=== PATIENT | female | born 1945 | race Caucasian/White ===

== ENCOUNTER 2018-12-28 11:03 | Observation (INO) | payer MEDICARE, OTHER, SELFPAY ==
[2018-12-28] VITALS (11 sets, daily range): BP systolic 129–171; BP diastolic 69–91; PULSE 65–94; RESP 16–18; TEMP 36.6–36.7; O2SAT 92–98; BMI 23.8; BMI 23.3; BMI 23.4
--- NOTE | 2018-12-28 11:23 | EKG12_ITS ---
Test Reason : CP Blood Pressure : / mmHG Vent. Rate : 090 BPM Atrial Rate : 090 BPM P-R Int : 172 ms QRS Dur : 082 ms QT Int : 362 ms P-R-T Axes : 068 041 050 degrees QTc Int : 442 ms Normal sinus rhythm Possible Left atrial enlargement Borderline ECG Confirmed by MERRY CONTRERAS, MIRNA ([id number]), legal editor UMBERTO CRAIG ([id number] on 12/31/2018 9:59:37 AM Referred By: TL Confirmed By:MIRNA SOUSA MD
--- NOTE | 2018-12-28 11:24 | RAD_ITS ---
We are attempting to reach Betty Hebert to discuss findings. An addendum with communication details will be sent when the communication is complete. STUDY: X-RAY CHEST REASON FOR EXAM: Female, 73 years old. Chest pain TECHNIQUE: PA and lateral views of the chest. COMPARISON: None. FINDINGS: EKG leads project over the chest. The lungs are clear and expanded. There is no demonstrated pleural abnormality. Normal size heart. Normal mediastinum and alton. Normal visualized pulmonary arteries. There is atherosclerotic calcification of the aortic arch with tortuosity. Normal visualized thoracic spine. Normal visualized ribs, clavicles, and shoulders. There is no demonstrated abnormality of the visualized soft tissue structures of the upper abdomen. RAD/Chest PA and Lateral IMPRESSION: No acute cardiopulmonary process. Pending Final Proof Editing
--- NOTE | 2018-12-28 11:26 | ED.DCSUM_ITS ---
- ER Visit Summary Date of Service: 12/28/18 Chief Complaint: Chest pain History of Present Illness: The patient is a 73 F presents valuation intermittent chest symptoms are last 2 weeks. States would have left shoulder blade pain, left arm pain or sternal pain separately. Sometimes worse with exertion sometimes at rest. Symptoms lasting no more than 5 minutes. Last onset of symptoms was 5 minutes prior to arrival in the car states felt like indigestion. No nausea or vomiting. No dyspnea. No recent cough. No PE risk factors. History of previous history of hypertension hypercholesterolemia however has not been on medicines for years. She is on thyroid medicines. Brother had [place] at age 55 mother and father in their 60s and 70s. Stress test years ago, no heart cath. No tobacco history. Yesterday had 5 loose stools with no recent antibiotics. No abdominal pain. Tolerating oral fluids. Currently asymptomatic. Physical Examination: General: Alert and oriented ?3, no acute distress HEENT: Normocephalic, atraumatic. Moist mucosa membranes Neck: supple, nontender. Cardiovascular: Regular rate and rhythm, no murmurs Respiratory: Normal breath sounds, symmetric, no distress Abdomen: Soft, nontender, nondistended Extremities: Nontender, no edema, pulses intact ?4 Neuro: no focal neurological deficits. Test Results: EKG: Sinus rate of 90, no ST or T wave changes. Hemoglobin 16, creatinine 0.78 troponin negative. Chest x-ray negative. Emergency Department Course and Treatment: Patient present atypical chest symptoms, however does have intermittent chest symptoms arm pain, neck pain and scapular pain. Cardiac workup negative. Heart score to 4 WILMA score is a 1. Reevaluation she had transient pain went up her neck. With more frequent symptoms, do feel she would benefit inpatient management. Spoke with hospitalist Dr. Jarvis for Admission. Treatment Plan: [] Disposition: Admission Impression: Acute chest pain This note was generated with [employer] dictation software. It may contain incorrect words, spelling, and punctuation that were not noted in review of the chart prior to signing ED Disposition - Plan for ED Patient: Disposition: Acute Care Hospital [facility] Diagnosis: Chest pain Referrals: Abdullahi Koehler [Primary Care Provider] -
[2018-12-28 11:40] LABS: Absolute Lymphocyte Count 1.34 X10^3/ul (0.83-4.51); Absolute Neutrophil Count 5.3 X10^3/uL (2.0-7.7); Basophil# 0.03 X10^3/uL; Basophil% 0.4 % (0-1); Eosinophil# 0.18 X10^3/uL; Eosinophils% 2.5 % (0-5); Hemoglobin 16.2 g/dl (12.0-15.0); Lymphocyte # 1.34 X10^3/ul (4.0); Lymphocyte % 18.3 % (19-41); Mean Corp Hgb Conc 33.1 g/gl (32-36); Mean Corpuscular Hgb 30.4 pg (27.0-32.0); Mean Corpuscular Volume 91.9 fL (81-99); Mean Platelet Vol. 9.9 fl (6.2-12.0); Monocyte# 0.52 X10^3/uL; Monocyte% 7.1 % (0-10); Neutrophil # 5.25 X10^3/uL (2.7-7.7); Neutrophil % 71.4 % (47-70); Platelet Count 286 K/mm3 (150-450); RBC Distribution Width CV 13.3 % (11.6-14.6); RBC Distribution Width SD 44.5 fl (35.1-43.9); Red Blood Count 5.33 M/mm3 (4.2-5.4); White Blood Count 7.3 K/mm3 (4.4-11.0)
[2018-12-28 11:41] LABS: POSITIVE COUNT NO; POSITIVE DIFFERENTIAL NO; POSITIVE MORPHOLOGY NO
[2018-12-28 11:53] LABS: Anion Gap 8 (5-15); BUN 14 mg/dL (7-18); Calcium,Total 9.4 mg/dL (8.5-10.1); Chloride 106 mmol/L (98-107); Creatinine, Serum 0.78 mg/dL (0.55-1.02); EST Glomerular Filtration Rate 77 mL/min (>60); Est Glom Filt Rate - Afr Amer 93 mL/min (>60); Estimated Creatinine Clearance 43.27 ml/min; Glucose 134 mg/dL (74-106); Potassium 3.8 mmol/L (3.5-5.1); Sodium Level 137 mmol/L (136-145)
--- NOTE | 2018-12-28 13:03 | HP.PCM_ITS ---
Problem List (1) Hypothyroidism Status: Chronic (2) Hypertension Status: Chronic (3) Dyslipidemia Status: Chronic (4) Chest pain Status: Acute History of Present Illness Date of Admission: 12/28/18 Chief Complaint: Chest pain The patient is a 73 year old F with PMH as below who presents with 2 week history of intermittent chest pain. On occasion radiates to her shoulder or up her neck or down her arm. Sometimes worse with activity sometimes occurs at rest. Each episode lasts approximately 5 minutes and resolved on their own. She denies any syncope or shortness of breath at the moment. She does have occasional dizziness though she is denying any at the moment. She has had a stress test in the past which was negative and has not had this pain prior. In the ER initial troponin was negative and EKG was nonischemic. Denies any fevers, chills, or recent illness. Past Medical History Past Medical History (Chronic Problems): Chronic Problems Chronic back pain (Chronic) Hypothyroidism (Chronic) Hypertension (Chronic) Dyslipidemia (Chronic) Allergies codeine Allergy (Verified 12/28/18 11:06) Rash lanolin Allergy (Verified 12/28/18 11:06) Hives latex Allergy (Verified 12/28/18 11:06) Rash nickel [Nickel] Allergy (Verified 12/28/18 11:06) Swelling erythromycin base [Erythromycin Base] Adverse Reaction (Verified 12/28/18 11:06) Upset Stomach morphine Adverse Reaction (Verified 12/28/18 11:06) Vomiting Home Medications: Ambulatory Orders Medication Instructions Recorded Levothyroxine Sodium [Levoxyl] 75 mcg PO DAILY 12/19/13 Nabumetone [Relafen] 1,000 mg PO LUNCH 05/01/14 Cholecalciferol (Vitamin D3) 4,000 unit PO DAILY 12/28/18 [Vitamin D3] Fexofenadine HCl [Kenzie Allergy] 180 mg PO DAILY PRN 12/28/18 Gluc Riddle/Chondro Riddle A/Vit C/Mn 1 each PO DAILY 12/28/18 [Glucosamine Chondroitin Tab] Latanoprost/Pf [Latanoprost 0.005% 1 drop EACH EYE QHS 12/28/18 Eye Drop] [place]-3 Fatty Acids/Fish Oil 1,280 mg PO DAILY 12/28/18 [[place] 3 Fish Oil Softgel] Tizanidine HCl [Zanaflex] 2 mg PO DAILY PRN 12/28/18 Tumeric 750 mg PO LUNCH 12/28/18 Surgical History: appendectomy, total hip arthroplasty Smoking Status: Never smoker Alcohol: None Drugs: None - *Family History Maternal History Items: Heart Disease Paternal History Items: Heart Disease Review of Systems Constitutional: Denies: Chills, Fever, Weight Change HEENT: Denies: Head Aches, Sinus Congestion, Sinus Drainage Cardiovascular: Reports: Chest Pain. Denies: Palpitations Respiratory: Denies: Cough, Shortness of breath at rest, Sputum production Gastrointestinal: Denies: Abdominal Pain, Nausea, Vomiting Genitourinary: Denies: Dysuria Musculoskeletal: Denies: Joint Pain, Joint Tenderness Skin: Denies: Rash, Wounds Neurological: Denies: Numbness, Tingling, Focal weakness Psychiatric: Denies: Anxiety, Depression, Homicidal Ideations, Suicidal Ideations Hematologic/ Lymphatic: Denies: Easy Bruising, Easy Bleeding VTE Information - Inpt Only VTE Present on Admission: No Patient Problems: Active and Suspected Problems Chest pain (Acute) - Physical Exam General: Alert, Oriented x3, Cooperative, No apparent distress HEENT: Atraumatic, PERRLA, EOMI, Normocephalic Oral: Moist Mucosa Neck: Supple, No JVD, Trachea Midline Lungs: Clear to auscultation, Normal air movement, No rhonchi, No wheeze, No rales Cardiovascular: Regular rate, Regular Rhythm, Normal S1, Normal S2, No murmurs Abdomen: Soft, Non Tender, Non-Distended, No Hepato-splenomegaly Extremities: No edema, Capillary Refill Less than 3 Seconds Skin: No rashes, No breakdown Neurological: Neuro grossly intact, Sensory exam intact to light touch and pain Psych/Mental Status: Normal Affect, Appropriate Vital Signs Temp Pulse Resp BP Pulse Ox 97.8 F 79 18 132/74 H 92 12/28/18 11:04 12/28/18 12:34 12/28/18 12:34 12/28/18 12:34 12/28/18 12:34 Oxygen Flow Rate (L/min) 2 Oxygen Delivery Method Nasal Cannula Weight: 138 lb 14.259 oz Body Mass Index (BMI) 23.8 Laboratory Tests Past 24 Hrs 12/28/18 12/28/18 11:00 11:00 WBC 7.3 RBC 5.33 Hgb 16.2 H Hct 49.0 H MCV 91.9 MCH 30.4 MCHC 33.1 RDW 13.3 RDW Differential 44.5 H Plt Count 286 MPV 9.9 Immature Gran % (Auto) 0.300 Neut % (Auto) 71.4 H Lymph % (Auto) 18.3 L [place] % (Auto) 7.1 Eos % (Auto) 2.5 Baso % (Auto) 0.4 Absolute Neuts (auto) 5.3 Absolute Lymphs (auto) 1.34 Total Counted Not Reportable Sodium 137 Potassium 3.8 Chloride 106 Carbon Dioxide 23.0 Anion Gap 8 BUN 14 Creatinine 0.78 Estim Creat Clear Calc 43.27 Est GFR (MDRD) Af Amer 93 Est GFR (MDRD) Non-Af 77 BUN/Creatinine Ratio 18.0 Glucose 134 H Calcium 9.4 Troponin I < 0.015 Assessment/Plan All Active Problems Chest pain (Acute) 1. Chest pain/HTN/HLD -We will start aspirin every day and will check a lipid panel in a.m. -Exercise nuclear stress on Sunday -Serial troponins -She does not take any medication for her hypertension or hyperlipidemia -Monitor and add medications if necessary 2. Hypothyroidism -Stable ?Continue with home Synthroid DVT: Lovenox and SCDs Code Visit OBSV E&M: 96621 Initial observation care L3
[2018-12-28] MEDS: Aspirin 81 MG TAB.CHEW 324 MG PO (13:09)
--- NOTE | 2018-12-28 16:10 | EKG12_ITS ---
Test Reason : AM EKG Blood Pressure : / mmHG Vent. Rate : 063 BPM Atrial Rate : 063 BPM P-R Int : 214 ms QRS Dur : 082 ms QT Int : 424 ms P-R-T Axes : 031 028 052 degrees QTc Int : 433 ms Sinus rhythm with 1st degree A-V block Otherwise normal ECG When compared with ECG of 28-DEC-2018 14:24, MANUAL COMPARISON REQUIRED, DATA IS UNCONFIRMED Confirmed by HILDA CONTRERAS, MARIO ([id number]), associate entertainment editor REGAN OH ([id number]) on 01/03/2019 9:45:17 AM Referred By: Confirmed By:MARIO STEVENS MD
[2018-12-28] MEDS: 0.9% NaCl Peripheral Flush Adult/Peds IV (17:41)
[2018-12-28] MEDS: Acetaminophen 325 MG Tablet 650 MG PO (18:54)
[2018-12-29] VITALS (11 sets, daily range): BP systolic 120–161; BP diastolic 63–81; PULSE 58–87; RESP 16–18; TEMP 36.3–36.6; O2SAT 96–100
[2018-12-29] MEDS: 0.9% NaCl Peripheral Flush Adult/Peds IV ×3 (05:22→21:39)
[2018-12-29] MEDS: Levothyroxine 75 MCG Tablet PO (05:24)
[2018-12-29] MEDS: Acetaminophen 325 MG Tablet 650 MG PO ×2 (05:35→20:24)
[2018-12-29 06:44] LABS: Anion Gap 9 (5-15); BUN 12 mg/dL (7-18); BUN/Creat Ratio 19.7 RATIO (10-20); Calcium,Total 8.8 mg/dL (8.5-10.1); Chloride 108 mmol/L (98-107); Cholesterol 254 mg/dL (200); Creatinine, Serum 0.61 mg/dL (0.55-1.02); EST Glomerular Filtration Rate 102 mL/min (>60); Est Glom Filt Rate - Afr Amer 123 mL/min (>60); Estimated Creatinine Clearance 45.09 ml/min; Glucose 96 mg/dL (74-106); High Density Lipoprotein 57 mg/dL; Potassium 3.7 mmol/L (3.5-5.1); Sodium Level 141 mmol/L (136-145); Triglycerides 86 mg/dL; Very Low Density Lipoprotein 17 mg/dL (5-40)
[2018-12-29] MEDS: Aspirin 81 MG TAB.CHEW PO (07:35)
[2018-12-29] MEDS: Etodolac 200 MG Capsule 400 MG PO (09:31)
--- NOTE | 2018-12-29 14:33 | PCM.PN.HOSP ---
Patient Problems: Active and Suspected Problems Chest pain (Acute) Subjective: Feeling okay today, she is having some dull pain in her back but otherwise denies any chest pain, shortness of breath. Vitals/I&O's: Vital Signs Temp Pulse Resp BP Pulse Ox 98 F 64 16 140/67 H 99 12/29/18 11:30 12/29/18 11:30 12/29/18 11:30 12/29/18 11:30 12/29/18 11:30 Oxygen Flow Rate (L/min) 2 Oxygen Delivery Method Room Air Weight: 140 lb 10.479 oz Body Mass Index (BMI) 23.3 Intake and Output for Last 24 Hours 12/27/18 12/28/18 12/30/18 23:59 23:59 00:59 Intake Total 780 / 780 240 / 240 Balance 780 / 780 240 / 240 General: Alert, Oriented x3, Cooperative, No apparent distress HEENT: Atraumatic, PERRLA, EOMI, Normocephalic Oral: Moist Mucosa Neck: Supple, No JVD, Trachea Midline Lungs: Clear to auscultation, Normal air movement, No rhonchi, No wheeze, No rales Cardiovascular: Regular rate, Regular Rhythm, Normal S1, Normal S2, No murmurs Abdomen: Soft, Non Tender, Non-Distended, No Hepato-splenomegaly Extremities: No edema, Capillary Refill Less than 3 Seconds Skin: No rashes, No breakdown Neurological: Neuro grossly intact, Sensory exam intact to light touch and pain Psych/Mental Status: Normal Affect, Appropriate Laboratory Results 12/28/18 15:31: Troponin I < 0.015 12/28/18 17:52: Troponin I < 0.015 12/29/18 05:53: Sodium 141, Potassium 3.7, Chloride 108 H, Carbon Dioxide 24.0, Anion Gap 9, BUN 12, Creatinine 0.61, Estim Creat Clear Calc 45.09, Est GFR (MDRD) Af Amer 123, Est GFR (MDRD) Non-Af 102, BUN/Creatinine Ratio 19.7, Glucose 96, Calcium 8.8, Triglycerides 86, Cholesterol 254 H, LDL Cholesterol 180 H, VLDL Cholesterol 17, HDL Cholesterol 57 Current Medications Acetaminophen (Tylenol) 650 mg PO Q6H PRN PRN PRN Reason: PAIN Last Admin: 12/29/18 05:35 Dose: 650 mg Aspirin (Aspirin, Baby) 81 mg PO DAILY@0800 [facility] Last Admin: 12/29/18 07:35 Dose: 81 mg Cholecalciferol (Vitamin D) 4,000 unit PO DAILY [facility] Last Admin: 12/29/18 09:31 Dose: 4,000 unit Enoxaparin Sodium (Lovenox) 40 mg SC DAILY@1000 [facility] Last Admin: 12/29/18 09:30 Dose: Not Given Etodolac (Lodine) 400 mg PO LUNCH [facility] Last Admin: 12/29/18 09:31 Dose: 400 mg Latanoprost (Xalatan Opthalmic) 1 drop EACH EYE QHS [facility] Last Admin: 12/28/18 19:18 Dose: Not Given Levothyroxine Sodium (Synthroid) 75 mcg PO SuMoTuWeThFr [facility] Last Admin: 12/29/18 05:24 Dose: 75 mcg Levothyroxine Sodium (Synthroid) 37.5 [address]cg PO [facility] Loratadine (Claritin) 10 mg PO DAILY PRN PRN Reason: ALLERGIES Magnesium Hydroxide (Milk Of Magnesia) 30 ml PO DAILY PRN PRN Reason: Constipation Sodium Chloride () 5 - 15 ml IV UD PRN PRN Reason: SALINE FLUSH Last Admin: 12/29/18 05:22 Dose: 10 ml Tizanidine HCl (Zanaflex) 2 mg PO DAILY PRN PRN PRN Reason: RESTLESNESS Medical Necessity - Tobacco Use Smoking Status: Never smoker Assessment/Plan All Active Problems Chest pain (Acute) 1. Chest pain/HTN/HLD -We will start aspirin every day and will check a lipid panel in a.m. -Exercise nuclear stress on Sunday -Serial troponins were negative -She does not take any medication for her hypertension or hyperlipidemia -Monitor and add medications if necessary -Her ASCVD risk is 15%, will start Lipitor, she does have a history of having myalgia does she does not remember which statin she had been on 2. Hypothyroidism -Stable ?Continue with home Synthroid DVT: Lovenox and SCDs Code Visit Inpatient E&M: 83293 Subs Hosp L2
--- NOTE | 2018-12-29 14:37 | PN_ITS ---
Patient Problems: Active and Suspected Problems Chest pain (Acute) Subjective: Feeling okay today, she is having some dull pain in her back but otherwise denies any chest pain, shortness of breath. Vitals/I&O's: Vital Signs Temp Pulse Resp BP Pulse Ox 98 F 64 16 140/67 H 99 12/29/18 11:30 12/29/18 11:30 12/29/18 11:30 12/29/18 11:30 12/29/18 11:30 Oxygen Flow Rate (L/min) 2 Oxygen Delivery Method Room Air Weight: 140 lb 10.479 oz Body Mass Index (BMI) 23.3 Intake and Output for Last 24 Hours 12/27/18 12/28/18 12/30/18 23:59 23:59 00:59 Intake Total 780 / 780 240 / 240 Balance 780 / 780 240 / 240 General: Alert, Oriented x3, Cooperative, No apparent distress HEENT: Atraumatic, PERRLA, EOMI, Normocephalic Oral: Moist Mucosa Neck: Supple, No JVD, Trachea Midline Lungs: Clear to auscultation, Normal air movement, No rhonchi, No wheeze, No rales Cardiovascular: Regular rate, Regular Rhythm, Normal S1, Normal S2, No murmurs Abdomen: Soft, Non Tender, Non-Distended, No Hepato-splenomegaly Extremities: No edema, Capillary Refill Less than 3 Seconds Skin: No rashes, No breakdown Neurological: Neuro grossly intact, Sensory exam intact to light touch and pain Psych/Mental Status: Normal Affect, Appropriate Laboratory Results 12/28/18 15:31: Troponin I < 0.015 12/28/18 17:52: Troponin I < 0.015 12/29/18 05:53: Sodium 141, Potassium 3.7, Chloride 108 H, Carbon Dioxide 24.0, Anion Gap 9, BUN 12, Creatinine 0.61, Estim Creat Clear Calc 45.09, Est GFR (MDRD) Af Amer 123, Est GFR (MDRD) Non-Af 102, BUN/Creatinine Ratio 19.7, Glucose 96, Calcium 8.8, Triglycerides 86, Cholesterol 254 H, LDL Cholesterol 180 H, VLDL Cholesterol 17, HDL Cholesterol 57 Current Medications Acetaminophen (Tylenol) 650 mg PO Q6H PRN PRN PRN Reason: PAIN Last Admin: 12/29/18 05:35 Dose: 650 mg Aspirin (Aspirin, Baby) 81 mg PO DAILY@0800 [facility] Last Admin: 12/29/18 07:35 Dose: 81 mg Cholecalciferol (Vitamin D) 4,000 unit PO DAILY [facility] Last Admin: 12/29/18 09:31 Dose: 4,000 unit Enoxaparin Sodium (Lovenox) 40 mg SC DAILY@1000 [facility] Last Admin: 12/29/18 09:30 Dose: Not Given Etodolac (Lodine) 400 mg PO LUNCH [facility] Last Admin: 12/29/18 09:31 Dose: 400 mg Latanoprost (Xalatan Opthalmic) 1 drop EACH EYE QHS [facility] Last Admin: 12/28/18 19:18 Dose: Not Given Levothyroxine Sodium (Synthroid) 75 mcg PO SuMoTuWeThFr [facility] Last Admin: 12/29/18 05:24 Dose: 75 mcg Levothyroxine Sodium (Synthroid) 37.5 mcg PO [facility] Loratadine (Claritin) 10 mg PO DAILY PRN PRN Reason: ALLERGIES Magnesium Hydroxide (Milk Of Magnesia) 30 ml PO DAILY PRN PRN Reason: Constipation Sodium Chloride () 5 - 15 ml IV UD PRN PRN Reason: SALINE FLUSH Last Admin: 12/29/18 05:22 Dose: 10 ml Tizanidine HCl (Zanaflex) 2 mg PO DAILY PRN PRN PRN Reason: RESTLESNESS Medical Necessity - Tobacco Use Smoking Status: Never smoker Assessment/Plan All Active Problems Chest pain (Acute) 1. Chest pain/HTN/HLD -We will start aspirin every day and will check a lipid panel in a.m. -Exercise nuclear stress on Sunday -Serial troponins were negative -She does not take any medication for her hypertension or hyperlipidemia -Monitor and add medications if necessary -Her ASCVD risk is 15%, will start Lipitor, she does have a history of having myalgia does she does not remember which statin she had been on 2. Hypothyroidism -Stable ?Continue with home Synthroid DVT: Lovenox and SCDs Code Visit Inpatient E&M: [id number] Subs Hosp L2
[2018-12-29] MEDS: Latanoprost 0.005% 1 Bottle 1 DRP EACH EYE (22:03)
[2018-12-30 03:26] VITALS: PULSE 57
[2018-12-30 04:05] VITALS: BP 113/76; PULSE 60; RESP 16; TEMP 36.6; O2SAT 94
[2018-12-30 05:34] LABS: Anion Gap 7 (5-15); BUN 9 mg/dL (7-18); BUN/Creat Ratio 15.6 RATIO (10-20); Calcium,Total 8.8 mg/dL (8.5-10.1); Chloride 109 mmol/L (98-107); Creatinine, Serum 0.58 mg/dL (0.55-1.02); EST Glomerular Filtration Rate 109 mL/min (>60); Est Glom Filt Rate - Afr Amer 131 mL/min (>60); Estimated Creatinine Clearance 45.09 ml/min; Glucose 101 mg/dL (74-106); Potassium 3.9 mmol/L (3.5-5.1); Sodium Level 143 mmol/L (136-145)
[2018-12-30 05:40] LABS: Partial Thromboplast Time 26.1 Seconds (24.1-36.2); Prothrombin Time (Protime)PT. 13.1 SECONDS (11.7-14.9)
[2018-12-30] MEDS: Levothyroxine 75 MCG Tablet PO (05:47)
[2018-12-30] MEDS: Aspirin 81 MG TAB.CHEW PO (05:47)
--- NOTE | 2018-12-30 05:55 | EKG12_ITS ---
Test Reason : CP ADMISSION Blood Pressure : / mmHG Vent. Rate : 066 BPM Atrial Rate : 066 BPM P-R Int : 202 ms QRS Dur : 080 ms QT Int : 424 ms P-R-T Axes : 054 042 048 degrees QTc Int : 444 ms Normal sinus rhythm Normal ECG When compared with ECG of 28-DEC-2018 11:03, MANUAL COMPARISON REQUIRED, DATA IS UNCONFIRMED Confirmed by HILDA CONTRERAS, MARIO ([id number]), state editor REGAN [place] ([id number]) on 01/03/2019 9:48:53 AM Referred By: ALON Confirmed By:MARIO STEVENS MD
[2018-12-30 06:00] LABS: Absolute Lymphocyte Count 1.52 X10^3/ul (0.83-4.51); Absolute Neutrophil Count 3.1 X10^3/uL (2.0-7.7); Basophil# 0.02 X10^3/uL; Basophil% 0.4 % (0-1); Eosinophil# 0.36 X10^3/uL; Eosinophils% 6.5 % (0-5); Hematocrit 46.3 % (37-47); Hemoglobin 15.1 g/dl (12.0-15.0); Lymphocyte # 1.52 X10^3/ul (4.0); Lymphocyte % 27.4 % (19-41); Mean Corp Hgb Conc 32.6 g/gl (32-36); Mean Corpuscular Hgb 30.2 pg (27.0-32.0); Mean Corpuscular Volume 92.6 fL (81-99); Mean Platelet Vol. 9.8 fl (6.2-12.0); Monocyte# 0.48 X10^3/uL; Monocyte% 8.7 % (0-10); Neutrophil # 3.14 X10^3/uL (2.7-7.7); Neutrophil % 56.6 % (47-70); Platelet Count 249 K/mm3 (150-450); RBC Distribution Width CV 13.2 % (11.6-14.6); RBC Distribution Width SD 43.5 fl (35.1-43.9); White Blood Count 5.5 K/mm3 (4.4-11.0)
[2018-12-30 06:09] LABS: POSITIVE COUNT NO; POSITIVE DIFFERENTIAL NO; POSITIVE MORPHOLOGY NO
[2018-12-30 09:15] VITALS: BP 150/87; PULSE 95; RESP 16; TEMP 36.7; O2SAT 98
[2018-12-30 09:17] VITALS: PULSE 80
--- NOTE | 2018-12-30 09:49 | STRESSREP_ITS ---
Stress Test Report Exercise myocardial perfusion stress test. 73-year-old lady with a history of chest pain. Stress protocol: Resting EKG demonstrates normal sinus rhythm with a rate of 70 bpm resting blood pressure 130/78 mmHg. The patient exercised according to regular Keron protocol for a total duration of 6 minutes and 30 seconds. The maximum heart rate attained was 150 bpm which was 102% of maximum predicted heart rate the maximum workload was 7.7 metabolic equivalents. At rest there were no ST or T wave changes noted suggest ischemia peak exercise upsloping ST changes only were noted with normally the criteria for ischemia. No clinical angina was noted the test was terminated due to leg fatigue. The resting blood pressure was 130/78 mmHg with a peak blood pressure 174/70 6 m of mercury. Myocardial perfusion protocol. 11.2 mCi of technetium 99m sestamibi was injected at rest. Patient exercised according to regular Keron protocol for total duration of 6-1/2 minutes at peak exercise 33.6 mCi of technetium 99m sestamibi was injected stress images were obtained stress and rest images were reconstructed and compared in the short axi s vertical long horizontal long axis. Gated images were also obtained Myocardial perfusion protocol. Review of the stress images demonstrate normal uptake of tracer noted in all areas of the myocardium. The resting images similarly demonstrate normal uptake of tracer noted in all areas of the myocardium. No areas of reversibility are noted suggest ischemia no previous infarct is noted. Gated SPECT analysis: The gated ejection fraction is noted to be 87%. Conclusion: Normal exercise myocardial perfusion stress test at a moderate workload. Preserved ejection fraction. Good functional aerobic capacity.
--- NOTE | 2018-12-30 10:22 | DCINST_ITS ---
- Discharge Diagnoses Current Active Problems: Current Active and Chronic Problems Chest pain (Acute) You will use the following diet at home:: Cardiac Discharge Activity: Return to Normal Activity, May not drive while taking narcotic pain medications. Instructions: ED Chest Pain NonCardiac Allergies/Adverse Reactions: Allergies codeine Allergy (Verified 12/28/18 11:06) Rash lanolin Allergy (Verified 12/28/18 11:06) Hives latex Allergy (Verified 12/28/18 11:06) Rash nickel [Nickel] Allergy (Verified 12/28/18 11:06) Swelling erythromycin base [Erythromycin Base] Adverse Reaction (Verified 12/28/18 11:06) Upset Stomach morphine Adverse Reaction (Verified 12/28/18 11:06) Vomiting Medications to take at Discharge Levothyroxine Sodium [Levoxyl] 75 mcg PO DAILY 12/19/13 Nabumetone [Relafen] 1,000 mg PO LUNCH 05/01/14 Cholecalciferol (Vitamin D3) [Vitamin D3] 4,000 unit PO DAILY 12/28/18 Fexofenadine HCl [Kenzie Allergy] 180 mg PO DAILY PRN 12/28/18 Gluc Riddle/Chondro Riddle A/Vit C/Mn [Glucosamine Chondroitin Tab] 1 each PO DAILY 12/28/18 Latanoprost/Pf [Latanoprost 0.005% Eye Drop] 1 drop EACH EYE QHS 12/28/18 [place]-3 Fatty Acids/Fish Oil [[place] 3 Fish Oil Softgel] 1,280 mg PO DAILY 12/28/18 Tizanidine HCl [Zanaflex] 2 mg PO DAILY PRN 12/28/18 Tumeric 750 mg PO LUNCH 12/28/18 Atorvastatin Calcium [Lipitor] 40 mg PO QHS #90 tablet 12/30/18 The following prescriptions were given: Atorvastatin Calcium [Lipitor] 40 mg PO QHS #90 tablet Primary Care Physician: Abdullahi Koehler [Primary Care Provider] - Please follow up with your Primary Care Physician in: [place] 5-7 DAYS Test Results: Test results from this visit will be discussed in further detail at your follow- up appointment, if applicable. Proposed Discharge Date: 12/30/18
--- NOTE | 2018-12-30 10:24 | DS.PCM_ITS ---
Discharge Date and Diagnosis - Problem List Patient Problems: Active and Suspected Problems Chest pain (Acute) Date of Admission: 12/28/18 Date of Discharge: 12/30/18 - Primary Discharge Diagnosis Active and Suspected Problems Chest pain (Acute) - Secondary Discharge Diagnosis Chronic Problems Chronic back pain (Chronic) Hypothyroidism (Chronic) Hypertension (Chronic) Dyslipidemia (Chronic) Hospital Course and Treatment Summary of Care Provided: The patient is a 73 year old F presented with intermittent chest pain 1. Chest pain patient was placed in a monitored bed [place] was ruled out with serial cardiac enzymes patient subsequently underwent a nuclear stress test which was negative for stress-induced ischemia. Discharge home instructed to follow-up with PCP for noncardiac workup of her chest pain 2. Dyslipidemia new diagnosis prescription was written for Lipitor 40 mg on discharge 3. Hypothyroidism-patient is on levothyroxine home dose continued Patient Problems: Active and Suspected Problems Chest pain (Acute) - Physical Exam General: Alert HEENT: Atraumatic, Normocephalic Neck: Supple Lungs: Clear to auscultation Cardiovascular: Regular rate Neurological: Neuro grossly intact Psych/Mental Status: Normal Affect Vital Signs Temp Pulse Resp BP Pulse Ox 98.0 F 80 16 150/87 H 98 12/30/18 09:15 12/30/18 09:17 12/30/18 09:15 12/30/18 09:15 12/30/18 09:15 Oxygen Flow Rate (L/min) 2 Oxygen Delivery Method Room Air Weight: 63.8 kg Body Mass Index (BMI) 23.3 Intake and Output for Last 24 Hours 12/28/18 12/29/18 12/30/18 22:59 23:59 23:59 Intake Total 50 / 50 Balance 50 / 50 Laboratory Tests Past 24 Hrs 12/30/18 12/30/18 12/30/18 04:46 04:46 04:46 WBC 5.5 RBC 5.00 Hgb 15.1 H Hct 46.3 MCV 92.6 MCH 30.2 MCHC 32.6 RDW 13.2 RDW Differential 43.5 Plt Count 249 MPV 9.8 Immature Gran % (Auto) 0.400 Neut % (Auto) 56.6 Lymph % (Auto) 27.4 Crawford % (Auto) 8.7 Eos % (Auto) 6.5 H Baso % (Auto) 0.4 Absolute Neuts (auto) 3.1 Absolute Lymphs (auto) 1.52 Total Counted Not Reportable PT 13.1 INR 1.0 APTT 26.1 Sodium 143 Potassium 3.9 Chloride 109 H Carbon Dioxide 27.0 Anion Gap 7 BUN 9 Creatinine 0.58 Estim Creat Clear Calc 45.09 Est GFR (MDRD) Af Amer 131 Est GFR (MDRD) Non-Af 109 BUN/Creatinine Ratio 15.6 Glucose 101 Calcium 8.8 Discharge Diet: Low fat/ Low Cholesterol Discharge Activity: Return to Normal Activity, May not drive while taking narcotic pain medications. Home Medications: Medications to take at Discharge Levothyroxine Sodium [Levoxyl] 75 mcg PO DAILY 12/19/13 Nabumetone [Relafen] 1,000 mg PO LUNCH 05/01/14 Cholecalciferol (Vitamin D3) [Vitamin D3] 4,000 unit PO DAILY 12/28/18 Fexofenadine HCl [Kenzie Allergy] 180 mg PO DAILY PRN 12/28/18 Gluc Riddle/Chondro Riddle A/Vit C/Mn [Glucosamine Chondroitin Tab] 1 each PO DAILY 12/28/18 Latanoprost/Pf [Latanoprost 0.005% Eye Drop] 1 drop EACH EYE QHS 12/28/18 [place]-3 Fatty Acids/Fish Oil [[place] 3 Fish Oil Softgel] 1,280 mg PO DAILY 12/28/18 Tizanidine HCl [Zanaflex] 2 mg PO DAILY PRN 12/28/18 Tumeric 750 mg PO LUNCH 12/28/18 Atorvastatin Calcium [Lipitor] 40 mg PO QHS #90 tablet 12/30/18 Following Prescrptions Were Given to Patient: Atorvastatin Calcium [Lipitor] 40 mg PO QHS #90 tablet Primary Care Physician: Abdullahi Koehler [Primary Care Provider] - Please follow up with your Primary Care Physician in: IN 5-7 DAYS Patient Instructions: ED Chest Pain NonCardiac Disposition: Home Minutes spent on discharge:: 35 Patient Condition:: Stable Medical Necessity - Tobacco Use Smoking Status: Never smoker Meaningful Use Info Meaningful Use Diagnoses (Choose all that apply): None applicable Code Visit OBSV E&M: 54278 Observation care discharge
--- NOTE | 2018-12-30 10:40 | CASEMGMT ---
This CECY MARCELO to room with FISHER form at this time, explanation done-pt voices understanding, and consents to assessment at this time. Original to chart and copy to pt at this time. Pt voices no further questions/concerns/needs at this time. [place] CECY MARCELO
== END 2018-12-30 10:21 | disposition home or self-care (01) ==
LOC: ED 13:06 → PCU 13:23
PROVIDERS: Admitting Provider Family Medicine; Emergency Provider Emergency Medicine; Family Provider Student in an Organized Health Care Education/Training Program; PCP Student in an Organized Health Care Education/Training Program; Visit Provider Internal Medicine
DX: R07.89 Other chest pain (principal); M79.602 Pain in left arm; I10 Essential (primary) hypertension; M54.2 Cervicalgia; E03.9 Hypothyroidism, unspecified; E78.5 Hyperlipidemia, unspecified; G89.29 Other chronic pain; Z79.899 Other long term (current) drug therapy
CPT/HCPCS: 36415; 71046; 78452; 80048; 80061; 84484; 85025; 85610; 85730; 93005; 93017; 99218; 99283; A9500; A4216; G0378

== ENCOUNTER 2023-08-31 05:25 | Day surgery (SDC) | payer MEDICARE, OTHER, SELFPAY ==
--- NOTE | 2023-08-31 | GASB_PTH ---
PATIENT: SEAN MURGUIA LOC: EN U#:[id number] AGE/SX: 78/F ROOM: RE08/31/[address]: Dr. Yaw Gregg MD : 1945 BED: DIS: 08/31/2023 SPEC #: [id number] RECD: 08/31/23 13:46 STATUS: ALLA REChely #: [id number] ZELALEM: 08/31/23 00:[address]: Yaw Gregg DEPT: SURGICAL PATHOLOGY RECD BY: Brent Rojas ENTERED: 08/31/23 13:46 SP TYPE: Gastric Bx OTHR DR: Dr. Abdullahi Koehler DO Tissues: A - Duodenum, NOS B - Gastric mucous membrane C - Esophageal mucous membrane D - Esophageal mucous membrane Procedures: Surgery Specimen Level IV HEADER OPERATION: EGD and biopsy PRE-OP DIAGNOSIS: GERD and food intolerance TISSUE SUBMITTED: A. Duodenum, B. Antral biopsy C. Distal esophagus biopsy, D. Mid esophagus biopsy MICROSCOPIC DIAGNOSIS A. Duodenum, biopsy: No pathologic change. B. Gastric antrum, biopsy: Chronic gastritis. See comment. C. Distal esophagus, biopsy: Fragments of benign squamous epithelium. No evidence of inflammation. D. Mid esophagus, biopsy: Fragments of benign squamous epithelium. No evidence of inflammation. AM:nehal 09/04/2023 COMMENT B. The results of immunohistochemistry for Helicobacter pylori will be reported separately ([id number]). MICROSCOPIC DESCRIPTION Slides are reviewed. GROSS DESCRIPTION A - Received in fixative is one container labeled with the patient's name and designated duodenum biopsy. The specimen consists of two irregular fragments of light sears soft tissue that in aggregate measure 0.6 x 0.3 x 0.1 cm. The specimen is totally submitted in one cassette. B - Received in fixative is one container labeled with the patient's name and designated antrum biopsy. The specimen consists of one irregular fragment of light sears soft tissue that measures 0.5 x 0.3 x 0.1 cm. The specimen is totally submitted in one cassette. C - Received in fixative is one container labeled with the patient's name and designated distal esophagus biopsy. The specimen consists of two irregular fragments of light sears soft tissue that in aggregate measure 0.6 x 0.3 x 0.1 cm. The specimen is totally submitted in one cassette. D - Received in fixative is one container labeled with the patient's name and designated mid esophagus biopsy. The specimen consists of one irregular fragment of light sears soft tissue that measures 0.6 x 0.2 x 0.1 cm. The specimen is totally submitted in one cassette. / JUANCARLOS:nehal 08/31/2023 TC:3 CPT: 37206 x4
--- NOTE | 2023-08-31 | IMM_PTH ---
PATIENT: SEAN MURGUIA LOC: EN U#:[id number] AGE/SX: 78/F ROOM: RE08/31/[address]: Dr. Yaw Gregg MD : 1945 BED: DIS: 08/31/2023 SPEC #: [id number] RECD: 08/31/23 14:24 STATUS: ALLA REQ #: [id number] ZELALEM: 08/31/23 00:[address]: Yaw Gregg DEPT: IMMUNOHISTOCHEMISTRY RECD BY: Nanda José ENTERED: 08/31/23 14:24 SP TYPE: IMMUNO OTHR DR: Dr. Abdullahi Koehler, DO Tissues: Gastrointestinal mucous membrane, NOS Procedures: H Pylori (initial) PHYSICIAN & INSTITUTION [place] [address] SPECIMEN INFORMATION: Tissue Source: Antral biopsy Clinical Info: GERD and food intolerance Specimen Number: [id number] CPT code: 40967 METHODOLOGY: Deparaffinized sections of prefer/formalin-fixed tissue or PAP/DQ stained slides are incubated with monoclonal/polyclonal antibodies/oligonucleotide probes. Localization is made via biotin free immunoperoxidase method. Appropriate controls are performed and reacted as expected. Results on target cell population are indicated in the following table: RESULTS: ANTIBODY / CLONE RESULT Block B H Pylori (polyclonal) negative These tests were developed and their performance characteristics determined by [facility]. They may not have been cleared or approved by the U.S. Food and Drug Administration. The FDA has determined that such clearance or approval is not necessary. The above immunohistochemical/dualISH markers are ordered and reviewed by the Pathologist. INTERPRETATION: Antral biopsy: Negative for Helicobacter pylori organisms. AM:nehal 09/03/2023
[2023-08-31 05:51] VITALS: BP 152/66; PULSE 66; RESP 18; TEMP 36.1; O2SAT 97; BMI 19.9
--- NOTE | 2023-08-31 05:56 | HP.PCM_ITS ---
History and Physical Date of Admission: 08/31/23 Visit Reasons: GERD, FOOD INTOLERANCE Chief Complaint: gerd Is patient in pain?: No Allergies gluten Allergy (Unknown, Verified 07/27/23 14:08) Othercodeine Allergy (Verified 12/28/18 11:06) Rashlanolin Allergy (Verified 12/28/18 11:06) Hiveslatex Allergy (Verified 12/28/18 11:06) Rashnickel [Nickel] Allergy (Verified 12/28/18 11:06) Swellingerythromycin base [Erythromycin Base] Adverse Reaction (Verified 12/28/18 11:06) Upset Stomachmorphine Adverse Reaction (Verified 12/28/18 11:06) Vomiting Medications levothyroxine 75 mcg tablet (Levoxyl) 75 mcg PO DAILY thyroid 12/19/13 [History Confirmed 07/27/23] nabumetone 500 mg tablet 1,000 mg PO LUNCH arthritis 05/01/14 [History Confirmed 07/27/23] cholecalciferol (vitamin D3) 50 mcg (2,000 unit) tablet (Vitamin D3) 4,000 unit PO DAILY supplement 12/28/18 [History Confirmed 07/27/23] fexofenadine 180 mg tablet (Kenzie Allergy) 180 mg PO DAILY PRN Allergies 12/28/18 [History Confirmed 07/27/23] [id number] C-Mn 750 mg-600 mg-55 mg-5 mg tablet 1 ea PO DAILY supplement 12/28/18 [History Confirmed 12/28/18] latanoprost (PF) 0.005 % eye drops 1 drp QHS eye drop 12/28/18 [History Confirmed 07/27/23] tizanidine 2 mg capsule (Zanaflex) 2 mg PO DAILY PRN Restlessness 12/28/18 [History Confirmed 07/27/23] betamethasone valerate 0.1 % topical ointment 1 applic topical DAILY 07/27/23 [History Confirmed 07/27/23] magnesium oxide 500 mg capsule 500 mg PO DAILY 07/27/23 [History Confirmed 07/27/23] PFSH Social History (Updated 07/27/23 @ 14:05 by Barb Moy) Smoking Status: Never smoker alcohol intake: never substance use type: does not use HPI HPI HPI: 78-year-old female is being referred by Dr. Abdullahi Koehler for surgical consultation regarding food intolerance and a written copy of my surgical consult and recommendations will return to her. The patient has a known history of gastroesophageal reflux disease. It is of note that the patient received propofol in order to receive pain management by Dr. Guillen for her spine. Afterwards apparently she had significant dizziness and had to be taken out in a wheelchair and has had vertigo for 5 days post procedure. She is underweight at 118 pounds. She complains that food gets stuck in her throat has difficulty swallowing pills at times. Dry food like cornflakes cause her trouble as to potatoes. She complains of nausea. Because of her dizziness is recommended to pursue a brain CT. She was also referred to physical therapy Patient had a previous appointment which she canceled. 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 There is no evidence of acute infarct or bleed.It was felt to be unremarkable. Laboratory as of May 23, 2023 demonstrates white count of 7.23 and hemoglobin 15.8 hematocrit of 47.2 platelet count 289,000. CMP was normal Patient states that she has multiple allergies. She gets nauseated whether she eats or not. 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 She has been seen by Anthony Danielson. She had a 40 pound weight loss but now has somewhat stabilized. She cannot take any nutritional supplements because she has systemic medical problems. She can eat corn. She had a nerve ablation procedure and was given propofol and subsequent that she was dizzy nauseated vertigo. Not clear whether it was due to the propofol was whether it was due to positioning and inner ear problems. She is being referred by Dr. Abdullahi Koehler for surgical consultation for an upper scope for evaluation and possible determination of her ongoing nausea symptoms ROS General General: Yes fatigue; No weight change, appetite, colon cancer, breast cancer or weakness HEENT HEENT: Yes difficulty swallowing; No eye injury, eye surgery, swollen glands or hoarseness Endo Endocrine: Yes thyroid disease; No diabetes mellitus, thyroid cancer, Hair loss, heat intolerance or cold intolerance Skin Skin: Yes rash; No changing moles Musc Musculoskeletal: Yes back problems and arthritis; No rheumatoid arthritis, gout or joint pain Cardio Cardiovascular: No murmur, pacemaker, heart disease, atrial fibrillation, high blood pressure, heart attack, heart stent, palpitations, shortness of breat with exertion or chest pain Psych Psychiatric: No depression, anxiety or hearing voices Resp Respiratory: No shortness of breath, No sleep apnea, No cough, No COPD, No asthma, No emphysema and No wheezing Gastro Gastrointestinal: Yes abdominal pain, Yes nausea or vomiting, No diarrhea, No constipation, No blood in stool, No acid reflux, Yes hemorrhoids, No ulcers, No gallbladder problem and No black,tarry stools Nikita Hematologic: No blood thinners, No blood disorders, No bleeding, No anemia and No blood clots Neuro Neurologic: No system reviewed and no additional complaints, except as documented, No as per HPI, No abnormal gait, No abnormal hearing, No abnormal movements, No abnormal speech, No behavioral changes, No burning sensations, No confusion, No convulsions, No disequilibrium, No dizziness, No localized weakness, No frequent falls, No headache(s), No lack of coordination, No loss of vision, No memory loss, Yes numbness, No other visual disturbances, No radicular pain, No restless legs, No sensory deficit, No syncope, Yes tingling, No tremor(s), No weakness and No other Exam Const General: cooperative, healthy appearing and comfortable [facility] Head: normal to inspection Eyes General: appearance normal, both eyes and all related structures Neck Neck: normal visual inspection Chest Chest palpation & inspection: normal inspection of the chest Resp Effort & Inspection: normal respiratory effort Auscultation: clear to auscultation bilaterally Cardio Rate: regular rate Rhythm: regular rhythm GI Palpation: soft and no hepatosplenomegaly Musc Cervical Spine: normal cervical lordosis Skin General: no rashes or lesions noted Neuro General: patient alert, patient awake and patient oriented x3 Extrem General: no calf tenderness Psych Appearance: grossly normal Assessment and Plan Assessment and Plan (1) GERD (gastroesophageal reflux disease): Status: Acute Qualifiers: Esophagitis presence: esophagitis presence not specified Qualified Code(s): K21.9 - Gastro-esophageal reflux disease without esophagitis Plan: Primary problem is incessant nausea and multiple allergies. I concur with Dr. Abdullahi Koehler that proceeding with a esophagogastroduodenoscopy would be pertinent. Very careful inspection of the duodenum stomach and esophagus will be pursued with appropriate biopsies of all sites as appropriate. With the patient's number of allergies she may well have reactive changes. She has had an opportunity ask and questions answered. I appreciate the opportunity of assisting with her surgical care. We will schedule procedure at her discretion. Additionally we will notify anesthesia of her potential propofol allergy but it is difficult to know of this actually was a reaction and she may simply had positional vertigo. Copy: Dr. Abdullahi Gregg M.D., F.A.C.S I have examined the patient and the H&P has been reviewed. There are no clinical changes since date of exam. Yaw Gregg M.D., F.A.C.S.
[2023-08-31] MEDS: Lactated Ringers 1,000 ML 15 ML IV (05:58)
--- NOTE | 2023-08-31 06:45 | OP.CCLET_ITS ---
08/31/2023 Abdullahi Koehler [address] [phone] Re : Upper GI endoscopy procedure for Ivette Pompa Dear Dr. Koehler This procedure was performed on Thursday, August 31, 2023. My impressions and recommendations are as follows: Impressions : - Normal mid esophagus. Biopsied. - Z-line regular, 35 cm from the incisors. Biopsied. - Small hiatal hernia. - Erythematous mucosa in the antrum. Biopsied. - Normal examined duodenum. Biopsied. Recommendations : - Discharge patient to home. - Resume previous diet. - Continue present medications. - Telephone my office for pathology results in 1 week. This upper endoscopy had minimal findings. Small hiatal hernia but no gross inflammatory changes. Very minimal erythema of the antrum. Pathology is pending and the patient will be notified of results. Clinically I am not finding anything that would correlate with symptoms or significant pathology. My findings are described in the full procedure note, which is enclosed. If I can be of further assistance, please feel free to contact me at Doctor phone number(s): Work: . Sincerely, Yaw Gregg MD 08/31/2023 6:43:54 AM This report has been signed electronically.
--- NOTE | 2023-08-31 06:45 | OP.EGD_ITS ---
Patient Name: Ivette Pompa Procedure Date: 08/31/2023 6:11 AM Date of : 1945 Age: 78 Procedure: Upper GI endoscopy Indications: Nausea Providers: Yaw Gregg MD Medicines: See the Anesthesia note for documentation of the administered medications Complications: No immediate complications. Procedure: Pre-Anesthesia Assessment: - Prior to the procedure, a History and Physical was performed, and patient medications and allergies were reviewed. The patient's tolerance of previous anesthesia was also reviewed. The risks and benefits of the procedure and the sedation options and risks were discussed with the patient. All questions were answered, and informed consent was obtained. Prior Anticoagulants: The patient has taken no anticoagulant or antiplatelet agents. ASA Grade Assessment: II - A patient with mild systemic disease. After reviewing the risks and benefits, the patient was deemed in satisfactory condition to undergo the procedure. After obtaining informed consent, the endoscope was passed under direct vision. Throughout the procedure, the patient's blood pressure, pulse, and oxygen saturations were monitored continuously. The Endoscope was introduced through the mouth, and advanced to the second part of duodenum. The upper GI endoscopy was accomplished without difficulty. The patient tolerated the procedure well. Scope In: 6:30:57 AM Scope Out: 6:37:29 AM Total Procedure Duration Time 0 hours 6 minutes 32 seconds Findings: The mid esophagus was normal. Biopsies were taken with a cold forceps for histology. The Z-line was regular and was found 35 cm from the incisors. Biopsies were taken with a cold forceps for histology. A small hiatal hernia was present. Diffuse mildly erythematous mucosa without bleeding was found in the gastric antrum. Biopsies were taken with a cold forceps for histology. The examined duodenum was normal. Biopsies were taken with a cold forceps for histology. Impression: - Normal mid esophagus. Biopsied. - Z-line regular, 35 cm from the incisors. Biopsied. - Small hiatal hernia. - Erythematous mucosa in the antrum. Biopsied. - Normal examined duodenum. Biopsied. Recommendation: - Discharge patient to home. - Resume previous diet. - Continue present medications. - Telephone my office for pathology results in 1 week. This upper endoscopy had minimal findings. Small hiatal hernia but no gross inflammatory changes. Very minimal erythema of the antrum. Pathology is pending and the patient will be notified of results. Clinically I am not finding anything that would correlate with symptoms or significant pathology. Procedure Code(s): --- Professional --- 20020, Esophagogastroduodenoscopy, flexible, transoral; with biopsy, single or multiple Diagnosis Code(s): --- Professional --- K44.9, Diaphragmatic hernia without obstruction or gangrene K31.89, Other diseases of stomach and duodenum R11.0, Nausea CPT copyright 2021 [employer]. All rights reserved. The codes documented in this report are preliminary and upon seed corn manager production review may be revised to meet current compliance requirements. Yaw Gregg MD 08/31/2023 6:43:54 AM This report has been signed electronically. Number of Addenda: 0 Note Initiated On: 08/31/2023 6:11 AM
[2023-08-31 06:48] VITALS: BP 131/79; BP 152/66; PULSE 63; RESP 18; TEMP 36.2; O2SAT 98
[2023-08-31 06:50] VITALS: BP 127/77; BP 152/66; PULSE 57; RESP 12; O2SAT 99
[2023-08-31 06:55] VITALS: BP 140/78; BP 152/66; PULSE 59; RESP 14; O2SAT 99
[2023-08-31 07:04] VITALS: BP 136/89; BP 152/66; PULSE 69; RESP 18; TEMP 36.9; O2SAT 100
[2023-08-31 07:16] VITALS: BP 152/66
== END 2023-08-31 07:30 | disposition home or self-care (01) ==
LOC: EN 05:25 → AC 05:28
PROVIDERS: PCP Student in an Organized Health Care Education/Training Program; Referring Provider Student in an Organized Health Care Education/Training Program; Visit Provider Surgery
PROC: 0DJ08ZZ Inspection of Upper Intestinal Tract, Via Natural or Artificial Opening Endoscopic (ICD-10-PCS; CPT 43235; principal; 2023-08-31 06:25)
DX: K29.50 Unspecified chronic gastritis without bleeding (principal); K21.9 Gastro-esophageal reflux disease without esophagitis; K44.9 Diaphragmatic hernia without obstruction or gangrene; R63.6 Underweight; R13.10 Dysphagia, unspecified; K31.89 Other diseases of stomach and duodenum; Z79.899 Other long term (current) drug therapy
CPT/HCPCS: 43239; 88305; 88342; J7120

== ENCOUNTER → 2023-11-01 | Outpatient (CLI) | payer MEDICARE, OTHER, SELFPAY ==
--- OUTSIDE RECORDS SUMMARY | 2023-11-01 11:32 | XMS RPT_ITS | CCD ---
Author Name Unknown Address [address] [place] [address] Organization [facility] Care Team Providers Care Digital Cartographic Technician Name Role Phone Abdullahi Koehler DO Primary Care Provider TRACEY BARROS NP Admitting Unavailable TRACEY BARROS JAVA ANALYST Attending Unavailable TRACEY BARROS NP Primary Care Unavailable SHELBY, DR JAMMIE Martinez Admitting Unavaila kimber RYAN, DR JAMMIE Martinez Attending Unavaila ble SEHLBY, DR JAMMIE Martinez Primary Care Unavaila ble Abdullahi Koehler DO Primary Care Provider Abdullahi Koehler DO Primary Care Provider Abdullahi Koehler DO Primary Care Provider ABDULLAHI KOEHLER Primary Care Unavailable HAWTHORNE, ALTAGRACIA Attending Unavailable CHEMA ALTAGRACIA Attending Unavailable CHEMA, ALTAGRACIA Referring Unavailable ABDULLAHI KOEHLER Primary Care Unavailable CHEMA ALTAGRACIA Attending Unavailable ABDULLAHI KOEHLER Primary Care Unavailable HAWTHORNE, ALTAGRACIA Referring Unavailable HAWTHORNE ALTAGRACIA Attending Unavailable ABDULLAHI KOEHLER Primary Care Unavailable HAWTHORNE, ALTAGRACIA Referring Unavailable ABDULLAHI KOEHLER Primary Care Unavailable WHITLEY BECK Attending Unavailab le HAWTHORNE, ALTAGRACIA Referring Unavailable HAWTHORNE, ALTAGRACIA Attending Unavailable ABDULLAHI KOEHLER Primary Care Unavailable Marilu CRAIG MD Unavailable KELVIN EVANS MD Unavailable Michelle Metzger RN Unavailable Unavailable Unavailable Unavailable PEGGY JIMÉNEZ Attending Unavailable ABDULLAHI KOEHLER Primary Care Unavailable ABDULLAHI KOEHLER Primary Care Unavailable ABDULLAHI KOEHLER Referring Unavailable KOEHLER, ABDULLAHI L Primary Care Unavailable KOEHLER, ABDULLAHI L Primary Care Unavailable KOEHLER, ABDULLAHI L Attending Unavailable KOEHLER, ABDULLAHI L Primary Care Unavailable O'NORMAN, PEGGY Attending Unavailable KOEHLER, ABDULLAHI L Referring Unavailable KOEHLER, ABDULLAHI L Primary Care Unavailable O'NORMAN, PEGGY Attending Unavailable KOEHLER, ABDULLAHI L Referring Unavailable KOEHLER, ABDULLAHI L Primary Care Unavailable O'NORMAN, PEGGY Attending Unavailable KOEHLER, ABDULLAHI L Referring Unavailable KOEHLER, ABDULLAHI L Primary Care Unavailable O'NORMAN, PEGGY Attending Unavailable KOEHLER, ABDULLAHI L Referring Unavailable KOEHLER, ABDULLAHI L Primary Care Unavailable O'NORMAN, PEGGY Attending Unavailable KOEHLER, ABDULLAHI L Primary Care Unavailable KOEHLER, ABDULLAHI L Attending Unavailable KOEHLER, ABDULLAHI L Primary Care Unavailable KOEHLER, ABDULLAHI L Referring Unavailable JIMÉNEZ, PEGGY Attending Unavailable KOEHLER, ABDULLAHI L Primary Care Unavailable KOEHLER, ABDULLAHI L Attending Unavailable KOEHLER, ABDULLAHI L Primary Care Unavailable KOEHLER, ABDULLAHI L Referring Unavailable KOEHLER, ABDULLAHI L Primary Care Unavailable KOEHLER, ABDULLAHI L Primary Care Unavailable KOEHLER, ABDULLAHI L Attending Unavailable JIMÉNEZ, PEGGY Referring Unavailable KOEHLER, BADULLAHI L Primary Care Unavailable KOEHLER, ABDULLAHI L Primary Care Unavailable KOEHLER, ABDULLAHI L Attending Unavailable WHITLEY BECK Referring Unavailable KOEHLER, ABDULLAHI L Primary Care Unavailable Allergies Allergy Classification Reported Allergen(s) Allergy Type Date of Onset Reaction(s) Facility (20 sources) Codeine; Translations: [CODEINE] Drug Allergy 0 Rash [facility] (20 sources) Lactose; Translations: [LACTOSE] Drug Allergy 1 Intolerance [facility] (20 sources) Lanolin; Translations: [LANOLIN] Drug Allergy 3 [facility] Work Phone: (20 sources) Morphine; Translations: [MORPHINE] Drug Allergy 0 Vomiting [facility] (20 sources) Neomycin; Translations: [NEOMYCIN SULFATE] Drug Allergy 2 Unknown [facility] (20 sources) nickel; Translations: [NICKEL] Drug Allergy 3 [facility] Work Phone: (20 sources) nickel sulfate; Translations: [NICKEL SULFATE] Drug Allergy 2 Unknown [facility] (20 sources) [place] - fruit; Translations: [ORANGE] Drug Allergy 9 Unknown [facility] (20 sources) [place] balsam; Translations: [BALSAM ANNEMARIE] Drug Allergy 2 Unknown [facility] (20 sources) Seasonal allergy; Translations: [SEASONAL ALLERGIES] Propensity to adverse reactions 1 Intolerance [facility] Work Phone: (20 sources) Wheat gluten extract; Translations: [GLUTEN] Drug Allergy 1 Intolerance [facility] (20 sources) Fragrances; Translations: [FRAGRANCES] Allergy to substance 2 Unknown [facility] (1 source) Codeine Drug Allergy [facility] Repository (17 sources) metroNIDAZOLE; Translations: [METRONIDAZOLE] Drug Allergy 3 Mental Status Change, Hives, GI Upset [facility] Work Phone: (2 sources) NITROFURANTOIN, MACROCRYSTALS / Nitrofurantoin, Monohydrate; Translations: [NITROFURANTOIN MONOHYD/M-CRYST] Drug Allergy 3 Vomiting [facility] Work Phone: (1 source) Codeine/codeine derivatives (Renamed from Codeine Phosphate *ANALGESICS - OPIOID*) [facility] Medications Current Medications Medication Drug Class(es) Dates Sig (Normalized) Sig (Original) Ascorbic Acid (20 sources) Vitamin C VITAMIN C (PO Ta b) ; prn Completed/Discontinued Medications Medication Drug Class(es) Dates Sig (Normalized) Sig (Original) 0.9% NaCl 10 mL flush (1 source) Start: 09-19-2022 End: 09-19-2022 0.9% NaCl 10 mL flush albuterol 0.83 mg/ml inhalation solution (20 sources) beta2-Adrenergic Agonist Start: 02-18-2021 take 2.5 mg by inhalation every four hours as needed albuterol (PROVENTIL) 2.5 mg /3 mL (0.083 %) nebulizer solution Use 3 mL via nebulizer every 4 hours as needed for Wheezing/Shortnes s of Breath. Use over 5-15minutes. 1 Package 3 02/18/2021 Active Problems Active Problems Problem Classification Problem Date Documented Da te Episodic/Chronic Acute posthemorrhagic anemia (2 sources) Acute posthemorrhagic anemia 11-29-2010 Episodic Chronic obstructive pulmonary disease and bronchiectasis (20 sources) Bronchiectasis; Translations: [Bronchiectasis, uncomplicated] Onset: 1 04-05-2021 Chronic Disorders of lipid metabolism (20 sources) Pure hypercholesterolemia; Translations: [Pure hypercholesterolemia, unspecified] Onset: 1 08-02-2016 Chronic Esophageal disorders (9 sources) Gastro-esophageal reflux disease with esophagitis; Translations: [Gastroesophageal reflux disease with esophagitis without hemorrhage] Onset: 3 05-21-2023 Chronic Essential hypertension (20 sources) Benign essential hypertension; Translations: [Essential (primary) hypertension] Onset: 1 03-30-2011 Chronic Menopausal disorders (5 sources) Atrophy of vagina; Translations: [Postmenopausal atrophic vaginitis] Onset: 3 Chronic Mycoses (1 source) Candidiasis of vagina; Translations: [Yeast vaginitis] Episodic Nutritional deficiencies (20 sources) Vitamin D deficiency; Translations: [Vitamin D deficiency, unspecified] Onset: 8 06-04-2018 Chronic Osteoarthritis (1 source) Arthritis of right acromioclavicular joint; Translations: [Primary osteoarthritis, right shoulder] Chronic Other connective tissue disease (1 source) Bursitis of shoulder; Translations: [Calcific tendinitis of unspecified shoulder] Episodic Other connective tissue disease (2 sources) Cramp and spasm; Translations: [Muscle cramping] Onset: 2 Episodic Other diseases of bladder and urethra (1 source) Urethral caruncle; Translations: [Urethral caruncle] Episodic Other diseases of veins and lymphatics (1 source) Vulval varices; Translations: [Vulval varices] Episodic Other female genital disorders (20 sources) Pruritus of vagina; Translations: [Other specified noninflammatory disorders of vagina] Onset: 2 11-29-2021 Episodic Other female genital disorders (2 sources) Vaginal discharge; Translations: [Other specified noninflammatory disorders of vagina] Episodic Other female genital disorders (3 sources) Burning sensation of vulva; Translations: [Other specified conditions associated with female genital organs and menstrual cycle] Episodic Other female genital disorders (1 source) Burning sensation of vagina; Translations: [Unspecified condition associated with female genital organs and menstrual cycle] Episodic Other female genital disorders (1 source) Vaginal odor; Translations: [Other specified noninflammatory disorders of vagina] Episodic Other gastrointestinal disorders (8 sources) Intolerance to food; Translations: [Malabsorption due to intolerance, not elsewhere classified] Onset: 3 05-21-2023 Chronic Other gastrointestinal disorders (1 source) Malabsorption due to intolerance, not elsewhere classified; Translations: [Food intolerance] Onset: 3 Chronic Other hereditary and degenerative nervous system conditions (20 sources) Restless legs; Translations: [Restless legs syndrome] Onset: 2 Chronic Other lower respiratory disease (20 sources) Interstitial lung disease; Translations: [Interstitial pulmonary disease, unspecified] Onset: 1 01-24-2021 Chronic Other lower respiratory disease (20 sources) Fibrosis of lung; Translations: [Pulmonary fibrosis, unspecified] Onset: 1 04-05-2021 Chronic Other nervous system disorders (6 sources) Neuropathy; Translations: [Other specified mononeuropathies] Chronic Other nervous system disorders (1 source) Other specified mononeuropathies; 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] Onset: 2 Chronic Other nervous system disorders (1 source) Polyneuropathy, unspecified; Translations: [Neuropathy] Onset: 4 Chronic Other nervous system disorders (1 source) Paresthesia of foot ; Translations: [Paresthesia of skin] 06-05-2023 Episodic Other nervous system disorders (1 source) Fasciculation; Translations: [Muscle twitch] Onset: 4 Episodic Other non-traumatic joint disorders (20 sources) Arthropathy of multiple joints; Translations: [Arthropathy, unspecified] Onset: 8 06-04-2018 Chronic Other non-traumatic joint disorders (3 sources) Arthropathy, unspecified, site unspecified 11-29-2010 Chronic Other non-traumatic joint disorders (4 sources) Shoulder pain; Translations: [Pain in right shoulder] Episodic Other non-traumatic joint disorders (20 sources) Multiple joint pain; Translations: [Pain in unspecified joint] Onset: 2 Episodic Other nutritional; endocrine; and metabolic disorders (20 sources) Intolerance to lactose; Translations: [Lactose intolerance, unspecified] Onset: 9 02-28-2019 Chronic Other nutritional; endocrine; and metabolic disorders (2 sources) Underweight; Translations: [Underweight] Onset: 3 09-12-2023 Episodic Other screening for suspected conditions (not mental disorders or infectious disease) (1 source) Patient encounter status; Translations: [Encounter for screening for malignant neoplasm of colon] Episodic Sarai-; endo-; and myocarditis; cardiomyopathy (except that caused by tuberculosis or sexually transmitted disease) (20 sources) Primary hypertrophic cardiomyopathy; Translations: [Other hypertrophic cardiomyopathy] 03-07-2021 Chronic Residual codes; unclassified (1 source) Postmenopausal state; Translations: [Asymptomatic menopausal state] Episodic Residual codes; unclassified (1 source) Other amnesia; Translations: [Memory deficit] Onset: 4 Episodic Spondylosis; intervertebral disc disorders; other back problems (20 sources) Lumbar spondylosis; Translations: [Spondylosis without myelopathy or radiculopathy, lumbar region] Onset: 2 12-15-2011 Chronic Thyroid disorders (20 sources) Hypothyroidism; Translations: [Hypothyroidism, unspecified] Onset: 2 08-02-2016 Chronic Unclassified (1 source) CONTACT WITH AND SUSPECTED EXPOSURE TO COVID-19; Translations: [CONTACT WITH AND SUSPECTED EXPOSURE TO COVID-19] Onset: 2 Unclassified (1 source) LAB DRAW - The labs drawn today include: BMP, MONITOR and other: alt. The lab was drawn from the left antecubital vein. The lab was ordered by Dr. Dr. Craig. 01-03-2011 Past or Other Problems Problem Classification Problem Date Documented Da te Episodic/Chronic Abdominal pain (20 sources) Epigastric pain; Translations: [Epigastric pain] Onset: 03-26-2019 03-26-2019 Episodic Allergic reactions (20 sources) Inflammatory dermatosis; Translations: [Dermatitis, unspecified] Onset: 04-05-2021 04-05-2021 Episodic Bacterial infection; unspecified site (1 source) Other specified bacterial agents as the cause of diseases classified elsewhere; Translations: [Bacterial vaginitis] Onset: 12-19-2022 Episodic Conditions associated with dizziness or vertigo (20 sources) Dizziness; Translations: [Dizziness and giddiness] Onset: 02-18-2021 02-18-2021 Episodic Genitourinary symptoms and ill-defined conditions (3 sources) Dysuria; Translations: [Dysuria] Onset: 12-19-2022 Episodic Inflammatory diseases of female pelvic organs (3 sources) Bacterial vaginosis; Translations: [Acute vaginitis] Onset: 12-19-2022 Episodic Malaise and fatigue (20 sources) Fatigue; Translations: [Other fatigue] Onset: 06-04-2018 06-04-2018 Episodic Nausea and vomiting (20 sources) Nausea; Translations: [Nausea] Onset: 03-26-2019 03-26-2019 Episodic Nonspecific chest pain (20 sources) Chest discomfort; Translations: [Other chest pain] Onset: 02-18-2021 02-18-2021 Episodic Nutritional deficiencies (1 source) Iron deficiency; Translations: [Iron deficiency] Onset: 02-12-2023 Episodic Other circulatory disease (20 sources) Feeling of lump in throat; Translations: [Other specified symptoms and signs involving the circulatory and respiratory systems] Onset: 07-01-2019 07-01-2019 Episodic Other connective tissue disease (20 sources) Cramp in lower limb; Translations: [Cramp and spasm] Onset: 09-12-2022 Episodic Other diseases of bladder and urethra (1 source) Urethral caruncle; Translations: [Urethral caruncle] Onset: 12-19-2022 Episodic Other female genital disorders (1 source) Unspecified condition associated with female genital organs and menstrual cycle; Translations: [Vaginal burning] Onset: 12-19-2022 Episodic Other female genital disorders (3 sources) Other specified noninflammatory disorders of vagina; Translations: [Vaginal odor] Onset: 11-29-2021 Episodic Other gastrointestinal disorders (20 sources) Abdominal bloating; Translations: [Abdominal distension (gaseous)] Onset: 07-01-2019 07-01-2019 Episodic Other infections; including parasitic (20 sources) Personal history of other infectious and parasitic diseases; Translations: [History of COVID-19] Onset: 06-14-2022 Episodic Other inflammatory condition of skin (20 sources) Pruritic rash; Translations: [Other pruritus] Onset: 11-29-2021 11-29-2021 Episodic Other inflammatory condition of skin (20 sources) Pruritus of skin; Translations: [Pruritus, unspecified] Onset: 09-12-2022 Episodic Other lower respiratory disease (20 sources) Dyspnea; Translations: [Shortness of breath] Onset: 02-18-2021 02-18-2021 Episodic Other nervous system disorders (20 sources) Paresthesia; Translations: [Paresthesia of skin] Onset: 02-18-2021 02-18-2021 Episodic Other nervous system disorders (20 sources) Impaired cognition; Translations: [Other symptoms and signs involving cognitive functions and awareness] Onset: 06-14-2022 Episodic Other nervous system disorders (10 sources) Impairment of balance; Translations: [Other abnormalities of gait and mobility] Onset: 06-05-2023 06-05-2023 Episodic Other nervous system disorders (10 sources) Abnormal gait; Translations: [Unspecified abnormalities of gait and mobility] Onset: 06-05-2023 06-05-2023 Episodic Other nervous system disorders (1 source) Other abnormalities of gait and mobility; Translations: [Balance disorder] Onset: 05-23-2023 Episodic Other nervous system disorders (1 source) Unspecified abnormalities of gait and mobility; Translations: [Gait disorder] Onset: 05-23-2023 Episodic Other nutritional; endocrine; and metabolic disorders (20 sources) Decrease in appetite; Translations: [Anorexia] Onset: 03-26-2019 03-26-2019 Episodic Other nutritional; endocrine; and metabolic disorders (1 source) Underweight; Translations: [Underweight] Onset: 05-23-2023 Episodic Other skin disorders (20 sources) Lesion of skin of face; Translations: [Disorder of the skin and subcutaneous tissue, unspecified] Onset: 07-01-2019 07-01-2019 Episodic Other upper respiratory infections (3 sources) Acute pharyngitis, unspecified; Translations: [Acute pharyngitis, unspecified] Onset: 08-26-2021 Episodic Spondylosis; intervertebral disc disorders; other back problems (4 sources) Spinal stenosis of lumbar region; Translations: [Spinal stenosis, lumbar region with neurogenic claudication] Onset: 10-10-2022 Episodic Unclassified (1 source) Patient notification of lab results - Dr. Fuchs (for Dr Craig). The test(s) that you had done were/was Lipid Panel (cholesterol and triglycerides). The results of your testing were to goal . Please continue your current medication(s) and therapy. 01-05-2011 Unclassified (1 source) Patient notification of lab results - Dr. Craig. Note for Patient notification of lab results : Ivette, your labs look normal. 11-30-2010 Unclassified (1 source) recheck - other illness (post op Hip surgery [address]Kenneth Byrne at [facility]. Anemia post surgery and c/o hair loss. Was on thyroid meds 1 year ago.). 11-29-2010 Varicose veins of lower extremity (20 sources) Varicose veins of lower extremity; Translations: [Varicose veins of bilateral lower extremities with other complications] Onset: 11-08-2022 Episodic Results Test Name Value Interpretation Reference Range Facil ity Vital Signs Date Time Vital Sign Value Performing Clinician Facility 09-07-2023 12:08-0500 Body temperature 97.59 [degF] Abdullahi Koehler DO Work Phone: [facility] 09-07-2023 12:08-0500 Body weight 51.71 kg Abdullahi Koehler DO Work Phone: [facility] 09-07-2023 12:08-0500 Diastolic blood pressure 70 mm[Hg] Abdullahi Koehler DO Work Phone: [facility] 09-07-2023 12:08-0500 Heart rate 80 /min Abdullahi Koehler DO Work Phone: [facility] 09-07-2023 12:08-0500 Respiratory rate 16 /min Abdullahi Koehler DO Work Phone: [facility] 09-07-2023 12:08-0500 Systolic blood pressure 124 mm[Hg] Abdullahi Koehler DO Work Phone: [facility] 12-19-2022 11:37-0500 Body weight 58.06 kg Peggy Jiménez APRN.CNM Work Phone: [facility] 12-19-2022 11:37-0500 Diastolic blood pressure 78 mm[Hg] Peggy Jiménez PRODUCTION SCHEDULER.CNM Work Phone: [facility] 12-19-2022 11:37-0500 Systolic blood pressure 138 mm[Hg] Peggy Jiménez PRODUCTION SCHEDULER.CNM Work Phone: [facility] 12-01-2022 10:21-0500 Body weight 57.97 kg Peggy Jiménez PRODUCTION SCHEDULER.CNM Work Phone: [facility] 12-01-2022 10:21-0500 Diastolic blood pressure 66 mm[Hg] Peggy Jiménez PRODUCTION SCHEDULER.CNM Work Phone: [facility] 12-01-2022 10:21-0500 Systolic blood pressure 122 mm[Hg] Peggy Jiménez APRN.CNM Work Phone: [facility] 11-16-2022 12:59-0500 Heart rate 67 /min Altagracia Hawthorne MD Work Phone: [facility] 11-16-2022 12:59-0500 Respiratory rate 16 /min Altagracia Hawthorne MD Work Phone: [facility] 11-16-2022 12:59-0500 SaO2% (BldA) [Mass fraction] 98 % Altagracia Hawthorne MD Work Phone: [facility] 11-08-2022 11:50-0500 Body temperature 96.69 [degF] Abdullahi Koehler DO Work Phone: [facility] 11-08-2022 11:50-0500 Body weight 57.61 kg Abdullahi Koehler DO Work Phone: [facility] 11-08-2022 11:50-0500 Diastolic blood pressure 80 mm[Hg] Abdullahi Koehler DO Work Phone: [facility] 11-08-2022 11:50-0500 Heart rate 68 /min Abdullahi Koehler DO Work Phone: [facility] 11-08-2022 11:50-0500 Respiratory rate 16 /min Abdullahi Koehler DO Work Phone: [facility] 11-08-2022 11:50-0500 Systolic blood pressure 116 mm[Hg] Abdullahi Koehler DO Work Phone: [facility] 10-02-2022 12:45-0500 Body height 165.1 cm Whitleytati Beck PRODUCTION SCHEDULER.SCREEN TENDER HELPER Work Phone: [facility] 10-02-2022 12:45-0500 Body weight 61.24 kg Whitley Beck PRODUCTION SCHEDULER.SCREEN TENDER HELPER Work Phone: [facility] 09-27-2022 11:23-0500 Body weight 55.97 kg Peggy Jiménez PRODUCTION SCHEDULER.CNM Work Phone: [facility] 09-27-2022 11:23-0500 Diastolic blood pressure 72 mm[Hg] Peggy Jiménez PRODUCTION SCHEDULER.CNM Work Phone: [facility] 09-27-2022 11:23-0500 Systolic blood pressure 142 mm[Hg] Peggy Jiménez PRODUCTION SCHEDULER.CNM Work Phone: [facility] 09-19-2022 11:00-0500 Diastolic blood pressure 88 mm[Hg] Altagracia Hawthorne MD Work Phone: [facility] 09-19-2022 11:00-0500 Heart rate 73 /min Altagracia Hawthorne MD Work Phone: [facility] 09-19-2022 11:00-0500 Respiratory rate 18 /min Altagracia Hawthorne MD Work Phone: [facility] 09-19-2022 11:00-0500 SaO2% (BldA) [Mass fraction] 98 % Altagracia Hawthorne MD Work Phone: [facility] 09-19-2022 11:00-0500 Systolic blood pressure 173 mm[Hg] Altagracia Hawthorne MD Work Phone: [facility] 09-11-2022 09:52-0500 Body temperature 97 [degF] Abdullahi Beaverrison DO Work Phone: [facility] 09-11-2022 09:52-0500 Body weight 56.25 kg Abdullahi Koehler DO Work Phone: [facility] 09-11-2022 09:52-0500 Diastolic blood pressure 80 mm[Hg] Abdullahi Koehler DO Work Phone: [facility] 09-11-2022 09:52-0500 Heart rate 76 /min Abdullahi Koehler DO Work Phone: [facility] 09-11-2022 09:52-0500 Respiratory rate 20 /min Abdullahi Koehler DO Work Phone: [facility] 09-11-2022 09:52-0500 Systolic blood pressure 140 mm[Hg] Abdullahi Koehler DO Work Phone: [facility] 09-04-2022 11:55-0500 Diastolic blood pressure 74 mm[Hg] Rinku Palmer MD Work Phone: [facility] 09-04-2022 11:55-0500 Heart rate 74 /min Rinku Palmer MD Work Phone: [facility] 09-04-2022 11:55-0500 Systolic blood pressure 165 mm[Hg] Rinku Palmer MD Work Phone: [facility] 08-21-2022 10:36-0400 Body weight 56.34 kg Peggy Jiménez APRN.CNM Work Phone: [facility] 08-21-2022 10:36-0400 Diastolic blood pressure 78 mm[Hg] Peggy Jiménez APRN.CNM Work Phone: [facility] 08-21-2022 10:36-0400 Systolic blood pressure 134 mm[Hg] Peggy Jiménez APRN.CNM Work Phone: [facility] 08-17-2022 13:38-0400 Heart rate 69 /min Altagracia Hawthorne MD Work Phone: [facility] 08-17-2022 13:38-0400 Respiratory rate 16 /min Altagracia Hawthorne MD Work Phone: [facility] 08-17-2022 13:38-0400 SaO2% (BldA) [Mass fraction] 98 % Altagracia Hawthorne MD Work Phone: [facility] 07-10-2022 10:45-0400 Body weight 55.25 kg Peggy Jiménez PRODUCTION SCHEDULER.CNM Work Phone: [facility] 07-10-2022 10:45-0400 Diastolic blood pressure 84 mm[Hg] Peggy Jiménez PRODUCTION SCHEDULER.CNM Work Phone: [facility] 07-10-2022 10:45-0400 Systolic blood pressure 150 mm[Hg] ePggy Jiménez PRODUCTION SCHEDULER.CNM Work Phone: [facility] 07-03-2022 11:09-0400 Diastolic blood pressure 92 mm[Hg] Altagracia Hawthorne MD Work Phone: [facility] 07-03-2022 11:09-0400 Heart rate 64 /min Altagracia Hawthorne MD Work Phone: [facility] 07-03-2022 11:09-0400 Respiratory rate 18 /min Altagracia Hawthorne MD Work Phone: [facility] 07-03-2022 11:09-0400 SaO2% (BldA) [Mass fraction] 99 % Altagracia Hawthorne MD Work Phone: [facility] 07-03-2022 11:09-0400 Systolic blood pressure 174 mm[Hg] Altagracia Hawthorne MD Work Phone: [facility] 06-14-2022 12:02-0400 Body temperature 97.59 [degF] Abdullahi Koehler DO Work Phone: [facility] 06-14-2022 12:02-0400 Body weight 55.34 kg Abdullahi Koehler DO Work Phone: [facility] 06-14-2022 12:02-0400 Diastolic blood pressure 80 mm[Hg] Abdullahi Koehler DO Work Phone: [facility] 06-14-2022 12:02-0400 Heart rate 76 /min Abdullahi Koehler DO Work Phone: [facility] 06-14-2022 12:02-0400 Respiratory rate 16 /min Abdullahi Koehler DO Work Phone: [facility] 06-14-2022 12:02-0400 Systolic blood pressure 134 mm[Hg] Abdullahi Koehler DO Work Phone: [facility] 05-23-2022 14:16-0400 Body height 165.1 cm Peggy Jiménez PRODUCTION SCHEDULER.CNM Work Phone: [facility] 05-23-2022 14:16-0400 Body weight 55.34 kg Peggy Jiménez PRODUCTION SCHEDULER.CNM Work Phone: [facility] 05-23-2022 14:16-0400 Diastolic blood pressure 70 mm[Hg] Peggy Jiménez PRODUCTION SCHEDULER.CNM Work Phone: [facility] 05-23-2022 14:16-0400 Systolic blood pressure 110 mm[Hg] Peggy Jiménez PRODUCTION SCHEDULER.CNM Work Phone: [facility] 05-04-2022 13:46-0400 Heart rate 70 /min Altagracia Hawthorne MD Work Phone: [facility] 05-04-2022 13:46-0400 Respiratory rate 16 /min Altagracia Hawthorne MD Work Phone: [facility] 05-04-2022 13:46-0400 SaO2% (BldA) [Mass fraction] 98 % Altagracia Hawthorne MD Work Phone: [facility] 11-29-2010 13:30-0500 Body height 165.1 cm Marilu CRAIG MD Work Phone: [facility] 11-29-2010 13:30-0500 Body mass index (BMI) [Ratio] 27.46 kg/m2 Marilu CRAIG MD Work Phone: [facility]. 11-29-2010 13:30-0500 Body surface area Derived from formula 1.82 m2 Marilu CRAIG MD Work Phone: [facility].; [facility]. 11-29-2010 13:30-0500 Body weight 74.84 kg Marilu CRAIG MD Work Phone: [facility].; [facility]. Encounters Encounter Date Encounter Type Care Provider Facility Start: 10-30-2023 End: 10-31-2023 ambulatory ABDULLAHI L KOEHLER Facility:[facility] Start: 10-24-2023 End: 10-24-2023 ambulatory ABDULLAHI L KOEHLER Facility:[facility] Start: 09-07-2023 End: 09-07-2023 ambulatory ABDULLAHI L KOEHLER Facility:[facility] Start: 09-07-2023 End: 09-07-2023 Patient encounter procedure Abdullahi L Koehler DO Work Phone: [facility] Procedures Date Procedure Procedure Detail Performing Clinician Start: 12-19-2022 BACTERIAL VAGINOSIS AMPLIFICATION Peggy Jiménez PRODUCTION SCHEDULER.CNM Work Phone: Start: 12-19-2022 Iadna trichomonas va ginalis amplified probe tech Peggy Jiménez PRODUCTION SCHEDULER.CNM Work Phone: Start: 12-01-2022 BACTERIAL VAGINOSIS AMPLIFICATION Peggy Jiménez PRODUCTION SCHEDULER.CNM Work Phone: Start: 12-01-2022 Iadna trichomonas va ginalis amplified probe tech Peggy Jiménez PRODUCTION SCHEDULER.CNM Work Phone: Start: 11-16-2022 Follow-up visit Follow Up ALTAGRACIA HAWTHORNE Start: 07-10-2022 BACTERIAL VAGINOSIS AMPLIFICATION Peggy Jiménez PRODUCTION SCHEDULER.CNM Work Phone: Start: 07-10-2022 Iadna trichomonas va ginalis amplified probe tech Peggy Jiménez PRODUCTION SCHEDULER.CNM Work Phone: Start: 05-04-2022 Radex spine lumbosac ral minimum 4 views Altagracia Hawthorne MD Work Phone: Start: 05-04-2022 Adult depression scr eening assessment Altagracia Hawthorne MD Work Phone: Start: 02-14-2022 Radex shoulder compl ete minimum 2 views Abdullahi Verma Koehler DO Work Phone: Start: 02-18-2021 Adult depression scr eening assessment Abdullahi Koehler DO Work Phone: Plan of Treatment Date Care Activity Detail Author Start: 05-23-2026 DIABETES SCREEN DIABETES SCREEN [facility] Start: 05-23-2026 Diabetes Screening Diabetes Screenin g [facility] Start: 02-12-2026 DIABETES SCREEN DIABETES SCREEN [facility] Start: 09-11-2025 DIABETES SCREEN DIABETES SCREEN [facility] Start: 12-27-2024 DIABETES SCREEN DIABETES SCREEN [facility] Start: 09-07-2024 Annual PCP Team Editorial Project Manager anabell Disease Visit Annual PCP Team Chronic Disease Visit [facility] Start: 09-07-2024 BP Controlled (<130/80) BP Controlle d (<130/80) [facility] Start: 05-21-2024 ANNUAL PCP TEAM PLASTIC 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 ANABELL DISEASE VISIT ANNUAL PCP TEAM CHRONIC DISEASE VISIT [facility] Start: 05-21-2024 BP CONTROLLED (<130/80) BP CONTROLLE D (<130/80) [facility] Start: 04-20-2024 Influenza vaccination Influenza Vacc ine (#1) [facility] Immunizations Immunization Date Immunization Notes Care Provider Beto dickinson 06-13-2019 zoster vaccine recombinant Abdullahi Koehler DO Work Phone: [facility] Work Phone: 04-10-2019 zoster vaccine recombinant Abdullahi Koehler DO Work Phone: [facility] Work Phone: 12-03-2018 influenza virus vacc ine, unspecified formulation Peggy Alexandre PT [facility] 08-02-2016 pneumococcal conjuga te vaccine, 13 valent Abdullahi Beaverrison DO Work Phone: [facility] Work Phone: 09-10-2014 pneumococcal polysaccharide vaccine, 23 valent Abdullahi Beaverrison DO Work Phone: [facility] Work Phone: 10-06-2011 influenza virus vacc ine, unspecified formulation Abdullahi Koehler DO Work Phone: [facility] 09-29-2010 influenza virus vacc ine, unspecified formulation Abdullahi Koehler DO Work Phone: [facility] 07-22-2007 pneumococcal polysaccharide vaccine, 23 valent Abdullahi Koehler DO Work Phone: [facility] 10-22-2006 pneumococcal polysaccharide vaccine, 23 valent Abdullahi Koehler DO Work Phone: [facility] Work Phone: 03-31-2006 tetanus toxoid, redu jesus diphtheria toxoid, and acellular pertussis vaccine, adsorbed Abdullahi Koehler DO Work Phone: [facility] Payers Date Payer Category Payer Medicaid [id number] 2013 Private Health Insurance [facility] AARP SUPPLEMENT [id number] 2013-Present [phone] [address] [place] [address] Indemnity [id number] 2013 Private Health Insurance [facility] AARP SUPPLEMENT [id number] 2013-Present [phone] [address] [place] [address] Indemnity [id number] 2010 Medicare MEDICARE MEDICAR E A AND B [id number] 2010-Present [phone] [place] [address] Medicare [id number] 2010 Medicare [id number] 2010 Medicare MEDICARE MEDICAR E A AND B [id number] 2010-Present [phone] [place] [address] Medicare [id number] 1945 Unknown [id number] 1945 Unknown [id number] Unknown Social History Date Type Detail Facility Start: 12-28-2010 End: 07-10-2022 Tobacco smoking status NHIS Never smoked tobacco [facility] Start: 12-28-2010 End: 07-10-2022 Tobacco use and exposure Smokeless tobacco non-user [facility] Start: 12-30-2021 End: 09-07-2023 Alcohol intake Ex-drinker (finding) [facility] Start: 1945 Sex Assigned At Not on file [facility] Start: 11-27-2021 End: 09-19-2022 Exposure to SARS-CoV-2 (event) Not sure [facility] Start: 11-08-2022 End: 05-21-2023 History of Social function [facility] Work Phone: Start: 11-08-2022 End: 05-21-2023 Tobacco use panel [facility] Work Phone: Adult Depression Screening Assessment 0 [facility] Work Phone: [facility]; [facility] Work Phone: Tobacco smoking consumption unknown [facility]; [facility] Work Phone: Medical Equipment Procedure Code Equipment Code Equipment Origin al Text Equipment Identifier Dates Mrkr 8ga Sec Sit e Id Mamrk - [id number] Start: 07-21-2013 Clinical Notes 02-18-2021 to 10-24-2023 Abdullahi Koehler, DO - 09/07/2023 12:44 PM Peggy Juarez, PT - 07/03/2023 8:10 AM Peggy Wallace PT - 06/27/2023 1:28 PM EDENILSONPaoNorman Peggy, PT - 06/20/2023 1:22 PM EDTPatient Instructions Note Date & Type Note Facility 10-24-2023 Note HNO ID: [id number] Author: Abdullahi Koehler, DO Service: ? Author Type: Physician Type: Progress Notes Filed: 10/24/2023 9:58 PM Note Text: CC: Ivette Murguia is a 78 year old female who presents to the office for follow up HPI: Muscle twitching symptoms, left upper arm, comes and goes, daily symptoms and night symptoms intermittently. + muscle cramping in legs Hair loss and falling out, worse since being on the antibiotics, Hypothyroidism, now is taking levothyroxine 88 mcg only 6 days a week now since her results from her labs in May. Difficulty with forgetfulness, with keeping her thoughts in order. Sometimes feels that she has to focus better. 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 Spongiotic dermatitis, intermittent nausea symptoms. Has been very limited in what she is able to eat due to these symptoms. Weight has been around 111 lbs. Able to eat eggs and very few foods. Trying to eat burger for calories etc. If she eats a food that she doesn't tolerate then she struggles with symptoms for a while PAST MEDICAL HISTORY Diagnosis Date Arthritis Asymmetric septal hypertrophy (HCC) 02/2021 repeat ECHO needed 02/2022 Eczema Glaucoma History of COVID-19 10/2020 Hypercholesterolemia Hypertension Hypothyroidism Lactose intolerance 02/2019 PAST SURGICAL HISTORY Procedure Laterality Date APPENDECTOMY AT AGE 10 ARTHRP ACETBLR/PROX FEM PROSTC AGRFT/ALGRFT 09/26/2010 LEFT HIP- Dr. Byrne BX BREAST PERC VACUUM/ROTN 07/21/13 Right lateral COLONOSCOPY FLX DX W/COLLJ SPEC WHEN PFRMD 04/15/2015 Colonoscopy CURETTAGE 1972 ESOPHAGOGASTRODUODENOSCOPY TRANSORAL DIAGNOSTIC 02/2019 EGD KNEE ARTHROSCOPY/SURGERY LEFT KNEE LIGATION/BIOPSY TEMPORAL ARTERY 10/2012 left PAST SURGICAL HISTORY OF basal cell removed from nose 08/2012 PAST SURGICAL HISTORY OF 04/2014 Dr. Mallory, left hip tendon release- illopsoas tendon release REMOVE TONSIL AND ADENOI UNDER AGE 12 AT AGE 3 TOTAL HIP JOINT REPLACEMENT 12/30/2013 right Current Outpatient Medications Medication Sig levothyroxine (LEVOXYL) 88 mcg tablet Take 1 tablet by mouth once daily. Take on empty stomach. For Thyroid nabumetone (RELAFEN) 500 mg tablet Take 2 tablets by mouth once daily. dorzolamide HCl/PF (DORZOLAMIDE, PF,) 2 % drop Use in eyes. fexofenadine (PADMINI) 180 mg tablet Take 180 mg by mouth as needed. cholecalciferol (VITAMIN D3) 1,000 unit tab tablet Take 1 tablet by mouth once daily. fluticasone (FLONASE) 50 mcg/actuation nasal spray Use 2 Sprays in each nostril once daily. (Patient taking differently: Use 2 Sprays in each nostril as needed.) BORIC ACID 600 MG VAGINAL SUPPOSITORY Use 600 mg vaginally. Unwrap and insert as directed. fluconazole (DIFLUCAN) 150 mg tablet Take 1 tablet by mouth one time a week. Once a week fluconazole (DIFLUCAN) 150 mg tablet Take one tablet by mouth once. Then repeat every 3 days for 3 doses. methylPREDNISolone (MEDROL, MARLYS,) 4 mg Dose-Pack Take as directed tiZANidine (ZANAFLEX) 2 mg tablet Take 1 tablet by mouth every 8 hours as needed (restless legs, muscle tension). ascorbic acid (VITAMIN C ORAL) Take by mouth. Magnesium 200 mg tab Take 200 mg by mouth once daily. ZINC ORAL Take 15 mg by mouth once daily. betamethasone valerate 0.1 % ointment Apply to affected area once daily. clotrimazole-betamethasone (LOTRISONE) lotion Apply to affected area twice daily. For 30 days vitamin b complex capsule Take 1 capsule by mouth once daily. [id number] ORAL Take by mouth once daily. omega-3/dha/epa/fish oil (OMEGA-3 FISH OIL ORAL) Take by mouth once daily. betamethasone valerate 0.1 % cream Apply to affected area twice daily as needed for exzema, don't use for more than 1 week in a row albuterol (PROVENTIL) 2.5 mg /3 mL (0.083 %) nebulizer solution Use 3 mL via nebulizer every 4 hours as needed for Wheezing/Shortness of Breath. Use over 5-15minutes. albuterol HFA (VENTOLIN HFA) 90 mcg/actuation inhaler Inhale 2 Puffs as instructed every 4 hours as needed for Wheezing/Shortness of Breath. Spirometers and Accessories lena 1 Device as directed. Dx: dyspnea, Bronchiectasis TURMERIC ORAL Take by mouth. latanoprost (XALATAN) 0.005 % ophthalmic solution 1 Drop daily at bedtime. No current facility-administered medications for this visit. ALLERGIES Allergen Reactions Balsam Of Annemarie [Bal* Unknown Codeine Rash Flagyl [Metronidazo* Mental Status Change, Hives, GI Upset Elbow rash, arm hives, headache, dizziness, nausea, feet sensations, coordination off. Heartburn, seeing things out of corner eyes, pelvic pressure, difficulty urinating, indigestion Fragrances Unknown Gluten Intolerance Lactose Intolerance Lanolin Rash Macrobid [Nitrofura* Vomiting Dizziness, nausea, insomnia, hair loss Morphine Vomiting Neomycin Sulfate Unknown Nickel Rash Nickel Sulfate Unknown [place] (more content not included)... [facility] 09-07-2023 Note HNO ID: [id number] Author: Abdullahi Koehler, DO Service: ? Author Type: Physician Type: Progress Notes Filed: 09/12/2023 5:55 PM Note Text: Dr. Yaw Gregg, had EGD performed, had microbiopsies which were all normal and has a small hiatal hernia. No other obvious findings/cause of her symptoms. After scope procedure then had constipation symptoms- no bowel movement for 10 days. Took 3 dulcolax capsules and then had a bowel movement. Had a recent UTI and recent bacterial vaginosis. Was seen by [employer] PL[employer]ING TEACHER Dr. Johnson. Was treated with macrobid and flagyl medications. Took the flagyl and then took the macrobid afterwards. The Macrobid caused hair loss and insomnia and nausea and dizziness and insomnia symptoms. No diarrhea after this exposure. Was then given Cleocin suppository vaginally 3 tablets per UROGYJah and hasn't started this yet. Wondering what she can take on a routine basis to help her colon/constipation. Last colonoscopy- 2014. Difficulty with insomnia. When getting up in the morning, legs are very red. CC: Ivette Murguia is a 78 year old female who presents to the office for follow up HPI: Dr. Yaw Gregg -EGD performed, had microbiopsies which were all normal and has a small hiatal hernia. No other obvious findings/cause of her symptoms. After scope procedure then had constipation symptoms- no bowel movement for 10 days. Took 3 dulcolax capsules and then had a bowel movement. Had a recent UTI and recent bacterial vaginosis. Was seen by [employer] TE[employer]ER Dr. Johnson. Was treated with macrobid and flagyl medications. Took the flagyl and then took the macrobid afterwards. The Macrobid caused hair loss and insomnia and nausea and dizziness and insomnia symptoms. No diarrhea after this exposure. Was then given Cleocin suppository vaginally 3 tablets per UROGYN and hasn't started this yet. Wondering what she can take on a routine basis to help her colon/constipation. Last colonoscopy- 2014. Difficulty with insomnia. Falling asleep and staying asleep When getting up in the morning, legs are very red. Hasn't determined a cause, gets better during the day. No leg pain PAST MEDICAL HISTORY Diagnosis Date Arthritis Asymmetric septal hypertrophy (HCC) 02/2021 repeat ECHO needed 02/2022 Eczema Glaucoma History of COVID-19 10/2020 Hypercholesterolemia Hypertension Hypothyroidism Lactose intolerance 02/2019 PAST SURGICAL HISTORY Procedure Laterality Date APPENDECTOMY AT AGE 10 ARTHRP ACETBLR/PROX FEM PROSTC AGRFT/ALGRFT 09/26/2010 LEFT HIP- Dr. Byrne BX BREAST PERC VACUUM/ROTN 07/21/13 Right lateral COLONOSCOPY FLX DX W/COLLJ SPEC WHEN PFRMD 04/15/2015 Colonoscopy CURETTAGE 1972 ESOPHAGOGASTRODUODENOSCOPY TRANSORAL DIAGNOSTIC 02/2019 EGD KNEE ARTHROSCOPY/SURGERY LEFT KNEE LIGATION/BIOPSY TEMPORAL ARTERY 10/2012 left PAST SURGICAL HISTORY OF basal cell removed from nose 08/2012 PAST SURGICAL HISTORY OF 04/2014 Dr. Mallory, left hip tendon release- illopsoas tendon release REMOVE TONSIL AND ADENOI UNDER AGE 12 AT AGE 3 TOTAL HIP JOINT REPLACEMENT 12/30/2013 right Current Outpatient Medications Medication Sig nabumetone (RELAFEN) 500 mg tablet Take 2 tablets by mouth once daily. BORIC ACID 600 MG VAGINAL SUPPOSITORY Use 600 mg vaginally. Unwrap and insert as directed. ascorbic acid (VITAMIN C ORAL) Take by mouth. Magnesium 200 mg tab Take 200 mg by mouth once daily. betamethasone valerate 0.1 % ointment Apply to affected area once daily. albuterol HFA (VENTOLIN HFA) 90 mcg/actuation inhaler Inhale 2 Puffs as instructed every 4 hours as needed for Wheezing/Shortness of Breath. Spirometers and Accessories lena 1 Device as directed. Dx: dyspnea, Bronchiectasis dorzolamide HCl/PF (DORZOLAMIDE, PF,) 2 % drop Use in eyes. fexofenadine (PADMINI) 180 mg tablet Take 180 mg by mouth as needed. cholecalciferol (VITAMIN D3) 1,000 unit tab tablet Take 1 tablet by mouth once daily. fluticasone (FLONASE) 50 mcg/actuation nasal spray Use 2 Sprays in each nostril once daily. (Patient taking differently: Use 2 Sprays in each nostril as needed.) levothyroxine (LEVOXYL) 88 mcg tablet Take 1 tablet by mouth once daily. Take on empty stomach. For Thyroid fluconazole (DIFLUCAN) 150 mg tablet Take 1 tablet by mouth one time a week. Once a week fluconazole (DIFLUCAN) 150 mg tablet Take one tablet by mouth once. Then repeat every 3 days for 3 doses. methylPREDNISolone (MEDROL, MARLYS,) 4 mg Dose-Pack Take as directed tiZANidine (ZANAFLEX) 2 mg tablet Take 1 tablet by mouth every 8 hours as needed (restless legs, muscle tension). ZINC ORAL Take 15 mg by mouth once daily. clotrimazole-betamethasone (LOTRISONE) lotion Apply to affected area twice daily. For 30 days vitamin b complex capsule Take 1 capsule by mouth once daily. [id number] ORAL Take by mouth once daily. omega-3/dha/epa/fish oil (more content not included)... [facility] 09-07-2023 History of Present illness Narrative Dr. Yaw Gregg, had EGD performed, had microbiopsies which were all normal and has a small hiatal hernia. No other obvious findings/cause of her symptoms. After scope procedure then had constipation symptoms- no bowel movement for 10 days. Took 3 dulcolax capsules and then had a bowel movement. Had a recent UTI and recent bacterial vaginosis. Was seen by [employer] TE[employer]ER Dr. Johnson. Was treated with macrobid and flagyl medications. Took the flagyl and then took the macrobid afterwards. The Macrobid caused hair loss and insomnia and nausea and dizziness and insomnia symptoms. No diarrhea after this exposure. Was then given Cleocin suppository vaginally [address]Wyneski SANTIAGO and hasn't started this yet. Wondering what she can take on a routine basis to help her colon/constipation. Last colonoscopy- 2014. Difficulty with insomnia. When getting up in the morning, legs are very red. CC: Ivette Murguia is a 78 year old female who presents to the office for follow up HPI: Dr. Yaw Gregg -EGD performed, had microbiopsies which were all normal and has a small hiatal hernia. No other obvious findings/cause of her symptoms. After scope procedure then had constipation symptoms- no bowel movement for 10 days. Took 3 dulcolax capsules and then had a bowel movement. Had a recent UTI and recent bacterial vaginosis. Was seen by [employer] TE[employer]ER Dr. Johnson. Was treated with macrobid and flagyl medications. Took the flagyl and then took the macrobid afterwards. The Macrobid caused hair loss and insomnia and nausea and dizziness and insomnia symptoms. No diarrhea after this exposure. Was then given Cleocin suppository vaginally [address]Wyneski SANTIAGO and hasn't started this yet. Wondering what she can take on a routine basis to help her colon/constipation. Last colonoscopy- 2014. Difficulty with insomnia. Falling asleep and staying asleep When getting up in the morning, legs are very red. Hasn't determined a cause, gets better during the day. No leg pain PAST MEDICAL HISTORY Diagnosis Date Arthritis Asymmetric septal hypertrophy (HCC) 02/2021 repeat ECHO needed 02/2022 Eczema Glaucoma History of COVID-19 10/2020 Hypercholesterolemia Hypertension Hypothyroidism Lactose intolerance 02/2019 PAST SURGICAL HISTORY Procedure Laterality Date APPENDECTOMY AT AGE 10 ARTHRP ACETBLR/PROX FEM PROSTC AGRFT/ALGRFT 09/26/2010 LEFT HIP- Dr. Byrne BX BREAST PERC VACUUM/ROTN 07/21/13 Right lateral COLONOSCOPY FLX DX W/COLLJ SPEC WHEN PFRMD 04/15/2015 Colonoscopy CURETTAGE 1972 ESOPHAGOGASTRODUODENOSCOPY TRANSORAL DIAGNOSTIC 02/2019 EGD KNEE ARTHROSCOPY/SURGERY LEFT KNEE LIGATION/BIOPSY TEMPORAL ARTERY 10/2012 left PAST SURGICAL HISTORY OF basal cell removed from nose 08/2012 PAST SURGICAL HISTORY OF 04/2014 Dr. Mallory, left hip tendon release- illopsoas tendon release REMOVE TONSIL AND ADENOI UNDER AGE 12 AT AGE 3 TOTAL HIP JOINT REPLACEMENT 12/30/2013 right Current Outpatient Medications Medication Sig nabumetone (RELAFEN) 500 mg tablet Take 2 tablets by mouth once daily. BORIC ACID 600 MG VAGINAL SUPPOSITORY Use 600 mg vaginally. Unwrap and insert as directed. ascorbic acid (VITAMIN C ORAL) Take by mouth. Magnesium 200 mg tab Take 200 mg by mouth once daily. betamethasone valerate 0.1 % ointment Apply to affected area once daily. albuterol HFA (VENTOLIN HFA) 90 mcg/actuation inhaler Inhale 2 Puffs as instructed every 4 hours as needed for Wheezing/Shortness of Breath. Spirometers and Accessories lena 1 Device as directed. Dx: dyspnea, Bronchiectasis dorzolamide HCl/PF (DORZOLAMIDE, PF,) 2 % drop Use in eyes. fexofenadine (PADMINI) 180 mg tablet Take 180 mg by mouth as needed. cholecalciferol (VITAMIN D3) 1,000 unit tab tablet Take 1 tablet by mouth once daily. fluticasone (FLONASE) 50 mcg/actuation nasal spray Use 2 Sprays in each nostril once daily. (Patient taking differently: Use 2 Sprays in each nostril as needed.) levothyroxine (LEVOXYL) 88 mcg tablet Take 1 tablet by mouth once daily. Take on empty stomach. For Thyroid fluconazole (DIFLUCAN) 150 mg tablet Take 1 tablet by mouth one time a week. Once a week fluconazole (DIFLUCAN) 150 mg tablet Take one tablet by mouth once. Then repeat every 3 days for 3 doses. methylPREDNISolone (MEDROL, MARLYS,) 4 mg Dose-Pack Take as directed tiZANidine (ZANAFLEX) 2 mg tablet Take 1 tablet by mouth every 8 hours as needed (restless legs, muscle tension). ZINC ORAL Take 15 mg by mouth once daily. clotrimazole-betamethasone (LOTRISONE) lotion Apply to affected area twice daily. For 30 days vitamin b complex capsule Take 1 capsule by mouth once daily. [id number] ORAL Take by mouth once daily. omega-3/dha/epa/fish oil (OMEGA-3 FISH OIL ORAL) Take by mouth once daily. betamethasone valerate 0.1 % cream Apply to affected area twice daily as needed for exzema, don't use for more than 1 week in a row albuterol (PROVENTIL) 2.5 mg /3 mL (0.083 %) nebulizer solution Use 3 mL via nebulizer every 4 hours as needed for Wheezing/Shortness of Breath. Use over 5-15minutes. TURMERIC ORAL Take by mouth. latanoprost (XALATAN) 0.005 % ophthalmic solution 1 Drop daily at bedtime. No current facility-administered medications for this visit. ALLERGIES Allergen Reactions [place] [Bal* Unknown Codeine Rash Flagyl [Metronidazo* Mental Status Change, Hives, GI Upset Elbow rash, arm hives, headache, dizziness, nausea, feet sensations, coordination off. Heartburn, seeing things out of corner eyes, pelvic pressure, difficulty urinating, indigestion Fragrances Unknown Gluten Intolerance Lactose Intolerance Lanolin Rash Macrobid [Nitrofura* Vomiting Dizziness, nausea, insomnia, hair loss Morphine Vomiting Neomycin Sulfate Unknown Nickel Rash Nickel Sulfate Unknown [place] Unknown Mildly positive to skin testing Seasonal Allergies Intolerance Social History Tobacco Use Smoking status: Never Smokeless tobacco: Never Vaping Use Vaping Use: Never used Substance Use Topics Alcohol use: Not Currently Drug use: No ROS: See HPI PE: BP 124/70 Pulse 80 Temp (Src) 97.6 (Left Tympanic) Resp 16 Wt 114 lb (51.7kg) Gen: A&OX3, NAD, non-toxic appearing HEENT: PERRLA, EOMs intact b/l, nares without drainage, pharynx without erythema, exudate, lesions, or drainage. Uvula midline. Neck: No LAD, no thyromegaly, no meningismus. CV: RRR, no murmur Lungs: CTA b/l, no wheezing Skin: No rashes, lesions, or wounds on exposed skin. Slightly pale and fatigued appearing No edema, normal pulses Right and left foot with normal DP and posterior tibial pulses without any cyanosis or skin color changes. Monofilament testing abnormal right distal foot/toes Gait is slightly imbalanced, leaning to left side. Strength diminished b/l UE and LE to 4/5 ASSESSMENT/PLAN: 1. Hypothyroidism, unspecified type - ICD9: 244.9, ICD10: E03.9 (primary diagnosis) - Instructed patient on importance of taking on an empty stomach either first thing in the morning or at bedtime. - continue current dose of Synthroid 0.088 mg - LEVOTHYROXINE 88 MCG TABLET 2. Dizziness - ICD9: 780.4, ICD10: R42 F/u with beam dyer recessed vat/specialist as well as with Neurologist Dr. Young upcoming. Try to get earlier appt if able. 3. Nausea - ICD9: 787.02, ICD10: R11.0 F/u with Manager Fraud, related to food intolerances by description with symptoms. Continue low acid low fodmap diet. 4. Underweight - ICD9: 783.22, ICD10: R63.6 F/u with Manager Fraud, related to food intolerances by description with symptoms. Continue low acid low fodmap diet. 5. Gastroesophageal reflux disease with esophagitis without hemorrhage - ICD9: 530.81, 530.10, ICD10: K21.00 F/u with Manager Fraud, related to food intolerances by description with symptoms. Continue low acid low fodmap diet. 6. Fatigue, unspecified type - ICD9: 780.79, ICD10: R53.83 F/u with Manager Fraud, related to food intolerances by description with symptoms. Continue low acid low fodmap diet. 7. Multiple joint pain - ICD9: 719.49, ICD10: M25.50 8. 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 Abdullahi Koehler DO Return if no improvement. Follow up with Abdullahi Koehler DO. To ER if develops chest pain, shortness of breath. Discussed risks, benefits, alternatives, and potential side effects of medications. Patient/Guardian expressed understanding and agreed with the plan. See patient instructions. Abdullahi Koehler DO [address] [place] [address] documented in this encounter [facility] 07-03-2023 Note HNO ID: [id number] Author: Peggy Alexandre PT Service: ? Author Type: Physical Therapist Type: Progress Notes Filed: 08/08/2023 8:47 AM Note Text: 08/08/2023 [facility] PHYSICAL THERAPY DISCONTINUANCE OF CARE Plan of Care Period: Start of Care Date: 06/05/23 Last Visit Date: 07/03/2023 Therapy Program: The following is a summary of the interventions provided for this episode of care; Therapeutic exercise, Neuromuscular re-education, and Self-detention management Assessment: The following is the goal status: Goals for Episode of Care: created on 06/05/23 through 07/17/23 Goals updated on 07/03/2023 through 08/07/23 Patient will improve FGA to 24 or more /30 in order to perform functional tasks with improved stability. -- PROGRESSING Patient will be independent with home exercise program and progression.-- MET Patient will return to prior level of function with all activities of daily living with trace reports of dizziness. -- PROGRESSING Patient will deny dizziness with rolling left, bending, shopping, and Walking. -- PROGRESSING Patient will demonstrate the ability to complete VOR in static and dynamic positions with trace report of dizziness. -- PROGRESSING Patient Goals: resolve dizziness at rest and with functional movements -- PROGRESSING Based on the most recent progress report, patient was progressing slower than expected toward functional goals based on documented subjective information on progress. Reason for Discontinuation of Care: Patient has not returned to therapy or scheduled additional follow-up appointments. Peggy Alexandre PT Episode Visit Count: 5 Therapist That Will Accept/Oversee The Plan Of Care: Peggy Alexandre Start of Care Date: 06/05/23 Onset Date: 05/16/23 Plan of Care Certification Date: 07/03/23 Next Certification Due Date: 08/07/23 REHABILITATION AND SPORTS THERAPY PHYSICAL THERAPY PROGRESS REPORT PLAN OF CARE UPDATE: Assessment: Ivette Murguia demonstrates improvements in rolling to the left, sitting, and bending. She has progressed toward goals. Patient continues to present with impairments in ADL's, independence in exercise, overall function, patient reported outcome measures, and symptom management that interfere with bed mobility, bending . Current prognosis is Good due to: positive past response to therapy . She will benefit from continued skilled therapy services to meet the updated goals for this plan of care as noted below. Goals for Episode of Care: created on 06/05/23 through 07/17/23 Goals updated on 07/03/2023 through 08/07/23 Patient will improve FGA to 24 or more /30 in order to perform functional tasks with improved stability. -- PROGRESSING Patient will be independent with home exercise program and progression.-- MET Patient will return to prior level of function with all activities of daily living with trace reports of dizziness. -- PROGRESSING Patient will deny dizziness with rolling left, bending, shopping, and Walking. -- PROGRESSING Patient will demonstrate the ability to complete VOR in static and dynamic positions with trace report of dizziness. -- PROGRESSING Patient Goals: resolve dizziness at rest and with functional movements -- PROGRESSING Patient Goals: resolve dizziness at rest and with functional movements Planned Interventions, Frequency, and Duration: 1x/week, 5 weeks Total Number of Visits Planned: 5 Patient to be seen for Therapeutic exercise (38797), Neuromuscular re-education (79237), Self-detention management (65065), Therapeutic activities (83453), Manual therapy (10706), Gait Training (09863) PLAN FOR NEXT VISIT: dc vertical VOR due to increased neck pain. Continue VORx1 horizontal with purchase order checker back ground, attempt to progress to standing. Increase frequency as tolerated. SUBJECTIVE: Vertical VORx1 bothers her neck. Pt. is dizzy, but it's not bad. She continues to have dizziness with laying down that lasted about 10 min. Dizziness is worse at night. Dizziness she describes as spinning when getting up to use the restroom. She does not experience dizziness with getting up in the morning.. Patient Goals: resolve dizziness at rest and with functional movements Functional Limitations: bed mobility, bending Vestibular Description: dizziness, spinning (self) ( gigi go round in the head. ) Rating of current symptoms: 3/10 Frequency: Constant Imbalance Comments: at night when attempting to go to bathroom. Fall Assessment: No falls Pain: Post Treatment Pain Post Treatment Symptoms: 3/10 PROMIS Scales T-scores: mean of general population = 50. 5 points is clinically meaningfully difference Percentiles provide an indication of how the patient's score ranks in relation to the general population. Higher percentile rankings indicate better function/quality of life. 50th percentile is the average of the general pop (more content not included)... [facility] 07-03-2023 History of Present illness Narrative Episode Visit Count: 5 Therapist That Will Accept/Oversee The Plan Of Care: Peggy Alexandre Start of Care Date: 06/05/23 Onset Date: 05/16/23 Plan of Care Certification Date: 07/03/23 Next Certification Due Date: 08/07/23 REHABILITATION AND SPORTS THERAPY PHYSICAL THERAPY PROGRESS REPORT PLAN OF CARE UPDATE: Assessment: Ivette Murguia demonstrates improvements in rolling to the left, sitting, and bending. She has progressed toward goals. Patient continues to present with impairments in ADL's, independence in exercise, overall function, patient reported outcome measures, and symptom management that interfere with bed mobility, bending . Current prognosis is Good due to: positive past response to therapy . She will benefit from continued skilled therapy services to meet the updated goals for this plan of care as noted below. Goals for Episode of Care: created on 06/05/23 through 07/17/23 Goals updated on 07/03/2023 through 08/07/23 Patient will improve FGA to 24 or more /30 in order to perform functional tasks with improved stability. -- PROGRESSING Patient will be independent with home exercise program and progression.-- MET Patient will return to prior level of function with all activities of daily living with trace reports of dizziness. -- PROGRESSING Patient will deny dizziness with rolling left, bending, shopping, and Walking. -- PROGRESSING Patient will demonstrate the ability to complete VOR in static and dynamic positions with trace report of dizziness. -- PROGRESSING Patient Goals: resolve dizziness at rest and with functional movements -- PROGRESSING Patient Goals: resolve dizziness at rest and with functional movements Planned Interventions, Frequency, and Duration: 1x/week, 5 weeks Total Number of Visits Planned: 5 Patient to be seen for Therapeutic exercise (69130), Neuromuscular re-education (00035), Self-detention management (56381), Therapeutic activities (40921), Manual therapy (91400), Gait Training (81974) PLAN FOR NEXT VISIT: dc vertical VOR due to increased neck pain. Continue VORx1 horizontal with purchase order checker back ground, attempt to progress to standing. Increase frequency as tolerated. SUBJECTIVE: Vertical VORx1 bothers her neck. Pt. is dizzy, but it's not bad. She continues to have dizziness with laying down that lasted about 10 min. Dizziness is worse at night. Dizziness she describes as spinning when getting up to use the restroom. She does not experience dizziness with getting up in the morning.. Patient Goals: resolve dizziness at rest and with functional movements Functional Limitations: bed mobility, bending Vestibular Description: dizziness, spinning (self) ( gigi go round in the head. ) Rating of current symptoms: 3/10 Frequency: Constant Imbalance Comments: at night when attempting to go to bathroom. Fall Assessment: No falls Pain: Post Treatment Pain Post Treatment Symptoms: 3/10 PROMIS Scales T-scores: mean of general population = 50. 5 points is clinically meaningfully difference Percentiles provide an indication of how the patient's score ranks in relation to the general population. Higher percentile rankings indicate better function/quality of life. 50th percentile is the average of the general population and indicates half of respondents had a worse score. OBJECTIVE MEASURES WITH LEVEL OF FUNCTION: TREATMENT: Neuromuscular Re-Education: 1: *standing plain back ground, 3' distance 2 cm target, horizontal head movements 2 sets of 30-60 seconds, 1 min rest between each set to allow symptoms to return to baseline, 2-3 times a day (132 bpm, 5/10 dizziness, described as spinning inside the head , 2nd set, reduced dizziness reported with increased speed to 165 bpm) 2: dc vertical VOR due to increased neck pain 3: seated 3' from wall, checkered back ground, VORx1 horrizontal head movement x 60 sec, 1 min rest between sets (60 bpm, I'm getting dizzy Increased intensity to 5/10 both sets) 4: seated, bending forward x 1 rep - no dizziness 5: supine, rolling the body L -- denies dizziness 6: sitting up quickly brief dizziness <60 seconds describes as swirling in the head Skilled Intervention: Skilled judgment used to assess appropriate program for balance and coordination activity. Education in proprioceptive/kinesthetic awareness during VORx1 exercises standing and seated. Reviewed and educated patient on additions/changes for home program as noted above with an (*). Patient education as noted. Billing Neuromuscular Re-Education Treatment Minutes: 40 Skilled Treatment Time Minutes (timed and untimed codes): 40 Total Session Time (minutes): 40 Session Start Time : 0810 Session Stop Time : 0850 Peggy Alexandre PT documented in this encounter [facility] 06-27-2023 Note HNO ID: [id number] Author: Peggy Alexandre PT Service: ? Author Type: Physical Therapist Type: Progress Notes Filed: 07/03/2023 8:59 AM Note Text: Episode Visit Count: 4 Therapist That Will Accept/Oversee The Plan Of Care: Peggy Alexandre Start of Care Date: 06/05/23 Onset Date: 05/16/23 Plan of Care Certification Date: 07/03/23 Next Certification Due Date: 08/07/23 REHABILITATION AND SPORTS THERAPY PHYSICAL THERAPY TREATMENT NOTE ASSESSMENT: Ivette Murguia tolerated the session with decreased symptoms. She demonstrated difficulty with standing VORx1 with horizontal head movements, requiring metronome frequency to be reduced. She has neck pain with vertical head movements, however completes VORx1 exercises at 2 Hz without reports of increased symptom intensity after a minute. The patient will continue to benefit from ongoing skilled physical therapy to progress toward set goals. PLAN FOR NEXT VISIT: PN SUBJECTIVE: Pt. reports no dizziness this morning until after eating lunch. Pt. reports that she does get dizzy throughout the day with other acitivites besides eating. Increased dizziness intensity at an auction today. Vertical head movements bother her head neck more so than horrizontal head movements. Denies falls and no nausea to the point of vomiting. Denies spinning but more so feeling as though she is sway. Vestibular Description: dizziness (sway) Rating of current symptoms: 4/10 Pain: Post Treatment Pain Post Treatment Symptoms: 4/10 OBJECTIVE MEASURES WITH LEVEL OF FUNCTION: TREATMENT: Therapeutic Exercise: 1: standing cervical retractions 3x10 before and after VOR exercises Skilled Intervention: Patient was educated in proper exercise technique and purpose for exercises. Skilled judgment was provided in selection of appropriate interventions. Provided written instruction for home exercise program to facilitate proper performance and compliance. Correct performance of therapeutic exercises was facilitated with verbal, visual, and tactile cuing. Educated patient on rationale for performing exercises in regards to decreasing fatigue , increase ease of ADL, and ROM and function . Patient education as noted. Neuromuscular Re-Education: 1: *standing plain back ground, 3' distance 2 cm target, horizontal head movements 2 sets of 30-60 seconds, 1-2 min rest between each set to allow symptoms to return to baseline, 2-3 times a day (120 bpm, 5/10 dizziness) 2: *standing plain back ground, 3' distance 2 cm target, vertical head movements 2 sets of 30-60 seconds 2-3 times a day (240 bpm cues to complete with reduced AROM of cervical flexion/extension to reduce neck symptoms - remained at baseline dizziness following) Skilled Intervention: Skilled judgment used to assess appropriate program for balance and coordination activity. Education in proprioceptive/kinesthetic awareness during dynamic activities and standing VORx1 exercises. Reviewed and educated patient on additions/changes for home program as noted above with an (*). Patient education as noted. Billing Therapeutic Exercise Treatment Minutes: 5 Neuromuscular Re-Education Treatment Minutes: 25 Self-Care/Home Management Treatment Minutes: 10 Skilled Treatment Time Minutes (timed and untimed codes): 40 Total Session Time (minutes): 40 Session Start Time : 1325 Session Stop Time : 1405 Peggy Alexandre, PT [facility] 06-27-2023 History of Present illness Narrative Episode Visit Count: 4 Therapist That Will Accept/Oversee The Plan Of Care: Peggy Alexandre Start of Care Date: 06/05/23 Onset Date: 05/16/23 Plan of Care Certification Date: 06/05/23 Next Certification Due Date: 07/10/23 REHABILITATION AND SPORTS THERAPY PHYSICAL THERAPY TREATMENT NOTE ASSESSMENT: Ivette Murguia tolerated the session with decreased symptoms. She demonstrated difficulty with standing VORx1 with horizontal head movements, requiring metronome frequency to be reduced. She has neck pain with vertical head movements, however completes VORx1 exercises at 2 Hz without reports of increased symptom intensity after a minute. The patient will continue to benefit from ongoing skilled physical therapy to progress toward set goals. PLAN FOR NEXT VISIT: PN SUBJECTIVE: Pt. reports no dizziness this morning until after eating lunch. Pt. reports that she does get dizzy throughout the day with other acitivites besides eating. Increased dizziness intensity at an auction today. Vertical head movements bother her head neck more so than horrizontal head movements. Denies falls and no nausea to the point of vomiting. Denies spinning but more so feeling as though she is sway. Vestibular Description: dizziness (sway) Rating of current symptoms: 4/10 Pain: Post Treatment Pain Post Treatment Symptoms: 4/10 OBJECTIVE MEASURES WITH LEVEL OF FUNCTION: TREATMENT: Therapeutic Exercise: 1: standing cervical retractions 3x10 before and after VOR exercises Skilled Intervention: Patient was educated in proper exercise technique and purpose for exercises. Skilled judgment was provided in selection of appropriate interventions. Provided written instruction for home exercise program to facilitate proper performance and compliance. Correct performance of therapeutic exercises was facilitated with verbal, visual, and tactile cuing. Educated patient on rationale for performing exercises in regards to decreasing fatigue , increase ease of ADL, and ROM and function . Patient education as noted. Neuromuscular Re-Education: 1: *standing plain back ground, 3' distance 2 cm target, horizontal head movements 2 sets of 30-60 seconds, 1-2 min rest between each set to allow symptoms to return to baseline, 2-3 times a day (120 bpm, 5/10 dizziness) 2: *standing plain back ground, 3' distance 2 cm target, vertical head movements 2 sets of 30-60 seconds 2-3 times a day (240 bpm cues to complete with reduced AROM of cervical flexion/extension to reduce neck symptoms - remained at baseline dizziness following) Skilled Intervention: Skilled judgment used to assess appropriate program for balance and coordination activity. Education in proprioceptive/kinesthetic awareness during dynamic activities and standing VORx1 exercises. Reviewed and educated patient on additions/changes for home program as noted above with an (*). Patient education as noted. Billing Therapeutic Exercise Treatment Minutes: 5 Neuromuscular Re-Education Treatment Minutes: 25 Self-Care/Home Management Treatment Minutes: 10 Skilled Treatment Time Minutes (timed and untimed codes): 40 Peggy Alexandre PT documented in this encounter [facility] 06-20-2023 Note HNO ID: [id number] Author: Peggy Alexandre PT Service: ? Author Type: Physical Therapist Type: Progress Notes Filed: 06/20/2023 1:55 PM Note Text: Episode Visit Count: 3 Therapist That Will Accept/Oversee The Plan Of Care: Peggy Alexandre Start of Care Date: 06/05/23 Onset Date: 05/16/23 Plan of Care Certification Date: 06/05/23 Next Certification Due Date: 07/10/23 REHABILITATION AND SPORTS THERAPY PHYSICAL THERAPY TREATMENT NOTE ASSESSMENT: Ivette Murguia tolerated the session with decreased symptoms. She demonstrated improvements in activity tolerance with VOR x1 exercises. She consistently has increased dizziness described as swimming that increases with intensity with head movement and resolves to baseline with seated rest x1-2 min. The patient will continue to benefit from ongoing skilled physical therapy to progress toward set goals. PLAN FOR NEXT VISIT: Progress to standing, assess symptom to increased speed SUBJECTIVE: Pt. reports 5 minutes of continuous symtpoms every time she lays down. She has increased dizziness after everytime she eats. Mornings are better with less intensity as compared to the afternoon.Pt. has not yet scheduled an upper endoscopy. Pt. reports that the intensity of dizziness does reduce with rest in between exercises. Vestibular Description: (swimming) Rating of current symptoms: 0/10 Fall Assessment: No falls Pain: Post Treatment Pain Post Treatment Symptoms: 2/10 dizziness at end of visit. OBJECTIVE MEASURES WITH LEVEL OF FUNCTION: TREATMENT: Therapeutic Exercise: 1: seated cervical chin tucks 2x10, 4 sets between each set of VORx1 Skilled Intervention: Patient was educated in proper exercise technique and purpose for exercises. Reviewed and educated patient on additions/changes for home exercise program as above (*). Skilled judgment was provided in selection of appropriate interventions. Correct performance of therapeutic exercises was facilitated with verbal, visual, and tactile cuing. Educated patient on rationale for performing exercises in regards to decreasing fatigue , including balance, increase ease of ADL, and ROM and function . Patient education as noted. Neuromuscular Re-Education: 1: seated plain back ground, 3' distance 2 cm target, horizontal head movements 2 sets of 30-60 seconds, 1-2 min rest between each set to allow symptoms to return to baseline (150 bpm, 3/10 dizziness) 2: seated plain back ground, 3' distance 2 cm target, vertical head movements 2 sets of 30-60 seconds (200 bpm, 5/10 dizziness, 2/10 dizziness) Skilled Intervention: Skilled judgment used to assess appropriate program for balance and coordination activity. Education in proprioceptive/kinesthetic awareness during VORx1 seated. Reviewed and educated patient on additions/changes for home program as noted above with an (*). Patient education as noted. Self-Residential Management: 1: *discussed laying supine if laying on either side at night causes increased dizziness. 2: *discussed recording foods and activities that cause increased symptoms 3: *discussed possible causes of UVL Skilled Intervention: Skilled judgment in the selection of proper modification for activity of daily living/home management based on clinical presentation, deficits, and needs. Reviewed patient specific diagnosis in relation to activities of daily living/home management. Activity progression based on professional judgement. Reviewed and educated patient on additions/changes for home program as noted above with an (*). Correct performance of home program was facilitated with verbal, visual, and tactile cueing. Billing Therapeutic Exercise Treatment Minutes: 5 Neuromuscular Re-Education Treatment Minutes: 25 Self-Care/Home Management Treatment Minutes: 10 Total Treatment Time Minutes (timed/untimed): 40 Session Start Time : 1320 Session Stop Time : 1400 Peggy Alexandre, PT [facility] 06-20-2023 History of Present illness Narrative Episode Visit Count: 3 Therapist That Will Accept/Oversee The Plan Of Care: Peggy Alexandre Start of Care Date: 06/05/23 Onset Date: 05/16/23 Plan of Care Certification Date: 06/05/23 Next Certification Due Date: 07/10/23 REHABILITATION AND SPORTS THERAPY PHYSICAL THERAPY TREATMENT NOTE ASSESSMENT: Ivette Murguia tolerated the session with decreased symptoms. She demonstrated improvements in activity tolerance with VOR x1 exercises. She consistently has increased dizziness described as swimming that increases with intensity with head movement and resolves to baseline with seated rest x1-2 min. The patient will continue to benefit from ongoing skilled physical therapy to progress toward set goals. PLAN FOR NEXT VISIT: Progress to standing, assess symptom to increased speed SUBJECTIVE: Pt. reports 5 minutes of continuous symtpoms every time she lays down. She has increased dizziness after everytime she eats. Mornings are better with less intensity as compared to the afternoon.Pt. has not yet scheduled an upper endoscopy. Pt. reports that the intensity of dizziness does reduce with rest in between exercises. Vestibular Description: (swimming) Rating of current symptoms: 0/10 Fall Assessment: No falls Pain: Post Treatment Pain Post Treatment Symptoms: 2/10 dizziness at end of visit. OBJECTIVE MEASURES WITH LEVEL OF FUNCTION: TREATMENT: Therapeutic Exercise: 1: seated cervical chin tucks 2x10, 4 sets between each set of VORx1 Skilled Intervention: Patient was educated in proper exercise technique and purpose for exercises. Reviewed and educated patient on additions/changes for home exercise program as above (*). Skilled judgment was provided in selection of appropriate interventions. Correct performance of therapeutic exercises was facilitated with verbal, visual, and tactile cuing. Educated patient on rationale for performing exercises in regards to decreasing fatigue , including balance, increase ease of ADL, and ROM and function . Patient education as noted. Neuromuscular Re-Education: 1: seated plain back ground, 3' distance 2 cm target, horizontal head movements 2 sets of 30-60 seconds, 1-2 min rest between each set to allow symptoms to return to baseline (150 bpm, 3/10 dizziness) 2: seated plain back ground, 3' distance 2 cm target, vertical head movements 2 sets of 30-60 seconds (200 bpm, 5/10 dizziness, 2/10 dizziness) Skilled Intervention: Skilled judgment used to assess appropriate program for balance and coordination activity. Education in proprioceptive/kinesthetic awareness during VORx1 seated. Reviewed and educated patient on additions/changes for home program as noted above with an (*). Patient education as noted. Self-Residential Management: 1: *discussed laying supine if laying on either side at night causes increased dizziness. 2: *discussed recording foods and activities that cause increased symptoms 3: *discussed possible causes of UVL Skilled Intervention: Skilled judgment in the selection of proper modification for activity of daily living/home management based on clinical presentation, deficits, and needs. Reviewed patient specific diagnosis in relation to activities of daily living/home management. Activity progression based on professional judgement. Reviewed and educated patient on additions/changes for home program as noted above with an (*). Correct performance of home program was facilitated with verbal, visual, and tactile cueing. Billing Therapeutic Exercise Treatment Minutes: 5 Neuromuscular Re-Education Treatment Minutes: 25 Self-Care/Home Management Treatment Minutes: 10 Total Treatment Time Minutes (timed/untimed): 40 Session Start Time : 1320 Session Stop Time : 1400 Peggy Alexandre PT documented in this encounter [facility] 06-15-2023 Miscellaneous Notes Pt called and is notified of providers message and instructions. Pt voices understanding. Rach Weiner, RN Noted, no need to see Steel Floor Pan Placing Supervisor at this time Abdullahi Koehler DO' See previous note. Patient called back to say the reaction she had with Cytomel was confusion, dizziness, headache, and hair loss. Ramona Prabhakar RN Spoke with pt gave information provided. Pt states has been on cytomel in the past . She can not take this. She states this caused an interaction with her hormone medication she is using. She has this written down somewhere what reaction was but can not find it right now. She herself started taking her thyroid medication one less day a week since seeing labs. She is asking does she need to see a transportation technician to get this straightened out . Says does not want to but asking if you feel she should. Please inform patient that her recent labs were showing that her free t3 is slightly low and free t4 is a little high. Can consider decreasing her dose of levothyroxine to take 75 mcg a day and add on a T3 only thyroid hormone called Cytomel 5 mcg a day or can decrease the levothyroxine to just take 88 mcg 6 days a week and add on Cytomel at 5 mcg a day. Let me know what she prefers Abdullahi Koehler DO documented in this encounter [facility] 06-12-2023 Note HNO ID: [id number] Author: Peggy Alexandre PT Service: ? Author Type: Physical Therapist Type: Progress Notes Filed: 06/12/2023 5:13 PM Note Text: Episode Visit Count: 2 Therapist That Will Accept/Oversee The Plan Of Care: Peggy Alexandre Start of Care Date: 06/05/23 Onset Date: 05/16/23 Plan of Care Certification Date: 06/05/23 Next Certification Due Date: 07/10/23 REHABILITATION AND SPORTS THERAPY PHYSICAL THERAPY TREATMENT NOTE ASSESSMENT: Ivette Murguia tolerated the session with increased symptoms. She demonstrated difficulty with VORx1 seated with vertical and horizontal head movements at a slow speed. . The patient will continue to benefit from ongoing skilled physical therapy to progress toward set goals. PLAN FOR NEXT VISIT: increase speed of head movement as tolerated. SUBJECTIVE: Continues to get spinning at seated rest and with amb. She has increased symptoms upon laying down and sitting back up. Vestibular Description: spinning (self) Rating of current symptoms: 6/10 Frequency: Constant Fall Assessment: No falls Pain: OBJECTIVE MEASURES WITH LEVEL OF FUNCTION: TREATMENT: Therapeutic Exercise: 1: seated cervical retraction 2 sets of 10 before and after VOR x1 exercises Skilled Intervention: Patient was educated in proper exercise technique and purpose for exercises. Skilled judgment was provided in selection of appropriate interventions. Provided written instruction for home exercise program to facilitate proper performance and compliance. Correct performance of therapeutic exercises was facilitated with verbal, visual, and tactile cuing. Educated patient on rationale for performing exercises in regards to decreasing fatigue , increase ease of ADL, and ROM and function . Patient education as noted. Neuromuscular Re-Education: 1: *seated plain back ground, 2' distance holding 2 cm target, horizontal head movements 2 sets of 30-60 seconds, 1-2 min rest between each set to allow symptoms to return to baseline (increased dizziness to 9/10, unable to increase speed of head movement, symptoms resolved within 1-2 min of rest) 2: *seated plain back ground, 2' distance holding 2 cm target, vertical head movements 2 sets of 30-60 seconds (1-2 min of rest to allow symptoms to return to baseline) 3: *3x/day with HEP, 1 set vertical + 1 set horrizontal head movement x 60 sec Skilled Intervention: Skilled judgment used to assess appropriate program for balance and coordination activity. Education in proprioceptive/kinesthetic awareness during seated VORx1. Ensured patient safety with use of seated position. PT supervision. Patient education as noted. Self-Residential Management: 1: *distance glasses for VOR 3 distance next visit and for HEP 2: *discussed adequate rest to allow symptoms to return to baseline between sets of VOR 3: *discussed the role of the VOR and purpose of adaptation exercises 4: *discussed PT's recommendation to proceed with procedures that physician recommends. Encouraged pt. to discuss her concerns of undergoing anesthesia Skilled Intervention: Skilled judgment in the selection of proper modification for activity of daily living/home management based on clinical presentation, deficits, and needs. Provided written instruction for activities of daily living techniques to facilitate proper performance and compliance. Reviewed patient specific diagnosis in relation to activities of daily living/home management. Activity progression based on professional judgement. Provided written instruction for home program to facilitate proper performance and compliance. Correct performance of home program was facilitated with verbal and visual cueing. Billing Therapeutic Exercise Treatment Minutes: 5 Neuromuscular Re-Education Treatment Minutes: 25 Self-Care/Home Management Treatment Minutes: 10 Total Treatment Time Minutes (timed/untimed): 40 Session Start Time : 1630 Session Stop Time : 1710 Peggy Alexandre, PT [facility] 06-12-2023 Miscellaneous Notes Patient has been identified by name and date of : Yes Patient phones for refill(s): Requested Prescriptions Pending Prescriptions Disp Refills nabumetone (RELAFEN) 500 mg tablet 180 tablet 3 Sig: Take 2 tablets by mouth once daily. Date of last office visit in primary care: 05/21/2023 Please advise. Thank you. Madison Kahn LPN documented in this encounter [facility] 06-06-2023 Miscellaneous Notes Referral Faxed as below. Patient calling said she would like referral sent to Dr Catracho Young she did not have his fax number, his phone number is [phone]. They are scheduling into Oct 2023, she does not have appt as yet. She was hoping to make sure nurse had not mailed referral to her. Orders placed for neurology, she is scheduled Abdullahi Koehler DO documented in this encounter [facility] 06-05-2023 Note HNO ID: [id number] Author: Peggy Alexandre PT Service: ? Author Type: Physical Therapist Type: Progress Notes Filed: 06/05/2023 10:19 AM Note Text: Episode Visit Count: 1 Therapist That Will Accept/Oversee The Plan Of Care: Peggy Alexandre Start of Care Date: 06/05/23 Onset Date: 05/16/23 Plan of Care Certification Date: 06/05/23 Next Certification Due Date: 07/10/23 Patient Identified by Name and Date of : Yes REHABILITATION AND SPORTS THERAPY PHYSICAL THERAPY EVALUATION PLAN OF CARE: Assessment: Ivette Murguia presents with diagnosis of gait disorder, vertigo, balance disorder, and dizziness that interferes with bed mobility, bending . She presents with impairments in ADL's, balance, gait, independence in exercise, overall function, patient reported outcome measures, sensation, and symptom management. Patient did not complete the PROMIS? (Patient Reported Outcome Measures Information System). Prognosis for therapy is Good due to: good support system/ coping skills, acuteness of condition . She will benefit from skilled therapy services to meet the goals established for this plan of care as noted below. Goals for Episode of Care: created on 06/05/23 through 07/17/23 Patient will improve FGA to 24 or more /30 in order to perform functional tasks with improved stability. Patient will be independent with home exercise program and progression. Patient will return to prior level of function with all activities of daily living with trace reports of dizziness. Patient will deny dizziness with rolling left, bending, shopping, and walking. Patient will demonstrate the ability to complete VOR in static and dynamic positions with trace report of dizziness. Patient Goals: resolve dizziness at rest and with functional movements Planned Interventions, Frequency, and Duration: Current Frequency: 1x/week Duration: 6 weeks Total Number of Visits Planned: 6 Planned Treatment Interventions: Therapeutic exercise (44572), Neuromuscular re-education (96591), Self-detention management (40742), Therapeutic activities (24120), Manual therapy (79909), Gait Training (20427) PLAN FOR NEXT VISIT: Adaptation exercises Patient demonstrates good understanding of plan of care and treatment. The above goals and plan of care were discussed and agreed upon by patient/family. SUBJECTIVE: for dizziness that onset following a surgery followed by vertigo which caused her to almost fall upon sitting up from bed to use the bathroom. Movements that provoke vertigo include bending and turning. Pt. had COVID-19 with similar type swirling sensation in her head. Patient Goals: resolve dizziness at rest and with functional movements Functional Limitations: bed mobility, bending Prior Level of Function: Independent without limitations Relevant History Past Relevant Medical Conditions: Hypertension, Thyroid Disease, Vertigo Intake Information: Prescription present Concussion History of Concussion: Yes Number of Concussions: 1 Vestibular Symptoms present for: weeks Symptom onset: sudden Dizziness: Yes Description: spinning (self) Rating of current symptoms: 5/10 Frequency: Constant and increases with activity Duration: minutes Symptoms worsened by: rolling left, turning head quickly Symptoms improved by: being still Imbalance: Yes Imbalance triggered by: Shopping, Visual stimulus/complex background, Walking Imbalance Comments: denies falls Fall Assessment: No falls Nausea: denies Motion Sickness: None Sleep Affected by Symptoms: Dizziness keeps from falling asleep History of Syncope: No Pain: Post Treatment Pain Post Treatment Symptoms: increased dizziness with VORx1 horrizontal x 60 sec PROMIS Scales T-scores: mean of general population = 50. 5 points is clinically meaningfully difference Percentiles provide an indication of how the patient's score ranks in relation to the general population. Higher percentile rankings indicate better function/quality of life. 50th percentile is the average of the general population and indicates half of respondents had a worse score. OBJECTIVE MEASURES WITH LEVEL OF FUNCTION: Oculomotor Testing Fixation Present Ocular ROM: WNL Smooth pursuit: (saccadic interuption L to R) Horizontal: WNL Head Thrusts: Left positive (much difficulty relaxing the neck) VOR to slow head movements: Positive X1 Viewing - Horizontal: difficulty Oculomotor Testing Fixation Removed Spontaneous Nystagmus: No nystagmus Gaze Evoked Nystagmus: Not present Positional Testing Right Salima-Hallpike: Symptomatic, Less than 60 seconds, No nystagmus Left Phillips-Hallpike: No nystagmus, Symptomatic, Less than 60 seconds Right Ear Down: No nystagmus, Symptomatic, Less than 60 seconds Left Ear Down: No nystagmus, Symptomatic, Less than 60 seconds Cervical Spine ROM Cervical ROM : Limitation AROM Cervical Protrusion AROM: Normal Cervical R (more content not included)... [facility] 05-24-2023 Miscellaneous Notes Pt called and is notified of providers results. Pt voices understanding. Rach Weiner RN Please inform patient that her CT brain was normal Abdullahi Koehler DO documented in this encounter [facility] 05-23-2023 Note HNO ID: [id number] Author: Maci Hernandez RT(R) Service: ? Author Type: Senior Marketing Manager Type: Progress Notes Filed: 05/23/2023 9:26 AM Note Text: Radiology Service Progress Note PATIENT NAME: Ivette Murguia DATE OF SERVICE: May 23, 2023 TIME: 9:25 AM PATIENT IDENTITY VERIFICATION COMPLETED USING TWO (2) IDENTIFIERS: Name and Date of confirmed by patient verbally. FALL SCREENING: Has the patient had 2 falls in the last year or 1 fall with injury or currently using an Ambulatory Assistive Device (Walker, Cane, Wheelchair, Crutches, etc.)? No PATIENT GENDER DATA: Female. status: : No status: NO. PATIENT RELEVANT IMPLANT DATA REVIEWED: Yes RADIOLOGY DEPARTMENT: CT; Exam(s) Completed: Brain PERIPHERAL IV DATA: Not applicable SIGNED BY: RT Jessica(R) May 23, 2023 9:25 AM [facility] 05-21-2023 Note HNO ID: [id number] Author: Abdullahi Koehler DO Service: ? Author Type: Physician Type: Progress Notes Filed: 05/22/2023 6:41 AM Note Text: CC: Ivette Murguia is a 78 year old female who presents to the office for follow up HPI: Seen in office last on 02/06/2023 Diagnosed with bacterial vaginosis, severe symptoms, finished 7 days of Flagyl medication per URBAN PLANNING TEACHER and was reevaluated and still have bacterial vaginosis at that time even though she complete this course of treatment. Was then started on clindamycin vaginal and this caused a lot of side effects of severe vaginal burning symptoms. Was told needs to try to complete the clindamycin longer time period but only able to tolerate it 7 day treatment. Was then seen by Dr. Johnson [employer] TE[employer]ER since she was having such extreme symptoms of difficulty with urinating with the clindamycin. She was told to try Boric acid 600 mg into a suppository per compounding pharmacy x 2 weeks. Was told can use this intermittently as well. Now also feels like she is struggling with the estriol cream. Going to try to do switching to Estradiol is same compounding additive as the boric acid suppository. Going to hold off with vascular surgery referral at this time. Getting leg cramping symptoms. Trying to drink adequate water intake Also still with intermittent nausea and foggy brain and dizziness that comes and goes. Currently Had left side lumbar spine ablation by Dr. Alex lozano on Sunday, given Propafol medication and felt afterwrds felt dizziness symptoms. Had to be taken out to the car in a wheelchair. The next evening on , vertigo started. Has had vertigo x 5 days now. Causing balance difficulty and feeling of falling. Worse with turning head to the left side Few months ago in the middle of the night, didn't realize right leg was asleep and twisted her right ankle. The ankle then started swelling and was blackened/bruised. Since then the front of the top of the foot and the toes feel like they don't have feeling in then. Has tried to dangle foot over a chair. Worse in the afternoon Continues to get some intermittent leg cramping symptoms Underweight, weight at 118 lbs. Sometimes feels that food is getting stuck in her throat and having some difficulty with swallowing pills at times. Struggling with foods she eats- no longer able to eat pears and peaches. Also struggles with eating potatoes. Also was struggling to eat corn flakes and lactose free milk but now able to again. Was trying to eat more beef and corn to keep calories to maintain her weight which she knows she is losing some. Struggles with nausea when hasn't eaten but then when eats sometimes and also struggles with nausea. No obvious blood in stool or new stool changes. PAST MEDICAL HISTORY Diagnosis Date Arthritis Asymmetric septal hypertrophy (HCC) 02/2021 repeat ECHO needed 02/2022 Eczema Glaucoma History of COVID-19 10/2020 Hypercholesterolemia Hypertension Hypothyroidism Lactose intolerance 02/2019 PAST SURGICAL HISTORY Procedure Laterality Date APPENDECTOMY AT AGE 10 ARTHRP ACETBLR/PROX FEM PROSTC AGRFT/ALGRFT 09/26/2010 LEFT HIP- Dr. Byrne BX BREAST PERC VACUUM/ROTN 07/21/13 Right lateral COLONOSCOPY FLX DX W/COLLJ SPEC WHEN PFRMD 04/15/2015 Colonoscopy CURETTAGE 1972 ESOPHAGOGASTRODUODENOSCOPY TRANSORAL DIAGNOSTIC 02/2019 EGD KNEE ARTHROSCOPY/SURGERY LEFT KNEE LIGATION/BIOPSY TEMPORAL ARTERY 10/2012 left PAST SURGICAL HISTORY OF basal cell removed from nose 08/2012 PAST SURGICAL HISTORY OF 04/2014 Dr. Mallory, left hip tendon release- illopsoas tendon release REMOVE TONSIL AND ADENOI UNDER AGE 12 AT AGE 3 TOTAL HIP JOINT REPLACEMENT 12/30/2013 right Current Outpatient Medications Medication Sig BORIC ACID 600 MG VAGINAL SUPPOSITORY Use 600 mg vaginally. Unwrap and insert as directed. levothyroxine (LEVOXYL) 88 mcg tablet Take 1 tablet by mouth once daily. Take on empty stomach. For Thyroid nabumetone (RELAFEN) 500 mg tablet Take 2 tablets by mouth once daily. Magnesium 200 mg tab Take 200 mg by mouth once daily. betamethasone valerate 0.1 % ointment Apply to affected area once daily. albuterol HFA (VENTOLIN HFA) 90 mcg/actuation inhaler Inhale 2 Puffs as instructed every 4 hours as needed for Wheezing/Shortness of Breath. dorzolamide HCl/PF (DORZOLAMIDE, PF,) 2 % drop Use in eyes. fexofenadine (PADMINI) 180 mg tablet Take 180 mg by mouth as needed. cholecalciferol (VITAMIN D3) 1,000 unit tab tablet Take 1 tablet by mouth once daily. fluticasone (FLONASE) 50 mcg/actuation nasal spray Use 2 Sprays in each nostril once daily. (Patient taking differently: Use 2 Sprays in each nostril as needed.) fluconazole (DIFLUCAN) 150 mg tablet Take 1 tablet by mouth one time a week. Once a week fluconazole (DIFLUCAN) 150 mg tablet Take one tablet by mouth once. Then repeat every 3 days for 3 (more content not included)... [facility] 02-15-2023 Miscellaneous Notes Spoke with pt gave information provided. Pt voices understanding. She states she is not feeling like thyroid is off. Please inform patient that all her labs are stable except for free t4 is slightly high, her TSH and free t3 are normal. If feels she is oversupplemented with thyroid hormone, we can decrease her dose to 75 mcg of levothyroxine if interested. Abdullahi Koehler DO documented in this encounter [facility] 02-06-2023 Note HNO ID: [id number] Author: Abdullahi Koehler DO Service: ? Author Type: Physician Type: Progress Notes Filed: 02/06/2023 2:24 PM Note Text: CC: Ivette Murguia is a 77 year old female who presents to the office for follow up HPI: Diagnosed with bacterial vaginosis, severe symptoms, finished 7 days of Flagyl medication per [employer] PL[employer]ING TEACHER and was reevaluated and still have bacterial vaginosis at that time even though she complete this course of treatment. Was then started on clindamycin vaginal and this caused a lot of side effects of severe vaginal burning symptoms. Was told needs to try to complete the clindamycin longer time period but only able to tolerate it 7 day treatment. Was then seen by Dr. Johnson [employer]ING TEACHER since she was having such extreme symptoms of difficulty with urinating with the clindamycin. She was told to try Boric acid 600 mg into a suppository per compounding pharmacy x 2 weeks. Was told can use this intermittently as well. Now also feels like she is struggling with the estriol cream. Going to try to do switching to Estradiol is same compounding additive as the boric acid suppository. Going to hold off with vascular surgery referral at this time. Getting leg cramping symptoms. Trying to drink adequate water intake Also still with intermittent nausea and foggy brain and dizziness that comes and goes. PAST MEDICAL HISTORY Diagnosis Date Arthritis Asymmetric septal hypertrophy (HCC) 02/2021 repeat ECHO needed 02/2022 Eczema Glaucoma History of COVID-19 10/2020 Hypercholesterolemia Hypertension Hypothyroidism Lactose intolerance 02/2019 PAST SURGICAL HISTORY Procedure Laterality Date APPENDECTOMY AT AGE 10 ARTHRP ACETBLR/PROX FEM PROSTC AGRFT/ALGRFT 09/26/2010 LEFT HIP- Dr. Byrne BX BREAST PERC VACUUM/ROTN 07/21/13 Right lateral COLONOSCOPY FLX DX W/COLLJ SPEC WHEN PFRMD 04/15/2015 Colonoscopy CURETTAGE 1972 ESOPHAGOGASTRODUODENOSCOPY TRANSORAL DIAGNOSTIC 02/2019 EGD KNEE ARTHROSCOPY/SURGERY LEFT KNEE LIGATION/BIOPSY TEMPORAL ARTERY 10/2012 left PAST SURGICAL HISTORY OF basal cell removed from nose 08/2012 PAST SURGICAL HISTORY OF 04/2014 Dr. Mallory, left hip tendon release- illopsoas tendon release REMOVE TONSIL AND ADENOI UNDER AGE 12 AT AGE 3 TOTAL HIP JOINT REPLACEMENT 12/30/2013 right Current Outpatient Medications Medication Sig BORIC ACID 600 MG VAGINAL SUPPOSITORY Use 600 mg vaginally. Unwrap and insert as directed. fluconazole (DIFLUCAN) 150 mg tablet Take one tablet by mouth once. Then repeat every 3 days for 3 doses. levothyroxine (LEVOXYL) 88 mcg tablet Take 1 tablet by mouth once daily. Take on empty stomach. For Thyroid nabumetone (RELAFEN) 500 mg tablet Take 2 tablets by mouth once daily. tiZANidine (ZANAFLEX) 2 mg tablet Take 1 tablet by mouth every 8 hours as needed (restless legs, muscle tension). ascorbic acid (VITAMIN C ORAL) Take by mouth. Magnesium 200 mg tab Take 200 mg by mouth once daily. ZINC ORAL Take 15 mg by mouth once daily. betamethasone valerate 0.1 % ointment Apply to affected area once daily. albuterol HFA (VENTOLIN HFA) 90 mcg/actuation inhaler Inhale 2 Puffs as instructed every 4 hours as needed for Wheezing/Shortness of Breath. TURMERIC ORAL Take by mouth. fexofenadine (PADMINI) 180 mg tablet Take 180 mg by mouth as needed. cholecalciferol (VITAMIN D3) 1,000 unit tab tablet Take 1 tablet by mouth once daily. fluticasone (FLONASE) 50 mcg/actuation nasal spray Use 2 Sprays in each nostril once daily. (Patient taking differently: Use 2 Sprays in each nostril as needed.) fluconazole (DIFLUCAN) 150 mg tablet Take 1 tablet by mouth one time a week. Once a week methylPREDNISolone (MEDROL, MARLYS,) 4 mg Dose-Pack Take as directed clotrimazole-betamethasone (LOTRISONE) lotion Apply to affected area twice daily. For 30 days vitamin b complex capsule Take 1 capsule by mouth once daily. [id number] ORAL Take by mouth once daily. omega-3/dha/epa/fish oil (OMEGA-3 FISH OIL ORAL) Take by mouth once daily. betamethasone valerate 0.1 % cream Apply to affected area twice daily as needed for exzema, don't use for more than 1 week in a row albuterol (PROVENTIL) 2.5 mg /3 mL (0.083 %) nebulizer solution Use 3 mL via nebulizer every 4 hours as needed for Wheezing/Shortness of Breath. Use over 5-15minutes. Spirometers and Accessories lena 1 Device as directed. Dx: dyspnea, Bronchiectasis dorzolamide HCl/PF (DORZOLAMIDE, PF,) 2 % drop Use in eyes. latanoprost (XALATAN) 0.005 % ophthalmic solution 1 Drop daily at bedtime. No current facility-administered medications for this visit. ALLERGIES Allergen Reactions Balsam Of Annemarie [Bal* Unknown Codeine Rash Flagyl [Metronidazo* Mental Status Change, Hives, GI Upset Elbow rash, arm hives, headache, dizziness, nausea, feet sensations, coordination off. Heartburn, seeing things out of corner eyes, pelvic (more content not included)... [facility] 01-29-2023 Note HNO ID: [id number] Author: Issac Minor Service: ? Author Type: ? Type: Progress Notes Filed: 01/29/2023 12:51 PM Note Text: unavailable [facility] 01-29-2023 History of Present illness Narrative unavailable documented in this encounter [facility] 01-03-[address] Johnson office calling asking for copy of patient last office visit notes to be faxed to [phone]. Patient has appt next week with Urology. Printed and faxed as requested. documented in this encounter [facility] 12-29-2022 Miscellaneous Notes Called and spoke with patient. She is having burning for 10 minutes after medication insertion. Reviewed if she is coping with this and no other severe reactions would recommend continued use for the 26 days as recommended. If worsening or more sever will need to discuss further. Peggy Jiménez APRN.CNM Patient called asking if ZARA could personally call her. The cream that was prescribed has been causing vaginal burning. Estrella García RN documented in this encounter [facility] 12-21-2022 Miscellaneous Notes Called and spoke with Gilson from [facility] retial pharmacy for clindamycin ointment vaginally for 28 days will be compounded for the patient. Please notify patient this is called in and I spoke with the pharmacist. They will call her when it is ready, likely tomorrow. Thank you, Peggy Jiménez APRN.CNM Nurse send message to Madison Jiménez to contact [facility] retail pharmacy regarding compounded prescription. Patient notified to check with pharmacy regarding when Rx would be ready Patient states that she called a couple pharmacies and stated that her best option would be to have [facility] compound the Clindamycin 2% into a vaginal gel. Patient states that when Rx is sent to [facility] the Rx must be noted that clindamycin is to be compounded to a vaginal gel. Patient states that she spoke to Gilson in the pharmacy at [facility]. Patient notified of options and wants to call pharmacy before making her decision. Patient will call back with her choice of medication Called and spoke with patient regarding medications. After speaking with her I called and talked to pharmacist and the 2% vaginal gel is brand name and they do not have it. The 1% gel is not for vaginal use. The pharmacist states they have vaginal suppositories. She can either try the cream or the suppositories but the suppositories are expensive. Please see what she would like me to do. She is welcome to talk with the pharmacist on ingredients of cream and see if that is something she is willing to try. Thank you, Peggy Jiménez APRN.CNM Patient called back stating that she would like Peggy Jiménez to review message and is ok with waiting until provider is back at the office. Patient stated that Peggy is most familiar with her medical history and feels more comfortable with her prescribing medication. ZARA patient called because the prescription for Clindamycin cream needs changed. Patient states she is allergic to creams and needs the gel. However, the gel is only 1% and not 2%. Pharmacy also needs the directions clarified. There are two sets of directions. Patient would like a call back. Estrella García RN documented in this encounter [facility] 12-20-2022 Miscellaneous Notes Addended by: PEGGY JIMÉNEZ on: 12/20/2022 07:24 PM Modules accepted: Orders documented in this encounter [facility] 12-20-2022 Miscellaneous Notes Patient will start with vaginal clindamycin daily at bedtime x 4 weeks and will continue estriol compounded vaginal cream as earlier prescribed Azul Valles MD documented in this encounter [facility] 12-19-2022 Miscellaneous Notes Thank you. She got to it before me. I was going to mychart her. Thank you. Peggy Jiménez APRN.CNM Patient seen today. States she looked at her after visit summary and seen that she was to have her urine collected for a culture. Patient can stop by the lab tomorrow. Will be in [place]. Please file a new urine culture order for lab collect . Order pending. Estrella García RN documented in this encounter [facility] 12-19-2022 Note HNO ID: [id number] Author: Peggy Jiménez APRN.CNM Service: ? Author Type: Line Builder Type: Progress Notes Filed: 12/20/2022 7:14 PM Note Text: Ivette Murguia is a 77 year old female who presents for problem visit for vulvar complaints. HPI: Presents today with continued complaints. Flagyl 500mg PO BID on 12/03/22. Started medication and had elbow rash, arm hives, headache, dizziness, nausea, feet sensations, coordination off. Heartburn, seeing things out of corner eyes, pelvic pressure, difficulty urinating, indigestion. Took for all 7 days and continued to get worse after. After stopping this it took 4-5 days to improve. Rash and heartburn were last to go. Difficulty urinating. Burning with sitting. Denies frequency, urgency or dysuria. 05/16/21 vulvar itching-vulvar biopsy, Augmented betamethasone 0.05% ointment. LS negative. Chronic spongiotic dermatitis. 05/30/21- Started estriol compounded cream, switched to ointment. 08/03/21-Chronic spongiotic dermatitis, Lotrisone and betamethasone for 30 days BID. Caused sore on thigh after 4 days and had to stop. Using betamethasone valatre 0.1% cream on vulva at 5 nights a week, during the day olive oil for dryness. 11/21/21-Betamethasone and estrogen gel compounded. 12/30/20-Used Diflucan 150mg PO once and OTC monistat. Using betamethasone valerate 0.1% ointment and Estriol gel and no further complaints. 07/04/21 yeast, Diflucan 08/03/21 Negative yeast and BV 07/10/22 yeast, Diflucan 12/01/22 BV, Flagyl OB History T2 L2 SAB0 IAB0 Ectopic0 Multiple0 Live Births0 Filter Changer History LMP: Postmenopausal Age at Menarche: Age at First : Age at Menopause: Filter Changer History Comments: Sexual Activity: Not Currently; Male Contraception: No contraception data on record PAST MEDICAL HISTORY Diagnosis Date Arthritis Asymmetric septal hypertrophy (HCC) 02/2021 repeat ECHO needed 02/2022 Eczema Glaucoma History of COVID-19 10/2020 Hypercholesterolemia Hypertension Hypothyroidism Lactose intolerance 02/2019 PAST SURGICAL HISTORY Procedure Laterality Date APPENDECTOMY AT AGE 10 ARTHRP ACETBLR/PROX FEM PROSTC AGRFT/ALGRFT 09/26/2010 LEFT HIP- Dr. Byrne BX BREAST PERC VACUUM/ROTN 07/21/13 Right lateral COLONOSCOPY FLX DX W/COLLJ SPEC WHEN PFRMD 04/15/2015 Colonoscopy CURETTAGE 1972 ESOPHAGOGASTRODUODENOSCOPY TRANSORAL DIAGNOSTIC 02/2019 EGD KNEE ARTHROSCOPY/SURGERY LEFT KNEE LIGATION/BIOPSY TEMPORAL ARTERY 10/2012 left PAST SURGICAL HISTORY OF basal cell removed from nose 08/2012 PAST SURGICAL HISTORY OF 04/2014 Dr. Mallory, left hip tendon release- illopsoas tendon release REMOVE TONSIL AND ADENOI UNDER AGE 12 AT AGE 3 TOTAL HIP JOINT REPLACEMENT 12/30/2013 right FAMILY HISTORY Problem Relation Age of Onset Stroke Mother Heart Mother Stroke Father Heart Father Colon Cancer Father 60 other (SKIN CANCER) Father Heart Brother [address] Stroke Maternal Grandmother other (rheumatoid arthritis) Maternal Grandfather other (leukemia) Maternal Grandfather other (kidney cancer) Paternal Grandfather Asthma Daughter Social History Tobacco Use Smoking status: Never Smokeless tobacco: Never Vaping Use Vaping Use: Never used Substance Use Topics Alcohol use: Not Currently Drug use: No Current Outpatient Medications Medication Sig fluconazole (DIFLUCAN) 150 mg tablet Take one tablet by mouth once. Then repeat every 3 days for 3 doses. methylPREDNISolone (MEDROL, MARLYS,) 4 mg Dose-Pack Take as directed fluconazole (DIFLUCAN) 150 mg tablet Take 1 tablet by mouth one time a week. Once a week levothyroxine (LEVOXYL) 88 mcg tablet Take 1 tablet by mouth once daily. Take on empty stomach. For Thyroid nabumetone (RELAFEN) 500 mg tablet Take 2 tablets by mouth once daily. tiZANidine (ZANAFLEX) 2 mg tablet Take 1 tablet by mouth every 8 hours as needed (restless legs, muscle tension). ascorbic acid (VITAMIN C ORAL) Take by mouth. Magnesium 200 mg tab Take 200 mg by mouth once daily. ZINC ORAL Take 15 mg by mouth once daily. betamethasone valerate 0.1 % ointment Apply to affected area once daily. vitamin b complex capsule Take 1 capsule by mouth once daily. omega-3/dha/epa/fish oil (OMEGA-3 FISH OIL ORAL) Take by mouth once daily. albuterol (PROVENTIL) 2.5 mg /3 mL (0.083 %) nebulizer solution Use 3 mL via nebulizer every 4 hours as needed for Wheezing/Shortness of Breath. Use over 5-15minutes. albuterol HFA (VENTOLIN HFA) 90 mcg/actuation inhaler Inhale 2 Puffs as instructed every 4 hours as needed for Wheezing/Shortness of Breath. Spirometers and Accessories lena 1 Device as directed. Dx: dyspnea, Bronchiectasis dorzolamide HCl/PF (DORZOLAMIDE, PF,) 2 % drop Use in eyes. TURMERIC ORAL Take by mouth. latanoprost (XALATAN) 0.005 % ophthalmic solution 1 Drop daily at bedtime. fexofenadine (PADMINI) 180 mg tablet Take 180 mg by mouth as neede (more content not included)... [facility] 12-19-2022 Instructions Peggy Jiménez APRN.CNM - 12/19/2022 12:04 PM EST Urethral caruncle Topical estrogen cream for two to three months. Apply a fingertip amount of estrogen cream to the caruncle once daily for two weeks and then twice per week for two to three months. Yeast: Diflucan 150mg by mouth once a week for 6 months. Started in September 2022 Vaginal atrophy and burning: Estriol ointment twice a week followed by application of betamethasone valerate 0.1 % ointment the same day for 1-2 months. If desires can decrease estriol and steroid ointment ot once a week for 2-4 weeks and see if you get improvement or worsening of symptoms. documented in this encounter [facility] 12-19-2022 History of Present illness Narrative Ivette Murguia is a 77 year old female who presents for problem visit for vulvar complaints. HPI: Presents today with continued complaints. Flagyl 500mg PO BID on 12/03/22. Started medication and had elbow rash, arm hives, headache, dizziness, nausea, feet sensations, coordination off. Heartburn, seeing things out of corner eyes, pelvic pressure, difficulty urinating, indigestion. Took for all 7 days and continued to get worse after. After stopping this it took 4-5 days to improve. Rash and heartburn were last to go. Difficulty urinating. Burning with sitting. Denies frequency, urgency or dysuria. 05/16/21 vulvar itching-vulvar biopsy, Augmented betamethasone 0.05% ointment. LS negative. Chronic spongiotic dermatitis. 05/30/21- Started estriol compounded cream, switched to ointment. 08/03/21-Chronic spongiotic dermatitis, Lotrisone and betamethasone for 30 days BID. Caused sore on thigh after 4 days and had to stop. Using betamethasone valatre 0.1% cream on vulva at 5 nights a week, during the day olive oil for dryness. 11/21/21-Betamethasone and estrogen gel compounded. 12/30/20-Used Diflucan 150mg PO once and OTC monistat. Using betamethasone valerate 0.1% ointment and Estriol gel and no further complaints. 07/04/21 yeast, Diflucan 08/03/21 Negative yeast and BV 07/10/22 yeast, Diflucan 12/01/22 BV, Flagyl OB History T2 L2 SAB0 IAB0 Ectopic0 Multiple0 Live Births0 Filter Changer History LMP: Postmenopausal Age at Menarche: Age at First : Age at Menopause: Filter Changer History Comments: Sexual Activity: Not Currently; Male Contraception: No contraception data on record PAST MEDICAL HISTORY Diagnosis Date Arthritis Asymmetric septal hypertrophy (HCC) 02/2021 repeat ECHO needed 02/2022 Eczema Glaucoma History of COVID-19 10/2020 Hypercholesterolemia Hypertension Hypothyroidism Lactose intolerance 02/2019 PAST SURGICAL HISTORY Procedure Laterality Date APPENDECTOMY AT AGE 10 ARTHRP ACETBLR/PROX FEM PROSTC AGRFT/ALGRFT 09/26/2010 LEFT HIP- Dr. Byrne BX BREAST PERC VACUUM/ROTN 07/21/13 Right lateral COLONOSCOPY FLX DX W/COLLJ SPEC WHEN PFRMD 04/15/2015 Colonoscopy CURETTAGE 1972 ESOPHAGOGASTRODUODENOSCOPY TRANSORAL DIAGNOSTIC 02/2019 EGD KNEE ARTHROSCOPY/SURGERY LEFT KNEE LIGATION/BIOPSY TEMPORAL ARTERY 10/2012 left PAST SURGICAL HISTORY OF basal cell removed from nose 08/2012 PAST SURGICAL HISTORY OF 04/2014 Dr. Mallory, left hip tendon release- illopsoas tendon release REMOVE TONSIL AND ADENOI UNDER AGE 12 AT AGE 3 TOTAL HIP JOINT REPLACEMENT 12/30/2013 right FAMILY HISTORY Problem Relation Age of Onset Stroke Mother Heart Mother Stroke Father Heart Father Colon Cancer Father 60 other (SKIN CANCER) Father Heart Brother [address] Stroke Maternal Grandmother other (rheumatoid arthritis) Maternal Grandfather other (leukemia) Maternal Grandfather other (kidney cancer) Paternal Grandfather Asthma Daughter Social History Tobacco Use Smoking status: Never Smokeless tobacco: Never Vaping Use Vaping Use: Never used Substance Use Topics Alcohol use: Not Currently Drug use: No Current Outpatient Medications Medication Sig fluconazole (DIFLUCAN) 150 mg tablet Take one tablet by mouth once. Then repeat every 3 days for 3 doses. methylPREDNISolone (MEDROL, MARLYS,) 4 mg Dose-Pack Take as directed fluconazole (DIFLUCAN) 150 mg tablet Take 1 tablet by mouth one time a week. Once a week levothyroxine (LEVOXYL) 88 mcg tablet Take 1 tablet by mouth once daily. Take on empty stomach. For Thyroid nabumetone (RELAFEN) 500 mg tablet Take 2 tablets by mouth once daily. tiZANidine (ZANAFLEX) 2 mg tablet Take 1 tablet by mouth every 8 hours as needed (restless legs, muscle tension). ascorbic acid (VITAMIN C ORAL) Take by mouth. Magnesium 200 mg tab Take 200 mg by mouth once daily. ZINC ORAL Take 15 mg by mouth once daily. betamethasone valerate 0.1 % ointment Apply to affected area once daily. vitamin b complex capsule Take 1 capsule by mouth once daily. omega-3/dha/epa/fish oil (OMEGA-3 FISH OIL ORAL) Take by mouth once daily. albuterol (PROVENTIL) 2.5 mg /3 mL (0.083 %) nebulizer solution Use 3 mL via nebulizer every 4 hours as needed for Wheezing/Shortness of Breath. Use over 5-15minutes. albuterol HFA (VENTOLIN HFA) 90 mcg/actuation inhaler Inhale 2 Puffs as instructed every 4 hours as needed for Wheezing/Shortness of Breath. Spirometers and Accessories lena 1 Device as directed. Dx: dyspnea, Bronchiectasis dorzolamide HCl/PF (DORZOLAMIDE, PF,) 2 % drop Use in eyes. TURMERIC ORAL Take by mouth. latanoprost (XALATAN) 0.005 % ophthalmic solution 1 Drop daily at bedtime. fexofenadine (PADMINI) 180 mg tablet Take 180 mg by mouth as needed. cholecalciferol (VITAMIN D3) 1,000 unit tab tablet Take 1 tablet by mouth once daily. fluticasone (FLONASE) 50 mcg/actuation nasal spray Use 2 Sprays in each nostril once daily. (Patient taking differently: Use 2 Sprays in each nostril as needed.) clotrimazole-betamethasone (LOTRISONE) lotion Apply to affected area twice daily. For 30 days [id number] ORAL Take by mouth once daily. betamethasone valerate 0.1 % cream Apply to affected area twice daily as needed for exzema, don't use for more than 1 week in a row No current facility-administered medications for this visit. Allergies As of Date: 12/19/2022 Allergen Noted Reaction BALSAM OF ANNEMARIE [BALSAM ANNEMARIE] 11/21/2021 Unknown CODEINE 08/23/2010 Rash FRAGRANCES 11/21/2021 Unknown GLUTEN 08/02/2021 Intolerance LACTOSE 08/02/2021 Intolerance LANOLIN 12/13/2012 Rash MORPHINE 09/28/2010 Vomiting NEOMYCIN SULFATE 11/21/2021 Unknown NICKEL 12/13/2012 Rash NICKEL SULFATE 11/21/2021 Unknown ORANGE 05/08/2019 Unknown SEASONAL ALLERGIES 03/30/2011 Intolerance Fully Assessed 12/19/2022 REVIEW OF SYSTEMS Abdomen: No bloating, early satiety, indigestion, or increased flatulence. No abdominal pain, nausea, vomiting, diarrhea, or constipation. Bladder: No gross hematuria, urinary frequency, urinary urgency, or incontinence. Breast: No breast lumps, nipple d/c, overlying skin changes, redness or skin retraction. Expanded ROS: N/A Allergies and current medication updated:Yes EXAM: BP 138/78 Wt 128 lb (58.1kg) GENERAL: pleasant, female in no apparent distress HEENT: Normocephalic and atraumatic NECK: Supple and full range of motion PELVIC: external genitalia normal, normal Bartholin's glands, Kihei's glands, no vulvar lesions, no cervical lesions, good vaginal support, physiologic discharge present, normal appearing perineal body and perianal region, atrophic changes. Small amount of thick white vaginal discharge, no odor. Urethral caruncle. NEURO: alert and oriented x3,exam grossly non-focal EXTREMITIES: normal ASSESSMENT AND PLAN: 1. Dysuria - ICD9: 788.1, ICD10: R30.0 (primary diagnosis) - URINE CULTURE 2. Vaginal burning - ICD9: 625.8, ICD10: N94.9 -Continue suppressive yeast therapy with Diflucan 150mg PO once a week for 6 months. Started September 2022. -Continue with Clarivee probiotic -Discussed with patient sending her to see as I do not feel I am serving her the best with my care. She is very nervous to start over. Discussed I will complete e-consult but if no improvement she needs formal evaluation. 3. Vaginal odor - ICD9: 625.8, ICD10: N89.8 4. Bacterial vaginitis - ICD9: 616.10, 041.9, ICD10: N76.0, B96.89 -Listed flagyl as an allergy. BV and yeast testing today. If BV positive, recommend treating with Cleocin vaginal gel. Discussed option for Boric acid suppositories. She can check ingredients as well. 5. Vaginal atrophy - ICD9: 627.3, ICD10: N95.2 - Estriol ointment twice a week followed by application of betamethasone valerate 0.1 % ointment the same day for 1-2 months. If desires can decrease estriol and steroid ointment ot once a week for 2-4 weeks and see if you get improvement or worsening of symptoms. If worse, add back to twice a week of both ointments. 6. Urethral caruncle - ICD9: 599.3, ICD10: N36.2 -Topical estrogen cream for two to three months. Apply a fingertip amount of estrogen cream to the caruncle once daily for two weeks and then twice per week for two to three months. Peggy Jiménez APRN.CNM documented in this encounter [facility] 12-15-2022 Miscellaneous Notes Called patient and notified. Patient voiced her frustration again. States she has been taking Clairvee probiotic daily. Patient requesting to be seen in office with ZARA. Appointment scheduled for Sunday. Estrella García RN Have her call Sunday with an update I would have her start Azo dual relief yeast/odor is a vaginal probiotic. She can take 3 tablets a day that may help her symptoms. If she is not having any improvement in her symptoms by Sunday we can do a trial of Cleocin vaginal gel. Patient finished flagyl two days ago and still having same vaginal symptoms as she was. Asking what else she can do. While she was on Flagyl she had some uncomfortable symptoms that have since resolved once she stopped medication. She was having heartburn, painful sensations in feet, dizzyness, skin rash on elbows, felt off and unsteady. Aware ZARA is back in office tomorrow. Please advise. Viola Lance RN documented in this encounter [facility] 12-04-2022 Miscellaneous Notes Order signed. Thank you, Peggy Jiménez APRN.CNM Patient request for medication is as follows: Requested Prescriptions Pending Prescriptions Disp Refills metroNIDAZOLE (FLAGYL) 500 mg tablet 14 tablet 0 Sig: Take 1 tablet by mouth twice daily for 7 days. Estrella García RN documented in this encounter [facility] 12-01-2022 Note HNO ID: [id number] Author: Peggy Jiménez APRN.CNM Service: ? Author Type: Line Builder Type: Progress Notes Filed: 12/03/2022 6:00 PM Note Text: Exercise Equipment Specialist offered: Patient declines. Ivette Murguia is a 77 year old female who presents for problem visit for follow up vulvar discomfort. HPI: Follows up today for vulvar complaints and discomfort. Continues compounded estriol ointment twice a week and doing well. Irritation at times but feels it offers improvement. Still feeling like she gets a yeast infection, vaginal opening irritation with burning. Denies any internal pain. Admits to odor but unable to determine scent. Urination in toilet has bubbles. No burning with urination. No urinary complaints. betamethasone valerate 0.1 % ointment once a week Had vulvar veins, but then returned for aspiration of blood clots. Has less pain than before but still on and off. Following up with a vascular surgeon. 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 Byrne BX BREAST PERC VACUUM/ROTN 07/21/13 Right lateral COLONOSCOPY FLX DX W/COLLJ SPEC WHEN PFRMD 04/15/2015 Colonoscopy CURETTAGE 1972 ESOPHAGOGASTRODUODENOSCOPY TRANSORAL DIAGNOSTIC 02/2019 EGD KNEE ARTHROSCOPY/SURGERY LEFT KNEE LIGATION/BIOPSY TEMPORAL ARTERY 10/2012 left PAST SURGICAL HISTORY OF basal cell removed from nose 08/2012 PAST SURGICAL HISTORY OF 04/2014 Dr. Mallory, left hip tendon release- illopsoas tendon release REMOVE TONSIL AND ADENOI UNDER AGE 12 AT AGE 3 TOTAL HIP JOINT REPLACEMENT 12/30/2013 right FAMILY HISTORY Problem Relation Age of Onset Stroke Mother Heart Mother Stroke Father Heart Father Colon Cancer Father 60 other (SKIN CANCER) Father Heart Brother [address] Stroke Maternal Grandmother other (rheumatoid arthritis) Maternal Grandfather other (leukemia) Maternal Grandfather other (kidney cancer) Paternal Grandfather Asthma Daughter Social History Tobacco Use Smoking status: Never Smokeless tobacco: Never Vaping Use Vaping Use: Never used Substance Use Topics Alcohol use: Not Currently Drug use: No Current Outpatient Medications Medication Sig methylPREDNISolone (MEDROL, MARLYS,) 4 mg Dose-Pack Take as directed fluconazole (DIFLUCAN) 150 mg tablet Take 1 tablet by mouth one time a week. Once a week levothyroxine (LEVOXYL) 88 mcg tablet Take 1 tablet by mouth once daily. Take on empty stomach. For Thyroid nabumetone (RELAFEN) 500 mg tablet Take 2 tablets by mouth once daily. tiZANidine (ZANAFLEX) 2 mg tablet Take 1 tablet by mouth every 8 hours as needed (restless legs, muscle tension). ascorbic acid (VITAMIN C ORAL) Take by mouth. Magnesium 200 mg tab Take 200 mg by mouth once daily. ZINC ORAL Take 15 mg by mouth once daily. betamethasone valerate 0.1 % ointment Apply to affected area once daily. vitamin b complex capsule Take 1 capsule by mouth once daily. omega-3/dha/epa/fish oil (OMEGA-3 FISH OIL ORAL) Take by mouth once daily. albuterol (PROVENTIL) 2.5 mg /3 mL (0.083 %) nebulizer solution Use 3 mL via nebulizer every 4 hours as needed for Wheezing/Shortness of Breath. Use over 5-15minutes. albuterol HFA (VENTOLIN HFA) 90 mcg/actuation inhaler Inhale 2 Puffs as instructed every 4 hours as needed for Wheezing/Shortness of Breath. Spirometers and Accessories lena 1 Device as directed. Dx: dyspnea, Bronchiectasis dorzolamide HCl/PF (DORZOLAMIDE, PF,) 2 % drop Use in eyes. TURMERIC ORAL Take by mouth. latanoprost (XALATAN) 0.005 % ophthalmic solution 1 Drop daily at bedtime. fexofenadine (PADMINI) 180 mg tablet Take 180 mg by mouth as needed. cholecalciferol (VITAMIN D3) 1,000 unit tab tablet Take 1 tablet by mouth once daily. fluticasone (FLONASE) 50 mcg/actuation nasal spray Use 2 Sprays in each nostril once daily. (Patient taking differently: Use 2 Sprays in each nostril as needed.) clotrimazole-betamethasone (LOTRISONE) lotion Apply to affected area twice daily. For 30 days [id number] ORAL Take by mouth once daily. betamethasone valerate 0.1 % cream Apply to affected area twice daily as needed for exzema, don't use for more than 1 week in a row No current facility-administered medications for this visit. Allergies As of Date: 12/01/2022 Allergen Noted Reaction BALSA (more content not included)... [facility] 12-01-2022 Instructions Peggy Jiménez APRN.CNM - 12/01/2022 11:06 AM EST Estriol ointment twice a week followed by application of betamethasone valerate 0.1 % ointment the same day for 1-2 months. If you desire, can decrease estriol and steroid ointment ot once a week for 2-4 weeks and see if you get improvement or worsening of symptoms. If worse, add back to twice a week of both ointments. documented in this encounter [facility] 12-01-2022 History of Present illness Narrative Exercise Equipment Specialist offered: Patient declines. Ivette Murguia is a 77 year old female who presents for problem visit for follow up vulvar discomfort. HPI: Follows up today for vulvar complaints and discomfort. Continues compounded estriol ointment twice a week and doing well. Irritation at times but feels it offers improvement. Still feeling like she gets a yeast infection, vaginal opening irritation with burning. Denies any internal pain. Admits to odor but unable to determine scent. Urination in toilet has bubbles. No burning with urination. No urinary complaints. betamethasone valerate 0.1 % ointment once a week Had vulvar veins, but then returned for aspiration of blood clots. Has less pain than before but still on and off. Following up with a vascular surgeon. 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 Byrne BX BREAST PERC VACUUM/ROTN 07/21/13 Right lateral COLONOSCOPY FLX DX W/COLLJ SPEC WHEN PFRMD 04/15/2015 Colonoscopy CURETTAGE 1972 ESOPHAGOGASTRODUODENOSCOPY TRANSORAL DIAGNOSTIC 02/2019 EGD KNEE ARTHROSCOPY/SURGERY LEFT KNEE LIGATION/BIOPSY TEMPORAL ARTERY 10/2012 left PAST SURGICAL HISTORY OF basal cell removed from nose 08/2012 PAST SURGICAL HISTORY OF 04/2014 Dr. Mallory, left hip tendon release- illopsoas tendon release REMOVE TONSIL AND ADENOI UNDER AGE 12 AT AGE 3 TOTAL HIP JOINT REPLACEMENT 12/30/2013 right FAMILY HISTORY Problem Relation Age of Onset Stroke Mother Heart Mother Stroke Father Heart Father Colon Cancer Father 60 other (SKIN CANCER) Father Heart Brother [address] Stroke Maternal Grandmother other (rheumatoid arthritis) Maternal Grandfather other (leukemia) Maternal Grandfather other (kidney cancer) Paternal Grandfather Asthma Daughter Social History Tobacco Use Smoking status: Never Smokeless tobacco: Never Vaping Use Vaping Use: Never used Substance Use Topics Alcohol use: Not Currently Drug use: No Current Outpatient Medications Medication Sig methylPREDNISolone (MEDROL, MARLYS,) 4 mg Dose-Pack Take as directed fluconazole (DIFLUCAN) 150 mg tablet Take 1 tablet by mouth one time a week. Once a week levothyroxine (LEVOXYL) 88 mcg tablet Take 1 tablet by mouth once daily. Take on empty stomach. For Thyroid nabumetone (RELAFEN) 500 mg tablet Take 2 tablets by mouth once daily. tiZANidine (ZANAFLEX) 2 mg tablet Take 1 tablet by mouth every 8 hours as needed (restless legs, muscle tension). ascorbic acid (VITAMIN C ORAL) Take by mouth. Magnesium 200 mg tab Take 200 mg by mouth once daily. ZINC ORAL Take 15 mg by mouth once daily. betamethasone valerate 0.1 % ointment Apply to affected area once daily. vitamin b complex capsule Take 1 capsule by mouth once daily. omega-3/dha/epa/fish oil (OMEGA-3 FISH OIL ORAL) Take by mouth once daily. albuterol (PROVENTIL) 2.5 mg /3 mL (0.083 %) nebulizer solution Use 3 mL via nebulizer every 4 hours as needed for Wheezing/Shortness of Breath. Use over 5-15minutes. albuterol HFA (VENTOLIN HFA) 90 mcg/actuation inhaler Inhale 2 Puffs as instructed every 4 hours as needed for Wheezing/Shortness of Breath. Spirometers and Accessories lena 1 Device as directed. Dx: dyspnea, Bronchiectasis dorzolamide HCl/PF (DORZOLAMIDE, PF,) 2 % drop Use in eyes. TURMERIC ORAL Take by mouth. latanoprost (XALATAN) 0.005 % ophthalmic solution 1 Drop daily at bedtime. fexofenadine (PADMINI) 180 mg tablet Take 180 mg by mouth as needed. cholecalciferol (VITAMIN D3) 1,000 unit tab tablet Take 1 tablet by mouth once daily. fluticasone (FLONASE) 50 mcg/actuation nasal spray Use 2 Sprays in each nostril once daily. (Patient taking differently: Use 2 Sprays in each nostril as needed.) clotrimazole-betamethasone (LOTRISONE) lotion Apply to affected area twice daily. For 30 days [id number] ORAL Take by mouth once daily. betamethasone valerate 0.1 % cream Apply to affected area twice daily as needed for exzema, don't use for more than 1 week in a row No current facility-administered medications for this visit. Allergies As of Date: 12/01/2022 Allergen Noted Reaction BALSAM OF ANNEMARIE [BALSAM ANNEMARIE] 11/21/2021 Unknown CODEINE 08/23/2010 Rash FRAGRANCES 11/21/2021 Unknown GLUTEN 08/02/2021 Intolerance LACTOSE 08/02/2021 Intolerance LANOLIN 12/13/2012 Rash MORPHINE 09/28/2010 Vomiting NEOMYCIN SULFATE 11/21/2021 Unknown NICKEL 12/13/2012 Rash NICKEL SULFATE 11/21/2021 Unknown ORANGE 05/08/2019 Unknown SEASONAL ALLERGIES 03/30/2011 Intolerance Fully Assessed 12/01/2022 REVIEW OF SYSTEMS Abdomen: No bloating, early satiety, indigestion, or increased flatulence. No abdominal pain, nausea, vomiting, diarrhea, or constipation. Bladder: No dysuria, gross hematuria, urinary frequency, urinary urgency, or incontinence. Breast: No breast lumps, nipple d/c, overlying skin changes, redness or skin retraction. Expanded ROS: N/A Allergies and current medication updated:Yes EXAM: BP 122/66 Wt 127 lb 12.8 oz (58.0kg) GENERAL: pleasant, female in no apparent distress HEENT: Normocephalic and atraumatic NECK: Supple and full range of motion DERMATOLOGY: Normal and without lesions BREAST: soft, non-tender, symmetric, no dominant mass, normal nipple-areolar complex, no lymphadenopathy, and no nipple discharge CHEST: Normal inspiratory effort PELVIC: external genitalia normal, normal Bartholin's glands, urethra, Kihei's glands, no vulvar lesions, no cervical lesions, good vaginal support, physiologic discharge present, normal appearing perineal body and perianal region BIMANUAL: uterus normal size, shape and consistency, no adnexal masses, and non-tender NEURO: alert and oriented x3,exam grossly non-focal EXTREMITIES: normal ASSESSMENT AND PLAN: 1. Vaginal discharge - ICD9: 623.5, ICD10: N89.8 (primary diagnosis) - BACTERIAL VAGINOSIS AMPLIFICATION - MIAN / TRICHOMONAS AMPLIFICATION - Patient asking for treatment with Diflucan 150mg PO once a day every 3 days for 3 doses. 2. Vaginal itching - ICD9: 698.1, ICD10: N89.8 - BACTERIAL VAGINOSIS AMPLIFICATION - MIAN / TRICHOMONAS AMPLIFICATION - Estriol ointment twice a week followed by application of betamethasone valerate 0.1 % ointment the same day for 1-2 months. If desires can decrease estriol and steroid ointment ot once a week for 2-4 weeks and see if you get improvement or worsening of symptoms. If worse, add back to twice a week of both ointments. Peggy Jiménez APRN.CNM documented in this encounter [facility] 11-17-2022 Miscellaneous Notes Pt calling and requesting referral information to be faxed to Dr. Johnson's office again. Faxed as requested. Tati Jonas RN Faxed all information to Dr. Miguel office. Notified pt. Consult placed. Please fax. May need to reach out to Dr. Hawthorne office about faxing their records. Thank you, Melisa Gaines APRN.SCREEN TENDER HELPER Patient calling asking for referral to Dr Naomie Guillen, Pain Management. She did not have fax or phone number. Patient is asking for notes from Dr Hawthorne to be faxed with the other information to Dr Guillen. She did not want to travel since Dr Hawthorne is associated with [facility]. Pended consult needs diagnosis, patient would like called when consult is faxed. Please advise documented in this encounter [facility] 11-17-2022 Note Patient Outreach (NE TNAV) IVETTE MURGUIA ([id number]) 1945 F Date Time Provider Department 11/17/22 NO PCP NETNAV During your visit today, we recorded the following information about you: Joie Leung 11/17/2022 11:52 AM Signed POPULATION HEALTH NAVIGATION OUTREACH Action/[facility] [place] Support: Called pt to schedule an appt in Pain Management. Patient declined Patient Identified by Name and : NO Outreach Outcome/Action Spoke to patient / parent / legal guardian: Patient declined Did you use a PCP flex slot to schedule this appointment? N/A Reason for Outreach Care Gap or Scheduling/Wellness visits Payer: Payor: MEDICARE / Plan: MEDICARE A AND B / Product Type: Medicare / Care Gap Reviewed:: Specialty Scheduling Reminder: Reminder note to check Health Maintenance for items below Health Maintenance items due: HEPATITIS C SCREENING Never done DTAP,TDAP,TD(2 - Td or Tdap) due on 03/31/2016 BP CONTROLLED (<130/80) due on 02/18/2022 ADVANCE DIRECTIVE DISCUSSION Never done Navigation Signature: Joie Rocha Tool Specialist November 17, 2022 11:52 AM Allergies As of Date: 11/17/2022 Noted Allergy Reaction BALSAM OF ANNEMARIE (SANDRAM ANNEMARIE) 11/21/2021 16 - Unknown CODEINE 08/23/2010 2 - Rash FRAGRANCES 11/21/2021 16 - Unknown GLUTEN 08/02/2021 5 - Intolerance LACTOSE 08/02/2021 5 - Intolerance LANOLIN 12/13/2012 2 - Rash MORPHINE 09/28/2010 11 - Vomiting NEOMYCIN SULFATE 11/21/2021 16 - Unknown NICKEL 12/13/2012 2 - Rash NICKEL SULFATE 11/21/2021 16 - Unknown ORANGE 05/08/2019 16 - Unknown Comments: Mildly positive to skin testing SEASONAL ALLERGIES 03/30/2011 5 - Intolerance Date Reviewed: 11/16/2022 Reviewed by: Chelle Panchal MA - Fully Assessed Prescriptions as of 11/17/2022 - methylPREDNISolone (MEDROL, MARLYS,) 4 mg Dose-Pack Take as directed - fluconazole (DIFLUCAN) 150 mg tablet Take 1 tablet by mouth one time a week. Once a week - levothyroxine (LEVOXYL) 88 mcg tablet Take 1 tablet by mouth once daily. Take on empty stomach. For Thyroid - nabumetone (RELAFEN) 500 mg tablet Take 2 tablets by mouth once daily. - tiZANidine (ZANAFLEX) 2 mg tablet Take 1 tablet by mouth every 8 hours as needed (restless legs, muscle tension). - ascorbic acid (VITAMIN C ORAL) Take by mouth. - Magnesium 200 mg tab Take 200 mg by mouth once daily. - ZINC ORAL Take 15 mg by mouth once daily. - betamethasone valerate 0.1 % ointment Apply to affected area once daily. - clotrimazole-betamethasone (LOTRISONE) lotion Apply to affected area twice daily. For 30 days - vitamin b complex capsule Take 1 capsule by mouth once daily. - [id number] ORAL Take by mouth once daily. - omega-3/dha/epa/fish oil (OMEGA-3 FISH OIL ORAL) Take by mouth once daily. - betamethasone valerate 0.1 % cream Apply to affected area twice daily as needed for exzema, don't use for more than 1 week in a row - albuterol (PROVENTIL) 2.5 mg /3 mL (0.083 %) nebulizer solution Use 3 mL via nebulizer every 4 hours as needed for Wheezing/Shortness of Breath. Use over 5-15minutes. - albuterol HFA (VENTOLIN HFA) 90 mcg/actuation inhaler Inhale 2 Puffs as instructed every 4 hours as needed for Wheezing/Shortness of Breath. - Spirometers and Accessories lena 1 Device as directed. Dx: dyspnea, Bronchiectasis - dorzolamide HCl/PF (DORZOLAMIDE, PF,) 2 % drop Use in eyes. - TURMERIC ORAL Take by mouth. - latanoprost (XALATAN) 0.005 % ophthalmic solution 1 Drop daily at bedtime. - fexofenadine (PADMINI) 180 mg tablet Take 180 mg by mouth as needed. - cholecalciferol (VITAMIN D3) 1,000 unit tab tablet Take 1 tablet by mouth once daily. - fluticasone (FLONASE) 50 mcg/actuation nasal spray Use 2 Sprays in each nostril once daily. 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 [facility] 11-17-2022 Note HNO ID: [id number] Author: Joie Leung Service: ? Author Type: ? Type: Progress Notes Filed: 11/17/2022 11:52 AM Note Text: POPULATION HEALTH NAVIGATION OUTREACH Action/ [place] Support: Called pt to schedule an appt in Pain Management. Patient declined Patient Identified by Name and : NO Outreach Outcome/Action Spoke to patient / parent / legal guardian: Patient declined Did you use a PCP flex slot to schedule this appointment? N/A Reason for Outreach Care Gap or Scheduling/Wellness visits Payer: Payor: MEDICARE / Plan: MEDICARE A AND B / Product Type: Medicare / Care Gap Reviewed:: Specialty Scheduling Reminder: Reminder note to check Health Maintenance for items below Health Maintenance items due: HEPATITIS C SCREENING Never done DTAP,TDAP,TD(2 - Td or Tdap) due on 03/31/2016 BP CONTROLLED (<130/80) due on 02/18/2022 ADVANCE DIRECTIVE DISCUSSION Never done Navigation Signature: Joie Leung November 17, 2022 11:52 AM [facility] 11-17-2022 History of Present illness Narrative POPULATION HEALTH NAVIGATION OUTREACH Action/I [place] Support: Called pt to schedule an appt in Pain Management. Patient declined Patient Identified by Name and : NO Outreach Outcome/Action Spoke to patient / parent / legal guardian: Patient declined Did you use a PCP flex slot to schedule this appointment? N/A Reason for Outreach Care Gap or Scheduling/Wellness visits Payer: Payor: MEDICARE / Plan: MEDICARE A AND B / Product Type: Medicare / Care Gap Reviewed:: Specialty Scheduling Reminder: Reminder note to check Health Maintenance for items below Health Maintenance items due: HEPATITIS C SCREENING Never done DTAP,TDAP,TD(2 - Td or Tdap) due on 03/31/2016 BP CONTROLLED (<130/80) due on 02/18/2022 ADVANCE DIRECTIVE DISCUSSION Never done Navigation Signature: Joie Leung November 17, 2022 11:52 AM documented in this encounter [facility] 11-16-2022 Note HNO ID: [id number] Author: Chelle Panchal MA Service: ? Author Type: Screen Tacker Type: Progress Notes Filed: 11/16/2022 1:31 PM Note Text: Review of Systems Constitutional: Negative for activity change, chills, fever and unexpected weight change. Gastrointestinal: Negative for bowel retention or incontinence Genitourinary: Negative for difficulty urinating. Negative for bladder retention or incontinence Musculoskeletal: Positive for arthralgias, back pain, myalgias, neck pain and neck stiffness. Negative for gait problem and joint swelling. Neurological: Positive for weakness and numbness. Negative for headaches. Psychiatric/Behavioral: Positive for sleep disturbance. Negative for dysphoric mood and suicidal ideas. The patient is not nervous/anxious. [facility] 11-16-2022 History of Present illness Narrative Review of Systems Constitutional: Negative for activity change, chills, fever and unexpected weight change. Gastrointestinal: Negative for bowel retention or incontinence Genitourinary: Negative for difficulty urinating. Negative for bladder retention or incontinence Musculoskeletal: Positive for arthralgias, back pain, myalgias, neck pain and neck stiffness. Negative for gait problem and joint swelling. Neurological: Positive for weakness and numbness. Negative for headaches. Psychiatric/Behavioral: Positive for sleep disturbance. Negative for dysphoric mood and suicidal ideas. The patient is not nervous/anxious. Images from the original note were not included. [facility] Today's Date: 11/16/2022 Last Visit: 08/17/2022 Name: Ivette Murguia : 1945 Purpose: Follow-up Evaluation Chief complaint: low back pain Interval History: Ivette Murguia returns today for a follow-up encounter, reporting that since last encounter, the overall pain and functional disability arising from the chief complaint has not improved. She had no relief with the Cluneal RFA on the left side. Her pain is essentially unchanged from previously noted. She has good and bad days. Today is a rather good day for her. Regarding medications: The following medication(s) were started or modified: Prednisone 50mg daily (5 day course) The following medication(s) were discontinued: none The following medication(s) were continued: Tylenol OTC Relafen 500mg BID Overall, the medication(s) have helped improve pain and ADL's. They are well-tolerated. The following procedures were performed: Left Sup/Middle Cluneal N. RFA was performed on 09/19/2022, with no relief. Physical Therapy or Chiropractics was not prescribed. The following new imaging or diagnostic tests were obtained, with relevant findings reported below: MRI Lumbar Notable Events During Course of Treatment: 05/04/2022 - Initial Eval - Self referred for low back pain This has been present for the past 11 years. No trauma. Over the past year, she has also developed constant left-sided pain in the thoracic region, worse with bending or reaching, better with sitting in the recliner. Pain has been gradually worsening She had pain in the left groin that resolved after the release in 2013. She has seen pain management on several occasions over the years, had a left SI Joint injection in 2011, has had several steroid injections, none with excellent relief. Treatments prior to initial presentation include the following: Medications (See below), Injections (See below), Modalities (eg. Heat, Ice), Physical Therapy , Chiropractic Full Treatment , Home Exercise Program and Activity Modification. Current Status: INTAKE PAIN ASSESSMENT 10/09/2022 11/08/2022 Are you having pain associated with your visit today? No No Pain Scales - - Pain Level - - Pain Location - - Description - - Duration Amount of Time - - Duration Units - - Frequency - - Intervention/Comfort measure - - Face - - Legs - - Activity - - Cry - - Consolability - - FLACC Score Calculated - - Pain Assessment - - Pain Description: Timing: constant Character: sharp and burning Primary Location: left lower thoracic/upper lumbar Radiation: none Exacerbating factors: bending and reaching Relieving factors: lying down Interferes with: physical activity and household cleaning The patient denies difficulty with bowel or bladder control, unintentional weight loss, fevers, chills, or night sweats and arm or leg weakness. Compliance: PDMP website checked and validated. All prescriptions have been APPROPRIATELY filled. No suspicious activity was identified. by Altagracia Hawthorne MD 11/16/2022 Valium 2mg, #30, last 03/2021 Last Drug screen: Not Applicable Risk Assessment: DARRELL-7: DARRELL - 7 SCORES 05/04/2022 DARRELL-7 Score 0 (0-4) minimal anxiety, (5-9) mild anxiety, (10-14) moderate anxiety, (15-21) severe anxiety PHQ-9: PHQ-9 05/04/2022 Score 3 (0-4) minimal depression, (5-9) mild depression, (10-14) moderate depression, (15-19) moderately severe depression, (20-27) severe depression Opioid Risk Tool: Family History of Substance Abuse: 0 - No Personal History of Substance Abuse: 0 - No Age between 16-45: 0 - No History of Pre-Adolescence Sexual Abuse: 0 - No Psychological Disease: 0 - No Risk Total: 0 Total Score Risk Category: Low Risk 0-3 (0-3, low risk or no risk; 4-7, moderate risk, 8+, high risk) Pain Medications Taken TO DATE (for the chief complaint(s)): Membrane Stabilizers: Pamelor (Nortriptyline) NSAIDS: Sulindac (Clinoril), Motrin (Ibuprofen), Naprosyn (Naproxen), Mobic (Meloxicam) and Relafen (Nabumetone) Opioids: Tramadol, Vicodin or [place] (Hydrocodone) and Percocet (Oxycodone) Muscle Relaxants: Flexeril (Cyclobenzaprine) and Zanaflex (Tizanidine) Topicals: OTC - no relief Other Prescription or OTC Pain Medications: none Anti-depressants: None Non-Pain Meds of Note: None Allergies: ALLERGIES Allergen Reactions [place] [Bal* Unknown Codeine Rash Fragrances Unknown Gluten Intolerance Lactose Intolerance Lanolin Rash Morphine Vomiting Neomycin Sulfate Unknown Nickel Rash Nickel Sulfate Unknown [place] Unknown Mildly positive to skin testing Seasonal Allergies Intolerance Diagnostic Studies: Relevant Imaging: Reviewed Personally on today's date, noted above MRI Spine Report MRI LUMBAR SPINE WO IVCON Exam End: 11/10/2022 11:13 AM (Final result) Narrative: * * *Final Report* * * DATE OF EXAM: Nov 10 2022 11:11AM [id number] - MRI LUMBAR SPINE WO IVCON / PROCEDURE REASON: Spinal stenosis of lumbar region with neurogenic claudication * * * * Physician Interpretation * * * * EXAMINATION: MRI LUMBAR SPINE WO IVCON CLINICAL HISTORY: History of cluneal nerve RFA. Continued lower back/sacral pain. TECHNIQUE: Routine lumbosacral spine MR protocol without gadolinium. MQ: [id number] COMPARISON: Lumbar radiograph 05/04/2022 CT abdomen and pelvis 07/11/2021, MRI lumbar spine 11/29/2011 RESULT: Counting reference: Lumbosacral junction. For the purposes of this report, L4-5 is considered the level of the iliac crest and assume there are 5 lumbar-type vertebrae. Anatomic variant: None. Localizer images: Unremarkable. Alignment: Mild lumbar dextroscoliosis with apex at L3-L4. Straightening of the lumbar lordosis with grade 1 anterolisthesis of L5 on S1. Minimal retrolisthesis of L1 on L2. Bone marrow signal/fracture: Again seen is a chronic mild superior endplate of L1 compression fracture with superimposed Schmorl's node, unchanged, with approximately 20% vertebral body height loss and mild anterior wedging. No associated bony retropulsion or canal stenosis. Severe degenerative disc space narrowing and disc desiccation at the lumbar levels with type I signal degenerative endplate marrow changes eccentric to the left at L3-L4 and eccentric to the right at L1-L2 and L5-S1. Endplate irregularity with superimposed Schmorl's nodes at these levels. Scattered intervertebral hemangiomas with the largest in the left pedicle of L2, unchanged. No evidence of pathologic marrow infiltration. No evidence of prior fracture. Posterior elements are normal in morphology and alignment. Conus: The conus is within normal limits of signal intensity and morphology. The conus terminates at the L1-L2 level. Paraspinal soft tissues: Slight asymmetric atrophy of the left psoas muscle, slightly progressed from the prior MRI and likely related to scoliotic curvature. Paraspinal soft tissues are otherwise within normal limits. T11-T12: Disc height loss and disc bulging. No significant canal or foraminal stenosis. T12-L1: Mild disc bulging. No significant canal or foraminal stenosis. L1-L2: Mild eccentric disc height loss and disc bulging with facet hypertrophy. No significant canal or foraminal stenosis. L2-L3: Eccentric disc height loss and disc bulging with facet hypertrophy and subluxation. No significant canal or foraminal stenosis. L3-L4: Eccentric disc height loss and disc bulging with facet hypertrophy result in mild canal stenosis. The bilateral foramina are patent. L4-L5: Disc height loss and mild disc bulge with facet hypertrophy. No significant canal or foraminal stenosis. L5-S1: Retrolisthesis with posterior disc osteophyte complex and disc height loss, facet hypertrophy result in effacement of the right subarticular recess and mild impingement of the traversing right S1 nerve root. Mild to moderate right foraminal stenosis from endplate spurring and facet hypertrophy. The left foramen is patent. No significant canal stenosis. These findings are mildly progressed when compared prior. Sacrum and iliac wings: The visualized sacrum and iliac wings are within normal limits. Impression: IMPRESSION: Multilevel lumbar spondylosis, spondylolisthesis, with scoliotic curvature result in canal and foraminal stenoses as detailed, slightly progressed at L5-S1 with mild impingement of the traversing right S1 nerve compared to 11/29/2011. Progressive atrophy of the left psoas muscle, which may be related to scoliotic curvature. Chronic compression deformity of L1 without significant canal stenosis or bony retropulsion. Anatomic Lumbar Variant: None. L4-5 is considered the level of the iliac crest and assume there are 5 lumbar-type vertebrae. Director Of Radiology: PSCB Transcribe Date/Time: Nov 10 2022 11:25A Dictated by : LINDSAY BARAJAS MD This examination was interpreted and the report reviewed and electronically signed by: GORGE JACOB MD on Nov 10 2022 1:39PM EST MRI L-spine 2012: L1-L2: Canal and foramina are patent. L2-L3: Bulge causes mild narrowing of the spinal canal. Foramina are patent L3-L4: A bulge causes mild narrowing of the spinal canal. Foramina are patent. L4-L5: There is mild narrowing the spinal canal due to disk osteophyte complex. Foramina are mildly narrowed bilaterally. L5-S1: There is disk osteophyte complex causing mild narrowing of the spinal canal. Mild left and moderate right neural foraminal stenosis. Hypertrophic changes in the facet joints. Sacrum and iliac wings: The visualized sacrum and iliac wings are within normal limits. The presacral soft tissues are normal in appearance. 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 Electrodiagnostic Study (EMG): None Pain Procedures: DATE PROCEDURE IMPROVEMENT 09/19/2022 RFA, Left Sup/Middle Cluneal N. 0% 07/03/2022 Left Sup/Middle Cluneal N. Nearly 100% x 24 hours (Positive Diagnostic) Current Medications, Past Medical History, Past Surgical History, Family History, Social History and Review of Systems: On today's date, noted above, I have confirmed and edited as necessary, the PFSH and ROS obtained by others. Physical Exam: 11/16/22 1259 Pulse: 67 Resp: 16 SpO2: 98% Constitutional:normal weight Eyes: Conjunctiva clear. No discharge from eyes Cardiovascular: Appears well perfused Lymphatic: No visible regional lymphadenopathy Skin: No visible rashes or ecchymosis Psychiatric: Full affect, Alert, Pleasant Neuro-Lower: Neural Tension Signs: Negative slump in Bilateral lower limbs Sensation: intact to light touch in the L2-S2 Bilateral lower limb dermatomes Muscle Tone: Normal and symmetric throughout without clonus Strength: Iliopsoas (L2): 5 Left, 5 Right Quadriceps (L3) 5 Left, 5 Right Anterior Tibialis (L4): 5 Left, 5 Right Extensor Hallucis Longus (L5): 5 Left, 5 Right Gastrocnemius (S1): 5 Left, 5 Right Reflexes: Decreased 1+ and symmetric Patellar, Achilles Musculoskeletal-Lower: Inspection: Symmetric without atrophy Palpation: Lumbar Paraspinal Tenderness: None on Bilateral side(s) Paraspinal Spasms: None PSIS Tenderness: None on Bilateral side(s) Greater Trochanter Tenderness: None on Bilateral side(s) Concordant pain left iliac crest near PSIS and midpoint Spine Range of Motion: Flexion: Normal Without end range pain Extension: Normal Without end range pain Combination extension and rotation pain: None Hip Range of Motion: Right Hip: Internal Rotation: Normal; Pain at end range: None External Rotation: Normal; Pain at end range: None Left Hip: Internal Rotation: Normal; Pain at end range: None External Rotation: Normal; Pain at end range: None Sacroiliac Maneuvers: Deferred Diagnoses: (M47.816) Lumbar spondylosis (primary encounter diagnosis) (M48.062) Spinal stenosis of lumbar region with neurogenic claudication Impression: 77 year old female with significant past medical history for HTN, HLD, ILD, Pulmonary Fibrosis, Hypothyroidism, s/p left hip replacement, s/p left iliopsoas tendon release, who presents with complaint(s) of axial low back pain that may be facet-mediated. She has with left-sided pain along the iliac crest suspicious for cluneal neuropathy, but no relief with RFA. This could be atypical presentation for facet-mediated pain. We discussed Medial branch blocks and RFA of the lumbar spine as an option, I would start with L4-5 and L5-S1 since they are the most common levels involved, but given her MRI findings, it would not be surprising if there was more proximal involvement. She will consider. She has concerns about commuting to [place] for injections. She is considering finding a pain provider closer to her home. Plan: Ivette Murguia would benefit from the following to reach personal goals for decreasing pain, improving function and work participation, and/or improving quality of life: -Interventional Procedure: Medial branch blocks bilateral L4-5 and L5-S1 x 2, RFA if positive x2 The risks, benefits, alternative treatment options and prognosis of the procedure were discussed and all of the patient's questions/concerns were addressed to the patient s satisfaction. Patient was advised that they will need a light truck driver for after the procedure and that if no light truck driver is available and on site at the time of the procedure, the procedure will be cancelled. For any anticoagulants, the patient was advised on whether to continue or hold for this procedure. The patient expressed understanding and gave verbal consent to proceed. Medication(s): Continue Relafen PRN breakthrough pain OK to take ES Tylenol 500mg BID PRN breakthrough pain - advised no motrin when taking Relafen Additional Studies: None Referrals: No additional considerations at present Functional Mandaeism: No changes-continue current regimen Depending on response to the above plan, consider: Lumbar MBB/RFA different level -Follow-up: PRN basis Attribution: In addition to reviewing the information noted above, some elements copied from my most recent clinical note(s), including the physical exam (completed in entirety today), and the impression and plan sections, have been updated where appropriate. All reflect current medical decision making from today's date. Altagracia Hawthorne MD, MBA Pain Management [facility] documented in this encounter [facility] 11-16-2022 Note HNO ID: [id number] Author: Altagracia Hawthorne MD Service: ? Author Type: Physician Type: Progress Notes Filed: 11/16/2022 1:31 PM Note Text: [facility] Today's Date: 11/16/2022 Last Visit: 08/17/2022 Name: Ivette Murguia : 1945 Purpose: Follow-up Evaluation Chief complaint: low back pain Interval History: Ivette Murguia returns today for a follow-up encounter, reporting that since last encounter, the overall pain and functional disability arising from the chief complaint has not improved. She had no relief with the Cluneal RFA on the left side. Her pain is essentially unchanged from previously noted. She has good and bad days. Today is a rather good day for her. Regarding medications: The following medication(s) were started or modified: Prednisone 50mg daily (5 day course) The following medication(s) were discontinued: none The following medication(s) were continued: Tylenol OTC Relafen 500mg BID Overall, the medication(s) have helped improve pain and ADL's. They are well-tolerated. The following procedures were performed: Left Sup/Middle Cluneal N. RFA was performed on 09/19/2022, with no relief. Physical Therapy or Chiropractics was not prescribed. The following new imaging or diagnostic tests were obtained, with relevant findings reported below: MRI Lumbar Notable Events During Course of Treatment: 05/04/2022 - Initial Eval - Self referred for low back pain This has been present for the past 11 years. No trauma. Over the past year, she has also developed constant left-sided pain in the thoracic region, worse with bending or reaching, better with sitting in the recliner. Pain has been gradually worsening She had pain in the left groin that resolved after the release in 2013. She has seen pain management on several occasions over the years, had a left SI Joint injection in 2011, has had several steroid injections, none with excellent relief. Treatments prior to initial presentation include the following: Medications (See below), Injections (See below), Modalities (eg. Heat, Ice), Physical Therapy , Chiropractic Full Treatment , Home Exercise Program and Activity Modification. Current Status: INTAKE PAIN ASSESSMENT 10/09/2022 11/08/2022 Are you having pain associated with your visit today? No No Pain Scales - - Pain Level - - Pain Location - - Description - - Duration Amount of Time - - Duration Units - - Frequency - - Intervention/Comfort measure - - Face - - Legs - - Activity - - Cry - - Consolability - - FLACC Score Calculated - - Pain Assessment - - Pain Description: Timing: constant Character: sharp and burning Primary Location: left lower thoracic/upper lumbar Radiation: none Exacerbating factors: bending and reaching Relieving factors: lying down Interferes with: physical activity and household cleaning The patient denies difficulty with bowel or bladder control, unintentional weight loss, fevers, chills, or night sweats and arm or leg weakness. Compliance: PDMP website checked and validated. All prescriptions have been APPROPRIATELY filled. No suspicious activity was identified. by Altagracia Hawthorne MD 11/16/2022 Valium 2mg, #30, last 03/2021 Last Drug screen: Not Applicable Risk Assessment: DARRELL-7: DARRELL - 7 SCORES 05/04/2022 DARRELL-7 Score 0 (0-4) minimal anxiety, (5-9) mild anxiety, (10-14) moderate anxiety, (15-21) severe anxiety PHQ-9: PHQ-9 05/04/2022 Score 3 (0-4) minimal depression, (5-9) mild depression, (10-14) moderate depression, (15-19) moderately severe depression, (20-27) severe depression Opioid Risk Tool: Family History of Substance Abuse: 0 - No Personal History of Substance Abuse: 0 - No Age between 16-45: 0 - No History of Pre-Adolescence Sexual Abuse: 0 - No Psychological Disease: 0 - No Risk Total: 0 Total Score Risk Category: Low Risk 0-3 (0-3, low risk or no risk; 4-7, moderate risk, 8+, high risk) Pain Medications Taken TO DATE (for the chief complaint(s)): Membrane Stabilizers: Pamelor (Nortriptyline) NSAIDS: Sulindac (Clinoril), Motrin (Ibuprofen), Naprosyn (Naproxen), Mobic (Meloxicam) and Relafen (Nabumetone) Opioids: Tramadol, Vicodin or [place] (Hydrocodone) and Percocet (Oxycodone) Muscle Relaxants: Flexeril (Cyclobenzaprine) and Zanaflex (Tizanidine) Topicals: OTC - no relief Other Prescription or OTC Pain Medications: none Anti-depressants: None Non-Pain Meds of Note: None Allergies: ALLERGIES Allergen Reactions [place] [Bal* Unknown Codeine Rash Fragrances Unknown Gluten Intolerance Lactose Intolerance Lanolin Rash Morphine Vomiting Neomycin Sulfate Unknown Nickel Rash Nickel Sulfate Unknown [place] Unknown Mildly positive to skin testing Seasonal Allergies Intolerance Diagnostic Studies: Relevant Imaging: Reviewed Personally on today's date, noted above MRI Spine R (more content not included)... 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 Peggy Tobin Pss documented in this encounter [facility] 11-10-2022 Note HNO ID: [id number] Author: RT Leona(R) Service: ? Author Type: Technologist Type: Progress Notes Filed: 11/10/2022 10:55 AM Note Text: Radiology Service Progress Note PATIENT NAME: Ivette Murguia DATE OF SERVICE: November 10, 2022 TIME: 10:55 AM PATIENT IDENTITY VERIFICATION COMPLETED USING TWO (2) IDENTIFIERS: Name and Date of confirmed by patient verbally. FALL SCREENING: Has the patient had 2 falls in the last year or 1 fall with injury or currently using an Ambulatory Assistive Device (Walker, Cane, Wheelchair, Crutches, etc.)? No PATIENT GENDER DATA: Female. status: : No status: NO. PATIENT RELEVANT IMPLANT DATA REVIEWED: Yes RADIOLOGY DEPARTMENT: MR; Exam(s) Completed: Spine: Lumbar spine PERIPHERAL IV DATA: Not applicable SIGNED BY: Lesly Porter RT(R) November 10, 2022 10:55 AM [facility] 11-08-2022 Note HNO ID: [id number] Author: Abdullahi Koehler, DO Service: ? Author Type: Physician Type: Progress Notes Filed: 11/08/2022 4:26 PM Note Text: CC: Ivette Murguia is a 77 year old female who presents to the office to establish care. HPI: Thinks potentially had covid 19 infection in Sep- feels she has mild mucous still present in chest but denies any residual significant cough or hemoptysis of dyspnea. Does have foggy brain feeling and fatigue symptoms still- these were also present when she had covid 19 infection previously Was seen by [employer] and had procedure for Varicose veins and treatment of labial area- was treated by Dr. Palmer and had this area aspirated because he was concerned that they were actually blood clots and not reoccurrence of varicose veins. Had ordered an US visceral vein complete Vascular test if interested. Yeast infection that was previously chronically recurring. Last treatment after 3 day course- was seen by [employer] TE[employer] Meenakshi Jiménez- was evaluated and still had yeast infection. Was given rx for Diflucan 150 mg to take one tablet a week. Is still taking PB8 refrigerated probiotic. Nausea, long standing, hx of food intolerances and H pylori, is also due for colonoscopy, interested in seeing Dr. Nellie galeana for Gastroenterology Chronic low back pain, seeing pain mgmt with Dr. Hawthorne and his team of specialist. Is scheduled to have MRI lumbar due to continued significant low back pain despite stretches and facet injection, also radiating to left >right thigh and leg. Worse when trying to stand or sit or lay prolonged time. PAST MEDICAL HISTORY Diagnosis Date Arthritis Asymmetric septal hypertrophy (HCC) 02/2021 repeat ECHO needed 02/2022 Eczema Glaucoma History of COVID-19 10/2020 Hypercholesterolemia Hypertension Hypothyroidism Lactose intolerance 02/2019 PAST SURGICAL HISTORY Procedure Laterality Date APPENDECTOMY AT AGE 10 ARTHRP ACETBLR/PROX FEM PROSTC AGRFT/ALGRFT 09/26/2010 LEFT HIP- Dr. Byrne BX BREAST PERC VACUUM/ROTN 07/21/13 Right lateral COLONOSCOPY FLX DX W/COLLJ SPEC WHEN PFRMD 04/15/2015 Colonoscopy CURETTAGE 1972 ESOPHAGOGASTRODUODENOSCOPY TRANSORAL DIAGNOSTIC 02/2019 EGD KNEE ARTHROSCOPY/SURGERY LEFT KNEE LIGATION/BIOPSY TEMPORAL ARTERY 10/2012 left PAST SURGICAL HISTORY OF basal cell removed from nose 08/2012 PAST SURGICAL HISTORY OF 04/2014 Dr. Mallory, left hip tendon release- illopsoas tendon release REMOVE TONSIL AND ADENOI UNDER AGE 12 AT AGE 3 TOTAL HIP JOINT REPLACEMENT 12/30/2013 right Social History: Social History Tobacco Use Smoking status: Never Smokeless tobacco: Never Vaping Use Vaping Use: Never used Substance Use Topics Alcohol use: Not Currently Drug use: No FAMILY HISTORY Problem Relation Age of Onset Stroke Mother Heart Mother Stroke Father Heart Father Colon Cancer Father 60 other (SKIN CANCER) Father Heart Brother [address] Stroke Maternal Grandmother other (rheumatoid arthritis) Maternal Grandfather other (leukemia) Maternal Grandfather other (kidney cancer) Paternal Grandfather Asthma Daughter Current Outpatient prescriptions: methylPREDNISolone (MEDROL, MARLYS,) 4 mg Dose-Pack Take as directed fluconazole (DIFLUCAN) 150 mg tablet Take 1 tablet by mouth one time a week. Once a week levothyroxine (LEVOXYL) 88 mcg tablet Take 1 tablet by mouth once daily. Take on empty stomach. For Thyroid nabumetone (RELAFEN) 500 mg tablet Take 2 tablets by mouth once daily. tiZANidine (ZANAFLEX) 2 mg tablet Take 1 tablet by mouth every 8 hours as needed (restless legs, muscle tension). ascorbic acid (VITAMIN C ORAL) Take by mouth. Magnesium 200 mg tab Take 200 mg by mouth once daily. ZINC ORAL Take 15 mg by mouth once daily. betamethasone valerate 0.1 % ointment Apply to affected area once daily. vitamin b complex capsule Take 1 capsule by mouth once daily. omega-3/dha/epa/fish oil (OMEGA-3 FISH OIL ORAL) Take by mouth once daily. albuterol (PROVENTIL) 2.5 mg /3 mL (0.083 %) nebulizer solution Use 3 mL via nebulizer every 4 hours as needed for Wheezing/Shortness of Breath. Use over 5-15minutes. albuterol HFA (VENTOLIN HFA) 90 mcg/actuation inhaler Inhale 2 Puffs as instructed every 4 hours as needed for Wheezing/Shortness of Breath. Spirometers and Accessories lena 1 Device as directed. Dx: dyspnea, Bronchiectasis dorzolamide HCl/PF (DORZOLAMIDE, PF,) 2 % drop Use in eyes. TURMERIC ORAL Take by mouth. fexofenadine (PADMINI) 180 mg tablet Take 180 mg by mouth as needed. cholecalciferol (VITAMIN D3) 1,000 unit tab tablet Take 1 tablet by mouth once daily. fluticasone (FLONASE) 50 mcg/actuation nasal spray Use 2 Sprays in each nostril once daily. (Patient taking differently: Use 2 Sprays in each nostril as needed.) clotrimazole-betamethasone (LOTRISONE) lotion Apply to affected area twice daily. For 30 days GLUCOSAMINE-CONDROIT (more content not included)... [facility] 11-08-2022 History of Present illness Narrative CC: Ivette Murguia is a 77 year old female who presents to the office to establish care. HPI: Thinks potentially had covid 19 infection in Sep- feels she has mild mucous still present in chest but denies any residual significant cough or hemoptysis of dyspnea. Does have foggy brain feeling and fatigue symptoms still- these were also present when she had covid 19 infection previously Was seen by [employer] and had procedure for Varicose veins and treatment of labial area- was treated by Dr. Palmer and had this area aspirated because he was concerned that they were actually blood clots and not reoccurrence of varicose veins. Had ordered an US visceral vein complete Vascular test if interested. Yeast infection that was previously chronically recurring. Last treatment after 3 day course- was seen by [employer] Meenakshi Jiménez- was evaluated and still had yeast infection. Was given rx for Diflucan 150 mg to take one tablet a week. Is still taking PB8 refrigerated probiotic. Nausea, long standing, hx of food intolerances and H pylori, is also due for colonoscopy, interested in seeing Dr. Ballard locally for Gastroenterology Chronic low back pain, seeing pain mgmt with Dr. Hawthorne and his team of specialist. Is scheduled to have MRI lumbar due to continued significant low back pain despite stretches and facet injection, also radiating to left >right thigh and leg. Worse when trying to stand or sit or lay prolonged time. PAST MEDICAL HISTORY Diagnosis Date Arthritis Asymmetric septal hypertrophy (HCC) 02/2021 repeat ECHO needed 02/2022 Eczema Glaucoma History of COVID-19 10/2020 Hypercholesterolemia Hypertension Hypothyroidism Lactose intolerance 02/2019 PAST SURGICAL HISTORY Procedure Laterality Date APPENDECTOMY AT AGE 10 ARTHRP ACETBLR/PROX FEM PROSTC AGRFT/ALGRFT 09/26/2010 LEFT HIP- Dr. Byrne BX BREAST PERC VACUUM/ROTN 07/21/13 Right lateral COLONOSCOPY FLX DX W/COLLJ SPEC WHEN PFRMD 04/15/2015 Colonoscopy CURETTAGE 1972 ESOPHAGOGASTRODUODENOSCOPY TRANSORAL DIAGNOSTIC 02/2019 EGD KNEE ARTHROSCOPY/SURGERY LEFT KNEE LIGATION/BIOPSY TEMPORAL ARTERY 10/2012 left PAST SURGICAL HISTORY OF basal cell removed from nose 08/2012 PAST SURGICAL HISTORY OF 04/2014 Dr. Mallory, left hip tendon release- illopsoas tendon release REMOVE TONSIL AND ADENOI UNDER AGE 12 AT AGE 3 TOTAL HIP JOINT REPLACEMENT 12/30/2013 right Social History: Social History Tobacco Use Smoking status: Never Smokeless tobacco: Never Vaping Use Vaping Use: Never used Substance Use Topics Alcohol use: Not Currently Drug use: No FAMILY HISTORY Problem Relation Age of Onset Stroke Mother Heart Mother Stroke Father Heart Father Colon Cancer Father 60 other (SKIN CANCER) Father Heart Brother [address] Stroke Maternal Grandmother other (rheumatoid arthritis) Maternal Grandfather other (leukemia) Maternal Grandfather other (kidney cancer) Paternal Grandfather Asthma Daughter Current Outpatient prescriptions: methylPREDNISolone (MEDROL, MARLYS,) 4 mg Dose-Pack Take as directed fluconazole (DIFLUCAN) 150 mg tablet Take 1 tablet by mouth one time a week. Once a week levothyroxine (LEVOXYL) 88 mcg tablet Take 1 tablet by mouth once daily. Take on empty stomach. For Thyroid nabumetone (RELAFEN) 500 mg tablet Take 2 tablets by mouth once daily. tiZANidine (ZANAFLEX) 2 mg tablet Take 1 tablet by mouth every 8 hours as needed (restless legs, muscle tension). ascorbic acid (VITAMIN C ORAL) Take by mouth. Magnesium 200 mg tab Take 200 mg by mouth once daily. ZINC ORAL Take 15 mg by mouth once daily. betamethasone valerate 0.1 % ointment Apply to affected area once daily. vitamin b complex capsule Take 1 capsule by mouth once daily. omega-3/dha/epa/fish oil (OMEGA-3 FISH OIL ORAL) Take by mouth once daily. albuterol (PROVENTIL) 2.5 mg /3 mL (0.083 %) nebulizer solution Use 3 mL via nebulizer every 4 hours as needed for Wheezing/Shortness of Breath. Use over 5-15minutes. albuterol HFA (VENTOLIN HFA) 90 mcg/actuation inhaler Inhale 2 Puffs as instructed every 4 hours as needed for Wheezing/Shortness of Breath. Spirometers and Accessories lena 1 Device as directed. Dx: dyspnea, Bronchiectasis dorzolamide HCl/PF (DORZOLAMIDE, PF,) 2 % drop Use in eyes. TURMERIC ORAL Take by mouth. fexofenadine (PADMINI) 180 mg tablet Take 180 mg by mouth as needed. cholecalciferol (VITAMIN D3) 1,000 unit tab tablet Take 1 tablet by mouth once daily. fluticasone (FLONASE) 50 mcg/actuation nasal spray Use 2 Sprays in each nostril once daily. (Patient taking differently: Use 2 Sprays in each nostril as needed.) clotrimazole-betamethasone (LOTRISONE) lotion Apply to affected area twice daily. For 30 days [id number] ORAL Take by mouth once daily. betamethasone valerate 0.1 % cream Apply to affected area twice daily as needed for exzema, don't use for more than 1 week in a row latanoprost (XALATAN) 0.005 % ophthalmic solution 1 Drop daily at bedtime. Allergies: ALLERGIES Allergen Reactions [facility] [[facility]* Unknown Codeine Rash Fragrances Unknown Gluten Intolerance Lactose Intolerance Lanolin Rash Morphine Vomiting Neomycin Sulfate Unknown Nickel Rash Nickel Sulfate Unknown [place] Unknown Mildly positive to skin testing Seasonal Allergies Intolerance ROS: See HPI PE: 11/08/22 1150 BP: 116/80 Pulse: 68 Resp: 16 Temp: (!) 35.9 C (96.7 F) TempSrc: Left Tympanic Weight: 57.6 kg (127 lb) Gen: A&O, NAD, non-toxic appearing, fatigued, cooperative HEENT: NT/AC, PERRLA, EOMs intact b/l, nares clear and patent b/l, pharynx without erythema, exudate or lesions. MMM, Uvula midline. Neck: supple, No cervical LAD, no thyromegaly, no carotid bruits CV: RRR, normal S1 and S2, no murmurs, no gallops, no rubs, Pulses 2+ and symmetric in UE and LE b/l Lungs: normal respiratory effort, CTA b/l, no wheezing or rhonchi or rales Abd: soft, mild epigastric TTP, ND, +BS, no hepatosplenomegaly MS: FROM all 4 extremities Neuro: CN II-XII intact b/l, strength 5/5 b/l UE and LE, DTRs 2/4 UE and LE, sensation intact. Skin: warm, dry, intact, No rashes or lesions on exposed skin. Dry skin No edema legs, normal peripheral pulses ASSESSMENT/PLAN: 1. Varicose veins of both lower extremities with pain - ICD9: 454.8, ICD10: I83.813 (primary diagnosis) - needs to follow up with vascular specialist, mostly prominent in vaginal / labial area. Causing discomfort and soreness. Did have some thrombosis and lysis. - CONSULT TO VASCULAR SURGERY 2. Nausea - ICD9: 787.02, ICD10: R11.0 - referral for opinion. She is no longer interested in seeing Functional medicine specialist due to this long drive/commute for her and her to make - CONSULT TO GASTROENTEROLOGY 3. Screening for colon cancer - ICD9: V76.51, ICD10: Z12.11 - CONSULT TO GASTROENTEROLOGY 4. Interstitial pulmonary disease (HCC) - ICD9: 515, ICD10: J84.9 Stable, chronic, 5. Pulmonary fibrosis (HCC) - ICD9: 515, ICD10: J84.10 stable 6. Bronchiectasis without complication (HCC) - ICD9: 494.0, ICD10: J47.9 stable 7. Asymmetric septal hypertrophy (HCC) - ICD9: 425.18, ICD10: I42.2 Stable on echo 8. Hypothyroidism, unspecified type - ICD9: 244.9, ICD10: E03.9 - Instructed patient on importance of taking on an empty stomach either first thing in the morning or at bedtime. Continue current medication Stable - Behavioral intervention 9. Brain fog - ICD9: 799.59, ICD10: R41.89 - secondary to previous covid 19 infection, continue same supplements, sleep routine and good nutrition 10. Fatigue, unspecified type - ICD9: 780.79, ICD10: R53.83 Secondary to previous covid 19 infection 11. Lumbar spondylosis - ICD9: 721.3, ICD10: M47.816 - f/u with Dr. Hawthorne and MRI lumbar as ordered to be completed this week. Abdullahi Koehler DO To ER if develops chest pain, shortness of breath, or severe worsening of symptoms. Discussed risks, benefits, alternatives, and potential side effects of medications. Patient expressed understanding and agreed with the plan. Abdullahi Koehler DO [address] [place] [address] documented in this encounter [facility] 10-10-2022 Miscellaneous Notes Spoke to patient and she said she would like to go to [place] for her MRI. Peggy Peace documented in this encounter [facility] 10-09-2022 History of Present illness Narrative This patient returns after undergoing injection sclerotherapy of left vulvar varicosities on 09/04/2022. She still has pain in that area. Her edi specialist said that she saw varicose veins as well. Physical exam reveals thrombosed varicosities indicating successful sclerotherapy result. Percutaneous needle aspiration was performed successfully. I told the patient that she was experiencing phlebitis from the previously injected varicosities. I aspirated a significant amount of liquefied thrombus. The veins decompressed completely. This will relieve her phlebitis. She will return as needed. documented in this encounter [facility] 10-02-2022 Note HNO ID: [id number] Author: Whitley Beck APRN.SCREEN TENDER HELPER Service: ? Author Type: Nurse Practitioner Type: Progress Notes Filed: 10/10/2022 10:21 AM Note Text: AMBULATORY TELEPHONE VISIT Ivette Murguia has consented to this telephone encounter. Persons Present: patient Chief Complaint/Reason: Back pain, pain score 8/10 HPI: She had a cluneal nerve RFA on 09/19/[address] Hawthorne that is helped the pain here by 0%. She states the pain is still in the same general location. She states the pain is positional. She has difficulty in a car or if she is leaning over in a filing cabinet. She has to recline to get comfortable. She is wondering about the pain. Ht 165.1 cm (5' 5 ) Wt 61.2 kg (135 lb) BMI 22.47 kg/m? GENERAL: No weight loss, malaise or fevers HEENT: No nasal bleeding, congestion or rhinorrhea NECK: Negative for lumps, goiter, pain and significant neck swelling RESPIRATORY: Negative for cough, hemoptysis, wheezing, COPD, dyspnea or shortness of breath CARDIOVASCULAR: Negative for chest pain, leg swelling, hypertension, CHF or palpitations GI: No nausea, vomiting, or diarrhea : No history of dysuria, frequency or incontinence MUSCULOSKELETAL: back pain SKIN: Negative for lesions, rash, and itching PSYCH: Negative for sleep disturbance, mood disorder and recent psychosocial stressors HEMATOLOGY/LYMPHOLOGY: Negative for prolonged bleeding, bruising easily or swollen nodes ENDOCRINE: Negative for cold or heat intolerance, polyuria, polydipsia and goiter NEURO: negative n/t or weakness Data Reviewed: none new to review Assessment: (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 No other nsaids for the duration of the pack I am going to send her for a lumbar MRI to further evaluate the ongoing pain anatomy here. She has radicular symptoms that overlap with her tendon release that also causes some weakness. She has ongoing back pain with radiation of pain. I am wondering if she has a potential L4-5 disc issue Total Time Spent: 12 minutes Whitley Beck APRN.[facility] 10-02-2022 History of Present illness Narrative AMBULATORY TELEPHONE VISIT Ivette Murguia has consented to this telephone encounter. Persons Present: patient Chief Complaint/Reason: Back pain, pain score 8/10 HPI: She had a cluneal nerve RFA on 09/19/[address] Hawthorne that is helped the pain here by 0%. She states the pain is still in the same general location. She states the pain is positional. She has difficulty in a car or if she is leaning over in a filing cabinet. She has to recline to get comfortable. She is wondering about the pain. Ht 165.1 cm (5' 5 ) Wt 61.2 kg (135 lb) BMI 22.47 kg/m GENERAL: No weight loss, malaise or fevers HEENT: No nasal bleeding, congestion or rhinorrhea NECK: Negative for lumps, goiter, pain and significant neck swelling RESPIRATORY: Negative for cough, hemoptysis, wheezing, COPD, dyspnea or shortness of breath CARDIOVASCULAR: Negative for chest pain, leg swelling, hypertension, CHF or palpitations GI: No nausea, vomiting, or diarrhea : No history of dysuria, frequency or incontinence MUSCULOSKELETAL: back pain SKIN: Negative for lesions, rash, and itching PSYCH: Negative for sleep disturbance, mood disorder and recent psychosocial stressors HEMATOLOGY/LYMPHOLOGY: Negative for prolonged bleeding, bruising easily or swollen nodes ENDOCRINE: Negative for cold or heat intolerance, polyuria, polydipsia and goiter NEURO: negative n/t or weakness Data Reviewed: none new to review Assessment: (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 No other nsaids for the duration of the pack I am going to send her for a lumbar MRI to further evaluate the ongoing pain anatomy here. She has radicular symptoms that overlap with her tendon release that also causes some weakness. She has ongoing back pain with radiation of pain. I am wondering if she has a potential L4-5 disc issue Total Time Spent: 12 minutes Whitley Beck APRN.SCREEN TENDER HELPER documented in this encounter [facility] 10-02-2022 Instructions Whitley Beck APRN.CNP - 10/02/2022 12:44 PM EST Ice and heat as tolerated Activity as tolerated documented in this encounter [facility] 09-27-2022 Instructions Peggy Jiménez APRN.CNM - 09/27/2022 11:57 AM EST Images from the original note were not included. *Clairvee is the only oral probiotic that has been proven to target the vagina's microbiome, restoring lactobacilli, and thus reducing the recurrence of BV and yeast. Rigorous clinical trials show that Clairvee significantly reduces these annoying recurrences while balancing the vagina's microbiome and pH. Clairvee should be taken orally each day for 15 days of the month; 15 days off; then resumed for 15 days and so forth. Clairvee begins to balance the microbiome in as little as 15 days with best results at 6 months. Clairvee is professionally recommended, easily ordered by the patient, costs about $35 per month, and directly shipped to the patient's home. Clairvee is a great option for patients who struggle with recurring BV and yeast who have had no other prevention strategies in the past. It is also a great choice for women who have GSM symptoms of odor, itching, and discharge with an intermediate apple score, but have not had any other means to eliminate the embarrassing symptoms. Diflucan 150mg by mouth once a week for 6 months. Switch to clarivee probiotic. documented in this encounter [facility] 09-27-2022 History of Present illness Narrative Exercise Equipment Specialist offered: Patient declines. Ivette Murguia is a 77 year old female who presents for problem visit vulvar burning. HPI: Here today with complaint of continued vulvar itching. Patient took diflucan 150mg PO every 72hr x 3 doses. Continued burning after treatment. Since last appointment patient had vulvar varicosities treated on 09/04/22. After this was completed started to have symptoms of yeast and requested treatment. Uncertain if this helped or not and feels veins are bigger. 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 Byrne BX BREAST PERC VACUUM/ROTN 07/21/13 Right lateral COLONOSCOPY FLX DX W/COLLJ SPEC WHEN PFRMD 04/15/2015 Colonoscopy CURETTAGE 1972 ESOPHAGOGASTRODUODENOSCOPY TRANSORAL DIAGNOSTIC 02/2019 EGD KNEE ARTHROSCOPY/SURGERY LEFT KNEE LIGATION/BIOPSY TEMPORAL ARTERY 10/2012 left PAST SURGICAL HISTORY OF basal cell removed from nose 08/2012 PAST SURGICAL HISTORY OF 04/2014 Dr. Mallory, left hip tendon release- illopsoas tendon release REMOVE TONSIL AND ADENOI UNDER AGE 12 AT AGE 3 TOTAL HIP JOINT REPLACEMENT 12/30/2013 right FAMILY HISTORY Problem Relation Age of Onset Stroke Mother Heart Mother Stroke Father Heart Father Colon Cancer Father 60 other (SKIN CANCER) Father Heart Brother [address] Stroke Maternal Grandmother other (rheumatoid arthritis) Maternal Grandfather other (leukemia) Maternal Grandfather other (kidney cancer) Paternal Grandfather Asthma Daughter Social History Tobacco Use Smoking status: Never Smokeless tobacco: Never Vaping Use Vaping Use: Never used Substance Use Topics Alcohol use: Not Currently Drug use: No Current Outpatient Medications Medication Sig fluconazole (DIFLUCAN) 150 mg tablet Take one tablet by mouth once. Then repeat every 3 days for 3 doses. levothyroxine (LEVOXYL) 88 mcg tablet Take 1 tablet by mouth once daily. Take on empty stomach. For Thyroid nabumetone (RELAFEN) 500 mg tablet Take 2 tablets by mouth once daily. tiZANidine (ZANAFLEX) 2 mg tablet Take 1 tablet by mouth every 8 hours as needed (restless legs, muscle tension). ascorbic acid (VITAMIN C ORAL) Take by mouth. Magnesium 200 mg tab Take 200 mg by mouth once daily. ZINC ORAL Take 15 mg by mouth once daily. betamethasone valerate 0.1 % ointment Apply to affected area once daily. vitamin b complex capsule Take 1 capsule by mouth once daily. omega-3/dha/epa/fish oil (OMEGA-3 FISH OIL ORAL) Take by mouth once daily. albuterol (PROVENTIL) 2.5 mg /3 mL (0.083 %) nebulizer solution Use 3 mL via nebulizer every 4 hours as needed for Wheezing/Shortness of Breath. Use over 5-15minutes. albuterol HFA (VENTOLIN HFA) 90 mcg/actuation inhaler Inhale 2 Puffs as instructed every 4 hours as needed for Wheezing/Shortness of Breath. Spirometers and Accessories lena 1 Device as directed. Dx: dyspnea, Bronchiectasis dorzolamide HCl/PF (DORZOLAMIDE, PF,) 2 % drop Use in eyes. TURMERIC ORAL Take by mouth. latanoprost (XALATAN) 0.005 % ophthalmic solution 1 Drop daily at bedtime. fexofenadine (PADMINI) 180 mg tablet Take 180 mg by mouth as needed. cholecalciferol (VITAMIN D3) 1,000 unit tab tablet Take 1 tablet by mouth once daily. fluticasone (FLONASE) 50 mcg/actuation nasal spray Use 2 Sprays in each nostril once daily. (Patient taking differently: Use 2 Sprays in each nostril as needed.) clotrimazole-betamethasone (LOTRISONE) lotion Apply to affected area twice daily. For 30 days [id number] ORAL Take by mouth once daily. betamethasone valerate 0.1 % cream Apply to affected area twice daily as needed for exzema, don't use for more than 1 week in a row No current facility-administered medications for this visit. Allergies As of Date: 09/27/2022 Allergen Noted Reaction BALSAM OF ANNEMARIE [BALSAM ANNEMARIE] 11/21/2021 Unknown CODEINE 08/23/2010 Rash FRAGRANCES 11/21/2021 Unknown GLUTEN 08/02/2021 Intolerance LACTOSE 08/02/2021 Intolerance LANOLIN 12/13/2012 Rash MORPHINE 09/28/2010 Vomiting NEOMYCIN SULFATE 11/21/2021 Unknown NICKEL 12/13/2012 Rash NICKEL SULFATE 11/21/2021 Unknown ORANGE 05/08/2019 Unknown SEASONAL ALLERGIES 03/30/2011 Intolerance Fully Assessed 09/27/2022 REVIEW OF SYSTEMS Abdomen: No bloating, early satiety, indigestion, or increased flatulence. No abdominal pain, nausea, vomiting, diarrhea, or constipation. Bladder: No dysuria, gross hematuria, urinary frequency, urinary urgency, or incontinence. Breast: No breast lumps, nipple d/c, overlying skin changes, redness or skin retraction. Expanded ROS: N/A Allergies and current medication updated:Yes EXAM: BP 142/72 Wt 123 lb 6.4 oz (56.0kg) GENERAL: pleasant, female in no apparent distress HEENT: Normocephalic, atraumatic, mucus membranes moist, and no lesions NECK: Supple and full range of motion PELVIC: normal Bartholin's glands, urethra, Kihei's glands, no vulvar lesions, no cervical lesions, good vaginal support, physiologic discharge present, normal appearing perineal body and perianal region, atrophic changes, abnormal discharge thick white vaginal discharge. Vulva reddended NEURO: alert and oriented x3,exam grossly non-focal EXTREMITIES: normal Wet Prep 09/27/2022 9:02 PM Yeast: Positive:Pseudohyphae Clue Cells: Negative Trichomonas: Negative Provider: Peggy Jiménez APRN.CNM Reference Range Negative Trichomonas and Clue cells Mian Albicans is considered normal vaginal yony, but may proliferate to cause an infection Lab Address: Ob/gynecology [address] [place] [address] Dept: [phone] ASSESSMENT AND PLAN: 1. Yeast vaginitis - ICD9: 112.1, ICD10: B37.31 (primary diagnosis) -Discussed option of waiting for 4 weeks post treatment and see if resolution of symptoms or start suppressive therapy. She would like to start suppressive therapy. -Diflucan 150mg PO once a week for 6 months. -Follow up in 2-3 months 2. Vulvar burning - ICD9: 625.9, ICD10: N94.89 -Offered referral to or to see physician but she declines. Discussed they may have another perspective or treatment options but declines. Peggy Jiménez APRN.CNM documented in this encounter [facility] 09-21-2022 Miscellaneous Notes Spoke with patient following up from procedure. Patient states they are doing well, no questions or concerns at this time. Janet Gomez LPN documented in this encounter [facility] 09-20-2022 Miscellaneous Notes Noted, thank you. Colette Whittaker APRN.CNP patient called and is deciding not to move forward with testing due to the great amount of drive she has to come to have these test conducted and statesshe demetriand a GI facility closer to her house and doesnt want to reschedule. Lynette Marcelo [facility] Breath dish technician / appointment scheduler [phone] option #5 documented in this encounter [facility] 09-20-2022 Miscellaneous Notes Order placed. Colette Whittaker APRN.CNP Please file Nickel order documented in this encounter [facility] 09-19-2022 Miscellaneous Notes Patient notified and voiced understanding. The following approved medications have been transmitted electronically. Requested Prescriptions Signed Prescriptions Disp Refills fluconazole (DIFLUCAN) 150 mg tablet 3 tablet 0 Sig: Take one tablet by mouth once. Then repeat every 3 days for 3 doses. Authorizing Provider: PEGGY JIMÉNEZ Pharmacy Information Pharmacy Address Telephone [facility] [id number] [phone] Marychuy Woodard RN Diflucan 150mg PO once every 3 days x 3 doses. Please notify patient and hope she feels better soon. Peggy Jiménez APRN.CNM Pt calling and stated she has been having vaginal burning and irritation for the past 4-5days. Today she started with thick white discharge. Pt just had nerve ablations done in her back this am and is not able to come in to be seen. Pt wanting to know if you will call in [place] for her? Please advise. Maci Julian LPN documented in this encounter [facility] 09-19-2022 Note HNO ID: [id number] Author: Ann Parr MA Service: ? Author Type: Screen Tacker Type: Progress Notes Filed: 09/19/2022 11:09 AM Note Text: Review of Systems Constitutional: Negative for activity change, chills, fever and unexpected weight change. Genitourinary: Negative for difficulty urinating. Musculoskeletal: Positive for arthralgias, back pain, myalgias and neck pain. Negative for gait problem, joint swelling and neck stiffness. Neurological: Positive for weakness and headaches. Negative for numbness. Psychiatric/Behavioral: Positive for sleep disturbance. Negative for dysphoric mood and suicidal ideas. The patient is not nervous/anxious. [facility] 09-19-2022 Instructions Janet Gomez LPN - 09/19/2022 11:00 AM EST PROCEDURE DISCHARGE INSTRUCTIONS 09/19/2022 Ivette Murguia 1945 Physician: Altagracia Hawthorne MD Procedure: Facet Joint Branch Radiofrequency Denervation - LEFT CLUNEAL NERVE RADIOFREQUENCY ABLATION Post Procedure Instructions: If sedation not given, no driving for 3 hours after the procedure., Rest the day of the procedure., You may resume normal activities the day after the procedure, as tolerated., Avoid movements that may aggravate pain., Apply cold compresses to injection site if needed., If medically acceptable, take over the counter anti-inflammatories such as ibuprofen or Aleve if needed for post procedure discomfort., No hot baths, hot tubs or hot compresses for 24 hours., and Your pain should subside in the next 4-6 weeks. If you have any of the following signs or symptoms, please call our office at Fever and/or chills Swelling and/or drainage from injection site New pain that is different than your normal pain (other than soreness at the site of the procedure) Stiff neck Shortness of breath Severe increase in pain Motor dysfunctions, such as difficulty walking, bowel or bladder dysfunction and/or incontinence Headache that is severe, light sensitive or develops when changing positions (positional headache) Nausea and/or vomiting accompanied by headache that started 24-48 hours after the procedure If you have any emergent concerns, please call 911 or go to your local emergency room. Please also contact our office to let us know you will be seeking emergency care and why. documented in this encounter [facility] 09-19-2022 Nurse Note Order has been placed in the patient's chart with the following parameters for discharge from the physician: Patient is alert and oriented Vitals: Diastolic/Systolic +/- 20mmHg Respirations: 12-18 Pulse: 60-100 SpO2 is greater than or equal to 90% Patient has no nausea or vomiting Patient has no dizziness Pain level is +/- 2 from initial evaluation Dressing, dry and intact with no evidence of bleeding Criteria has been met, patient is okay to be discharged per the physician. Physician has gone in and evaluated the patient. Dressing dry and intact. No drainage noted. The patient denies nausea, numbness, tingling, weakness, shortness of breath, dizziness, or headache. Pain level 0/10. Vital signs within normal limits. Patient denied needing walked out by clinical staff and denied needing a wheelchair. Patient given discharge instructions and sent to transportation via ambulatory method. Patient left in good condition. Procedure to be performed: Left Superior and Middle Cluneal Nerve Block Patient was wheeled on stretcher from pre op bay to procedure room and assisted onto the procedure tablePatient s procedure was performed in an [facility] Procedure room. Pause completed at each level by provider to verify correct level and laterality placement Pressure was applied to patient s injection site(s) and bleeding was minimal. Patient had no complaint of shortness of breath, dizziness, headache, numbness, tingling, weakness or complications from procedure. Patient was assisted from the procedure table onto the stretcher and wheeled into a post op bay. Patient was advised a clinician will be to obtain another set of vitals. Time Out: 1039 Confirmed patient name, date of , procedure site, laterality, and allergies Procedure Start: 1042 Procedure End: 1053 Ui Ux Developer's Name: Terell Are you on a blood thinner: n If yes, is a hold required: n Last dose of blood thinner: n INR Result today: n Do you require a Lovenox bridge:n Are you a diabetic:n Are you/or could you be : n Are you taking Xanax for the procedure: n Are you currently on a steroid? n Are you currently on an antibiotic: n Have you had a COVID-19 vaccine in the last 14 days Or are you scheduled to receive one? n documented in this encounter [facility] 09-19-2022 Note HNO ID: [id number] Author: Altagracia Hawthorne MD Service: ? Author Type: Physician Type: Progress Notes Filed: 09/19/2022 11:09 AM Note Text: [facility] Patient name: Ivette Murguia Date of : 1945 Today's Date: 09/19/2022 Physician performing procedure: Altagracia Hawthorne M.D., M.B.A. 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 Data Reviewed: Current Medications, Past Medical History, Past Surgical History, Family History, Social History and Review of Systems: On Today's date, noted in the attribution, I have confirmed and edited as necessary, the PFSH and ROS obtained by others. Nursing note and vitals reviewed. Additional imaging reviewed as appropriate Review of Systems: Pertinent Positives: MSK: pain in the region being treated Neuro: no weakness or numbness in the region being treated Skin: Negative (No itching) Eyes: Negative (No blurred or double vision) Respiratory: Negative (No Cough, [id number]-[id number], Dyspnea on exertion, wheezing) Cardiovascular: Negative (No Chest Pain, Tightness, Pressure, Palpitations) Gastrointestinal: Negative (No Abdominal pain, Nausea, Vomiting, Constipation, Diarrhea) Genitourinary: Negative (No dysuria) Hematologic: Negative (No bleeding, bruising) OB: is Denied or Not Applicable Endocrine: Negative (No hot/cold intolerance) Psychiatric: Negative (No depression, anxiety or suicidal ideation) PAST MEDICAL HISTORY Diagnosis Date Arthritis Asymmetric septal hypertrophy (HCC) 02/2021 repeat ECHO needed 02/2022 Eczema Glaucoma History of COVID-19 10/2020 Hypercholesterolemia Hypertension Hypothyroidism Lactose intolerance 02/2019 PAST SURGICAL HISTORY Procedure Laterality Date APPENDECTOMY AT AGE 10 ARTHRP ACETBLR/PROX FEM PROSTC AGRFT/ALGRFT 09/26/2010 LEFT HIP- Dr. Byrne BX BREAST PERC VACUUM/ROTN 07/21/13 Right lateral COLONOSCOPY FLX DX W/COLLJ SPEC WHEN PFRMD 04/15/2015 Colonoscopy CURETTAGE 1972 ESOPHAGOGASTRODUODENOSCOPY TRANSORAL DIAGNOSTIC 02/2019 EGD KNEE ARTHROSCOPY/SURGERY LEFT KNEE LIGATION/BIOPSY TEMPORAL ARTERY 10/2012 left PAST SURGICAL HISTORY OF basal cell removed from nose 08/2012 PAST SURGICAL HISTORY OF 04/2014 Dr. Mallory, left hip tendon release- illopsoas tendon release REMOVE TONSIL AND ADENOI UNDER AGE 12 AT AGE 3 TOTAL HIP JOINT REPLACEMENT 12/30/2013 right FAMILY HISTORY Problem Relation Age of Onset Stroke Mother Heart Mother Stroke Father Heart Father Colon Cancer Father 60 other (SKIN CANCER) Father Heart Brother [address] Stroke Maternal Grandmother other (rheumatoid arthritis) Maternal Grandfather other (leukemia) Maternal Grandfather other (kidney cancer) Paternal Grandfather Asthma Daughter Social History Tobacco Use Smoking status: Never Smokeless tobacco: Never Vaping Use Vaping Use: Never used Substance Use Topics Alcohol use: Not Currently Drug use: No Current Outpatient Medications on File Prior to Visit Medication Sig levothyroxine (LEVOXYL) 88 mcg tablet Take 1 tablet by mouth once daily. Take on empty stomach. For Thyroid fluconazole (DIFLUCAN) 150 mg tablet One tablet orally every 3 days for 3 doses. nabumetone (RELAFEN) 500 mg tablet Take 2 tablets by mouth once daily. tiZANidine (ZANAFLEX) 2 mg tablet Take 1 tablet by mouth every 8 hours as needed (restless legs, muscle tension). ascorbic acid (VITAMIN C ORAL) Take by mouth. Magnesium 200 mg tab Take 200 mg by mouth once daily. ZINC ORAL Take 15 mg by mouth once daily. betamethasone valerate 0.1 % ointment Apply to affected area once daily. clotrimazole-betamethasone (LOTRISONE) lotion Apply to affected area twice daily. For 30 days vitamin b complex capsule Take 1 capsule by mouth once daily. [id number] ORAL Take by mouth once daily. omega-3/dha/epa/fish oil (OMEGA-3 FISH OIL ORAL) Take by mouth once daily. betamethasone valerate 0.1 % cream Apply to affected area twice daily as needed for exzema, don't use for more than 1 week in a row albuterol (PROVENTIL) 2.5 mg /3 mL (0.083 %) nebulizer solution Use 3 mL via nebulizer every 4 hours as needed for Wheezing/Shortness of Breath. Use over 5-15minutes. albuterol HFA (VENTOLIN HFA) 90 mcg/actuation inhaler Inhale 2 Puffs as instructed every 4 hours as needed for Wheezing/Shortness of Breath. Spirom (more content not included)... [facility] 09-19-2022 History of Present illness Narrative Review of Systems Constitutional: Negative for activity change, chills, fever and unexpected weight change. Genitourinary: Negative for difficulty urinating. Musculoskeletal: Positive for arthralgias, back pain, myalgias and neck pain. Negative for gait problem, joint swelling and neck stiffness. Neurological: Positive for weakness and headaches. Negative for numbness. Psychiatric/Behavioral: Positive for sleep disturbance. Negative for dysphoric mood and suicidal ideas. The patient is not nervous/anxious. [facility] Patient name: Ivette Murguia Date of : 1945 Today's Date: 09/19/2022 Physician performing procedure: Altagracia Hawthorne M.D., M.B.A. 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 Data Reviewed: Current Medications, Past Medical History, Past Surgical History, Family History, Social History and Review of Systems: On Today's date, noted in the attribution, I have confirmed and edited as necessary, the PFSH and ROS obtained by others. Nursing note and vitals reviewed. Additional imaging reviewed as appropriate Review of Systems: Pertinent Positives: MSK: pain in the region being treated Neuro: no weakness or numbness in the region being treated Skin: Negative (No itching) Eyes: Negative (No blurred or double vision) Respiratory: Negative (No Cough, Nqwoztjpr-wb-vvtgro, Dyspnea on exertion, wheezing) Cardiovascular: Negative (No Chest Pain, Tightness, Pressure, Palpitations) Gastrointestinal: Negative (No Abdominal pain, Nausea, Vomiting, Constipation, Diarrhea) Genitourinary: Negative (No dysuria) Hematologic: Negative (No bleeding, bruising) OB: is Denied or Not Applicable Endocrine: Negative (No hot/cold intolerance) Psychiatric: Negative (No depression, anxiety or suicidal ideation) PAST MEDICAL HISTORY Diagnosis Date Arthritis Asymmetric septal hypertrophy (HCC) 02/2021 repeat ECHO needed 02/2022 Eczema Glaucoma History of COVID-19 10/2020 Hypercholesterolemia Hypertension Hypothyroidism Lactose intolerance 02/2019 PAST SURGICAL HISTORY Procedure Laterality Date APPENDECTOMY AT AGE 10 ARTHRP ACETBLR/PROX FEM PROSTC AGRFT/ALGRFT 09/26/2010 LEFT HIP- Dr. Byrne BX BREAST PERC VACUUM/ROTN 07/21/13 Right lateral COLONOSCOPY FLX DX W/COLLJ SPEC WHEN PFRMD 04/15/2015 Colonoscopy CURETTAGE 1972 ESOPHAGOGASTRODUODENOSCOPY TRANSORAL DIAGNOSTIC 02/2019 EGD KNEE ARTHROSCOPY/SURGERY LEFT KNEE LIGATION/BIOPSY TEMPORAL ARTERY 10/2012 left PAST SURGICAL HISTORY OF basal cell removed from nose 08/2012 PAST SURGICAL HISTORY OF 04/2014 Dr. Mallory, left hip tendon release- illopsoas tendon release REMOVE TONSIL AND ADENOI UNDER AGE 12 AT AGE 3 TOTAL HIP JOINT REPLACEMENT 12/30/2013 right FAMILY HISTORY Problem Relation Age of Onset Stroke Mother Heart Mother Stroke Father Heart Father Colon Cancer Father 60 other (SKIN CANCER) Father Heart Brother [address] Stroke Maternal Grandmother other (rheumatoid arthritis) Maternal Grandfather other (leukemia) Maternal Grandfather other (kidney cancer) Paternal Grandfather Asthma Daughter Social History Tobacco Use Smoking status: Never Smokeless tobacco: Never Vaping Use Vaping Use: Never used Substance Use Topics Alcohol use: Not Currently Drug use: No Current Outpatient Medications on File Prior to Visit Medication Sig levothyroxine (LEVOXYL) 88 mcg tablet Take 1 tablet by mouth once daily. Take on empty stomach. For Thyroid fluconazole (DIFLUCAN) 150 mg tablet One tablet orally every 3 days for 3 doses. nabumetone (RELAFEN) 500 mg tablet Take 2 tablets by mouth once daily. tiZANidine (ZANAFLEX) 2 mg tablet Take 1 tablet by mouth every 8 hours as needed (restless legs, muscle tension). ascorbic acid (VITAMIN C ORAL) Take by mouth. Magnesium 200 mg tab Take 200 mg by mouth once daily. ZINC ORAL Take 15 mg by mouth once daily. betamethasone valerate 0.1 % ointment Apply to affected area once daily. clotrimazole-betamethasone (LOTRISONE) lotion Apply to affected area twice daily. For 30 days vitamin b complex capsule Take 1 capsule by mouth once daily. [id number] ORAL Take by mouth once daily. omega-3/dha/epa/fish oil (OMEGA-3 FISH OIL ORAL) Take by mouth once daily. betamethasone valerate 0.1 % cream Apply to affected area twice daily as needed for exzema, don't use for more than 1 week in a row albuterol (PROVENTIL) 2.5 mg /3 mL (0.083 %) nebulizer solution Use 3 mL via nebulizer every 4 hours as needed for Wheezing/Shortness of Breath. Use over 5-15minutes. albuterol HFA (VENTOLIN HFA) 90 mcg/actuation inhaler Inhale 2 Puffs as instructed every 4 hours as needed for Wheezing/Shortness of Breath. Spirometers and Accessories lena 1 Device as directed. Dx: dyspnea, Bronchiectasis dorzolamide HCl/PF (DORZOLAMIDE, PF,) 2 % drop Use in eyes. TURMERIC ORAL Take by mouth. latanoprost (XALATAN) 0.005 % ophthalmic solution 1 Drop daily at bedtime. fexofenadine (PADMINI) 180 mg tablet Take 180 mg by mouth as needed. cholecalciferol (VITAMIN D3) 1,000 unit tab tablet Take 1 tablet by mouth once daily. fluticasone (FLONASE) 50 mcg/actuation nasal spray Use 2 Sprays in each nostril once daily. (Patient taking differently: Use 2 Sprays in each nostril as needed.) No current facility-administered medications on file prior to visit. ALLERGIES Allergen Reactions [place] [Bal* Unknown Codeine Rash Fragrances Unknown Gluten Intolerance Lactose Intolerance Lanolin Rash Morphine Vomiting Neomycin Sulfate Unknown Nickel Rash Nickel Sulfate Unknown [place] Unknown Mildly positive to skin testing Seasonal Allergies Intolerance Objective Exam: Vitals: As per nursing documentation Constitutional: Normal Appearance, Oriented to Time, Place and Person Head: No lacerations, no external signs of trauma Eyes: Conjunctiva clear. No discharge from the eyes Cardiovascular: Appears well-perfused Pulmonary: Non-labored respirations Abdominal: Non-distended Skin: No visible rashes or ecchymosis Psychiatric: Mood appropriate for given condition Neurological: Gross movements are limited by pain, but otherwise unremarkable Assessment and Plan: As noted above UNIVERSAL PROTOCOL / SAFETY CHECKLIST * Procedure to be Performed: as noted above Sign In: A Moment of CARE was completed. Personnel directly involved with the procedure wore the appropriate PPE (Personal Protective Equipment). Patient/Surrogate Stated/Verified: PATIENT VERIFIED(optional for EMERGENT procedures): Patient name, Date of , Relevant allergies and The intended procedure Time Out Communication: Intended patient and procedure match the source documents. Consent documented and matches the intended procedure. Obtained in writing prior to procedure I had a nice discussion with the patient today about their current pain and the pathology that could be causing it We discussed different treatment options, including risks, benefits and alternatives. We agreed to proceed as previously discussed, or the plan was modified in accordance with the comments noted above Unless stated otherwise in the procedure note, the risks include but are not limited to infection, allergic reaction, increased pain, lack of therapeutic benefit, steroid reaction, nerve damage, paralysis, stroke, epidural hematoma, syncope, headache, respiratory or cardiac arrest, pneumothorax, and scar formation Once the plan was agreed upon, the patient gave written consent to proceed and was transported into the procedure room Sign Out: SIGN OUT (optional for EMERGENT procedures): No specimen collected. Post-procedure follow-up management communicated and Plan of Care Visit completed when applicable. Time Out was led by the physician in the procedure room, with the patient and all staff present and participating The following information was verified during the Time Out process: Patient name, patient date of , procedure site (marked), laterality, anticoagulants and allergies Procedure: The patient was prepped and draped in a sterile fashion in the prone position after informed consent was signed and all patient questions were answered including the risks, benefits, alternative treatment options, and prognosis. The risks are as mentioned above, except for pneumothorax. Under fluoroscopic guidance in the AP view, the iliac crest on the side mentioned above was identified. Following, the intended needle insertion site was then anesthestized in 3 locations with 1% Lidocaine, including a point approximately 70mm from the PSIS and the most adjacent spinous process, the PSIS, and a point midway between these two points, covering the most probable location of the superior and middle cluneal nerves. After adequate skin anesthesia was obtained, the outer cannula were advanced under fluoroscopic guidance to the desired locations and confirmed with biplanar imaging. The needles were then aspirated for heme, which was negative. Following this, test stimulation was done at motor levels to ensure that there was no radicular stimulation. The soft tissues were then infiltrated with 1-2 ccs. of buffered 1% Lidocaine without Epinephrine. Subsequent to this, a pulsed neurotomy was carried out for 90 seconds at 55 degrees Celsius. Then, percutaneous neurotomy was carried out for 90 seconds at 80 degrees Celsius one additional time at each level for a total of three lesions per level. It was then repeated for each facet joint nerve mentioned above. Appropriate radiographs were obtained to verify the probe placement during the neurotomy. Please see the nursing note for exact times (time out, procedure start, procedure end). After careful removal of the needle, there was minimal bleeding. The injection site was covered with appropriate sterile dressing. The patient was noted to have tolerated the procedure well and was discharged after an appropriate period of post-procedure observation. The patient was instructed to contact us if there were any complications. The patient was advised to follow-up with the requesting physician within one to two weeks or as per their requested follow-up plan. Post procedure visit summary with written instructions was offered to the patient. Altagracia [facility]CH[facility] documented in this encounter [facility] 09-18-2022 Miscellaneous Notes Patient called inregards to concerns about the breath test that she was scheduled for on Oct 10, 2022. I informed the patient that sge can only have one test conducted a day due to the different types of sugars being tested that are given to determine if she develops any bacterial overgrowths from each testing. She understood once explained and will like to proceed with the Lactulose test for now.GRIFFIN Chao documented in this encounter [facility] 09-11-2022 History of Present illness Narrative CC: Ivette Murguia is a 77 year old female who presents to the office to establish care. HPI: Last seen in office 6 months ago, at that time on 03/13/22 Shoulder pain, improved symptoms, has seen Dr. Nunn Saw Dr. Yu [employer], was told to try high doses of vitamin B complex- had SE of skin erythema of hands, nausea, blurred vision so stopped the supplement. Next steps were to try the fluconazole 100 mg x 15 days without relief of symptoms. Next steps were to try CREON supplement with meals (Pancrelipase)- caused SE of headache, dizziness, constipation severe, so stopped after 24 tablets due to these side effects. Still having a lot of difficulty with swelling and redness of her palmar surfaces of her hands. Started after she was taking the Vitamin B high dose complex + fatigue + occasional nausea and dizziness symptoms, like when I had long hauler covid 19 symptoms. Sharp knife like pain in my thighs, fleeting sharp stabbing discomfort in her skin Currently Leg cramps, lower legs, worse at night. Legs feel sore when the cramping is happening. + fatigue, present daily Rash, vaginal itching symptoms, seeing Meenakshi Jim[facility]nez in [employer] for care and using creams and avoiding nickel and other metals she isn't able to tolerate. + nausea, upset stomach, like if I don't eat I feel I could vomit. Dizziness at times, comes and goes, feels equilibrium is not normal. Joint pain, present during day and sometimes also waking her up at night Pins and needles feeling, throughout body. Itching of face skin, comes and goes, present daily Feels very frustrated from all these symptoms occurring and not sure the cause. Has had foods/allergy testing with Dr. Yu as well as labs and other studies without conclusive cause of symptoms PAST MEDICAL HISTORY Diagnosis Date Arthritis Asymmetric septal hypertrophy (HCC) 02/2021 repeat ECHO needed 02/2022 Eczema Glaucoma History of COVID-19 10/2020 Hypercholesterolemia Hypertension Hypothyroidism Lactose intolerance 02/2019 PAST SURGICAL HISTORY Procedure Laterality Date APPENDECTOMY AT AGE 10 ARTHRP ACETBLR/PROX FEM PROSTC AGRFT/ALGRFT 09/26/2010 LEFT HIP- Dr. Byrne BX BREAST PERC VACUUM/ROTN 07/21/13 Right lateral COLONOSCOPY FLX DX W/COLLJ SPEC WHEN PFRMD 04/15/2015 Colonoscopy CURETTAGE 1972 ESOPHAGOGASTRODUODENOSCOPY TRANSORAL DIAGNOSTIC 02/2019 EGD KNEE ARTHROSCOPY/SURGERY LEFT KNEE LIGATION/BIOPSY TEMPORAL ARTERY 10/2012 left PAST SURGICAL HISTORY OF basal cell removed from nose 08/2012 PAST SURGICAL HISTORY OF 04/2014 Dr. Mallory, left hip tendon release- illopsoas tendon release REMOVE TONSIL AND ADENOI UNDER AGE 12 AT AGE 3 TOTAL HIP JOINT REPLACEMENT 12/30/2013 right Social History: Social History Tobacco Use Smoking status: Never Smokeless tobacco: Never Vaping Use Vaping Use: Never used Substance Use Topics Alcohol use: Not Currently Drug use: No FAMILY HISTORY Problem Relation Age of Onset Stroke Mother Heart Mother Stroke Father Heart Father Colon Cancer Father 60 other (SKIN CANCER) Father Heart Brother [address] Stroke Maternal Grandmother other (rheumatoid arthritis) Maternal Grandfather other (leukemia) Maternal Grandfather other (kidney cancer) Paternal Grandfather Asthma Daughter Current Outpatient prescriptions: nabumetone (RELAFEN) 500 mg tablet Take 2 tablets by mouth once daily. tiZANidine (ZANAFLEX) 2 mg tablet Take 1 tablet by mouth every 8 hours as needed (restless legs, muscle tension). ascorbic acid (VITAMIN C ORAL) Take by mouth. Magnesium 200 mg tab Take 200 mg by mouth once daily. ZINC ORAL Take 15 mg by mouth once daily. betamethasone valerate 0.1 % ointment Apply to affected area once daily. levothyroxine (LEVOXYL) 88 mcg tablet Take 1 tablet by mouth once daily. Take on empty stomach. For Thyroid vitamin b complex capsule Take 1 capsule by mouth once daily. omega-3/dha/epa/fish oil (OMEGA-3 FISH OIL ORAL) Take by mouth once daily. albuterol (PROVENTIL) 2.5 mg /3 mL (0.083 %) nebulizer solution Use 3 mL via nebulizer every 4 hours as needed for Wheezing/Shortness of Breath. Use over 5-15minutes. albuterol HFA (VENTOLIN HFA) 90 mcg/actuation inhaler Inhale 2 Puffs as instructed every 4 hours as needed for Wheezing/Shortness of Breath. Spirometers and Accessories lena 1 Device as directed. Dx: dyspnea, Bronchiectasis dorzolamide HCl/PF (DORZOLAMIDE, PF,) 2 % drop Use in eyes. TURMERIC ORAL Take by mouth. fexofenadine (PADMINI) 180 mg tablet Take 180 mg by mouth as needed. cholecalciferol (VITAMIN D3) 1,000 unit tab tablet Take 1 tablet by mouth once daily. fluticasone (FLONASE) 50 mcg/actuation nasal spray Use 2 Sprays in each nostril once daily. (Patient taking differently: Use 2 Sprays in each nostril as needed.) fluconazole (DIFLUCAN) 150 mg tablet One tablet orally every 3 days for 3 doses. clotrimazole-betamethasone (LOTRISONE) lotion Apply to affected area twice daily. For 30 days [id number] ORAL Take by mouth once daily. betamethasone valerate 0.1 % cream Apply to affected area twice daily as needed for exzema, don't use for more than 1 week in a row latanoprost (XALATAN) 0.005 % ophthalmic solution 1 Drop daily at bedtime. Allergies: ALLERGIES Allergen Reactions [place] [Bal* Unknown Codeine Rash Fragrances Unknown Gluten Intolerance Lactose Intolerance Lanolin Rash Morphine Vomiting Neomycin Sulfate Unknown Nickel Rash Nickel Sulfate Unknown [place] Unknown Mildly positive to skin testing Seasonal Allergies Intolerance ROS: See HPI PE: 09/11/22 0952 BP: 140/80 Pulse: 76 Resp: 20 Temp: 36.1 C (97 F) TempSrc: Left Tympanic Weight: 56.2 kg (124 lb) Gen: A&O, NAD, non-toxic appearing, intermittently tearful, cooperative HEENT: NT/AC, PERRLA, EOMs intact b/l, nares clear and patent b/l, pharynx without erythema, exudate or lesions. MMM, Uvula midline. EACs without erythema or debris. TMs pearly iglesias with intact landmarks b/l. Neck: supple, No cervical LAD, no thyromegaly, no carotid bruits CV: RRR, normal S1 and S2, no murmurs, no gallops, no rubs, Pulses 2+ and symmetric in UE and LE b/l Lungs: normal respiratory effort, CTA b/l, no wheezing or rhonchi or rales Abd: soft, mild epigastric TTP, ND, +BS, no hepatosplenomegaly MS: FROM all 4 extremities Neuro: CN II-XII intact b/l, strength 5/5 b/l UE and LE, DTRs 2/4 UE and LE, sensation intact. Skin: warm, dry, intact, No rashes or lesions on exposed skin. Dry skin No edema legs, normal peripheral pulses ASSESSMENT/PLAN: 1. Leg cramping - ICD9: 729.82, ICD10: R25.2 (primary diagnosis) Labs as ordered, continue supplement, unsure cause, have done other testing in the past. Consider seeing Functional medicine specialist for opinion as well. - VITAMIN B6/PYRIDOXIN - COPPER BLOOD - HEAVY METALS SCRN BL - MAGNESIUM BLD - TSH BLD - T4 FREE/FREE THYROX - NICKEL, SERUM - CBC + DIFF - COMP METABOLIC PANEL - C-REACTIVE PROTEIN (CRP) - DAVID BLOOD - VITAMIN B12 BLOOD - BREATH TEST - LACTULOSE - BREATH TEST H PYLORI - CONSULT TO FUNCTIONAL MEDICINE - RHEUMATOID FACTOR BL - IRON + TIBC 2. Hypothyroidism, unspecified type - ICD9: 244.9, ICD10: E03.9 - Instructed patient on importance of taking on an empty stomach either first thing in the morning or at bedtime. - continue current dose of Synthroid Stable - Behavioral intervention and - Pharmacological intervention - LEVOTHYROXINE 88 MCG TABLET 3. Multiple joint pain - ICD9: 719.49, ICD10: M25.50 Labs as ordered, continue supplement, unsure cause, have done other testing in the past. Consider seeing Functional medicine specialist for opinion as well. - VITAMIN B6/PYRIDOXIN - COPPER BLOOD - HEAVY METALS SCRN BL - MAGNESIUM BLD - TSH BLD - T4 FREE/FREE THYROX - NICKEL, SERUM - CBC + DIFF - COMP METABOLIC PANEL - C-REACTIVE PROTEIN (CRP) - DAVID BLOOD - VITAMIN B12 BLOOD - BREATH TEST - LACTULOSE - BREATH TEST H PYLORI - CONSULT TO FUNCTIONAL MEDICINE - RHEUMATOID FACTOR BL - IRON + TIBC - CORTISOL BLD - URIC ACID BLOOD 4. Pruritic disorder - ICD9: 698.9, ICD10: L29.9 Labs as ordered, continue supplement, unsure cause, have done other testing in the past. Consider seeing Functional medicine specialist for opinion as well. - VITAMIN B6/PYRIDOXIN - COPPER BLOOD - HEAVY METALS SCRN BL - MAGNESIUM BLD - TSH BLD - T4 FREE/FREE THYROX - NICKEL, SERUM - CBC + DIFF - COMP METABOLIC PANEL - C-REACTIVE PROTEIN (CRP) - DAVID BLOOD - VITAMIN B12 BLOOD - BREATH TEST - LACTULOSE - BREATH TEST H PYLORI - CONSULT TO FUNCTIONAL MEDICINE - RHEUMATOID FACTOR BL - IRON + TIBC - ZINC BLD - CORTISOL BLD - URIC ACID BLOOD 5. Fatigue, unspecified type - ICD9: 780.79, ICD10: R53.83 Labs as ordered, continue supplement, unsure cause, have done other testing in the past. Consider seeing Functional medicine specialist for opinion as well. - VITAMIN B6/PYRIDOXIN - COPPER BLOOD - HEAVY METALS SCRN BL - MAGNESIUM BLD - TSH BLD - T4 FREE/FREE THYROX - NICKEL, SERUM - CBC + DIFF - COMP METABOLIC PANEL - C-REACTIVE PROTEIN (CRP) - DAVID BLOOD - VITAMIN B12 BLOOD - BREATH TEST - LACTULOSE - BREATH TEST H PYLORI - CONSULT TO FUNCTIONAL MEDICINE - RHEUMATOID FACTOR BL - IRON + TIBC - ZINC BLD - CRYPTOSPORIDIUM AND GIARDIA ANTIGENS BY EIA - CORTISOL BLD - URIC ACID BLOOD 6. Paresthesia - ICD9: 782.0, ICD10: R20.2 Labs as ordered, continue supplement, unsure cause, have done other testing in the past. Consider seeing Functional medicine specialist for opinion as well. - VITAMIN B6/PYRIDOXIN - COPPER BLOOD - HEAVY METALS SCRN BL - MAGNESIUM BLD - TSH BLD - T4 FREE/FREE THYROX - NICKEL, SERUM - CBC + DIFF - COMP METABOLIC PANEL - C-REACTIVE PROTEIN (CRP) - DAVID BLOOD - VITAMIN B12 BLOOD - BREATH TEST - LACTULOSE - BREATH TEST H PYLORI - CONSULT TO FUNCTIONAL MEDICINE - RHEUMATOID FACTOR BL - IRON + TIBC - ZINC BLD - CORTISOL BLD - URIC ACID BLOOD 7. Nausea - ICD9: 787.02, ICD10: R11.0 Labs as ordered, continue supplement, unsure cause, have done other testing in the past. Consider seeing Functional medicine specialist for opinion as well. - VITAMIN B6/PYRIDOXIN - COPPER BLOOD - HEAVY METALS SCRN BL - MAGNESIUM BLD - TSH BLD - T4 FREE/FREE THYROX - NICKEL, SERUM - CBC + DIFF - COMP METABOLIC PANEL - C-REACTIVE PROTEIN (CRP) - DAVID BLOOD - VITAMIN B12 BLOOD - BREATH TEST - LACTULOSE - BREATH TEST H PYLORI - CONSULT TO FUNCTIONAL MEDICINE - RHEUMATOID FACTOR BL - IRON + TIBC - ZINC BLD - CRYPTOSPORIDIUM AND GIARDIA ANTIGENS BY EIA - CORTISOL BLD - URIC ACID BLOOD 8. Vaginal itching - ICD9: 698.1, ICD10: N89.8 F/u with [employer], stable, chronic 9. Lumbar spondylosis - ICD9: 721.3, ICD10: M47.816 - f/u with Dr. Hawthoren with pain mgmt for injection Abdullahi Koehler DO To ER if develops chest pain, shortness of breath, or severe worsening of symptoms. Discussed risks, benefits, alternatives, and potential side effects of medications. Patient expressed understanding and agreed with the plan. Abdullahi Koehler DO [address] [place] [address] documented in this encounter [facility] 09-04-2022 History of Present illness Narrative 77-year-old female presents for evaluation and treatment of painful vulvar varicosities. She is 2, para 2. She states that she has developed these veins in 1971. She denies any history of lower extremity DVT, PE, phlebitis. She is a non-smoker. She is nondiabetic. Physical Exam: No lower extremity varicosities. There are varicosities noted in the superior portion and lateral left vulvar areas. I have reviewed her numerous allergies. I have also reviewed and demonstrated to the patient her CT scan images. I see no evidence of significant pelvic venous pathology. 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 Plan: This patient will undergo injection sclerotherapy with 1% Asclera. I have detailed and described the procedure with its attendant risks and benefits. She understands and wishes to proceed. Procedure: Left vulvar and superior vulvar varicosities were injected with 1 cc of 1% Asclera. She remained lying supine for 10 minutes. All varicosities appear to be successfully treated. She has done well. She will return 1 month for follow-up examination. documented in this encounter [facility] 08-21-2022 History of Present illness Narrative Ivette Murguia is a 77 year old female who presents for problem visit HPI: Here today for follow up vulvar burning and vaginal atrophy. Using Estriol ointment twice a week and betamthasone valerate 0.1% ointment once a week. This seems to be a good regimen and has releaf. Used the Gabepntin 4% for burning and this has helped. At time complaint of pain from varicose veins, once the veins are irritated will last for several days. This is her last symptomatic complaint and she feels much relief. After last round of Diflucan, had additional relief as well. 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 Byrne BX BREAST PERC VACUUM/ROTN 07/21/13 Right lateral COLONOSCOPY FLX DX W/COLLJ SPEC WHEN PFRMD 04/15/2015 Colonoscopy CURETTAGE 1972 ESOPHAGOGASTRODUODENOSCOPY TRANSORAL DIAGNOSTIC 02/2019 EGD KNEE ARTHROSCOPY/SURGERY LEFT KNEE LIGATION/BIOPSY TEMPORAL ARTERY 10/2012 left PAST SURGICAL HISTORY OF basal cell removed from nose 08/2012 PAST SURGICAL HISTORY OF 04/2014 Dr. Mallory, left hip tendon release- illopsoas tendon release REMOVE TONSIL AND ADENOI UNDER AGE 12 AT AGE 3 TOTAL HIP JOINT REPLACEMENT 12/30/2013 right FAMILY HISTORY Problem Relation Age of Onset Stroke Mother Heart Mother Stroke Father Heart Father Colon Cancer Father 60 other (SKIN CANCER) Father Heart Brother [address] Stroke Maternal Grandmother other (rheumatoid arthritis) Maternal Grandfather other (leukemia) Maternal Grandfather other (kidney cancer) Paternal Grandfather Asthma Daughter Social History Tobacco Use Smoking status: Never Smokeless tobacco: Never Vaping Use Vaping Use: Never used Substance Use Topics Alcohol use: Not Currently Drug use: No Current Outpatient Medications Medication Sig predniSONE (DELTASONE) 50 mg Take 1 tablet by mouth once daily for 5 days. fluconazole (DIFLUCAN) 150 mg tablet One tablet orally every 3 days for 3 doses. nabumetone (RELAFEN) 500 mg tablet Take 2 tablets by mouth once daily. tiZANidine (ZANAFLEX) 2 mg tablet Take 1 tablet by mouth every 8 hours as needed (restless legs, muscle tension). ascorbic acid (VITAMIN C ORAL) Take by mouth. Magnesium 200 mg tab Take 200 mg by mouth once daily. ZINC ORAL Take 15 mg by mouth once daily. betamethasone valerate 0.1 % ointment Apply to affected area once daily. levothyroxine (LEVOXYL) 88 mcg tablet Take 1 tablet by mouth once daily. Take on empty stomach. For Thyroid vitamin b complex capsule Take 1 capsule by mouth once daily. omega-3/dha/epa/fish oil (OMEGA-3 FISH OIL ORAL) Take by mouth once daily. albuterol (PROVENTIL) 2.5 mg /3 mL (0.083 %) nebulizer solution Use 3 mL via nebulizer every 4 hours as needed for Wheezing/Shortness of Breath. Use over 5-15minutes. albuterol HFA (VENTOLIN HFA) 90 mcg/actuation inhaler Inhale 2 Puffs as instructed every 4 hours as needed for Wheezing/Shortness of Breath. Spirometers and Accessories lena 1 Device as directed. Dx: dyspnea, Bronchiectasis dorzolamide HCl/PF (DORZOLAMIDE, PF,) 2 % drop Use in eyes. TURMERIC ORAL Take by mouth. latanoprost (XALATAN) 0.005 % ophthalmic solution 1 Drop daily at bedtime. fexofenadine (PADMINI) 180 mg tablet Take 180 mg by mouth as needed. cholecalciferol (VITAMIN D3) 1,000 unit tab tablet Take 1 tablet by mouth once daily. fluticasone (FLONASE) 50 mcg/actuation nasal spray Use 2 Sprays in each nostril once daily. (Patient taking differently: Use 2 Sprays in each nostril as needed.) clotrimazole-betamethasone (LOTRISONE) lotion Apply to affected area twice daily. For 30 days [id number] ORAL Take by mouth once daily. betamethasone valerate 0.1 % cream Apply to affected area twice daily as needed for exzema, don't use for more than 1 week in a row No current facility-administered medications for this visit. Allergies As of Date: 08/21/2022 Allergen Noted Reaction BALSAM OF ANNEMARIE [BALSAM ANNEMARIE] 11/21/2021 Unknown CODEINE 08/23/2010 Rash FRAGRANCES 11/21/2021 Unknown GLUTEN 08/02/2021 Intolerance LACTOSE 08/02/2021 Intolerance LANOLIN 12/13/2012 Rash MORPHINE 09/28/2010 Vomiting NEOMYCIN SULFATE 11/21/2021 Unknown NICKEL 12/13/2012 Rash NICKEL SULFATE 11/21/2021 Unknown ORANGE 05/08/2019 Unknown SEASONAL ALLERGIES 03/30/2011 Intolerance Fully Assessed 08/21/2022 REVIEW OF SYSTEMS Abdomen: No bloating, early satiety, indigestion, or increased flatulence. No abdominal pain, nausea, vomiting, diarrhea, or constipation. Bladder: No dysuria, gross hematuria, urinary frequency, urinary urgency, or incontinence. Breast: No breast lumps, nipple d/c, overlying skin changes, redness or skin retraction. Expanded ROS: N/A Allergies and current medication updated:Yes EXAM: BP 134/78 Wt 124 lb 3.2 oz (56.3 kg) BMI 20.67 kg/m GENERAL: pleasant, female in no apparent distress HEENT: Normocephalic and atraumatic NECK: Supple and full range of motion PELVIC: external genitalia normal, normal Bartholin's glands, urethra, Kihei's glands, no vulvar lesions, no cervical lesions, good vaginal support, physiologic discharge present, normal appearing perineal body and perianal region. Vaginal atrophy. Vulvar varicosities near labial will and down left side of labia, sensitive to touch. BIMANUAL: uterus normal size, shape and consistency, no adnexal masses, and non-tender NEURO: alert and oriented x3,exam grossly non-focal EXTREMITIES: normal ASSESSMENT AND PLAN: 1. Vulvar burning - ICD9: 625.9, ICD10: N94.89 (primary diagnosis) -Continue betamthasone valerate 0.1% ointment once a week. Gabepntin 4% for burning 2. Vaginal atrophy - ICD9: 627.3, ICD10: N95.2 -Using Estriol ointment twice a week 3. 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 Peggy Jiménez APRN.CNM documented in this encounter [facility] 08-17-2022 Note HNO ID: [id number] Author: Ivory Tompkins MA Service: ? Author Type: Screen Tacker Type: Progress Notes Filed: 08/17/2022 2:01 PM Note Text: Review of Systems Constitutional: Negative for activity change, chills, fever and unexpected weight change. Gastrointestinal: Negative for bowel retention or incontinence Genitourinary: Negative for difficulty urinating. Negative for bladder retention or incontinence Musculoskeletal: Positive for arthralgias, back pain, gait problem, myalgias, neck pain and neck stiffness. Negative for joint swelling. Neurological: Positive for weakness. Negative for numbness and headaches. Psychiatric/Behavioral: Positive for sleep disturbance. Negative for dysphoric mood and suicidal ideas. The patient is not nervous/anxious. [facility] 08-17-2022 Miscellaneous Notes 1.Are you diabetic No 2. Are you on any blood thinners? No 3. Are you taking any aspirin? No 4. Have you had any recent imaging done on your body part that's being injected? Yes XRAY 5. Do you have any allergies to latex? No 6. Do you have any allergies to seafood? No 7. Do you have any allergies to shellfish? No 8. Do you have any allergies to x-ray dye? No 9. Are you taking Xanax for the procedure? No 10. Have you done physical therapy in the last year? No If yes, When and Where? (Medical Records Release needs to be signed.) 11. Were the pre-procedure instructions explained to the patient? Yes, explained and printed for patient 12. Do you have a pacemaker? No 13. Do you have an internal stimulator of any kind? No If yes, please bring the remote with you to your procedure visit. 14. Have you received the COVID-19 Vaccine? Yes. If yes, date(s) received: explained and printed for patient. (Patient should not receive a procedure including steroids 14 days prior to their first dose of the COVID vaccine. They should not receive any procedure containing steroids in the time frame between their 1st and 2nd doses of the COVID vaccine. They should not receive a procedure containing steroids 14 days after their 2nd dose of the COVID vaccine.) Jennifer Ramirez documented in this encounter [facility] 08-17-2022 History of Present illness Narrative Review of Systems Constitutional: Negative for activity change, chills, fever and unexpected weight change. Gastrointestinal: Negative for bowel retention or incontinence Genitourinary: Negative for difficulty urinating. Negative for bladder retention or incontinence Musculoskeletal: Positive for arthralgias, back pain, gait problem, myalgias, neck pain and neck stiffness. Negative for joint swelling. Neurological: Positive for weakness. Negative for numbness and headaches. Psychiatric/Behavioral: Positive for sleep disturbance. Negative for dysphoric mood and suicidal ideas. The patient is not nervous/anxious. Images from the original note were not included. [facility] Today's Date: 08/17/2022 Last Visit: 05/04/2022 Name: Ivette Murguia : 1945 Purpose: New Patient Evaluation Chief complaint: low back pain Interval History: Ivette Murguia returns today for a follow-up encounter, reporting that since last encounter, the overall pain and functional disability arising from the chief complaint has not improved. Regarding medications: The following medication(s) were started or modified: none The following medication(s) were discontinued: none The following medication(s) were continued: Tylenol OTC Relafen 500mg BID Overall, the medication(s) have helped improve pain and ADL's. They are well-tolerated. The following procedures were performed: Left Sup/Middle Cluneal N. was performed on 07/03/2022, with nearly 100% relief of pain for a duration lasting 24 hours. Physical Therapy or Chiropractics was not prescribed. The following new imaging or diagnostic tests were obtained, with relevant findings reported below: X-ray lumbar Her PCP has prescribed Zanaflex 2mg PRN basis for restless legs, this also helps her pain. Recent flare-up of low back pain. Notable Events During Course of Treatment: 05/04/2022 - Initial Eval - Self referred for low back pain This has been present for the past 11 years. No trauma. Over the past year, she has also developed constant left-sided pain in the thoracic region, worse with bending or reaching, better with sitting in the recliner. Pain has been gradually worsening She had pain in the left groin that resolved after the release in 2013. She has seen pain management on several occasions over the years, had a left SI Joint injection in 2011, has had several steroid injections, none with excellent relief. Treatments prior to initial presentation include the following: Medications (See below), Injections (See below), Modalities (eg. Heat, Ice), Physical Therapy , Chiropractic Full Treatment , Home Exercise Program and Activity Modification. Current Status: INTAKE PAIN ASSESSMENT 07/10/2022 08/17/2022 Are you having pain associated with your visit today? No Yes, Provider notified Pain Scales - Verbal (Numeric Rating or Visual Analog Scale) Pain Level - 4 Pain Location - Back Description - Burning Duration Amount of Time - - Duration Units - Years Frequency - Continuous Intervention/Comfort measure - Medication Face - - Legs - - Activity - - Cry - - Consolability - - FLACC Score Calculated - - Pain Assessment - - Pain Description: Timing: constant Character: sharp and burning Primary Location: left lower thoracic/upper lumbar Radiation: none Exacerbating factors: bending and reaching Relieving factors: lying down Interferes with: physical activity and household cleaning The patient denies difficulty with bowel or bladder control, unintentional weight loss, fevers, chills, or night sweats and arm or leg weakness. Medications: CURRENT Pain Medications: Opioid Pain Medications: None Date last filled: N/A Quantity filled: N/A How many left: N/A Time most recent dose taken: N/A Non-Opioid Pain Medications: Relafen 500mg BID [id number] (OTC) Pain Meds: Ibuprofen Compliance: PDMP website checked and validated. All prescriptions have been APPROPRIATELY filled. No suspicious activity was identified. by Altagracia Hawthorne MD 08/17/2022 Valium 2mg, #30, last 03/2021 Last Drug screen: Not Applicable Risk Assessment: DARRELL-7: DARRELL - 7 SCORES 05/04/2022 DARRELL-7 Score 0 (0-4) minimal anxiety, (5-9) mild anxiety, (10-14) moderate anxiety, (15-21) severe anxiety PHQ-9: PHQ-9 05/04/2022 Score 3 (0-4) minimal depression, (5-9) mild depression, (10-14) moderate depression, (15-19) moderately severe depression, (20-27) severe depression Opioid Risk Tool: Family History of Substance Abuse: 0 - No Personal History of Substance Abuse: 0 - No Age between 16-45: 0 - No History of Pre-Adolescence Sexual Abuse: 0 - No Psychological Disease: 0 - No Risk Total: 0 Total Score Risk Category: Low Risk 0-3 (0-3, low risk or no risk; 4-7, moderate risk, 8+, high risk) Safety Checklist: Are you taking proper precautions to safe guard your medication? Yes Taking the medications as prescribed? Yes Getting pain medications from another physician? No Obtaining pain medication from another source? No Sharing medications with friends/family? No Quality of life improved as a result of taking these medications? Yes Any side effect with this medication? No Justification for Continued Opioid Care: Adequate analgesia? Yes Aberrant drug seeking behavior? No Adverse reactions? No Medications improve quality of life? Yes Pain Medications Taken TO DATE (for the chief complaint(s)): Membrane Stabilizers: Pamelor (Nortriptyline) NSAIDS: Sulindac (Clinoril), Motrin (Ibuprofen), Naprosyn (Naproxen), Mobic (Meloxicam) and Relafen (Nabumetone) Opioids: Tramadol, Vicodin or [place] (Hydrocodone) and Percocet (Oxycodone) Muscle Relaxants: Flexeril (Cyclobenzaprine) and Zanaflex (Tizanidine) Topicals: OTC - no relief Other Prescription or OTC Pain Medications: none Anti-depressants: None Non-Pain Meds of Note: None Allergies: ALLERGIES Allergen Reactions [place] [Bal* Unknown Codeine Rash Fragrances Unknown Gluten Intolerance Lactose Intolerance Lanolin Rash Morphine Vomiting Neomycin Sulfate Unknown Nickel Rash Nickel Sulfate Unknown [place] Unknown Mildly positive to skin testing Seasonal Allergies Intolerance Diagnostic Studies: Relevant Imaging: Reviewed Personally on today's date, noted above MRI Spine Report MRI LUMBAR SPINE WO CONTRAST Collected: 11/29/2011 4:15 PM (Final result) MRI L-spine 2012: L1-L2: Canal and foramina are patent. L2-L3: Bulge causes mild narrowing of the spinal canal. Foramina are patent L3-L4: A bulge causes mild narrowing of the spinal canal. Foramina are patent. L4-L5: There is mild narrowing the spinal canal due to disk osteophyte complex. Foramina are mildly narrowed bilaterally. L5-S1: There is disk osteophyte complex causing mild narrowing of the spinal canal. Mild left and moderate right neural foraminal stenosis. Hypertrophic changes in the facet joints. Sacrum and iliac wings: The visualized sacrum and iliac wings are within normal limits. The presacral soft tissues are normal in appearance. 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 Electrodiagnostic Study (EMG): None Pain Procedures: DATE PROCEDURE IMPROVEMENT 07/03/2022 Left Sup/Middle Cluneal N. Nearly 100% x 24 hours (Positive Diagnostic) Current Medications, Past Medical History, Past Surgical History, Family History, Social History and Review of Systems: On today's date, noted above, I have confirmed and edited as necessary, the PFSH and ROS obtained by others. Physical Exam: 08/17/22 1338 Pulse: 69 Resp: 16 SpO2: 98% Constitutional:normal weight Eyes: Conjunctiva clear. No discharge from eyes Cardiovascular: Appears well perfused Lymphatic: No visible regional lymphadenopathy Skin: No visible rashes or ecchymosis Psychiatric: Full affect, Alert, Pleasant Neuro-Lower: Neural Tension Signs: Negative slump in Bilateral lower limbs Sensation: intact to light touch in the L2-S2 Bilateral lower limb dermatomes Muscle Tone: Normal and symmetric throughout without clonus Strength: Iliopsoas (L2): 5 Left, 5 Right Quadriceps (L3) 5 Left, 5 Right Anterior Tibialis (L4): 5 Left, 5 Right Extensor Hallucis Longus (L5): 5 Left, 5 Right Gastrocnemius (S1): 5 Left, 5 Right Reflexes: Decreased 1+ and symmetric Patellar, Achilles Musculoskeletal-Lower: Inspection: Symmetric without atrophy Palpation: Lumbar Paraspinal Tenderness: None on Bilateral side(s) Paraspinal Spasms: None PSIS Tenderness: None on Bilateral side(s) Greater Trochanter Tenderness: None on Bilateral side(s) Concordant pain left iliac crest near PSIS and midpoint Spine Range of Motion: Flexion: Normal Without end range pain Extension: Normal Without end range pain Combination extension and rotation pain: None Hip Range of Motion: Right Hip: Internal Rotation: Normal; Pain at end range: None External Rotation: Normal; Pain at end range: None Left Hip: Internal Rotation: Normal; Pain at end range: None External Rotation: Normal; Pain at end range: None Sacroiliac Maneuvers: Deferred Diagnoses: (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 Plan: Ivette Murguia would benefit from the following to reach personal goals for decreasing pain, improving function and work participation, and/or improving quality of life: -Interventional Procedure: Left superior and middle cluneal Radiofrequency Ablation (RFA) under fluoroscopy The risks, benefits, alternative treatment options and prognosis of the procedure were discussed and all of the patient's questions/concerns were addressed to the patient s satisfaction. Patient was advised that they will need a light truck driver for after the procedure and that if no light truck driver is available and on site at the time of the procedure, the procedure will be cancelled. For any anticoagulants, the patient was advised on whether to continue or hold for this procedure. The patient expressed understanding and gave verbal consent to proceed. Medication(s): Continue Relafen PRN breakthrough pain OK to take ES Tylenol 500mg BID PRN breakthrough pain Prednisone 50mg daily x 5 days Additional Studies: None Referrals: No additional considerations at present Functional Mandaeism: No changes-continue current regimen Depending on response to the above plan, consider: Lumbar MBB/RFA -Follow-up: 3 months Attribution: In addition to reviewing the information noted above, some elements copied from my most recent clinical note(s), including the physical exam (completed in entirety today), and the impression and plan sections, have been updated where appropriate. All reflect current medical decision making from today's date. Altagracia Hawthorne MD, MBA Pain Management [facility] documented in this encounter [facility] 08-17-2022 Note HNO ID: [id number] Author: Altagracia Hawthorne MD Service: ? Author Type: Physician Type: Progress Notes Filed: 08/17/2022 2:01 PM Note Text: [facility] Today's Date: 08/17/2022 Last Visit: 05/04/2022 Name: Ivette Murguia : 1945 Purpose: New Patient Evaluation Chief complaint: low back pain Interval History: Ivette Murguia returns today for a follow-up encounter, reporting that since last encounter, the overall pain and functional disability arising from the chief complaint has not improved. Regarding medications: The following medication(s) were started or modified: none The following medication(s) were discontinued: none The following medication(s) were continued: Tylenol OTC Relafen 500mg BID Overall, the medication(s) have helped improve pain and ADL's. They are well-tolerated. The following procedures were performed: Left Sup/Middle Cluneal N. was performed on 07/03/2022, with nearly 100% relief of pain for a duration lasting 24 hours. Physical Therapy or Chiropractics was not prescribed. The following new imaging or diagnostic tests were obtained, with relevant findings reported below: X-ray lumbar Her PCP has prescribed Zanaflex 2mg PRN basis for restless legs, this also helps her pain. Recent flare-up of low back pain. Notable Events During Course of Treatment: 05/04/2022 - Initial Eval - Self referred for low back pain This has been present for the past 11 years. No trauma. Over the past year, she has also developed constant left-sided pain in the thoracic region, worse with bending or reaching, better with sitting in the recliner. Pain has been gradually worsening She had pain in the left groin that resolved after the release in 2013. She has seen pain management on several occasions over the years, had a left SI Joint injection in 2011, has had several steroid injections, none with excellent relief. Treatments prior to initial presentation include the following: Medications (See below), Injections (See below), Modalities (eg. Heat, Ice), Physical Therapy , Chiropractic Full Treatment , Home Exercise Program and Activity Modification. Current Status: INTAKE PAIN ASSESSMENT 07/10/2022 08/17/2022 Are you having pain associated with your visit today? No Yes, Provider notified Pain Scales - Verbal (Numeric Rating or Visual Analog Scale) Pain Level - 4 Pain Location - Back Description - Burning Duration Amount of Time - - Duration Units - Years Frequency - Continuous Intervention/Comfort measure - Medication Face - - Legs - - Activity - - Cry - - Consolability - - FLACC Score Calculated - - Pain Assessment - - Pain Description: Timing: constant Character: sharp and burning Primary Location: left lower thoracic/upper lumbar Radiation: none Exacerbating factors: bending and reaching Relieving factors: lying down Interferes with: physical activity and household cleaning The patient denies difficulty with bowel or bladder control, unintentional weight loss, fevers, chills, or night sweats and arm or leg weakness. Medications: CURRENT Pain Medications: Opioid Pain Medications: None Date last filled: N/A Quantity filled: N/A How many left: N/A Time most recent dose taken: N/A Non-Opioid Pain Medications: Relafen 500mg BID Pzrk-qod-gspgoai (OTC) Pain Meds: Ibuprofen Compliance: PDMP website checked and validated. All prescriptions have been APPROPRIATELY filled. No suspicious activity was identified. by Altagracia Hawthorne MD 08/17/2022 Valium 2mg, #30, last 03/2021 Last Drug screen: Not Applicable Risk Assessment: DARRELL-7: DARRELL - 7 SCORES 05/04/2022 DARRELL-7 Score 0 (0-4) minimal anxiety, (5-9) mild anxiety, (10-14) moderate anxiety, (15-21) severe anxiety PHQ-9: PHQ-9 05/04/2022 Score 3 (0-4) minimal depression, (5-9) mild depression, (10-14) moderate depression, (15-19) moderately severe depression, (20-27) severe depression Opioid Risk Tool: Family History of Substance Abuse: 0 - No Personal History of Substance Abuse: 0 - No Age between 16-45: 0 - No History of Pre-Adolescence Sexual Abuse: 0 - No Psychological Disease: 0 - No Risk Total: 0 Total Score Risk Category: Low Risk 0-3 (0-3, low risk or no risk; 4-7, moderate risk, 8+, high risk) Safety Checklist: Are you taking proper precautions to safe guard your medication? Yes Taking the medications as prescribed? Yes Getting pain medications from another physician? No Obtaining pain medication from another source? No Sharing medications with friends/family? No Quality of life improved as a result of taking these medications? Yes Any side effect with this medication? No Justification for Continued Opioid Care: Adequate analgesia? Yes Aberrant drug seeking behavior? No Adverse reactions? No Medications improve quality of life? Yes Pain Medications Taken TO DATE (for the chief (more content not included)... [facility] 07-11-2022 Miscellaneous Notes Patient notified. Estrella García RN Prescription sent for diflucan 150mg PO once daily every 3 days for 3 doses. Peggy Jiménez APRN.CNM Patient viewed her cultures on [employer]. Asking for treatment for +yeast. Estrella García RN documented in this encounter [facility] 07-10-2022 Instructions Peggy Jiménez APRN.CNM - 07/10/2022 11:12 AM EDT Gabapentin or amitriptyline compounded ointment documented in this encounter [facility] 07-10-2022 History of Present illness Narrative Exercise Equipment Specialist offered: Patient declines. Ivette Murguia is a 77 year old female who presents for problem visit for follow up vulvar burning. HPI: Presents today with follow up for vulvar burning. Denies any resolution since last visit and still remains the same symptoms.Estriol ointment twice a week and betamthasone valerate 0.1% ointment twice a week. Was taking oral zinc but stopped one week ago. No improvement since last visit. Continues to have burning. No itching. Does not rub, touch or irritate the skin. Wears cotton underwear. Does not wash with soap. Denies vaginal discharge. 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 Byrne BX BREAST PERC VACUUM/ROTN 07/21/13 Right lateral COLONOSCOPY FLX DX W/COLLJ SPEC WHEN PFRMD 04/15/2015 Colonoscopy CURETTAGE 1972 ESOPHAGOGASTRODUODENOSCOPY TRANSORAL DIAGNOSTIC 02/2019 EGD KNEE ARTHROSCOPY/SURGERY LEFT KNEE LIGATION/BIOPSY TEMPORAL ARTERY 10/2012 left PAST SURGICAL HISTORY OF basal cell removed from nose 08/2012 PAST SURGICAL HISTORY OF 04/2014 Dr. Mallory, left hip tendon release- illopsoas tendon release REMOVE TONSIL AND ADENOI UNDER AGE 12 AT AGE 3 TOTAL HIP JOINT REPLACEMENT 12/30/2013 right FAMILY HISTORY Problem Relation Age of Onset Stroke Mother Heart Mother Stroke Father Heart Father Colon Cancer Father 60 other (SKIN CANCER) Father Heart Brother [address] Stroke Maternal Grandmother other (rheumatoid arthritis) Maternal Grandfather other (leukemia) Maternal Grandfather other (kidney cancer) Paternal Grandfather Asthma Daughter Social History Tobacco Use Smoking status: Never Smokeless tobacco: Never Vaping Use Vaping Use: Never used Substance Use Topics Alcohol use: Not Currently Drug use: No Current Outpatient Medications Medication Sig nabumetone (RELAFEN) 500 mg tablet Take 2 tablets by mouth once daily. tiZANidine (ZANAFLEX) 2 mg tablet Take 1 tablet by mouth every 8 hours as needed (restless legs, muscle tension). Magnesium 200 mg tab Take 200 mg by mouth once daily. ZINC ORAL Take 15 mg by mouth once daily. betamethasone valerate 0.1 % ointment Apply to affected area once daily. levothyroxine (LEVOXYL) 88 mcg tablet Take 1 tablet by mouth once daily. Take on empty stomach. For Thyroid vitamin b complex capsule Take 1 capsule by mouth once daily. albuterol (PROVENTIL) 2.5 mg /3 mL (0.083 %) nebulizer solution Use 3 mL via nebulizer every 4 hours as needed for Wheezing/Shortness of Breath. Use over 5-15minutes. albuterol HFA (VENTOLIN HFA) 90 mcg/actuation inhaler Inhale 2 Puffs as instructed every 4 hours as needed for Wheezing/Shortness of Breath. Spirometers and Accessories lena 1 Device as directed. Dx: dyspnea, Bronchiectasis TURMERIC ORAL Take by mouth. latanoprost (XALATAN) 0.005 % ophthalmic solution 1 Drop daily at bedtime. fexofenadine (PADMINI) 180 mg tablet Take 180 mg by mouth as needed. cholecalciferol (VITAMIN D3) 1,000 unit tab tablet Take 1 tablet by mouth once daily. ascorbic acid (VITAMIN C ORAL) Take by mouth. (Patient not taking: Reported on 07/03/2022) clotrimazole-betamethasone (LOTRISONE) lotion Apply to affected area twice daily. For 30 days (Patient not taking: Reported on 07/03/2022) [id number] ORAL Take by mouth once daily. (Patient not taking: Reported on 07/03/2022) omega-3/dha/epa/fish oil (OMEGA-3 FISH OIL ORAL) Take by mouth once daily. (Patient not taking: Reported on 07/03/2022) betamethasone valerate 0.1 % cream Apply to affected area twice daily as needed for exzema, don't use for more than 1 week in a row dorzolamide HCl/PF (DORZOLAMIDE, PF,) 2 % drop Use in eyes. (Patient not taking: Reported on 07/03/2022) fluticasone (FLONASE) 50 mcg/actuation nasal spray Use 2 Sprays in each nostril once daily. (Patient taking differently: Use 2 Sprays in each nostril as needed.) No current facility-administered medications for this visit. Allergies As of Date: 07/10/2022 Allergen Noted Reaction BALSAM OF ANNEMARIE [BALSAM ANNEMARIE] 11/21/2021 Unknown CODEINE 08/23/2010 Rash FRAGRANCES 11/21/2021 Unknown GLUTEN 08/02/2021 Intolerance LACTOSE 08/02/2021 Intolerance LANOLIN 12/13/2012 Rash MORPHINE 09/28/2010 Vomiting NEOMYCIN SULFATE 11/21/2021 Unknown NICKEL 12/13/2012 Rash NICKEL SULFATE 11/21/2021 Unknown ORANGE 05/08/2019 Unknown SEASONAL ALLERGIES 03/30/2011 Intolerance Fully Assessed 07/10/2022 REVIEW OF SYSTEMS Abdomen: No bloating, early satiety, indigestion, or increased flatulence. No abdominal pain, nausea, vomiting, diarrhea, or constipation. Bladder: No dysuria, gross hematuria, urinary frequency, urinary urgency, or incontinence. Breast: No breast lumps, nipple d/c, overlying skin changes, redness or skin retraction. Expanded ROS: N/A Allergies and current medication updated:Yes EXAM: BP 150/84 Wt 121 lb 12.8 oz (55.2kg) GENERAL: pleasant, female in no apparent distress HEENT: Normocephalic, atraumatic, mucus membranes moist, and no lesions ABDOMEN: soft, non-tender, and no masses PELVIC: external genitalia normal, normal Bartholin's glands, urethra, Kihei's glands, no vulvar lesions, no cervical lesions, good vaginal support, small amount of yellow vaginal discharge present, normal appearing perineal body and perianal region. Vaginal atrophy. BIMANUAL: deferred NEURO: alert and oriented x3,exam grossly non-focal EXTREMITIES: normal ASSESSMENT AND PLAN: 1. Vaginal discharge - ICD9: 623.5, ICD10: N89.8 (primary diagnosis) - MIAN / TRICHOMONAS AMPLIFICATION - BACTERIAL VAGINOSIS AMPLIFICATION - If positive yeast would like vaginal treatment but patient states she is allergic and unable to use. Requesting Diflucan 150mg PO x 3 doses as this is the only thing that works for her. 2. Vulvar burning - ICD9: 625.9, ICD10: N94.89 - MIAN / TRICHOMONAS AMPLIFICATION - BACTERIAL VAGINOSIS AMPLIFICATION - Discussed trying topical compounded Gabapentin 4% for burning. Reviewed uncertain of efficacy but could try this option since no change with topical steroid use. -Offered referral to for further evaluation and patient declines at this time. 3. Vaginal atrophy - ICD9: 627.3, ICD10: N95.2 -Continue compounded estriol ointment. Peggy Jiménez APRN.CNM documented in this encounter [facility] 07-05-2022 Miscellaneous Notes A follow up phone call attempted and patient was unavailable at this time. If a voicemail box was available, a message for a return phone call was left if there were any questions or concerns related to a recent procedure that was performed at [facility]. This message did not include any HIPAA related information. documented in this encounter [facility] 07-03-2022 Note HNO ID: [id number] Author: Ivory Tompkins MA Service: ? Author Type: Screen Tacker Type: Progress Notes Filed: 07/03/2022 11:21 AM Note Text: Review of Systems Constitutional: Negative for activity change, chills, fever and unexpected weight change. Gastrointestinal: Negative for bowel retention or incontinence Genitourinary: Negative for difficulty urinating. Negative for bladder retention or incontinence Musculoskeletal: Positive for arthralgias, back pain, joint swelling, myalgias, neck pain and neck stiffness. Negative for gait problem. Neurological: Negative for weakness, numbness and headaches. Psychiatric/Behavioral: Positive for sleep disturbance. Negative for dysphoric mood and suicidal ideas. The patient is not nervous/anxious. [facility] 07-03-2022 Instructions Janet Gomez LPN - 07/03/2022 11:08 AM EDT PROCEDURE DISCHARGE INSTRUCTIONS 07/03/2022 Ivette Murguia 1945 Physician: Altagracia Hawthorne MD Procedure: Other: LEFT CLUNEAL NERVE BLOCK Post Procedure Instructions: If sedation not given, no driving for 3 hours after the procedure., Rest the day of the procedure., You may resume normal activities the day after the procedure, as tolerated., Pain should gradually subside over the next 2-3 weeks., Avoid movements that may aggravate pain., Apply cold compresses to injection site if needed., If medically acceptable, take over the counter anti-inflammatories such as ibuprofen or Aleve if needed for post procedure discomfort., and No hot baths, hot tubs or hot compresses for 24 hours. If you have any of the following signs or symptoms, please call our office at Fever and/or chills Swelling and/or drainage from injection site New pain that is different than your normal pain (other than soreness at the site of the procedure) Stiff neck Shortness of breath Severe increase in pain Motor dysfunctions, such as difficulty walking, bowel or bladder dysfunction and/or incontinence Headache that is severe, light sensitive or develops when changing positions (positional headache) Nausea and/or vomiting accompanied by headache that started 24-48 hours after the procedure If you have any emergent concerns, please call 911 or go to your local emergency room. Please also contact our office to let us know you will be seeking emergency care and why. documented in this encounter [facility] 07-03-2022 Nurse Note Order has been placed in the patient's chart with the following parameters for discharge from the physician: Patient is alert and oriented Vitals: Diastolic/Systolic +/- 20mmHg Respirations: 12-18 Pulse: 60-100 SpO2 is greater than or equal to 90% Patient has no nausea or vomiting Patient has no dizziness Pain level is +/- 2 from initial evaluation Dressing, dry and intact with no evidence of bleeding Criteria has been met, patient is okay to be discharged per the physician. Physician has gone in and evaluated the patient. Dressing dry and intact. No drainage noted. The patient denies nausea, numbness, tingling, weakness, shortness of breath, dizziness, or headache. Pain level 0/10. Vital signs within normal limits. Patient denied needing walked out by clinical staff and denied needing a wheelchair. Patient given discharge instructions and sent to transportation via ambulatory method. Patient left in good condition. Procedure to be performed: LEFT SUPERIOR AND MIDDLE CLUNEAL NERVE BLOCK Patient was wheeled on stretcher from pre op bay to procedure room and assisted onto the procedure tablePatient s procedure was performed in an [facility] Procedure room. Pause completed at each level by provider to verify correct level and laterality placement Pressure was applied to patient s injection site(s) and bleeding was minimal. Patient had no complaint of shortness of breath, dizziness, headache, numbness, tingling, weakness or complications from procedure. Patient was assisted from the procedure table onto the stretcher and wheeled into a post op bay. Patient was advised a clinician will be to obtain another set of vitals. Time Out: 1048 Confirmed patient name, date of , procedure site, laterality, and allergies Procedure Start: 105 Procedure End: 1059 Ui Ux Developer: yes Terell Are you on a blood thinner: n If yes, is a hold required: n Last dose of blood thinner: n INR result today: n Do you require a Lovenox bridge: n Are you a diabetic: n BS result today: n Are you/could you be : n Are you currently on an antibiotic: n Are you currently on a steroid: n Have you received a dose of the COVID vaccine in the last 14 days: n Did you bring any medication with you to use before this procedure: n - Ivory Tompkins MA documented in this encounter [facility] 07-03-2022 History of Present illness Narrative Review of Systems Constitutional: Negative for activity change, chills, fever and unexpected weight change. Gastrointestinal: Negative for bowel retention or incontinence Genitourinary: Negative for difficulty urinating. Negative for bladder retention or incontinence Musculoskeletal: Positive for arthralgias, back pain, joint swelling, myalgias, neck pain and neck stiffness. Negative for gait problem. Neurological: Negative for weakness, numbness and headaches. Psychiatric/Behavioral: Positive for sleep disturbance. Negative for dysphoric mood and suicidal ideas. The patient is not nervous/anxious. [facility] Patient name: Ivette Murguia Date of : 1945 Today's Date: 07/03/2022 Physician performing procedure: Altagracia Hawthorne M.D., M.B.A. 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 Data Reviewed: Current Medications, Past Medical History, Past Surgical History, Family History, Social History and Review of Systems: On Today's date, noted in the attribution, I have confirmed and edited as necessary, the PFSH and ROS obtained by others. Nursing note and vitals reviewed. Additional imaging reviewed as appropriate Review of Systems: Pertinent Positives: MSK: pain in the region being treated Neuro: no weakness or numbness in the region being treated Skin: Negative (No itching) Eyes: Negative (No blurred or double vision) Respiratory: Negative (No Cough, [id number], Dyspnea on exertion, wheezing) Cardiovascular: Negative (No Chest Pain, Tightness, Pressure, Palpitations) Gastrointestinal: Negative (No Abdominal pain, Nausea, Vomiting, Constipation, Diarrhea) Genitourinary: Negative (No dysuria) Hematologic: Negative (No bleeding, bruising) OB: is Denied or Not Applicable Endocrine: Negative (No hot/cold intolerance) Psychiatric: Negative (No depression, anxiety or suicidal ideation) PAST MEDICAL HISTORY Diagnosis Date Arthritis Asymmetric septal hypertrophy (HCC) 02/2021 repeat ECHO needed 02/2022 Eczema Glaucoma History of COVID-19 10/2020 Hypercholesterolemia Hypertension Hypothyroidism Lactose intolerance 02/2019 PAST SURGICAL HISTORY Procedure Laterality Date APPENDECTOMY AT AGE 10 ARTHRP ACETBLR/PROX FEM PROSTC AGRFT/ALGRFT 09/26/2010 LEFT HIP- Dr. Byrne BX BREAST PERC VACUUM/ROTN 07/21/13 Right lateral COLONOSCOPY FLX DX W/COLLJ SPEC WHEN PFRMD 04/15/2015 Colonoscopy CURETTAGE 1972 ESOPHAGOGASTRODUODENOSCOPY TRANSORAL DIAGNOSTIC 02/2019 EGD KNEE ARTHROSCOPY/SURGERY LEFT KNEE LIGATION/BIOPSY TEMPORAL ARTERY 10/2012 left PAST SURGICAL HISTORY OF basal cell removed from nose 08/2012 PAST SURGICAL HISTORY OF 04/2014 Dr. Mallory, left hip tendon release- illopsoas tendon release REMOVE TONSIL AND ADENOI UNDER AGE 12 AT AGE 3 TOTAL HIP JOINT REPLACEMENT 12/30/2013 right FAMILY HISTORY Problem Relation Age of Onset Stroke Mother Heart Mother Stroke Father Heart Father Colon Cancer Father 60 other (SKIN CANCER) Father Heart Brother [address] Stroke Maternal Grandmother other (rheumatoid arthritis) Maternal Grandfather other (leukemia) Maternal Grandfather other (kidney cancer) Paternal Grandfather Asthma Daughter Social History Tobacco Use Smoking status: Never Smokeless tobacco: Never Vaping Use Vaping Use: Never used Substance Use Topics Alcohol use: Not Currently Drug use: No Current Outpatient Medications on File Prior to Visit Medication Sig nabumetone (RELAFEN) 500 mg tablet Take 2 tablets by mouth once daily. tiZANidine (ZANAFLEX) 2 mg tablet Take 1 tablet by mouth every 8 hours as needed (restless legs, muscle tension). ascorbic acid (VITAMIN C ORAL) Take by mouth. Magnesium 200 mg tab Take 200 mg by mouth once daily. ZINC ORAL Take 15 mg by mouth once daily. betamethasone valerate 0.1 % ointment Apply to affected area once daily. levothyroxine (LEVOXYL) 88 mcg tablet Take 1 tablet by mouth once daily. Take on empty stomach. For Thyroid clotrimazole-betamethasone (LOTRISONE) lotion Apply to affected area twice daily. For 30 days vitamin b complex capsule Take 1 capsule by mouth once daily. [id number] ORAL Take by mouth once daily. omega-3/dha/epa/fish oil (OMEGA-3 FISH OIL ORAL) Take by mouth once daily. betamethasone valerate 0.1 % cream Apply to affected area twice daily as needed for exzema, don't use for more than 1 week in a row albuterol (PROVENTIL) 2.5 mg /3 mL (0.083 %) nebulizer solution Use 3 mL via nebulizer every 4 hours as needed for Wheezing/Shortness of Breath. Use over 5-15minutes. albuterol HFA (VENTOLIN HFA) 90 mcg/actuation inhaler Inhale 2 Puffs as instructed every 4 hours as needed for Wheezing/Shortness of Breath. Spirometers and Accessories lena 1 Device as directed. Dx: dyspnea, Bronchiectasis dorzolamide HCl/PF (DORZOLAMIDE, PF,) 2 % drop Use in eyes. TURMERIC ORAL Take by mouth. latanoprost (XALATAN) 0.005 % ophthalmic solution 1 Drop daily at bedtime. fexofenadine (PADMINI ALLERGY) 180 mg tablet Take 180 mg by mouth as needed. cholecalciferol (VITAMIN D3) 1,000 unit tab tablet Take 1 tablet by mouth once daily. fluticasone (FLONASE) 50 mcg/actuation nasal spray Use 2 Sprays in each nostril once daily. (Patient taking differently: Use 2 Sprays in each nostril as needed. ) No current facility-administered medications on file prior to visit. ALLERGIES Allergen Reactions [facility] [Bal* Unknown Codeine Rash Fragrances Unknown Gluten Intolerance Lactose Intolerance Lanolin Rash Morphine Vomiting Neomycin Sulfate Unknown Nickel Rash Nickel Sulfate Unknown [place] Unknown Mildly positive to skin testing Seasonal Allergies Intolerance Objective Exam: Vitals: As per nursing documentation Constitutional: Normal Appearance, Oriented to Time, Place and Person Head: No lacerations, no external signs of trauma Eyes: Conjunctiva clear. No discharge from the eyes Cardiovascular: Appears well-perfused Pulmonary: Non-labored respirations Abdominal: Non-distended Skin: No visible rashes or ecchymosis Psychiatric: Mood appropriate for given condition Neurological: Gross movements are limited by pain, but otherwise unremarkable Assessment and Plan: As noted above UNIVERSAL PROTOCOL / SAFETY CHECKLIST * Procedure to be Performed: as noted above Sign In: A Moment of CARE was completed. Personnel directly involved with the procedure wore the appropriate PPE (Personal Protective Equipment). Patient/Surrogate Stated/Verified: PATIENT VERIFIED(optional for EMERGENT procedures): Patient name, Date of , Relevant allergies and The intended procedure Time Out Communication: Intended patient and procedure match the source documents. Consent documented and matches the intended procedure. Obtained in writing prior to procedure I had a nice discussion with the patient today about their current pain and the pathology that could be causing it We discussed different treatment options, including risks, benefits and alternatives. We agreed to proceed as previously discussed, or the plan was modified in accordance with the comments noted above Unless stated otherwise in the procedure note, the risks include but are not limited to infection, allergic reaction, increased pain, lack of therapeutic benefit, steroid reaction, nerve damage, paralysis, stroke, epidural hematoma, syncope, headache, respiratory or cardiac arrest, pneumothorax, and scar formation Once the plan was agreed upon, the patient gave written consent to proceed and was transported into the procedure room Sign Out: SIGN OUT (optional for EMERGENT procedures): No specimen collected. Post-procedure follow-up management communicated and Plan of Care Visit completed when applicable. Time Out was led by the physician in the procedure room, with the patient and all staff present and participating The following information was verified during the Time Out process: Patient name, patient date of , procedure site (marked), laterality, anticoagulants and allergies Patient was identified in the pre-procedure are where informed consent was obtained. The patient was taken back to the procedure room where he was placed prone onto the procedure room table. The lumbo-sacral area was then exposed and prepped and draped in a normal sterile fashion. Under fluoroscopic guidance in the AP view, the iliac crest on the side mentioned above was identified. Following, the intended needle insertion site was then anesthestized in 3 locations with 1% Lidocaine. After adequate skin anesthesia was obtained, 3 of the 22 gauge spinal needles were advanced under fluoroscopic guidance to the desired located at the mid - point of the aforementioned iliac-crest and medial. The needles were then aspirated for heme, which was negative. Following this, the injectate noted above was injected in divided doses between the needles. The needles were removed and bandages were applied. The patient was placed back on the cart and wheeled to the recovery area where vital signs were monitored and the patient was discharged home with a light truck driver Please see the nursing note for exact times (time out, procedure start, procedure end). After careful removal of the needle, there was minimal bleeding. The injection site was covered with appropriate sterile dressing. The patient was noted to have tolerated the procedure well and was discharged after an appropriate period of post-procedure observation. The patient was instructed to contact us if there were any complications. The patient was advised to follow-up with the requesting physician within one to two weeks or as per their requested follow-up plan. Post procedure visit summary with written instructions was offered to the patient. Altagracia Hawthorne MD [facility] documented in this encounter [facility] 07-03-2022 Note HNO ID: [id number] Author: Altagracia Hawthorne MD Service: ? Author Type: Physician Type: Progress Notes Filed: 07/03/2022 11:50 AM Note Text: [facility] Patient name: Ivette Murguia Date of : 1945 Today's Date: 07/03/2022 Physician performing procedure: Altagracia Hawthorne M.D., M.B.A. 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 Data Reviewed: Current Medications, Past Medical History, Past Surgical History, Family History, Social History and Review of Systems: On Today's date, noted in the attribution, I have confirmed and edited as necessary, the PFSH and ROS obtained by others. Nursing note and vitals reviewed. Additional imaging reviewed as appropriate Review of Systems: Pertinent Positives: MSK: pain in the region being treated Neuro: no weakness or numbness in the region being treated Skin: Negative (No itching) Eyes: Negative (No blurred or double vision) Respiratory: Negative (No Cough, [id number], Dyspnea on exertion, wheezing) Cardiovascular: Negative (No Chest Pain, Tightness, Pressure, Palpitations) Gastrointestinal: Negative (No Abdominal pain, Nausea, Vomiting, Constipation, Diarrhea) Genitourinary: Negative (No dysuria) Hematologic: Negative (No bleeding, bruising) OB: is Denied or Not Applicable Endocrine: Negative (No hot/cold intolerance) Psychiatric: Negative (No depression, anxiety or suicidal ideation) PAST MEDICAL HISTORY Diagnosis Date Arthritis Asymmetric septal hypertrophy (HCC) 02/2021 repeat ECHO needed 02/2022 Eczema Glaucoma History of COVID-19 10/2020 Hypercholesterolemia Hypertension Hypothyroidism Lactose intolerance 02/2019 PAST SURGICAL HISTORY Procedure Laterality Date APPENDECTOMY AT AGE 10 ARTHRP ACETBLR/PROX FEM PROSTC AGRFT/ALGRFT 09/26/2010 LEFT HIP- Dr. Byrne BX BREAST PERC VACUUM/ROTN 07/21/13 Right lateral COLONOSCOPY FLX DX W/COLLJ SPEC WHEN PFRMD 04/15/2015 Colonoscopy CURETTAGE 1972 ESOPHAGOGASTRODUODENOSCOPY TRANSORAL DIAGNOSTIC 02/2019 EGD KNEE ARTHROSCOPY/SURGERY LEFT KNEE LIGATION/BIOPSY TEMPORAL ARTERY 10/2012 left PAST SURGICAL HISTORY OF basal cell removed from nose 08/2012 PAST SURGICAL HISTORY OF 04/2014 Dr. Mallory, left hip tendon release- illopsoas tendon release REMOVE TONSIL AND ADENOI UNDER AGE 12 AT AGE 3 TOTAL HIP JOINT REPLACEMENT 12/30/2013 right FAMILY HISTORY Problem Relation Age of Onset Stroke Mother Heart Mother Stroke Father Heart Father Colon Cancer Father 60 other (SKIN CANCER) Father Heart Brother [address] Stroke Maternal Grandmother other (rheumatoid arthritis) Maternal Grandfather other (leukemia) Maternal Grandfather other (kidney cancer) Paternal Grandfather Asthma Daughter Social History Tobacco Use Smoking status: Never Smokeless tobacco: Never Vaping Use Vaping Use: Never used Substance Use Topics Alcohol use: Not Currently Drug use: No Current Outpatient Medications on File Prior to Visit Medication Sig nabumetone (RELAFEN) 500 mg tablet Take 2 tablets by mouth once daily. tiZANidine (ZANAFLEX) 2 mg tablet Take 1 tablet by mouth every 8 hours as needed (restless legs, muscle tension). ascorbic acid (VITAMIN C ORAL) Take by mouth. Magnesium 200 mg tab Take 200 mg by mouth once daily. ZINC ORAL Take 15 mg by mouth once daily. betamethasone valerate 0.1 % ointment Apply to affected area once daily. levothyroxine (LEVOXYL) 88 mcg tablet Take 1 tablet by mouth once daily. Take on empty stomach. For Thyroid clotrimazole-betamethasone (LOTRISONE) lotion Apply to affected area twice daily. For 30 days vitamin b complex capsule Take 1 capsule by mouth once daily. [id number] ORAL Take by mouth once daily. omega-3/dha/epa/fish oil (OMEGA-3 FISH OIL ORAL) Take by mouth once daily. betamethasone valerate 0.1 % cream Apply to affected area twice daily as needed for exzema, don't use for more than 1 week in a row albuterol (PROVENTIL) 2.5 mg /3 mL (0.083 %) nebulizer solution Use 3 mL via nebulizer every 4 hours as needed for Wheezing/Shortness of Breath. Use over 5-15minutes. albuterol HFA (VENTOLIN HFA) 90 mcg/actuation inhaler Inhale 2 Puffs as instructed every 4 hours as needed for Wheezing/Shortness of Breath. Spirometers and Accessories lena 1 Device as directed. Dx: dyspnea, Bronchiectasis dorzolamide HCl (more content not included)... [facility] 06-14-2022 History of Present illness Narrative CC:Ivette Murguia is a 77 year old female who presents to the office for follow up HPI Seen in office on 03/13, at that time: Shoulder pain, improved symptoms, has seen Dr. Nunn Saw Dr. Yu Retail Leasing Agent, was told to try high doses of vitamin B complex- had SE of skin erythema of hands, nausea, blurred vision so stopped the supplement. Next steps were to try the fluconazole 100 mg x 15 days without relief of symptoms. Next steps were to try CREON supplement with meals (Pancrelipase)- caused SE of headache, dizziness, constipation severe, so stopped after 24 tablets due to these side effects. Still having a lot of difficulty with swelling and redness of her palmar surfaces of her hands. Started after she was taking the Vitamin B high dose complex + fatigue + occasional nausea and dizziness symptoms, like when I had long hauler covid 19 symptoms. Sharp knife like pain in my thighs, fleeting sharp stabbing discomfort in her skin Currently Has been recently evaluated by Dr. Nunn sports medicine orthopedics as well as Dr. Altagracia Hawthorne in Pain mgmt for left low back pain and buttock discomfort, which radiates to thigh and lower leg, comes and goes. Worse with prolonged sitting such as 30 min in the car or with activities around the house. Denies any injuries. Diagnosed with cluneal neuropathy and lumbar spondylosis. Was told to consider corticosteroid injection and potentially nerve ablation in the future. She is considering doing this at this time. Recently has had covid 19 infection. Has had residual symptoms including anxiety symptoms, brain fog, fatigue and sharp stabbing zap pains in arms and legs. Does feel that her 50 mg of Zinc oral supplement she was taking when she had covid 19 infection did help her vaginal labial itching. 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 Byrne BX BREAST PERC VACUUM/ROTN 07/21/13 Right lateral COLONOSCOPY FLX DX W/COLLJ SPEC WHEN PFRMD 04/15/2015 Colonoscopy CURETTAGE 1972 ESOPHAGOGASTRODUODENOSCOPY TRANSORAL DIAGNOSTIC 02/2019 EGD KNEE ARTHROSCOPY/SURGERY LEFT KNEE LIGATION/BIOPSY TEMPORAL ARTERY 10/2012 left PAST SURGICAL HISTORY OF basal cell removed from nose 08/2012 PAST SURGICAL HISTORY OF 04/2014 Dr. Mallory, left hip tendon release- illopsoas tendon release REMOVE TONSIL AND ADENOI UNDER AGE 12 AT AGE 3 TOTAL HIP JOINT REPLACEMENT 12/30/2013 right Current Outpatient Medications Medication Sig ascorbic acid (VITAMIN C ORAL) Take by mouth. Magnesium 200 mg tab Take 200 mg by mouth once daily. ZINC ORAL Take 15 mg by mouth once daily. betamethasone valerate 0.1 % ointment Apply to affected area once daily. levothyroxine (LEVOXYL) 88 mcg tablet Take 1 tablet by mouth once daily. Take on empty stomach. For Thyroid nabumetone (RELAFEN) 500 mg tablet Take 2 tablets by mouth once daily. vitamin b complex capsule Take 1 capsule by mouth once daily. omega-3/dha/epa/fish oil (OMEGA-3 FISH OIL ORAL) Take by mouth once daily. albuterol (PROVENTIL) 2.5 mg /3 mL (0.083 %) nebulizer solution Use 3 mL via nebulizer every 4 hours as needed for Wheezing/Shortness of Breath. Use over 5-15minutes. albuterol HFA (VENTOLIN HFA) 90 mcg/actuation inhaler Inhale 2 Puffs as instructed every 4 hours as needed for Wheezing/Shortness of Breath. Spirometers and Accessories lena 1 Device as directed. Dx: dyspnea, Bronchiectasis dorzolamide HCl/PF (DORZOLAMIDE, PF,) 2 % drop Use in eyes. TURMERIC ORAL Take by mouth. fexofenadine (PADMINI ALLERGY) 180 mg tablet Take 180 mg by mouth as needed. cholecalciferol (VITAMIN D3) 1,000 unit tab tablet Take 1 tablet by mouth once daily. fluticasone (FLONASE) 50 mcg/actuation nasal spray Use 2 Sprays in each nostril once daily. (Patient taking differently: Use 2 Sprays in each nostril as needed. ) clotrimazole-betamethasone (LOTRISONE) lotion Apply to affected area twice daily. For 30 days [id number] ORAL Take by mouth once daily. betamethasone valerate 0.1 % cream Apply to affected area twice daily as needed for exzema, don't use for more than 1 week in a row latanoprost (XALATAN) 0.005 % ophthalmic solution 1 Drop daily at bedtime. No current facility-administered medications for this visit. ALLERGIES Allergen Reactions [facility] [Bal* Unknown Codeine Rash Fragrances Unknown Gluten Intolerance Lactose Intolerance Lanolin Rash Morphine Vomiting Neomycin Sulfate Unknown Nickel Rash Nickel Sulfate Unknown [place] Unknown Mildly positive to skin testing Seasonal Allergies Intolerance Social History Tobacco Use Smoking status: Never Smokeless tobacco: Never Vaping Use Vaping Use: Never used Substance Use Topics Alcohol use: Not Currently Drug use: No ROS: See HPI PE: BP 134/80 Pulse 76 Temp (Src) 97.6 (Left Tympanic) Resp 16 Wt 122 lb (55.3kg) Gen: A&OX3, NAD, non-toxic appearing HEENT: PERRLA, EOMs intact b/l, nares without drainage, pharynx without erythema, exudate, lesions, or drainage. Uvula midline. Neck: No LAD, no thyromegaly, no meningismus. CV: RRR, no murmur Lungs: CTA b/l, no wheezing Skin: No rashes, lesions, or wounds on exposed skin. Fatigued appearing, thin No edema legs Normal pulses ASSESSMENT/PLAN: 1. Lumbar spondylosis - ICD9: 721.3, ICD10: M47.816 (primary diagnosis) Need for follow up with pain mgnt for injection trial as d/w her today, is going to make follow up with Dr. Hawthorne - NABUMETONE 500 MG TABLET 2. RLS (restless legs syndrome) - ICD9: 333.94, ICD10: G25.81 - rx refilled, need follow up with pain mgmt for lumbar symptoms which can also contribute to RLS - TIZANIDINE 2 MG TABLET 3. Vaginal itching - ICD9: 698.1, ICD10: N89.8 - f/u with [employer] TE[employer]ER, states did improve with oral zinc supplement 4. Fatigue, unspecified type - ICD9: 780.79, ICD10: R53.83 - secondary to recent covid 19 infection, unsure if she would potentially benefit from IM vitamin B12 injections- she is going to consider 5. Hypothyroidism, unspecified type - ICD9: 244.9, ICD10: E03.9 - Instructed patient on importance of taking on an empty stomach either first thing in the morning or at bedtime. Stable - Behavioral intervention 6. History of COVID-19 - ICD9: V12.09, ICD10: Z86.16 See above 7. Brain fog - ICD9: 799.59, ICD10: R41.89 See above, started after recent covid 19 infection. Also with fatigue. Abdullahi Koehler DO Return if no improvement. Follow up with Abdullahi Koehler DO. To ER if develops chest pain, shortness of breath, Discussed risks, benefits, alternatives, and potential side effects of medications. Patient/Guardian expressed understanding and agreed with the plan. See patient instructions. Abdullahi Koehler DO [address] [place] [address] documented in this encounter [facility] 05-23-2022 Instructions Peggy Jiménez APRN.ARNULFOM - 05/23/2022 2:26 PM EDT Use vaginal estriol cream every day for 2 weeks then back to twice weekly Then decrease steroid cream to three times a week for 2 weeks then to twice weekly. Follow up june Check with zinc cream and see if you can get this. Calcium and Vitamin D Supplementation (from the National Institutes of Health Office of Dietary Supplements 2011) Calcium is required by the body for blood vessel, muscle, hormone and nerve functioning. Most of the body's calcium is stored in the bones and teeth where it supports structure and function. Bone is continuously broken down and reformed. When bone breakdown exceeds formation, especially in postmenopausal women, bone loss can increase the risk of osteoporosis and fractures. In addition to low calcium intake, women who smoke, have a family history of osteoporosis, are thin, or , or who take certain medications such as cancer chemotherapy, seizure mediations and steroids are at increased risk of osteoporosis. The calcium requirements in women change with age. The National Institutes of Health (NIH) recommends: 1000mg elemental calcium for premenopausal women age 19-50 1200mg elemental calcium for postmenopausal women and all women over 50 Milk, yogurt, and cheese are rich natural sources of calcium and are the major food contributors in the [place]. For example, 8oz of milk (whole, lowfat or skim) contains about 300mg calcium, 8oz of yogurt contains 415mg. Nondairy sources include salmon and sardines and vegetables, such as [place] cabbage, kale, and broccoli. Foods fortified with calcium include many fruit juices, tofu and cereals. For more food calcium content information, visit http://ods.od.nih.gov/factsheets/c alcium. Calcium supplements come in several different forms. Remember that the recommendations are for millgrams (mg) of elemental calcium which may be less than the total weight of the supplement. The amount of elemental calcium is required to be printed on the label. Calcium carbonate is the least expensive form. It must be taken on a full stomach to be properly absorbed. Some patients may experience gas or constipation. Calcium phosphate and calcium citrate may be taken either with or without food and tend to have less side effects but are generally more expensive. Because of its ability to neutralize stomach acid, calcium carbonate is found in some brgu-hal-cmdyajz antacid products, such as Tums and Rolaids . Depending on its strength, each chewable pill or softchew provides 200 to 400 mg of elemental calcium. The percentage of calcium absorbed depends on the total amount of elemental calcium consumed at one time. Absorption is highest in doses <500mg. So a woman who takes 1,000mg/day of calcium from supplements should split the dose and take 500mg at two separate times during the day. Too much calcium can cause kidney stones, constipation, difficulty absorbing other nutrients and calcium buildup in blood vessels. Women under 50 should not exceed 2500mg/day (2000mg/day for women over 50) of calcium from food and supplements. Excessive alcohol and caffeine intake can inhibit absorption of calcium. Calcium can reduce the absorption of some medications if taken at the same time of day (bisphosphonates, thyroid medication, Phenytoin and other seizure medications, some antibiotics and iron supplements). Vitamin D promotes calcium absorption in the gut and maintains adequate blood levels of calcium and phosphate for normal bone growth and bone remodeling. Vitamin D also helps regulate cell growth as well as nerve, muscle and immune system function. Vitamin D is produced in the skin as a result of ultraviolet sunlight rays and must be altered in the liver and kidney to become its active form. Recommended intake according to the National Institutes of Health is 600 International Units (IU) for girls and women ages 1-70 and 800 IU for women over 70. Very few foods in nature contain vitamin D. The flesh of fatty fish (such as salmon, tuna, and mackerel) and fish liver oils are among the best sources. Small amounts of vitamin D are found in beef liver, cheese, mushrooms and egg yolks. Most people meet at least some of their vitamin D needs through exposure to sunlight. Season, time of day, length of day, cloud cover, smog, skin melanin content, and sunscreen are among the factors that affect UV radiation exposure and vitamin D synthesis. Despite the importance of the sun for vitamin D synthesis, it is prudent to limit exposure of skin to sunlight and avoid tanning beds. UV radiation is a carcinogen responsible for most of the estimated 1.5 million skin cancers that occur annually in the [place]. Lifetime cumulative UV damage to skin is also responsible for some age-associated dryness and other cosmetic changes. In supplements and fortified foods, vitamin D is available in two forms, D2 (ergocalciferol) and D3 (cholecalciferol). The two are equivalent at normal supplement doses. For women who require high supplement doses because of vitamin D deficiency, D3 may work better to raise blood levels. Some medications can prevent proper absorption of Vitamin D. These include laxatives, corticosteroids like prednisone, the seizure drugs phenobarbital and phenytoin, the weight-loss drug orlistat ( Xenical and AlliTM) and the cholesterol-lowering drug cholestyramine (Questran , LoCholest , and Prevalite ). Talk to your doctor about adjusting your recommended daily vitamin D dosage if you take these medications. You should not exceed 4000 mg of vitamin D supplementation daily unless specifically prescribed by your doctor. ACOG Screening Guidelines The following health screening schedule is recommended by the [employer] (ACOG). Some of these tests may be ordered or performed by your primary care doctor. Pap test screening The pap test looks at cells on the cervix (the opening from the vagina to the uterus) to look for cancer or pre-cancerous changes. These changes are caused by the human papillomavirus (HPV). Studies estimate that half of all women will test positive for this virus within 3 years of starting sexual activity. For young women with a normal immune system, 90% of HPV infections will resolve within 2 years. There is a vaccine available against some forms of HPV. This is recommended for girls and women age 9-45. For ages 9-14, two injections are given at 0 and 6 months. For ages 15-45, three injections are given at 0,2 and 6 months. Because this vaccine does not protect against all HPV types which can cause cervical cancer, women who received the vaccine still need pap tests. Pap smear screening should be started at age 21. The pap test should be done every 3 years from age 21-29. From age 30-65, pap smears can be done every 5 years if HPV test is negative or every 3 years if HPV testing is not done. For women over the age of 65, ACOG recommends against screening women who have had adequate prior screening and are not otherwise at high risk for cervical cancer. Women who have had a hysterectomy also do not need routine pap smear screening unless the pap smear was done for a cervical cancer or moderate to severe dysplasia. Breast cancer screening Mammogram should be performed every 1-2 years starting at age 40 and every year starting at age 50. Screening may be started earlier depending on family history. Cholesterol screening Lipid panel (cholesterol test) should be checked every 5 years starting at age 45. Diabetes screening Fasting glucose (blood sugar) test should be performed every 3 years starting at age 45. Colorectal cancer screening Starting at age 45, women should have a screening colonoscopy at least every 10 years. Screening may be started earlier depending on family history. Thyroid screening Thyroid function test (TSH) should be checked every 5 years starting at age 50. Bone mineral density screening All postmenopausal women age 65 and over and postmenopausal women with risk factors for osteoporosis should have a bone mineral density test performed. Risk factors include race, family history of osteoporosis, personal history of fractures, poor nutrition, smoking, heavy alcohol use, early menopause, low calcium intake and low body weight. Certain medical conditions and long-term use of some medications may also increase risk. Many women experience vaginal dryness which can cause discomfort with exercise and sexual activity, especially vaginal intercourse. Common causes of vaginal dryness include menopause, , control pills, cancer treatments and other medications. There are many weiv-guc-rraeidq products that are available to treat this condition. Lubricants are a temporary measure to minimize friction and irritation and allow for vaginal intercourse. There are different types of lubricants. Water-based lubricants dry quickly and usually will need to be reapplied during sexual activity. Oil-based lubricants are not compatible with condoms. Silicone-based lubricants should be used with caution in the shower as they can make floors slippery. Household food oils such as olive oil, coconut oil, corn oil and Cristco may increase the risk of vaginal infections such as bacterial vaginosis and yeast. Pre-seed is designed for patients trying to conceive as it does not affect sperm motility. You may need to try several different brands of lubricant until you find the one that works best for you. When choosing a lubricant, avoid those that contain perfumes, flavors or warming ingredients. Benzyl alcohol and glycerin can cause drying and irritation and parabens may be harmful to health. Look for 510(k) Clearance which means that all ingredients are considered safe by the FDA. You can search for approved products on the FDA website at http://www.accessdata.fda.gov/scri pts/cdrh/cfdocs/cfpmn/pmn.cfm. Examples of 510(k) cleared lubricants include Uberlube, Sylk, Good Clean Love and Astroglide. Vaginal moisturizers such as Luvena and Replens are designed for regular use several times a week for long-term relief of vaginal dryness. Some formulations contain a pre-biotic to help maintain vaginal pH and protect against bacterial vaginosis and yeast. For post-menopausal women who have persistent vaginal dryness, prescription treatments are available including vaginal estrogen and vaginal laser therapy. Talk to your doctor if your symptoms are not resolved by lubricant or moisturizer use. documented in this encounter [facility] 05-23-2022 History of Present illness Narrative Ivette is a 77 year old who presents for an annual gynecologic exam without complaints. Vulvar chronic spongiotic dermatitis. Was seen in December, and no further vulvar burning at that time. Using the estriol gel and had no complaints. Using the betamthasone valerate 0.1% ointment every other day, this has given improvement and had no further vulvar complaints. Had a bad flare starting in Feb, 2022. Has not been able to decrease betamethasone use and horrible burning. Using every other day. If she does not use this, she notices increased dryness and tearing feeling when she wipes and is uncomfortable. Still using the vaginal estriol cream twice weekly, getting some burning with use but has seen improvement. Denied anything new. DIONNAID 05/11/22 started taking zinc 50mg PO once daily and noticed no further burning. Postmenopausal: Yes since age 53, 1997 HRT use: vaginal compounded estriol cream Last Pap: 05/12/2021 normal HPV: 03/22/2017 negative History of abnormal pap: Yes Last mammogram: 2014 normal History of abnormal mammogram: Yes Sexually active: No Time with current partner: , with partner x 57 years Hot flashes: No Night sweats: No Vaginal dryness: yes Mood swings: No Insomnia: No Exercise: 2 times a week for 15 minutes. Type: Walk Diet: Lactose and Gluten and Intolerant after virus in 2019 Seatbelt use: Yes OB History T2 L2 SAB0 IAB0 Ectopic0 Multiple0 Live Births0 Filter Changer History LMP: Postmenopausal Age at Menarche: Age at First : Age at Menopause: Filter Changer History Comments: Sexual Activity: Not Currently; Male Contraception: No contraception data on record PAST MEDICAL HISTORY Diagnosis Date Arthritis Asymmetric septal hypertrophy (HCC) 02/2021 repeat ECHO needed 02/2022 Eczema Glaucoma History of COVID-19 10/2020 Hypercholesterolemia Hypertension Hypothyroidism Lactose intolerance 02/2019 PAST SURGICAL HISTORY Procedure Laterality Date APPENDECTOMY AT AGE 10 ARTHRP ACETBLR/PROX FEM PROSTC AGRFT/ALGRFT 09/26/2010 LEFT HIP- Dr. Byrne BX BREAST PERC VACUUM/ROTN 07/21/13 Right lateral COLONOSCOPY FLX DX W/COLLJ SPEC WHEN PFRMD 04/15/2015 Colonoscopy CURETTAGE 1972 ESOPHAGOGASTRODUODENOSCOPY TRANSORAL DIAGNOSTIC 02/2019 EGD KNEE ARTHROSCOPY/SURGERY LEFT KNEE LIGATION/BIOPSY TEMPORAL ARTERY 10/2012 left PAST SURGICAL HISTORY OF basal cell removed from nose 08/2012 PAST SURGICAL HISTORY OF 04/2014 Dr. Mallory, left hip tendon release- illopsoas tendon release REMOVE TONSIL AND ADENOI UNDER AGE 12 AT AGE 3 TOTAL HIP JOINT REPLACEMENT 12/30/2013 right FAMILY HISTORY Problem Relation Age of Onset Stroke Mother Heart Mother Stroke Father Heart Father Colon Cancer Father 60 other (SKIN CANCER) Father Heart Brother [address] Stroke Maternal Grandmother other (rheumatoid arthritis) Maternal Grandfather other (leukemia) Maternal Grandfather other (kidney cancer) Paternal Grandfather Asthma Daughter SOCIAL HISTORY Social History Tobacco Use Smoking status: Never Smoker Smokeless tobacco: Never Used Vaping Use Vaping Use: Never used Substance Use Topics Alcohol use: Not Currently Drug use: No REVIEW OF SYSTEMS Abdomen: No abdominal pain, nausea, vomiting, diarrhea, or constipation. No bloating, early satiety, indigestion, or increased flatulence. Bladder: No dysuria, gross hematuria, urinary frequency, urinary urgency, or incontinence Breast: No breast lumps, nipple d/c, overlying skin changes, redness or skin retraction Allergies and current medication updated:Yes EXAM: BP 110/70 Ht 5' 5 (1.65m) Wt 122 lb (55.3kg) BMI 20.30 kg/(m^2). GENERAL: pleasant, female in no apparent distress HEENT: Normocephalic, atraumatic, mucus membranes moist and no lesions NECK: Supple, full range of motion, no adenopathy and thyroid normal DERMATOLOGY: Normal, without lesions, non-icteric and non-hirsute BREAST: soft, non-tender, symmetric, no dominant mass, normal nipple-areolar complex, no lymphadenopathy and no nipple discharge CHEST: Normal inspiratory effort ABDOMEN: soft, non-tender and no masses PELVIC: external genitalia normal, normal Bartholin's glands, urethra, Kihei's glands, no vulvar lesions, no cervical lesions, good vaginal support, physiologic discharge present, normal appearing perineal body and perianal region. Vaginal atrophy. Introitus erythremic and slight erythema near clitoral will. BIMANUAL: uterus normal size, shape and consistency, no adnexal masses and non-tender RECTOVAGINAL: deferred. NEURO: alert and oriented x3,exam grossly non-focal EXTREMITIES: normal ASSESSMENT/PLAN: 1. Encounter for gynecological examination (general) (routine) without abnormal findings - ICD9: V72.31, ICD10: Z01.419 (primary diagnosis) - Completed pelvic and breast exam - Encouraged monthly BSE - Follow up for annual exam in one year. 2. Spongiotic dermatitis - ICD9: 692.9, ICD10: L30.8 - follow up if symptoms persist or worsen. - Continue with betamthasone valerate 0.1% ointment every other day for two weeks then decrease to three times weekly for 2 weeks then twice weekly. Would like to stop the ointment but patient is resistant as she is much improved prior to using. States she is still happier with results and would rather continue using for the relief. Risks vs. Benefits reviewed and voiced understanding and would like to continue. -Will look at zinc ointment for vulvar care or [place]. Information provided and will discuss at next visit. -Recommend referral to but patient declines at this time. 3. Vaginal atrophy - ICD9: 627.3, ICD10: N95.2 -Use compounded vaginal estriol cream once daily for 2 weeks then twice weekly. Increase dosage to get past flare at this time. Will reassess in 6-8 weeks. 4. Postmenopausal - ICD9: V49.81, ICD10: Z78.0 1) Health maintenance: Pap/HPV screening no longer needed Mammogram ordered Nutrition, exercise and routine health maintenance exams reviewed. Calcium/Vitamin D supplementation information provided. Colon cancer screening: patient to discuss with PCP TSH/lipids/glucose: followed by PCP Vitamin D: followed by PCP BMD: followed by PCP 2) Follow up one year or sooner as needed Peggy Jiménez APRN.CNM documented in this encounter [facility] 05-12-2022 Miscellaneous Notes Agree with below, thank you. Colette Whittaker APRN.CNP Patient reports she was exposed to covid on Sun. Sunday started symptoms: cough, fatigue, temp 98.1, sinus drainage, body aches, chills, pain in teeth and sinus. Went to [facility] on , and PCR covid test was positive. Prescribed zithromax for sinus. Started taking zpak last night and this morning sinus pain has improved. Using ventolin inhaler which has helped cough. Taking mucinex, allergy pill, and advil,- and notice cough is improved. Today is day 5 of symptoms. Will continue nursing s/s at home and agreeable to call back to pcp office with any questions or concerns or go to ER with concerning worsening s/s- such as SOB or CP. Advised would need to quarantine for 5 days from the start of symptoms, then after 5 days, if symptoms improve and no fever, without the use of fever reducing medication, for 24 hours, may come out of quarantine, but continue to wear a mask in public for 5 more days. Patient agreeable. documented in this encounter [facility] 05-08-2022 Miscellaneous Notes Patient called in and left a vm on the line about getting her injection scheduled. I called her back to schedule the injection but she was very upset about the [place] situation ( the cost of the injection ) she would not let me schedule her appt. She said she has to speak with [facility] first. I sent a message to [facility] for her to call and I let her know I already asked her the injection questions. documented in this encounter [facility] 05-08-2022 Miscellaneous Notes 1.Are you diabetic No 2. Are you on any blood thinners? No 3. Are you taking any aspirin? No 4. Have you had any recent imaging done on your body part that's being injected? Yes - XRAY 5. Do you have any allergies to latex? No 6. Do you have any allergies to seafood? Yes 7. Do you have any allergies to shellfish? Yes 8. Do you have any allergies to x-ray dye? No 9. Are you taking Xanax for the procedure? No 10. Have you done physical therapy in the last year? No If yes, When and Where? (Medical Records Release needs to be signed.) 11. Were the pre-procedure instructions explained to the patient? Yes 12. Do you have a pacemaker? No 13. Do you have an internal stimulator of any kind? No If yes, please bring the remote with you to your procedure visit. 14. Have you received the COVID-19 Vaccine? No. If yes, date(s) received: (Patient should not receive a procedure including steroids 14 days prior to their first dose of the COVID vaccine. They should not receive any procedure containing steroids in the time frame between their 1st and 2nd doses of the COVID vaccine. They should not receive a procedure containing steroids 14 days after their 2nd dose of the COVID vaccine.) Yamilet Brasher documented in this encounter [facility] 05-04-2022 Note HNO ID: [id number] Author: Chelle Panchal MA Service: ? Author Type: Screen Tacker Type: Progress Notes Filed: 05/04/2022 2:38 PM Note Text: Review of Systems Constitutional: Negative for activity change, chills, fever and unexpected weight change. Gastrointestinal: Negative for bowel retention or incontinence Genitourinary: Negative for difficulty urinating. Negative for bladder retention or incontinence Musculoskeletal: Positive for arthralgias, back pain, myalgias, neck pain and neck stiffness. Negative for gait problem and joint swelling. Neurological: Positive for weakness. Negative for numbness and headaches. Psychiatric/Behavioral: Positive for sleep disturbance. Negative for dysphoric mood and suicidal ideas. The patient is not nervous/anxious. [facility] 05-04-2022 History of Present illness Narrative Radiology Service Progress Note PATIENT NAME: Ivette Murguia DATE OF SERVICE: May 04, 2022 TIME: 2:54 PM PATIENT IDENTITY VERIFICATION COMPLETED USING TWO (2) IDENTIFIERS: Name and Date of confirmed by patient verbally. FALL SCREENING: Has the patient had 2 falls in the last year or 1 fall with injury or currently using an Ambulatory Assistive Device (Walker, Cane, Wheelchair, Crutches, etc.)? No PATIENT GENDER DATA: Female. status: : No status: NO. PATIENT RELEVANT IMPLANT DATA REVIEWED: Not Applicable RADIOLOGY DEPARTMENT: General X-ray: Exam(s) Completed: Spine X-Ray(s): Lumbar AP / LAT / L5-S1 / FLEX-EXT PERIPHERAL IV DATA: Not applicable SIGNED BY: RT Mustapha(R) May 04, 2022 2:54 PM documented in this encounter [facility] 05-04-2022 Miscellaneous Notes 1.Are you diabetic No 2. Are you on any blood thinners? No 3. Are you taking any aspirin? No 4. Have you had any recent imaging done on your body part that's being injected? No 5. Do you have any allergies to latex? No 6. Do you have any allergies to seafood? No 7. Do you have any allergies to shellfish? No 8. Do you have any allergies to x-ray dye? No 9. Are you taking Xanax for the procedure? No 10. Have you done physical therapy in the last year? No If yes, When and Where? (Medical Records Release needs to be signed.) 11. Were the pre-procedure instructions explained to the patient? Yes 12. Do you have a pacemaker? No 13. Do you have an internal stimulator of any kind? No If yes, please bring the remote with you to your procedure visit. 14. Have you received the COVID-19 Vaccine? No. If yes, date(s) received: - DOES NOT PLAN ON GETTING IT (Patient should not receive a procedure including steroids 14 days prior to their first dose of the COVID vaccine. They should not receive any procedure containing steroids in the time frame between their 1st and 2nd doses of the COVID vaccine. They should not receive a procedure containing steroids 14 days after their 2nd dose of the COVID vaccine.) Yamilet Brasher documented in this encounter [facility] 05-04-2022 Note HNO ID: [id number] Author: Altagracia Hawthorne MD Service: ? Author Type: Physician Type: Progress Notes Filed: 05/04/2022 2:38 PM Note Text: [facility] Today's Date: 05/04/2022 Last Visit: N/A Name: Ivette Murguia : 1945 Purpose: New Patient Evaluation Chief complaint: low back pain Initial HPI: (Obtained on 05/04/2022) Ivette Murguia is a 77 year old female, who presents having been referred by Self, for evaluation and management of the above-mentioned chief complaint. - This has been present for the past 11 years. The onset of symptoms was not sudden and was without associated trauma. - Over the past year, she has also developed constant left-sided pain in the thoracic region, worse with bending or reaching, better with sitting in the recliner. Pain has been gradually worsening over the past year. Heat had been helping, but no longer helping. - She had pain in the left groin that resolved after the release in 2013. - She has seen pain management on several occasions over the years, had a left SI Joint injection in 2011, has had several steroid injections, none with excellent relief. - Treatments prior to initial presentation include the following: Medications (See below), Injections (See below), Modalities (eg. Heat, Ice), Physical Therapy , Chiropractic Full Treatment , Home Exercise Program and Activity Modification. - Pain Description: o Timing: constant o Character: sharp and burning o Primary Location: left lower thoracic/upper lumbar o Radiation: none o Exacerbating factors: bending and reaching o Relieving factors: lying down o Interferes with: physical activity and household cleaning o The patient denies difficulty with bowel or bladder control, unintentional weight loss, fevers, chills, or night sweats and arm or leg weakness. Current Status: INTAKE PAIN ASSESSMENT 03/13/2022 05/04/2022 Are you having pain associated with your visit today? No Yes, Provider notified Pain Scales - Verbal (Numeric Rating or Visual Analog Scale) Pain Level - 8 Pain Location - Back-Middle Description - Shooting;Burning Duration Amount of Time - - Duration Units - Years Frequency - Intermittent Intervention/Comfort measure - Reposition;Relaxation;Positioning Face - - Legs - - Activity - - Cry - - Consolability - - FLACC Score Calculated - - Pain Assessment (RN/FORECLOSURE PARALEGAL) - - Medications: CURRENT Pain Medications: - Opioid Pain Medications: None o Date last filled: N/A o Quantity filled: N/A o How many left: N/A o Time most recent dose taken: N/A - Non-Opioid Pain Medications: Relafen 500mg BID - Eiqx-gbv-lenfvtq (OTC) Pain Meds: Ibuprofen Compliance: PDMP website checked and validated. All prescriptions have been APPROPRIATELY filled. No suspicious activity was identified. by Altagracia Hawthorne MD 05/04/2022 Valium 2mg, #30, last 03/2021 Last Drug screen: Not Applicable Risk Assessment: DARRELL-7: DARRELL - 7 SCORES 05/04/2022 DARRELL-7 Score 0 (0-4) minimal anxiety, (5-9) mild anxiety, (10-14) moderate anxiety, (15-21) severe anxiety PHQ-9: PHQ-9 05/04/2022 Score 3 (0-4) minimal depression, (5-9) mild depression, (10-14) moderate depression, (15-19) moderately severe depression, (20-27) severe depression Opioid Risk Tool: Family History of Substance Abuse: 0 - No Personal History of Substance Abuse: 0 - No Age between 16-45: 0 - No History of Pre-Adolescence Sexual Abuse: 0 - No Psychological Disease: 0 - No Risk Total: 0 Total Score Risk Category: Low Risk 0-3 (0-3, low risk or no risk; 4-7, moderate risk, 8+, high risk) Safety Checklist: - Are you taking proper precautions to safe guard your medication? Yes - Taking the medications as prescribed? Yes - Getting pain medications from another physician? No - Obtaining pain medication from another source? No - Sharing medications with friends/family? No - Quality of life improved as a result of taking these medications? Yes - Any side effect with this medication? No Justification for Continued Opioid Care: - Adequate analgesia? Yes - Aberrant drug seeking behavior? No - Adverse reactions? No - Medications improve quality of life? Yes Pain Medications Taken TO DATE (for the chief complaint(s)): - Membrane Stabilizers: Pamelor (Nortriptyline) - NSAIDS: Sulindac (Clinoril), Motrin (Ibuprofen), Naprosyn (Naproxen), Mobic (Meloxicam) and Relafen (Nabumetone) - Opioids: Tramadol, Vicodin or [place] (Hydrocodone) and Percocet (Oxycodone) - Muscle Relaxants: Flexeril (Cyclobenzaprine) and Zanaflex (Tizanidine) - Topicals: OTC - no relief - Other Prescription or OTC Pain Medications: none - Anti-depressants: None Non-Pain Meds of Note: None Allergies: ALLERGIES Allergen Reactions - Balsam Of Annemarie [Bal* Unknown - Codeine Rash - Fragrances Unknown - Gluten Intolerance - Lactose Intolerance - Lanolin Rash - Mor (more content not included)... [facility] 05-04-2022 History of Present illness Narrative Review of Systems Constitutional: Negative for activity change, chills, fever and unexpected weight change. Gastrointestinal: Negative for bowel retention or incontinence Genitourinary: Negative for difficulty urinating. Negative for bladder retention or incontinence Musculoskeletal: Positive for arthralgias, back pain, myalgias, neck pain and neck stiffness. Negative for gait problem and joint swelling. Neurological: Positive for weakness. Negative for numbness and headaches. Psychiatric/Behavioral: Positive for sleep disturbance. Negative for dysphoric mood and suicidal ideas. The patient is not nervous/anxious. Images from the original note were not included. [facility] Today's Date: 05/04/2022 Last Visit: N/A Name: Ivette Murguia : 1945 Purpose: New Patient Evaluation Chief complaint: low back pain Initial HPI: (Obtained on 05/04/2022) Ivette Murguia is a 77 year old female, who presents having been referred by Self, for evaluation and management of the above-mentioned chief complaint. This has been present for the past 11 years. The onset of symptoms was not sudden and was without associated trauma. Over the past year, she has also developed constant left-sided pain in the thoracic region, worse with bending or reaching, better with sitting in the recliner. Pain has been gradually worsening over the past year. Heat had been helping, but no longer helping. She had pain in the left groin that resolved after the release in 2013. She has seen pain management on several occasions over the years, had a left SI Joint injection in 2011, has had several steroid injections, none with excellent relief. Treatments prior to initial presentation include the following: Medications (See below), Injections (See below), Modalities (eg. Heat, Ice), Physical Therapy , Chiropractic Full Treatment , Home Exercise Program and Activity Modification. Pain Description: o Timing: constant o Character: sharp and burning o Primary Location: left lower thoracic/upper lumbar o Radiation: none o Exacerbating factors: bending and reaching o Relieving factors: lying down o Interferes with: physical activity and household cleaning o The patient denies difficulty with bowel or bladder control, unintentional weight loss, fevers, chills, or night sweats and arm or leg weakness. Current Status: INTAKE PAIN ASSESSMENT 03/13/2022 05/04/2022 Are you having pain associated with your visit today? No Yes, Provider notified Pain Scales - Verbal (Numeric Rating or Visual Analog Scale) Pain Level - 8 Pain Location - Back-Middle Description - Shooting;Burning Duration Amount of Time - - Duration Units - Years Frequency - Intermittent Intervention/Comfort measure - Reposition;Relaxation;Positioning Face - - Legs - - Activity - - Cry - - Consolability - - FLACC Score Calculated - - Pain Assessment (RN/FORECLOSURE PARALEGAL) - - Medications: CURRENT Pain Medications: Opioid Pain Medications: None o Date last filled: N/A o Quantity filled: N/A o How many left: N/A o Time most recent dose taken: N/A Non-Opioid Pain Medications: Relafen 500mg BID Vcep-hpk-gsfvuxb (OTC) Pain Meds: Ibuprofen Compliance: PDMP website checked and validated. All prescriptions have been APPROPRIATELY filled. No suspicious activity was identified. by Altagracia Hawthorne MD 05/04/2022 Valium 2mg, #30, last 03/2021 Last Drug screen: Not Applicable Risk Assessment: DARRELL-7: DARRELL - 7 SCORES 05/04/2022 DARRELL-7 Score 0 (0-4) minimal anxiety, (5-9) mild anxiety, (10-14) moderate anxiety, (15-21) severe anxiety PHQ-9: PHQ-9 05/04/2022 Score 3 (0-4) minimal depression, (5-9) mild depression, (10-14) moderate depression, (15-19) moderately severe depression, (20-27) severe depression Opioid Risk Tool: Family History of Substance Abuse: 0 - No Personal History of Substance Abuse: 0 - No Age between 16-45: 0 - No History of Pre-Adolescence Sexual Abuse: 0 - No Psychological Disease: 0 - No Risk Total: 0 Total Score Risk Category: Low Risk 0-3 (0-3, low risk or no risk; 4-7, moderate risk, 8+, high risk) Safety Checklist: Are you taking proper precautions to safe guard your medication? Yes Taking the medications as prescribed? Yes Getting pain medications from another physician? No Obtaining pain medication from another source? No Sharing medications with friends/family? No Quality of life improved as a result of taking these medications? Yes Any side effect with this medication? No Justification for Continued Opioid Care: Adequate analgesia? Yes Aberrant drug seeking behavior? No Adverse reactions? No Medications improve quality of life? Yes Pain Medications Taken TO DATE (for the chief complaint(s)): Membrane Stabilizers: Pamelor (Nortriptyline) NSAIDS: Sulindac (Clinoril), Motrin (Ibuprofen), Naprosyn (Naproxen), Mobic (Meloxicam) and Relafen (Nabumetone) Opioids: Tramadol, Vicodin or [place] (Hydrocodone) and Percocet (Oxycodone) Muscle Relaxants: Flexeril (Cyclobenzaprine) and Zanaflex (Tizanidine) Topicals: OTC - no relief Other Prescription or OTC Pain Medications: none Anti-depressants: None Non-Pain Meds of Note: None Allergies: ALLERGIES Allergen Reactions Balsam Of Annemarie [Bal* Unknown Codeine Rash Fragrances Unknown Gluten Intolerance Lactose Intolerance Lanolin Rash Morphine Vomiting Neomycin Sulfate Unknown Nickel Rash Nickel Sulfate Unknown [place] Unknown Mildly positive to skin testing Seasonal Allergies Intolerance Diagnostic Studies: Relevant Imaging: Reviewed Personally on today's date, noted above MRI Spine Report MRI LUMBAR SPINE WO CONTRAST Collected: 11/29/2011 4:15 PM (Final result) Complete Results MRI L-spine 2012: L1-L2: Canal and foramina are patent. L2-L3: Bulge causes mild narrowing of the spinal canal. Foramina are patent L3-L4: A bulge causes mild narrowing of the spinal canal. Foramina are patent. L4-L5: There is mild narrowing the spinal canal due to disk osteophyte complex. Foramina are mildly narrowed bilaterally. L5-S1: There is disk osteophyte complex causing mild narrowing of the spinal canal. Mild left and moderate right neural foraminal stenosis. Hypertrophic changes in the facet joints. Sacrum and iliac wings: The visualized sacrum and iliac wings are within normal limits. The presacral soft tissues are normal in appearance. 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 Electrodiagnostic Study (EMG): None Pain Procedures: DATE PROCEDURE IMPROVEMENT None to date at this practice Current Medications, Past Medical History, Past Surgical History, Family History, Social History and Review of Systems: On today's date, noted above, I have confirmed and edited as necessary, the PFSH and ROS obtained by others. Physical Exam: 05/04/22 1346 Pulse: 70 Resp: 16 SpO2: 98% Constitutional:normal weight Eyes: Conjunctiva clear. No discharge from eyes Cardiovascular: Appears well perfused Lymphatic: No visible regional lymphadenopathy Skin: No visible rashes or ecchymosis Psychiatric: Full affect, Alert, Pleasant Neuro-Lower: Neural Tension Signs: ? Negative slump in Bilateral lower limbs Sensation: ? intact to light touch in the L2-S2 Bilateral lower limb dermatomes Muscle Tone: ? Normal and symmetric throughout without clonus Strength: ? Iliopsoas (L2): 5 Left, 5 Right ? Quadriceps (L3) 5 Left, 5 Right ? Anterior Tibialis (L4): 5 Left, 5 Right ? Extensor Hallucis Longus (L5): 5 Left, 5 Right ? Gastrocnemius (S1): 5 Left, 5 Right Reflexes: ? Decreased 1+ and symmetric Patellar, Achilles Musculoskeletal-Lower: Inspection: ? Symmetric without atrophy Palpation: ? Lumbar Paraspinal Tenderness: None on Bilateral side(s) ? Paraspinal Spasms: None ? PSIS Tenderness: None on Bilateral side(s) ? Greater Trochanter Tenderness: None on Bilateral side(s) ? Concordant pain left iliac crest near PSIS and midpoint Spine Range of Motion: ? Flexion: Normal Without end range pain ? Extension: Normal Without end range pain ? Combination extension and rotation pain: None Hip Range of Motion: ? Right Hip: ? Internal Rotation: Normal; Pain at end range: None ? External Rotation: Normal; Pain at end range: None ? Left Hip: ? Internal Rotation: Normal; Pain at end range: None ? 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 Plan: Ivette Murguia would benefit from the following to reach personal goals for decreasing pain, improving function and work participation, and/or improving quality of life: -Interventional Procedure: Left superior and middle cluneal nerve blocks under fluoroscopy The risks, benefits, alternative treatment options and prognosis of the procedure were discussed and all of the patient's questions/concerns were addressed to the patient s satisfaction. Patient was advised that they will need a light truck driver for after the procedure and that if no light truck driver is available and on site at the time of the procedure, the procedure will be cancelled. For any anticoagulants, the patient was advised on whether to continue or hold for this procedure. The patient expressed understanding and gave verbal consent to proceed. Medication(s): Continue Relafen PRN breakthrough pain OK to take ES Tylenol 500mg BID PRN breakthrough pain Additional Studies: X-ray lumbar Referrals: No additional considerations at present Functional Mandaeism: No changes-continue current regimen Depending on response to the above plan, consider: Lumbar MBB/RFA -Follow-up: 2 months Attribution: In addition to reviewing the information noted above, some elements copied from my most recent clinical note(s), including the physical exam (completed in entirety today), and the impression and plan sections, have been updated where appropriate. All reflect current medical decision making from today's date. Altagracia Hawthorne MD, [facility] documented in this encounter [facility] 03-07-2022 Miscellaneous Notes opened in error documented in this encounter [facility] 02-24-2022 Instructions Ian Nunn V, DO - 02/24/2022 1:31 PM EDT Thank you for choosing the [facility] for your acute care needs. [facility] treats minor infections, rashes and injuries. It is our mission for our patients to be healthy. A primary care relationship with the physician allows for continuity of care, counseling, and maintenance of preventive health care needs. [facility] does not replace the relationship or need for a primary care physician. For information about establishing with a primary care physician or booking an appointment, please call [phone] or speak with any Patient [employer] Attendant. Hours: Sunday through Sunday 7:30 am to 7:00 pm. Sunday and Sunday: 8:00 am to 2:30 pm. documented in this encounter [facility] 02-24-2022 History of Present illness Narrative Patient presents with: New Patient: Right shoulder pain REF: Koehler x-ray: 02/14/2022 HPI: Ivette is a 76 year old female right-hand dominant who presents for evaluation of shoulder pain. The pain has improved significantly over the past week. She thinks that carrying her purse over her right shoulder was causing irritation to the area and has stopped doing that and feels like it has made a difference. She states that the top of the shoulder was red swollen warm to touch at 1 point, but feels close to normal at this time.. The location is along the superior aspect of the shoulder, with radiation to the mid brachium. MEDICATIONS: Current Outpatient Medications on File Prior to Visit Medication Sig estrogens, conjugated (CONJUGATED ESTROGENS ORAL) Take by mouth. ascorbic acid (VITAMIN C ORAL) Take by mouth. Magnesium 200 mg tab Take 200 mg by mouth once daily. levothyroxine (LEVOXYL) 88 mcg tablet Take 1 tablet by mouth once daily. Take on empty stomach. For Thyroid nabumetone (RELAFEN) 500 mg tablet Take 2 tablets by mouth once daily. vitamin b complex capsule Take 1 capsule by mouth once daily. omega-3/dha/epa/fish oil (OMEGA-3 FISH OIL ORAL) Take by mouth once daily. betamethasone valerate 0.1 % cream Apply to affected area twice daily as needed for exzema, don't use for more than 1 week in a row dorzolamide HCl/PF (DORZOLAMIDE, PF,) 2 % drop Use in eyes. TURMERIC ORAL Take by mouth. cholecalciferol (VITAMIN D3) 1,000 unit tab tablet Take 1 tablet by mouth once daily. ZINC ORAL Take 15 mg by mouth once daily. (Patient not taking: Reported on 02/24/2022 ) betamethasone valerate 0.1 % ointment Apply to affected area once daily. clotrimazole-betamethasone (LOTRISONE) lotion Apply to affected area twice daily. For 30 days [id number] ORAL Take by mouth once daily. albuterol (PROVENTIL) 2.5 mg /3 mL (0.083 %) nebulizer solution Use 3 mL via nebulizer every 4 hours as needed for Wheezing/Shortness of Breath. Use over 5-15minutes. albuterol HFA (VENTOLIN HFA) 90 mcg/actuation inhaler Inhale 2 Puffs as instructed every 4 hours as needed for Wheezing/Shortness of Breath. Spirometers and Accessories lena 1 Device as directed. Dx: dyspnea, Bronchiectasis latanoprost (XALATAN) 0.005 % ophthalmic solution 1 Drop daily at bedtime. (Patient not taking: Reported on 02/24/2022 ) fexofenadine (PADMINI ALLERGY) 180 mg tablet Take 180 mg by mouth as needed. fluticasone (FLONASE) 50 mcg/actuation nasal spray Use 2 Sprays in each nostril once daily. (Patient taking differently: Use 2 Sprays in each nostril as needed. ) No current facility-administered medications on file prior to visit. ALLERGIES: Balsam Of Annemarie [Balsam Annemarie], Codeine, Fragrances, Gluten, Lactose, Lanolin, Morphine, Neomycin Sulfate, Nickel, Nickel Sulfate, [place], and Seasonal Allergies HISTORIES: PAST MEDICAL HISTORY Diagnosis Date Arthritis Asymmetric septal hypertrophy (HCC) 02/2021 repeat ECHO needed 02/2022 Eczema Glaucoma History of COVID-19 10/2020 Hypercholesterolemia Hypertension Hypothyroidism Lactose intolerance 02/2019 PAST SURGICAL HISTORY Procedure Laterality Date APPENDECTOMY AT AGE 10 ARTHRP ACETBLR/PROX FEM PROSTC AGRFT/ALGRFT 09/26/2010 LEFT HIP- Dr. Byrne BX BREAST PERC VACUUM/ROTN 07/21/13 Right lateral COLONOSCOPY FLX DX W/COLLJ SPEC WHEN PFRMD 04/15/2015 Colonoscopy CURETTAGE 1972 ESOPHAGOGASTRODUODENOSCOPY TRANSORAL DIAGNOSTIC 02/2019 EGD KNEE ARTHROSCOPY/SURGERY LEFT KNEE LIGATION/BIOPSY TEMPORAL ARTERY 10/2012 left PAST SURGICAL HISTORY OF basal cell removed from nose 08/2012 PAST SURGICAL HISTORY OF 04/2014 Dr. Mallory, left hip tendon release- illopsoas tendon release REMOVE TONSIL AND ADENOI UNDER AGE 12 AT AGE 3 TOTAL HIP JOINT REPLACEMENT 12/30/2013 right Social History Tobacco Use Smoking status: Never Smoker Smokeless tobacco: Never Used Vaping Use Vaping Use: Never used Substance Use Topics Alcohol use: Not Currently Drug use: No Comprehensive ROS: Negative for all systems reviewed. PE: General: Well-appearing female in no acute distress. Vital Signs: There were no vitals taken for this visit. Skin: Intact to inspection and palpation. Psychiatric: Mood and affect appropriate. A and O x3. Musculoskeletal Exam: Gait and Station normal. Cervical spine: Normal ROM and normal to palpation. Bilateral upper extremities show equal motion of the elbows, and wrists. Right shoulder exam shows active forward flexion to 170, passively to 170; abduction to 170, IR to T12, ER adduction was 45. Negative for Hawkin's and Neer's tests. Left shoulder exam shows active forward flexion to 170, passively to 170; abduction to 170, IR to T12, ER adduction was 45. Negative for Hawkin's and Neer's tests. Rotator cuff strength 5/5. Normal stability to testing. Normal tone. Positive pain to palpation of the AC joint. No pain to palpation of the bicipital groove. Neurologic Exam: Intact sensation in both upper extremities. Patient describes intermittent numbness in the palms of both hands. Vascular: 2+ radial pulses, both upper extremities. XRAYs:Osseous demineralization. No acute fracture or dislocation. Mineralization along the superior aspect of the humeral head. Mild acromioclavicular joint space narrowing with moderate hypertrophic spur formation. Mineralization along the acromioclavicular joint capsule IMPRESSION: Right shoulder acromioclavicular joint arthritis. Calcific bursitis right shoulder RECOMMENDATIONS: I recommend since she is noticing significant improvement, continue on her current course of treatment. I would add shoulder strengthening and range of motion exercises-handout given today Should she develop another acute flare over the AC joint or the glenohumeral joint, consider corticosteroid injection. She also inquired about chronic low back issues and getting established with someone that she could have evaluate her back. I recommend Dr. Hawthorne from [facility] who comes here 1 day a week. Ian Nunn DO AMB ROOMING INTAKE FLOWSHEET DATA Risk Screening Do you have concerns about personal safety or safety in the home?: No documented in this encounter [facility] 02-14-2022 History of Present illness Narrative Radiology Service Progress Note PATIENT NAME: Ivette Murguia DATE OF SERVICE: February 14, 2022 TIME: 10:04 AM PATIENT IDENTITY VERIFICATION COMPLETED USING TWO (2) IDENTIFIERS: Name and Date of confirmed by patient verbally. FALL SCREENING: Has the patient had 2 falls in the last year or 1 fall with injury or currently using an Ambulatory Assistive Device (Walker, Cane, Wheelchair, Crutches, etc.)? No PATIENT GENDER DATA: Female. status: : No status: NO. PATIENT RELEVANT IMPLANT DATA REVIEWED: Not Applicable RADIOLOGY DEPARTMENT: General X-ray: Exam(s) Completed: Upper Extremity X-Ray(s): Shoulder, AP / TRUE AP / AXILLARY right PERIPHERAL IV DATA: Not applicable SIGNED BY: RT Dung(R) February 14, 2022 10:04 AM documented in this encounter [facility] 02-14-2022 Miscellaneous Notes Orders placed Abdullahi Koehler DO documented in this encounter [facility] 01-12-2022 Miscellaneous Notes Noted. Melisa Colmenares APRN.CNP Pt notified and verbalized understanding. Pt reports she would like to stay on same dosage of levothyroxine. Zuleyka Benz Ma Please inform patient that her labs are overall stable except her t4 levels are a little high and t3 thyroid levels are a little low. We have option of adding on low dose of cytomel (t3) thyroid hormone or leaving levothyroxine dose the same. Abdullahi Koehler DO documented in this encounter [facility] documented as of this encounter (statuses as of 01/12/2022) [facility] History of Past illness Narrative* Problem Noted Date Resolved Date 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 11/29/2021 Abnormal mammogram, unspecified 07/16/2013 08/24/2014 S/P prosthetic total arthroplasty of the hip 08/24/2014 Osteoarthritis 03/30/2011 08/24/2014 Left hip pain 11/14/2010 08/24/2014 documented as of this encounter (statuses as of 02/15/2022) [address]-2021 History of Past illness Narrative* Problem Noted Date Resolved Date 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 11/29/2021 Abnormal mammogram, unspecified 07/16/2013 08/24/2014 S/P prosthetic total arthroplasty of the hip 08/24/2014 Osteoarthritis 03/30/2011 08/24/2014 Left hip pain 11/14/2010 08/24/2014 documented as of this encounter (statuses as of 02/24/2022) [address]21 History of Past illness Narrative* Problem Noted Date Resolved Date 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 11/29/2021 Abnormal mammogram, unspecified 07/16/2013 08/24/2014 S/P prosthetic total arthroplasty of the hip 08/24/2014 Osteoarthritis 03/30/2011 08/24/2014 Left hip pain 11/14/2010 08/24/2014 documented as of this encounter (statuses as of 2022) [address]21 History of Past illness Narrative* Problem Noted Date Resolved Date 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 11/29/2021 Abnormal mammogram, unspecified 07/16/2013 08/24/2014 S/P prosthetic total arthroplasty of the hip 08/24/2014 Osteoarthritis 03/30/2011 08/24/2014 Left hip pain 11/14/2010 08/24/2014 documented as of this encounter (statuses as of 03/07/2022) [address]21 History of Past illness Narrative* Problem Noted Date Resolved Date 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 11/29/2021 Abnormal mammogram, unspecified 07/16/2013 08/24/2014 S/P prosthetic total arthroplasty of the hip 08/24/2014 Osteoarthritis 03/30/2011 08/24/2014 Left hip pain 11/14/2010 08/24/2014 documented as of this encounter (statuses as of 05/04/2022) [address]21 History of Past illness Narrative* Problem Noted Date Resolved Date 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 11/29/2021 Abnormal mammogram, unspecified 07/16/2013 08/24/2014 S/P prosthetic total arthroplasty of the hip 08/24/2014 Osteoarthritis 03/30/2011 08/24/2014 Left hip pain 11/14/2010 08/24/2014 documented as of this encounter (statuses as of 05/04/2022) [address]21 History of Past illness Narrative* Problem Noted Date Resolved Date 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 11/29/2021 Abnormal mammogram, unspecified 07/16/2013 08/24/2014 S/P prosthetic total arthroplasty of the hip 08/24/2014 Osteoarthritis 03/30/2011 08/24/2014 Left hip pain 11/14/2010 08/24/2014 documented as of this encounter (statuses as of 05/05/2022) [address]21 History of Past illness Narrative* Problem Noted Date Resolved Date 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 11/29/2021 Abnormal mammogram, unspecified 07/16/2013 08/24/2014 S/P prosthetic total arthroplasty of the hip 08/24/2014 Osteoarthritis 03/30/2011 08/24/2014 Left hip pain 11/14/2010 08/24/2014 documented as of this encounter (statuses as of 05/05/2022) [address]21 History of Past illness Narrative* Problem Noted Date Resolved Date 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 11/29/2021 Abnormal mammogram, unspecified 07/16/2013 08/24/2014 S/P prosthetic total arthroplasty of the hip 08/24/2014 Osteoarthritis 03/30/2011 08/24/2014 Left hip pain 11/14/2010 08/24/2014 documented as of this encounter (statuses as of 05/08/2022) [address]21 History of Past illness Narrative* Problem Noted Date Resolved Date 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 11/29/2021 Abnormal mammogram, unspecified 07/16/2013 08/24/2014 S/P prosthetic total arthroplasty of the hip 08/24/2014 Osteoarthritis 03/30/2011 08/24/2014 Left hip pain 11/14/2010 08/24/2014 documented as of this encounter (statuses as of 05/12/2022) [address]-2021 History of Past illness Narrative* Problem Noted Date Resolved Date 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 11/29/2021 Abnormal mammogram, unspecified 07/16/2013 08/24/2014 S/P prosthetic total arthroplasty of the hip 08/24/2014 Osteoarthritis 03/30/2011 08/24/2014 Left hip pain 11/14/2010 08/24/2014 documented as of this encounter (statuses as of 05/23/2022) [address]-2021 History of Past illness Narrative* Problem Noted Date Resolved Date 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 11/29/2021 Abnormal mammogram, unspecified 07/16/2013 08/24/2014 S/P prosthetic total arthroplasty of the hip 08/24/2014 Osteoarthritis 03/30/2011 08/24/2014 Left hip pain 11/14/2010 08/24/2014 documented as of this encounter (statuses as of 06/15/2022) [address]21 History of Past illness Narrative* Problem Noted Date Resolved Date 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 11/29/2021 Abnormal mammogram, unspecified 07/16/2013 08/24/2014 S/P prosthetic total arthroplasty of the hip 08/24/2014 Osteoarthritis 03/30/2011 08/24/2014 Left hip pain 11/14/2010 08/24/2014 documented as of this encounter (statuses as of 07/03/2022) [address]21 History of Past illness Narrative* Problem Noted Date Resolved Date 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 11/29/2021 Abnormal mammogram, unspecified 07/16/2013 08/24/2014 S/P prosthetic total arthroplasty of the hip 08/24/2014 Osteoarthritis 03/30/2011 08/24/2014 Left hip pain 11/14/2010 08/24/2014 documented as of this encounter (statuses as of 07/05/2022) [address] History of Past illness Narrative* Problem Noted Date Resolved Date 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 11/29/2021 Abnormal mammogram, unspecified 07/16/2013 08/24/2014 S/P prosthetic total arthroplasty of the hip 08/24/2014 Osteoarthritis 03/30/2011 08/24/2014 Left hip pain 11/14/2010 08/24/2014 documented as of this encounter (statuses as of 07/11/2022) [address]-2021 History of Past illness Narrative* Problem Noted Date Resolved Date 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 11/29/2021 Abnormal mammogram, unspecified 07/16/2013 08/24/2014 S/P prosthetic total arthroplasty of the hip 08/24/2014 Osteoarthritis 03/30/2011 08/24/2014 Left hip pain 11/14/2010 08/24/2014 documented as of this encounter (statuses as of 07/11/2022) [address]21 History of Past illness Narrative* Problem Noted Date Resolved Date 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 11/29/2021 Abnormal mammogram, unspecified 07/16/2013 08/24/2014 S/P prosthetic total arthroplasty of the hip 08/24/2014 Osteoarthritis 03/30/2011 08/24/2014 Left hip pain 11/14/2010 08/24/2014 documented as of this encounter (statuses as of 08/17/2022) [address]21 History of Past illness Narrative* Problem Noted Date Resolved Date 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 11/29/2021 Abnormal mammogram, unspecified 07/16/2013 08/24/2014 S/P prosthetic total arthroplasty of the hip 08/24/2014 Osteoarthritis 03/30/2011 08/24/2014 Left hip pain 11/14/2010 08/24/2014 documented as of this encounter (statuses as of 08/17/2022) [address]21 History of Past illness Narrative* Problem Noted Date Resolved Date 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 11/29/2021 Abnormal mammogram, unspecified 07/16/2013 08/24/2014 S/P prosthetic total arthroplasty of the hip 08/24/2014 Osteoarthritis 03/30/2011 08/24/2014 Left hip pain 11/14/2010 08/24/2014 documented as of this encounter (statuses as of 08/21/2022) [address]21 History of Past illness Narrative* Problem Noted Date Resolved Date 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 11/29/2021 Abnormal mammogram, unspecified 07/16/2013 08/24/2014 S/P prosthetic total arthroplasty of the hip 08/24/2014 Osteoarthritis 03/30/2011 08/24/2014 Left hip pain 11/14/2010 08/24/2014 documented as of this encounter (statuses as of 09/06/2022) [address]21 History of Past illness Narrative* Problem Noted Date Resolved Date 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 11/29/2021 Abnormal mammogram, unspecified 07/16/2013 08/24/2014 S/P prosthetic total arthroplasty of the hip 08/24/2014 Osteoarthritis 03/30/2011 08/24/2014 Left hip pain 11/14/2010 08/24/2014 documented as of this encounter (statuses as of 09/12/2022) [address]21 History of Past illness Narrative* Problem Noted Date Resolved Date 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 11/29/2021 Abnormal mammogram, unspecified 07/16/2013 08/24/2014 S/P prosthetic total arthroplasty of the hip 08/24/2014 Osteoarthritis 03/30/2011 08/24/2014 Left hip pain 11/14/2010 08/24/2014 documented as of this encounter (statuses as of 09/18/2022) [address]21 History of Past illness Narrative* Problem Noted Date Resolved Date 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 11/29/2021 Abnormal mammogram, unspecified 07/16/2013 08/24/2014 S/P prosthetic total arthroplasty of the hip 08/24/2014 Osteoarthritis 03/30/2011 08/24/2014 Left hip pain 11/14/2010 08/24/2014 documented as of this encounter (statuses as of 09/19/2022) [address]21 History of Past illness Narrative* Problem Noted Date Resolved Date 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 11/29/2021 Abnormal mammogram, unspecified 07/16/2013 08/24/2014 S/P prosthetic total arthroplasty of the hip 08/24/2014 Osteoarthritis 03/30/2011 08/24/2014 Left hip pain 11/14/2010 08/24/2014 documented as of this encounter (statuses as of 09/19/2022) [address]21 History of Past illness Narrative* Problem Noted Date Resolved Date 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 11/29/2021 Abnormal mammogram, unspecified 07/16/2013 08/24/2014 S/P prosthetic total arthroplasty of the hip 08/24/2014 Osteoarthritis 03/30/2011 08/24/2014 Left hip pain 11/14/2010 08/24/2014 documented as of this encounter (statuses as of 09/20/2022) [address]30-2021 History of Past illness Narrative* Problem Noted Date Resolved Date 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 11/29/2021 Abnormal mammogram, unspecified 07/16/2013 08/24/2014 S/P prosthetic total arthroplasty of the hip 08/24/2014 Osteoarthritis 03/30/2011 08/24/2014 Left hip pain 11/14/2010 08/24/2014 documented as of this encounter (statuses as of 09/20/2022) [address]30-2021 History of Past illness Narrative* Problem Noted Date Resolved Date 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 11/29/2021 Abnormal mammogram, unspecified 07/16/2013 08/24/2014 S/P prosthetic total arthroplasty of the hip 08/24/2014 Osteoarthritis 03/30/2011 08/24/2014 Left hip pain 11/14/2010 08/24/2014 documented as of this encounter (statuses as of 09/21/2022) [address]30-2021 History of Past illness Narrative* Problem Noted Date Resolved Date 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 11/29/2021 Abnormal mammogram, unspecified 07/16/2013 08/24/2014 S/P prosthetic total arthroplasty of the hip 08/24/2014 Osteoarthritis 03/30/2011 08/24/2014 Left hip pain 11/14/2010 08/24/2014 documented as of this encounter (statuses as of 09/28/2022) [address]30-2021 History of Past illness Narrative* Problem Noted Date Resolved Date 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 11/29/2021 Abnormal mammogram, unspecified 07/16/2013 08/24/2014 S/P prosthetic total arthroplasty of the hip 08/24/2014 Osteoarthritis 03/30/2011 08/24/2014 Left hip pain 11/14/2010 08/24/2014 documented as of this encounter (statuses as of 10/09/2022) [address]30-2021 History of Past illness Narrative* Problem Noted Date Resolved Date 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 11/29/2021 Abnormal mammogram, unspecified 07/16/2013 08/24/2014 S/P prosthetic total arthroplasty of the hip 08/24/2014 Osteoarthritis 03/30/2011 08/24/2014 Left hip pain 11/14/2010 08/24/2014 documented as of this encounter (statuses as of 10/10/2022) [address]30-2021 History of Past illness Narrative* Problem Noted Date Resolved Date 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 11/29/2021 Abnormal mammogram, unspecified 07/16/2013 08/24/2014 S/P prosthetic total arthroplasty of the hip 08/24/2014 Osteoarthritis 03/30/2011 08/24/2014 Left hip pain 11/14/2010 08/24/2014 documented as of this encounter (statuses as of 10/10/2022) [address]30-2021 History of Past illness Narrative* Problem Noted Date Resolved Date 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 11/29/2021 Abnormal mammogram, unspecified 07/16/2013 08/24/2014 S/P prosthetic total arthroplasty of the hip 08/24/2014 Osteoarthritis 03/30/2011 08/24/2014 Left hip pain 11/14/2010 08/24/2014 documented as of this encounter (statuses as of 11/08/2022) [address]30-2021 History of Past illness Narrative* Problem Noted Date Resolved Date 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 11/29/2021 Abnormal mammogram, unspecified 07/16/2013 08/24/2014 S/P prosthetic total arthroplasty of the hip 08/24/2014 Osteoarthritis 03/30/2011 08/24/2014 Left hip pain 11/14/2010 08/24/2014 documented as of this encounter (statuses as of 11/14/2022) [address]30-2021 History of Past illness Narrative* Problem Noted Date Resolved Date 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 11/29/2021 Abnormal mammogram, unspecified 07/16/2013 08/24/2014 S/P prosthetic total arthroplasty of the hip 08/24/2014 Osteoarthritis 03/30/2011 08/24/2014 Left hip pain 11/14/2010 08/24/2014 documented as of this encounter (statuses as of 11/16/2022) [address]30-2021 History of Past illness Narrative* Problem Noted Date Resolved Date 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 11/29/2021 Abnormal mammogram, unspecified 07/16/2013 08/24/2014 S/P prosthetic total arthroplasty of the hip 08/24/2014 Osteoarthritis 03/30/2011 08/24/2014 Left hip pain 11/14/2010 08/24/2014 documented as of this encounter (statuses as of 11/17/2022) [address]30-2021 History of Past illness Narrative* Problem Noted Date Resolved Date 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 11/29/2021 Abnormal mammogram, unspecified 07/16/2013 08/24/2014 S/P prosthetic total arthroplasty of the hip 08/24/2014 Osteoarthritis 03/30/2011 08/24/2014 Left hip pain 11/14/2010 08/24/2014 documented as of this encounter (statuses as of 11/17/2022) [address]30-2021 History of Past illness Narrative* Problem Noted Date Resolved Date 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 11/29/2021 Abnormal mammogram, unspecified 07/16/2013 08/24/2014 S/P prosthetic total arthroplasty of the hip 08/24/2014 Osteoarthritis 03/30/2011 08/24/2014 Left hip pain 11/14/2010 08/24/2014 documented as of this encounter (statuses as of 12/03/2022) [address]30-2021 History of Past illness Narrative* Problem Noted Date Resolved Date 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 11/29/2021 Abnormal mammogram, unspecified 07/16/2013 08/24/2014 S/P prosthetic total arthroplasty of the hip 08/24/2014 Osteoarthritis 03/30/2011 08/24/2014 Left hip pain 11/14/2010 08/24/2014 documented as of this encounter (statuses as of 12/05/2022) [address]30-2021 History of Past illness Narrative* Problem Noted Date Resolved Date 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 11/29/2021 Abnormal mammogram, unspecified 07/16/2013 08/24/2014 S/P prosthetic total arthroplasty of the hip 08/24/2014 Osteoarthritis 03/30/2011 08/24/2014 Left hip pain 11/14/2010 08/24/2014 documented as of this encounter (statuses as of 12/19/2022) [address]30-2021 History of Past illness Narrative* Problem Noted Date Resolved Date 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 11/29/2021 Abnormal mammogram, unspecified 07/16/2013 08/24/2014 S/P prosthetic total arthroplasty of the hip 08/24/2014 Osteoarthritis 03/30/2011 08/24/2014 Left hip pain 11/14/2010 08/24/2014 documented as of this encounter (statuses as of 12/20/2022) [address]30-2021 History of Past illness Narrative* Problem Noted Date Resolved Date 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 11/29/2021 Abnormal mammogram, unspecified 07/16/2013 08/24/2014 S/P prosthetic total arthroplasty of the hip 08/24/2014 Osteoarthritis 03/30/2011 08/24/2014 Left hip pain 11/14/2010 08/24/2014 documented as of this encounter (statuses as of 12/20/2022) [address]30-2021 History of Past illness Narrative* Problem Noted Date Resolved Date 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 11/29/2021 Abnormal mammogram, unspecified 07/16/2013 08/24/2014 S/P prosthetic total arthroplasty of the hip 08/24/2014 Osteoarthritis 03/30/2011 08/24/2014 Left hip pain 11/14/2010 08/24/2014 documented as of this encounter (statuses as of 12/21/2022) [address]30-2021 History of Past illness Narrative* Problem Noted Date Resolved Date 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 11/29/2021 Abnormal mammogram, unspecified 07/16/2013 08/24/2014 S/P prosthetic total arthroplasty of the hip 08/24/2014 Osteoarthritis 03/30/2011 08/24/2014 Left hip pain 11/14/2010 08/24/2014 documented as of this encounter (statuses as of 12/21/2022) [address]30-2021 History of Past illness Narrative* Problem Noted Date Resolved Date 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 11/29/2021 Abnormal mammogram, unspecified 07/16/2013 08/24/2014 S/P prosthetic total arthroplasty of the hip 08/24/2014 Osteoarthritis 03/30/2011 08/24/2014 Left hip pain 11/14/2010 08/24/2014 documented as of this encounter (statuses as of 12/29/2022) [address]30-2021 History of Past illness Narrative* Problem Noted Date Resolved Date 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 11/29/2021 Abnormal mammogram, unspecified 07/16/2013 08/24/2014 S/P prosthetic total arthroplasty of the hip 08/24/2014 Osteoarthritis 03/30/2011 08/24/2014 Left hip pain 11/14/2010 08/24/2014 documented as of this encounter (statuses as of 01/03/2023) [address]30-2021 History of Past illness Narrative* Problem Noted Date Resolved Date 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 11/29/2021 Abnormal mammogram, unspecified 07/16/2013 08/24/2014 S/P prosthetic total arthroplasty of the hip 08/24/2014 Osteoarthritis 03/30/2011 08/24/2014 Left hip pain 11/14/2010 08/24/2014 documented as of this encounter (statuses as of 01/29/2023) [address]30-2021 History of Past illness Narrative* Problem Noted Date Resolved Date 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 11/29/2021 Abnormal mammogram, unspecified 07/16/2013 08/24/2014 S/P prosthetic total arthroplasty of the hip 08/24/2014 Osteoarthritis 03/30/2011 08/24/2014 Left hip pain 11/14/2010 08/24/2014 documented as of this encounter (statuses as of 02/15/2023) [address]30-2021 History of Past illness Narrative* Problem Noted Date Diagnosed Date Resolved Date 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 11/29/2021 Abnormal mammogram, unspecified 07/16/2013 08/24/2014 S/P prosthetic total arthroplasty of the hip 1 08/24/2014 Osteoarthritis 03/30/2011 08/24/2014 Left hip pain 11/14/2010 08/24/2014 documented as of this encounter (statuses as of 05/24/2023) [address]30-2021 History of Past illness Narrative* Problem Noted Date Diagnosed Date Resolved Date 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 11/29/2021 Abnormal mammogram, unspecified 07/16/2013 08/24/2014 S/P prosthetic total arthroplasty of the hip 1 08/24/2014 Osteoarthritis 03/30/2011 08/24/2014 Left hip pain 11/14/2010 08/24/2014 documented as of this encounter (statuses as of 06/07/2023) [address]30-2021 History of Past illness Narrative* Problem Noted Date Diagnosed Date Resolved Date 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 11/29/2021 Abnormal mammogram, unspecified 07/16/2013 08/24/2014 S/P prosthetic total arthroplasty of the hip 1 08/24/2014 Osteoarthritis 03/30/2011 08/24/2014 Left hip pain 11/14/2010 08/24/2014 documented as of this encounter (statuses as of 06/12/2023) [address]30-2021 History of Past illness Narrative* Problem Noted Date Diagnosed Date Resolved Date 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 11/29/2021 Abnormal mammogram, unspecified 07/16/2013 08/24/2014 S/P prosthetic total arthroplasty of the hip 1 08/24/2014 Osteoarthritis 03/30/2011 08/24/2014 Left hip pain 11/14/2010 08/24/2014 documented as of this encounter (statuses as of 06/16/2023) [address]30-2021 History of Past illness Narrative* Problem Noted Date Diagnosed Date Resolved Date 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 11/29/2021 Abnormal mammogram, unspecified 07/16/2013 08/24/2014 S/P prosthetic total arthroplasty of the hip 1 08/24/2014 Osteoarthritis 03/30/2011 08/24/2014 Left hip pain 11/14/2010 08/24/2014 documented as of this encounter (statuses as of 06/20/2023) [address]30-2021 History of Past illness Narrative* Problem Noted Date Diagnosed Date Resolved Date 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 11/29/2021 Abnormal mammogram, unspecified 07/16/2013 08/24/2014 S/P prosthetic total arthroplasty of the hip 1 08/24/2014 Osteoarthritis 03/30/2011 08/24/2014 Left hip pain 11/14/2010 08/24/2014 documented as of this encounter (statuses as of 06/27/2023) [address]30-2021 History of Past illness Narrative* Problem Noted Date Diagnosed Date Resolved Date 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 11/29/2021 Abnormal mammogram, unspecified 07/16/2013 08/24/2014 S/P prosthetic total arthroplasty of the hip 1 08/24/2014 Osteoarthritis 03/30/2011 08/24/2014 Left hip pain 11/14/2010 08/24/2014 documented as of this encounter (statuses as of 07/03/2023) [address]30-2021 History of Past illness Narrative* Problem Noted Date Diagnosed Date Resolved Date 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 11/29/2021 Abnormal mammogram, unspecified 07/16/2013 08/24/2014 S/P prosthetic total arthroplasty of the hip 1 08/24/2014 Osteoarthritis 03/30/2011 08/24/2014 Left hip pain 11/14/2010 08/24/2014 documented as of this encounter (statuses as of 09/12/2023) [facility] Diagnosis Acute pain of right shoulder Pain and swelling of right shoulder [facility] Calcific bursitis of shoulder- Primary Calcium deposits in tendon and bursa Arthritis of right acromioclavicular joint Unspecified arthropathy, shoulder region [facility] Diagnosis Acute pain of right shoulder- Primary Pain and swelling of right shoulder [facility] Diagnosis Cluneal neuropathy- Primary Lumbar spondylosis Lumbosacral spondylosis without myelopathy [facility] Diagnosis Lumbar spondylosis Lumbosacral spondylosis without myelopathy [facility] Diagnosis Cluneal neuropathy- Primary [facility] Diagnosis Encounter for gynecological examination (general) (routine) without abnormal findings- Primary Spongiotic dermatitis Contact dermatitis and other eczema, due to unspecified cause Vaginal atrophy Postmenopausal atrophic vaginitis Postmenopausal Asymptomatic postmenopausal status (age-related) (natural) [facility] Diagnosis Lumbar spondylosis- Primary Lumbosacral spondylosis without myelopathy RLS (restless legs syndrome) Restless legs syndrome (RLS) Vaginal itching Pruritus of genital organs Fatigue, unspecified type Hypothyroidism, unspecified type History of COVID-19 Brain fog [facility] Diagnosis Cluneal neuropathy- Primary [facility] Diagnosis Vaginal discharge- Primary Leukorrhea, not specified as infective Vulvar burning Unspecified symptom associated with female genital organs Vaginal atrophy Postmenopausal atrophic vaginitis [facility] Diagnosis Cluneal neuropathy- Primary Lumbar spondylosis Lumbosacral spondylosis without myelopathy [facility] Diagnosis Vulvar burning- Primary Unspecified symptom associated with female genital organs Vaginal atrophy Postmenopausal atrophic vaginitis Vulvar varicose veins Vulval varices [facility] Diagnosis 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 [facility] Diagnosis Leg cramping- Primary Cramp of limb Hypothyroidism, unspecified type Multiple joint pain Pain in joint, multiple sites Pruritic disorder Unspecified pruritic disorder Fatigue, unspecified type Paresthesia Disturbance of skin sensation Nausea Nausea alone Vaginal itching Pruritus of genital organs Lumbar spondylosis Lumbosacral spondylosis without myelopathy [facility] Diagnosis Cluneal neuropathy- Primary [facility] Diagnosis Leg cramping- Primary Cramp of limb Nausea Nausea alone Paresthesia Disturbance of skin sensation [facility] Diagnosis Yeast vaginitis- Primary Candidiasis of vulva and vagina Vulvar burning Unspecified symptom associated with female genital organs [facility] Diagnosis 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 [facility] Diagnosis Cluneal neuropathy- Primary Spinal stenosis of lumbar region with neurogenic claudication Spinal stenosis, lumbar region, with neurogenic claudication [facility] Diagnosis Varicose veins of both lower extremities with pain- Primary Varicose veins of lower extremities with other complications Nausea Nausea alone Screening for colon cancer Special screening for malignant neoplasms, colon Interstitial pulmonary disease (HCC) Postinflammatory pulmonary fibrosis Pulmonary fibrosis (HCC) Postinflammatory pulmonary fibrosis Bronchiectasis without complication (HCC) Bronchiectasis without acute exacerbation 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 Hypothyroidism, unspecified type Brain fog Fatigue, unspecified type Lumbar spondylosis Lumbosacral spondylosis without myelopathy [facility] Diagnosis Lumbar spondylosis- Primary Lumbosacral spondylosis without myelopathy Spinal stenosis of lumbar region with neurogenic claudication Spinal stenosis, lumbar region, with neurogenic claudication [facility] Diagnosis Lumbar spondylosis- Primary Lumbosacral spondylosis without myelopathy Multiple joint pain Pain in joint, multiple sites [facility] Diagnosis Vaginal discharge- Primary Leukorrhea, not specified as infective Vaginal itching Pruritus of genital organs [facility] Diagnosis Bacterial vaginosis- Primary Vaginitis and vulvovaginitis, unspecified [facility]* Diagnosis Dysuria- Primary [facility]* Diagnosis Dysuria- Primary Vaginal burning Other specified symptom associated with female genital organs Vaginal odor Unspecified symptom associated with female genital organs Bacterial vaginitis Vaginitis and vulvovaginitis, unspecified Vaginal atrophy Postmenopausal atrophic vaginitis Urethral caruncle documented in this encounter [facility] note* Diagnosis Paresthesia of right foot- Primary Disturbance of skin sensation documented in this encounter [facility] note* Diagnosis Lumbar spondylosis Lumbosacral spondylosis without myelopathy documented in this encounter [facility] note* Diagnosis Vertigo- Primary Dizziness and giddiness Balance disorder Other symptoms involving nervous and musculoskeletal systems Gait disorder Abnormality of gait documented in this encounter [facility] note* Diagnosis Vertigo- Primary Dizziness and giddiness Balance disorder Other symptoms involving nervous and musculoskeletal systems Gait disorder Abnormality of gait documented in this encounter [facility] note* Diagnosis Vertigo- Primary Dizziness and giddiness Balance disorder Other symptoms involving nervous and musculoskeletal systems Gait disorder Abnormality of gait documented in this encounter [facility] note* Diagnosis Hypothyroidism, unspecified type- Primary Dizziness Dizziness and giddiness Nausea Nausea alone Underweight Gastroesophageal reflux disease with esophagitis without hemorrhage Fatigue, unspecified type Multiple joint pain Pain in joint, multiple sites Vaginal itching Pruritus of genital organs documented in this encounter [facility] for referral (narrative)* Diagnostic Procedure Only (Routine) - Closed Specialty Diagnoses / Procedures Referred By Contac t Referred To Contact XR IMAGING Diagnoses Acute pain of right shoulder Pain and swelling of right shoulder Procedures XR SHOULDER GENERAL 3V OR MORE AP/TRUE AP/OTHER RIGHT RADEX SHOULDER COMPLETE MINIMUM 2 VIEWS Abdullahi Koehler DO [address] [place] [address] Xr Imaging Referral ID Status Reason Start Date Expiration Date V isits Requested Visits Authorized [id number] Closed Auto-Generate d Referral 02/14/2022 03/16/2023 1 1 [facility] for referral (narrative)* Diagnostic Procedure Only (Routine) - Closed Specialty Diagnoses / Procedures Referred By Contac t Referred To Contact XR IMAGING Diagnoses Acute pain of right shoulder Pain and swelling of right shoulder Procedures XR SHOULDER GENERAL 3V OR MORE AP/TRUE AP/OTHER RIGHT RADEX SHOULDER COMPLETE MINIMUM 2 VIEWS Abdullahi Koehler, DO [address] [place] [address] Xr Imaging Referral ID Status Reason Start Date Expiration Date V isits Requested Visits Authorized [id number] Closed Auto-Generate d Referral 02/14/2022 03/16/2023 1 1 [facility] for referral (narrative)* Diagnostic Procedure Only (Routine) - Closed Specialty Diagnoses / Procedures Referred By Contac t Referred To Contact XR IMAGING Diagnoses Lumbar spondylosis Procedures XR LUMBAR MOTION 4V AP/LAT/ FLEX/EXT RADEX SPINE LUMBOSACRAL MINIMUM 4 VIEWS Altagracia Hawthorne MD [address] [place] [address] Xr Imaging Referral ID Status Reason Start Date Expiration Date V isits Requested Visits Authorized [id number] Closed Auto-Generate d Referral 05/04/2022 06/03/2023 1 1 [facility] for referral (narrative)* Diagnostic Procedure Only (Routine) - Closed Specialty Diagnoses / Procedures Referred By Contac t Referred To Contact XR IMAGING Diagnoses Lumbar spondylosis Procedures XR LUMBAR MOTION 4V AP/LAT/ FLEX/EXT RADEX SPINE LUMBOSACRAL MINIMUM 4 VIEWS Altagracia Hawthorne MD [address] [place] [address] Xr Imaging Referral ID Status Reason Start Date Expiration Date V isits Requested Visits Authorized [id number] Closed Auto-Generate d Referral 05/04/2022 06/03/2023 1 1 [facility] for visit Narrative* Diagnostic Procedure Only (Routine) - Closed Specialty Diagnoses / Procedures Referred By Contac t Referred To Contact XR IMAGING Diagnoses Acute pain of right shoulder Pain and swelling of right shoulder Procedures XR SHOULDER GENERAL 3V OR MORE AP/TRUE AP/OTHER RIGHT RADEX SHOULDER COMPLETE MINIMUM 2 VIEWS Abdullahi Koehler, DO [address] [place] [address] Xr Imaging Referral ID Status Reason Start Date Expiration Date V isits Requested Visits Authorized [id number] Closed Auto-Generate d Referral 02/14/2022 03/16/2023 1 1 [facility] Diagnostic Procedure Only (Routine) - Closed Specialty Diagnoses / Procedures Referred By Contac t Referred To Contact XR IMAGING Diagnoses Lumbar spondylosis Procedures XR LUMBAR MOTION 4V AP/LAT/ FLEX/EXT RADEX SPINE LUMBOSACRAL MINIMUM 4 VIEWS Altagracia Hawthorne MD [address] [place] [id number] Xr Imaging Referral ID Status Reason Start Date Expiration Date V isits Requested Visits Authorized [id number] Closed Auto-Generate d Referral 05/04/2022 06/03/2023 1 1 [facility] Summary Purpose Family History No Family History Records FoundNo Family History Records FoundNo Family History Records FoundNo Family History Records Found Advance Directives No Advanced Directives Records FoundDocuments on File Type Date Recorded 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 Advance Directive(s) 03/03/2019 11:19 AM Documents on File Type Date Recorded 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 Advance Directive(s) 03/03/2019 11:19 AM Medications Administered Section Inactive Administered Medications - up to 3 most recent administrations Medication Order MAR Action Action Date Dose Rate Site bupivacaine(PF) 0.75 % (7.5 mg/mL) 22.5 mg injection (MARCAINE PF) 22.5 mg (3 mL), OTHER, ONCE, 1 dose, On Sun07/03/22 at 1100 Given by [facility] 07/03/2022 11:45 AM EDT 22.5 mg iohexol 300 mg IV injection (OMNIPAQUE 300) 300 mg, OTHER, ONCE, 1 dose, On Sun07/03/22 at 1100 Given by [facility] 07/03/2022 11:45 AM EDT 300 mg lidocaine (PF) 10 mg/mL (1 %) 50 mg injection (XYLOCAINE) 50 mg (5 mL), OTHER, ONCE, 1 dose, On Sun07/03/22 at 1100 Given by [facility] 07/03/2022 11:46 AM EDT 50 mg methylPREDNISolone acetate 40 mg injection (DEPO-Medrol) 40 mg, OTHER, ONCE, 1 dose, On Sun07/03/22 at 1100 Given by [facility] 07/03/2022 11:46 AM EDT 40 mg Inactive Administered Medications - up to 3 most recent administrations Medication Order MAR Action Action Date Dose Rate Site 0.9% NaCl 10 mL flush 10 mL, INTRAVENOUS, ONCE, 1 dose, On Sun09/19/22 at 1100, Add To Bag After All Drug Is In The Tubing Given by [facility] 09/19/2022 11:14 AM EST 10 mL lidocaine (PF) 20 mg/mL (2 %) 200 mg injection (XYLOCAINE) 200 mg (10 mL), OTHER, ONCE, 1 dose, On Sun09/19/22 at 1100 Given by [facility] 09/19/2022 11:14 AM EST 200 mg methylPREDNISolone acetate 40 mg injection (DEPO-Medrol) 40 mg, OTHER, ONCE, 1 dose, On Sun09/19/22 at 1100 Given by [facility] 09/19/2022 11:14 AM EST 40 mg Reason for Referral Specialty Diagnoses / Procedures Referred By Contac t Referred To Contact Diagnoses Leg cramping Multiple joint pain Pruritic disorder Fatigue, unspecified type Paresthesia Nausea Procedures CONSULT TO FUNCTIONAL MEDICINE OFFICE/OUTPATIENT [facility] 60-74 MINUTES Abdullahi Koehler, DO [address] [place] [address] Referral ID Status Reason Start Date Expiration Date Visits Requested Visits Authorized [id number] Authorized PCP Requested Referral 2 09/11/2023 1 1 Specialty Diagnoses / Procedures Referred By Contac t Referred To Contact MR IMAGING Diagnoses Spinal stenosis of lumbar region with neurogenic claudication Procedures MRI LUMBAR SPINE WO IVCON MRI SPINAL CANAL LUMBAR W/O CONTRAST MATERIAL Whitley Beck, PRODUCTION SCHEDULER.SCREEN TENDER HELPER [address] [place] [address] Mr Imaging Referral ID Status Reason Start Date Expiration Date Visits Requested Visits Authorized [id number] Authorized Auto-Generat ed Referral 2 11/09/2023 1 1 Specialty Diagnoses / Procedures Referred By Contac t Referred To Contact Gastroenterology Diagnoses Nausea Screening for colon cancer Procedures CONSULT TO GASTROENTEROLOGY OFFICE/OUTPATIENT [facility] 60-74 MINUTES Abdullahi Koehler DO [address] [place] [address] Referral ID Status Reason Start Date Expiration Date Visits Requested Visits Authorized [id number] Authorized PCP Requested Referral 11/08/2022 11/08/2023 1 1 Specialty Diagnoses / Procedures Referred By Contac t Referred To Contact Vascular Surgery Diagnoses Varicose veins of both lower extremities with pain Procedures CONSULT TO VASCULAR SURGERY OFFICE/OUTPATIENT [facility] 60-74 MINUTES Abdullahi Koehler, DO [address] [place] [address] Referral ID Status Reason Start Date Expiration Date Visits Requested Visits Authorized [id number] Authorized PCP Requested Referral 11/08/2022 11/08/2023 1 1 Specialty Diagnoses / Procedures Referred By Contac t Referred To Contact [facility] Diagnoses Lumbar spondylosis Multiple joint pain Procedures CONSULT TO PAIN MGT OFFICE/OUTPATIENT [facility] 60-74 MINUTES Melisa Gaines APRN.SCREEN TENDER HELPER [address] [place] [address] [facility] [address] [place] [address] Referral ID Status Reason Start Date Expiration Date V isits Requested Visits Authorized [id number] Closed PCP Requested Referral 11/17/2022 11/17/2023 1 1 Specialty Diagnoses / Procedures Referred By Contac t Referred To Contact Neurology Diagnoses Paresthesia of right foot Procedures CONSULT TO NEUROLOGY OFFICE/OUTPATIENT [facility] 60-74 MINUTES Abdullahi Koehler, DO [address] [place] [address] Referral ID Status Reason Start Date Expiration Date Visits Requested Visits Authorized [id number] Authorized PCP Requested Referral 06/05/2023 06/04/2024 1 1 Additional Source Comments INFORMATION SOURCE (unrecogn ized section and content) DATE CREATED AUTHOR AUTHOR'S ORGANIZ ATION 05/13/2022 [facility] DATE CREATED AUTHOR AUTHOR'S ORGANIZ ATION 11/17/2022 [facility] DATE CREATED AUTHOR AUTHOR'S ORGANIZ ATION 10/31/2023 [facility] Source Comments (unrecognize d section and content) In the event this informatio n is protected by the Federal Confidentiality of Alcohol and Drug Abuse Patient Records regulations: The Federal rules restrict any use of the information to criminally investigate or prosecute any alcohol or drug abuse patient.[facility] the event this information is protected by the Federal Confidentiality of Alcohol and Drug Abuse Patient Records regulations: The Federal rules restrict any use of the information to criminally investigate or prosecute any alcohol or drug abuse patient.[facility] CenterIn the event this information is protected by the Federal Confidentiality of Alcohol and Drug Abuse Patient Records regulations: The Federal rules restrict any use of the information to criminally investigate or prosecute any alcohol or drug abuse patient.[facility] CenterIn the event this information is protected by the Federal Confidentiality of Alcohol and Drug Abuse Patient Records regulations: The Federal rules restrict any use of the information to criminally investigate or prosecute any alcohol or drug abuse patient.[facility] CenterIn the event this information is protected by the Federal Confidentiality of Alcohol and Drug Abuse Patient Records regulations: The Federal rules restrict any use of the information to criminally investigate or prosecute any alcohol or drug abuse patient.[facility] CenterIn the event this information is protected by the Federal Confidentiality of Alcohol and Drug Abuse Patient Records regulations: The Federal rules restrict any use of the information to criminally investigate or prosecute any alcohol or drug abuse patient.[facility] CenterIn the event this information is protected by the Federal Confidentiality of Alcohol and Drug Abuse Patient Records regulations: The Federal rules restrict any use of the information to criminally investigate or prosecute any alcohol or drug abuse patient.[facility] CenterIn the event this information is protected by the Federal Confidentiality of Alcohol and Drug Abuse Patient Records regulations: The Federal rules restrict any use of the information to criminally investigate or prosecute any alcohol or drug abuse patient.[facility] CenterIn the event this information is protected by the Federal Confidentiality of Alcohol and Drug Abuse Patient Records regulations: The Federal rules restrict any use of the information to criminally investigate or prosecute any alcohol or drug abuse patient.[facility] CenterIn the event this information is protected by the Federal Confidentiality of Alcohol and Drug Abuse Patient Records regulations: The Federal rules restrict any use of the information to criminally investigate or prosecute any alcohol or drug abuse patient.[facility] CenterIn the event this information is protected by the Federal Confidentiality of Alcohol and Drug Abuse Patient Records regulations: The Federal rules restrict any use of the information to criminally investigate or prosecute any alcohol or drug abuse patient.[facility] CenterIn the event this information is protected by the Federal Confidentiality of Alcohol and Drug Abuse Patient Records regulations: The Federal rules restrict any use of the information to criminally investigate or prosecute any alcohol or drug abuse patient.[facility] CenterIn the event this information is protected by the Federal Confidentiality of Alcohol and Drug Abuse Patient Records regulations: The Federal rules restrict any use of the information to criminally investigate or prosecute any alcohol or drug abuse patient.[facility] CenterIn the event this information is protected by the Federal Confidentiality of Alcohol and Drug Abuse Patient Records regulations: The Federal rules restrict any use of the information to criminally investigate or prosecute any alcohol or drug abuse patient.[facility] CenterIn the event this information is protected by the Federal Confidentiality of Alcohol and Drug Abuse Patient Records regulations: The Federal rules restrict any use of the information to criminally investigate or prosecute any alcohol or drug abuse patient.[facility] CenterIn the event this information is protected by the Federal Confidentiality of Alcohol and Drug Abuse Patient Records regulations: The Federal rules restrict any use of the information to criminally investigate or prosecute any alcohol or drug abuse patient.[facility] CenterIn the event this information is protected by the Federal Confidentiality of Alcohol and Drug Abuse Patient Records regulations: The Federal rules restrict any use of the information to criminally investigate or prosecute any alcohol or drug abuse patient.[facility] CenterIn the event this information is protected by the Federal Confidentiality of Alcohol and Drug Abuse Patient Records regulations: The Federal rules restrict any use of the information to criminally investigate or prosecute any alcohol or drug abuse patient.[facility] CenterIn the event this information is protected by the Federal Confidentiality of Alcohol and Drug Abuse Patient Records regulations: The Federal rules restrict any use of the information to criminally investigate or prosecute any alcohol or drug abuse patient.[facility] CenterIn the event this information is protected by the Federal Confidentiality of Alcohol and Drug Abuse Patient Records regulations: The Federal rules restrict any use of the information to criminally investigate or prosecute any alcohol or drug abuse patient.[facility] CenterIn the event this information is protected by the Federal Confidentiality of Alcohol and Drug Abuse Patient Records regulations: The Federal rules restrict any use of the information to criminally investigate or prosecute any alcohol or drug abuse patient.[facility] CenterIn the event this information is protected by the Federal Confidentiality of Alcohol and Drug Abuse Patient Records regulations: The Federal rules restrict any use of the information to criminally investigate or prosecute any alcohol or drug abuse patient.[facility] CenterIn the event this information is protected by the Federal Confidentiality of Alcohol and Drug Abuse Patient Records regulations: The Federal rules restrict any use of the information to criminally investigate or prosecute any alcohol or drug abuse patient.[facility] CenterIn the event this information is protected by the Federal Confidentiality of Alcohol and Drug Abuse Patient Records regulations: The Federal rules restrict any use of the information to criminally investigate or prosecute any alcohol or drug abuse patient.[facility] CenterIn the event this information is protected by the Federal Confidentiality of Alcohol and Drug Abuse Patient Records regulations: The Federal rules restrict any use of the information to criminally investigate or prosecute any alcohol or drug abuse patient.[facility] CenterIn the event this information is protected by the Federal Confidentiality of Alcohol and Drug Abuse Patient Records regulations: The Federal rules restrict any use of the information to criminally investigate or prosecute any alcohol or drug abuse patient.[facility] CenterIn the event this information is protected by the Federal Confidentiality of Alcohol and Drug Abuse Patient Records regulations: The Federal rules restrict any use of the information to criminally investigate or prosecute any alcohol or drug abuse patient.[facility] CenterIn the event this information is protected by the Federal Confidentiality of Alcohol and Drug Abuse Patient Records regulations: The Federal rules restrict any use of the information to criminally investigate or prosecute any alcohol or drug abuse patient.[facility] CenterIn the event this information is protected by the Federal Confidentiality of Alcohol and Drug Abuse Patient Records regulations: The Federal rules restrict any use of the information to criminally investigate or prosecute any alcohol or drug abuse patient.[facility] CenterIn the event this information is protected by the Federal Confidentiality of Alcohol and Drug Abuse Patient Records regulations: The Federal rules restrict any use of the information to criminally investigate or prosecute any alcohol or drug abuse patient.[facility] CenterIn the event this information is protected by the Federal Confidentiality of Alcohol and Drug Abuse Patient Records regulations: The Federal rules restrict any use of the information to criminally investigate or prosecute any alcohol or drug abuse patient.[facility] CenterIn the event this information is protected by the Federal Confidentiality of Alcohol and Drug Abuse Patient Records regulations: The Federal rules restrict any use of the information to criminally investigate or prosecute any alcohol or drug abuse patient.[facility] CenterIn the event this information is protected by the Federal Confidentiality of Alcohol and Drug Abuse Patient Records regulations: The Federal rules restrict any use of the information to criminally investigate or prosecute any alcohol or drug abuse patient.[facility] CenterIn the event this information is protected by the Federal Confidentiality of Alcohol and Drug Abuse Patient Records regulations: The Federal rules restrict any use of the information to criminally investigate or prosecute any alcohol or drug abuse patient.[facility] CenterIn the event this information is protected by the Federal Confidentiality of Alcohol and Drug Abuse Patient Records regulations: The Federal rules restrict any use of the information to criminally investigate or prosecute any alcohol or drug abuse patient.[facility] CenterIn the event this information is protected by the Federal Confidentiality of Alcohol and Drug Abuse Patient Records regulations: The Federal rules restrict any use of the information to criminally investigate or prosecute any alcohol or drug abuse patient.[facility] CenterIn the event this information is protected by the Federal Confidentiality of Alcohol and Drug Abuse Patient Records regulations: The Federal rules restrict any use of the information to criminally investigate or prosecute any alcohol or drug abuse patient.[facility] CenterIn the event this information is protected by the Federal Confidentiality of Alcohol and Drug Abuse Patient Records regulations: The Federal rules restrict any use of the information to criminally investigate or prosecute any alcohol or drug abuse patient.[facility] CenterIn the event this information is protected by the Federal Confidentiality of Alcohol and Drug Abuse Patient Records regulations: The Federal rules restrict any use of the information to criminally investigate or prosecute any alcohol or drug abuse patient.[facility] CenterIn the event this information is protected by the Federal Confidentiality of Alcohol and Drug Abuse Patient Records regulations: The Federal rules restrict any use of the information to criminally investigate or prosecute any alcohol or drug abuse patient.[facility] CenterIn the event this information is protected by the Federal Confidentiality of Alcohol and Drug Abuse Patient Records regulations: The Federal rules restrict any use of the information to criminally investigate or prosecute any alcohol or drug abuse patient.[facility] CenterIn the event this information is protected by the Federal Confidentiality of Alcohol and Drug Abuse Patient Records regulations: The Federal rules restrict any use of the information to criminally investigate or prosecute any alcohol or drug abuse patient.[facility] CenterIn the event this information is protected by the Federal Confidentiality of Alcohol and Drug Abuse Patient Records regulations: The Federal rules restrict any use of the information to criminally investigate or prosecute any alcohol or drug abuse patient.[facility] CenterIn the event this information is protected by the Federal Confidentiality of Alcohol and Drug Abuse Patient Records regulations: The Federal rules restrict any use of the information to criminally investigate or prosecute any alcohol or drug abuse patient.[facility] CenterIn the event this information is protected by the Federal Confidentiality of Alcohol and Drug Abuse Patient Records regulations: The Federal rules restrict any use of the information to criminally investigate or prosecute any alcohol or drug abuse patient.[facility] CenterIn the event this information is protected by the Federal Confidentiality of Alcohol and Drug Abuse Patient Records regulations: The Federal rules restrict any use of the information to criminally investigate or prosecute any alcohol or drug abuse patient.[facility] CenterIn the event this information is protected by the Federal Confidentiality of Alcohol and Drug Abuse Patient Records regulations: The Federal rules restrict any use of the information to criminally investigate or prosecute any alcohol or drug abuse patient.[facility] CenterIn the event this information is protected by the Federal Confidentiality of Alcohol and Drug Abuse Patient Records regulations: The Federal rules restrict any use of the information to criminally investigate or prosecute any alcohol or drug abuse patient.[facility] CenterIn the event this information is protected by the Federal Confidentiality of Alcohol and Drug Abuse Patient Records regulations: The Federal rules restrict any use of the information to criminally investigate or prosecute any alcohol or drug abuse patient.[facility] CenterIn the event this information is protected by the Federal Confidentiality of Alcohol and Drug Abuse Patient Records regulations: The Federal rules restrict any use of the information to criminally investigate or prosecute any alcohol or drug abuse patient.[facility] CenterIn the event this information is protected by the Federal Confidentiality of Alcohol and Drug Abuse Patient Records regulations: The Federal rules restrict any use of the information to criminally investigate or prosecute any alcohol or drug abuse patient.[facility] CenterIn the event this information is protected by the Federal Confidentiality of Alcohol and Drug Abuse Patient Records regulations: The Federal rules restrict any use of the information to criminally investigate or prosecute any alcohol or drug abuse patient.[facility] CenterIn the event this information is protected by the Federal Confidentiality of Alcohol and Drug Abuse Patient Records regulations: The Federal rules restrict any use of the information to criminally investigate or prosecute any alcohol or drug abuse patient.[facility] CenterIn the event this information is protected by the Federal Confidentiality of Alcohol and Drug Abuse Patient Records regulations: The Federal rules restrict any use of the information to criminally investigate or prosecute any alcohol or drug abuse patient.[facility] CenterIn the event this information is protected by the Federal Confidentiality of Alcohol and Drug Abuse Patient Records regulations: The Federal rules restrict any use of the information to criminally investigate or prosecute any alcohol or drug abuse patient.[facility] CenterIn the event this information is protected by the Federal Confidentiality of Alcohol and Drug Abuse Patient Records regulations: The Federal rules restrict any use of the information to criminally investigate or prosecute any alcohol or drug abuse patient.[facility] CenterIn the event this information is protected by the Federal Confidentiality of Alcohol and Drug Abuse Patient Records regulations: The Federal rules restrict any use of the information to criminally investigate or prosecute any alcohol or drug abuse patient.[facility] Reason for Visit (unrecogniz ed section and content) Reason Comments New Patient Right shoulder pain REF: Koehler x-ray: 02/14/2022 Reason Comments Orders Reason Onset Date Comments Opened In Error 03/07/2022 Reason Comments New Patient Reason Comments Injections Reason Comments Future Appointment Reason Comments Covid19 Concern Reason Comments Well Woman Reason Comments Follow Up 3 months Reason Comments Procedure Reason Comments Procedure Follow Up Reason Comments Follow Up Reason Comments Patient Update Injection questions Reason Comments Follow Up Vulvar dermatitis Reason Comments Consult Reason Comments F/U 3 Month Reason Comments Appointment Orders Reason Comments Patient Question Reason Comments Orders Reason Comments Appointment Patient Question Patient Update Reason Comments Procedure Follow Up Dr. Hawthorne 09-19-22 Reason Comments Vaginal Problem Reason Comments Established Patient Follow Up Reason Comments Low Back Pain Follow Up [facility] RFA Reason Comments Appointment MRI Reason Comments Follow Up Reason Comments image request Reason Comments Follow Up Back Pain Mid and Lower Reason Comments Consult Reason Comments Patient Update Reason Comments Orders Patient Question Reason Comments Medication Problem Reason Comments Dr Vikas Johnson office requesting records Reason Onset Date Comments Refill Request 06/12/2023 Reason Comments Physical Therapy Specialty Diagnoses / Procedures Referred By Contac t Referred To Contact [facility] Diagnoses Dizziness Vertigo Balance disorder Gait disorder Procedures CONSULT TO PHYSICAL THERAPY PHYSICAL THERAPY EVALUATION HIGH COMPLEX 45 MINS Abdullahi Koehler, DO [address] [place] [address] [facility] [place] [address] [place] [address] Referral ID Status Reason Start Date Expiration Date Visits Requested Visits Authorized [id number] Authorized PCP Requested Referral Auto-Generate d Referral 05/21/2023 05/20/2024 99 99 Reason Comments PT Progress Note Specialty Diagnoses / Procedures Referred By Contac t Referred To Contact Physical Therapy / PHYSICAL THERAPY Diagnoses DIZZINESS Procedures EST RS PT VESTIBULAR Self O'Peggy Austin, PT Referral ID Status Reason Start Date Expiration Date V isits Requested Visits Authorized [id number] Authorized 10/22/2022 10/21/2023 99 99 Care Teams (unrecognized sec tion and content) Digital Cartographic Technician Relationship Specialty Start Date End Date Abdullahi Koehler DO [address] [place], [place] [id number] PCP - General Family Practice 08/02/16 Digital Cartographic Technician Relationship Specialty Start Date End Date Abdullahi Koehler DO [address] [place], [place] [id number] PCP - General Family Practice 08/02/16 Digital Cartographic Technician Relationship Specialty Start Date End Date Abdullahi Koehler DO [address] [place] [address] PCP - General Family Practice 08/02/16 Digital Cartographic Technician Relationship Specialty Start Date End Date Abdullahi Koehler, DO [address] [place] [address] PCP - General Family Practice 08/02/16 Digital Cartographic Technician Relationship Specialty Start Date End Date Abdullahi Koehler, DO [address] [place] [address] PCP - General Family Practice 08/02/16 Digital Cartographic Technician Relationship Specialty Start Date End Date Abdullahi Koehler, DO [address] [place] [address] PCP - General Family Practice 08/02/16 Digital Cartographic Technician Relationship Specialty Start Date End Date Abdullahi Koehler, DO [address] [place] [address] PCP - General Family Practice 08/02/16 Digital Cartographic Technician Relationship Specialty Start Date End Date Abdullahi Koehler, DO [address] [place] [address] PCP - General Family Practice 08/02/16 Digital Cartographic Technician Relationship Specialty Start Date End Date Abdullahi Koehler, DO [address] [place] [address] PCP - General Family Practice 08/02/16 Digital Cartographic Technician Relationship Specialty Start Date End Date Abdullahi Koehler, DO [address] [place] [address] PCP - General Family Practice 08/02/16 Digital Cartographic Technician Relationship Specialty Start Date End Date Abdullahi Koehler, DO [address] [place] [address] PCP - General Family Practice 08/02/16 Digital Cartographic Technician Relationship Specialty Start Date End Date Abdullahi Koehler, DO [address] [place] [address] PCP - General Family Medicine 08/02/16 Digital Cartographic Technician Relationship Specialty Start Date End Date Abdullahi Koehler, DO [address] [place] [address] PCP - General Family Medicine 08/02/16 Digital Cartographic Technician Relationship Specialty Start Date End Date Abdullahi Koehler, DO [address] [place] [address] PCP - General Family Medicine 08/02/16 Digital Cartographic Technician Relationship Specialty Start Date End Date Abdullahi Koehler, DO [address] [place] [address] PCP - General Family Medicine 08/02/16 Digital Cartographic Technician Relationship Specialty Start Date End Date Abdullahi Koehler, DO [address] [place] [address] PCP - General Family Medicine 08/02/16 Digital Cartographic Technician Relationship Specialty Start Date End Date Abdullahi Koehler, DO [address] [place] [address] PCP - General Family Medicine 08/02/16 Digital Cartographic Technician Relationship Specialty Start Date End Date Abdullahi Koehler, DO [address] [place] [address] PCP - General Family Medicine 08/02/16 Digital Cartographic Technician Relationship Specialty Start Date End Date Abdullahi Koehler, DO [address] [place] [address] PCP - General Family Medicine 08/02/16 Digital Cartographic Technician Relationship Specialty Start Date End Date Abdullahi Koehler, DO [address] [place] [address] PCP - General Family Medicine 08/02/16 Digital Cartographic Technician Relationship Specialty Start Date End Date Abdullahi Koehler, DO [address] [place] [address] PCP - General Family Medicine 08/02/16 Digital Cartographic Technician Relationship Specialty Start Date End Date Abdullahi Koehler, DO [address] [place] [address] PCP - General Family Medicine 08/02/16 Digital Cartographic Technician Relationship Specialty Start Date End Date Abdullahi Koehler, DO [address] [place] [address] PCP - General Family Medicine 08/02/16 Digital Cartographic Technician Relationship Specialty Start Date End Date Abdullahi Koehler, DO [address] [place] [address] PCP - General Family Medicine 08/02/16 Digital Cartographic Technician Relationship Specialty Start Date End Date Abdullahi Koehler, DO [address] [place] [address] PCP - General Family Medicine 08/02/16 Digital Cartographic Technician Relationship Specialty Start Date End Date Abdullahi Koehler, DO [address] [place] [address] PCP - General Family Medicine 08/02/16 Digital Cartographic Technician Relationship Specialty Start Date End Date Abdullahi Koehler, DO [address] [place] [address] PCP - General Family Medicine 08/02/16 Digital Cartographic Technician Relationship Specialty Start Date End Date Abdullahi Koehler, DO [address] [place] [address] PCP - General Family Medicine 08/02/16 Digital Cartographic Technician Relationship Specialty Start Date End Date Abdullahi Koehler DO [address] [place] [address] PCP - General Family Medicine 08/02/16 Digital Cartographic Technician Relationship Specialty Start Date End Date Abdullahi Koehler DO [address] [facility] [place] [address] PCP - General Family Medicine 08/02/16 Digital Cartographic Technician Relationship Specialty Start Date End Date Abdullahi Koehler DO [address] [facility] [place] [address] PCP - General Family Medicine 08/02/16 Digital Cartographic Technician Relationship Specialty Start Date End Date Abdullahi Koehler DO [address] [facility] [place] [address] PCP - General Family Medicine 08/02/16 Digital Cartographic Technician Relationship Specialty Start Date End Date Abdullahi Koehler DO [address] [facility] [place] [address] PCP - General Family Medicine 08/02/16 Digital Cartographic Technician Relationship Specialty Start Date End Date Abdullahi Koehler DO [address] [facility] [place] [address] PCP - General Family Medicine 08/02/16 FOR RECORDS PERTAINING TO PATIENTS WHO ARE OR HAVE BEEN ENROLLED IN A CHEMICAL DEPENDENCY/SUBSTANCEABUSE PROGRAM, SOME INFORMATION MAY BE OMITTED. This clinical summary was aggregated from multiple sources. Caution should be exercised in using it in the provision of clinical care. This summary normalizes information from multiple sources, and as a consequence, information in this document may materially change the coding, format and clinical context of patient data. In addition, data may be omitted in some cases. CLINICAL DECISIONS SHOULD BE BASED ON THE PRIMARY CLINICAL RECORDS. [facility]. provides no warranty or guarantee of the accuracy or completeness of information in this document.
[2023-11-07 02:07] LABS: Free Kappa Light Chains 16.7 mg/L (3.3-19.4); Free Lambda Light Chains 11.5 mg/L (5.7-26.3)
[2023-11-14 10:09] LABS: Vitamin B1, Thiamine 158.6 nmol/L (66.5-200.0)
== END | disposition home or self-care (01) ==
LOC: MTLAB 10:28
PROVIDERS: PCP Student in an Organized Health Care Education/Training Program; Referring Provider Psychiatry & Neurology Neurology; Visit Provider Psychiatry & Neurology Neurology
DX: G62.9 Polyneuropathy, unspecified (principal)
CPT/HCPCS: 36415; 82746; 83883; 84425

== ENCOUNTER → 2023-11-15 | Outpatient (CLI) | payer MEDICARE, OTHER, SELFPAY ==
--- NOTE | 2023-11-15 11:13 | MRI_ITS ---
EXAM: MR HEAD WITHOUT INTRAVENOUS CONTRAST CLINICAL INDICATION: mild cognitive impairment; gait imbalance TECHNIQUE: Multiplanar and multisequence MR images of the brain were obtained without intravenous contrast. COMPARISON: No relevant prior studies available. FINDINGS: BRAIN AND EXTRA-AXIAL SPACES: Unremarkable. No intra- or extra-axial hemorrhage. No evidence of acute infarct. No intracranial mass or mass effect. There is preservation of the molina/white matter interface. Posterior fossa structures are unremarkable. Ventricles are appropriate for age. No hydrocephalus. Basal cisterns are patent. SELLA: Unremarkable. Normal sella turcica, pituitary gland, infundibular stalk, optic chiasm and hypothalamus. AUDITORY SYSTEM: Unremarkable. The internal auditory canals are patent. BONES/JOINTS: Unremarkable. No discrete lytic or blastic abnormalities. SINUSES: Unremarkable as visualized. Clear. MASTOID AIR CELLS: Unremarkable as visualized. Clear. ORBITS: Unremarkable as visualized. Both globes, extraocular muscles, optic nerves and retrobulbar fat appear unremarkable. VASCULATURE: Unremarkable as visualized. Normal flow voids in the major intracranial circulation. MRI/Brain without Contrast IMPRESSION: Negative MRI brain without intravenous contrast. Electronically Signed: Severo Hdz MD at 12:43 EST ,
--- OUTSIDE RECORDS SUMMARY | 2023-11-15 11:22 | XMS RPT_ITS | CCD ---
Author Name Unknown Address [address] [place] [address] Organization [facility] Care Team Providers Care Busgirl Name Role Phone Abdullahi Koehler DO Primary Care Provider TRACEY BARROS NP Admitting Unavailable TRACEY BARROS GLOVE MACHINE OPERATOR Attending Unavailable TRACEY BARROS NP Primary Care Unavailable SHELBY, DR JAMMIE Martinez Admitting Unavaila kimber RYAN, DR JAMMIE Martinez Attending Unavaila ble SHELBY, DR JAMMIE Martinez Primary Care Unavaila ble [...] Attending Unavailable JIMÉNEZ, PEGGY Referring Unavailable KOEHLER, ABDULLAHI L Primary Care Unavailable KOEHLER, ABDULLAHI L Primary Care Unavailable KOEHLER, ABDULLAHI L Attending Unavailable WHITLEY BECK Referring Unavailable KOEHLER, ABDULLAHI L Primary Care Unavailable Allergies Allergy Classification Reported Allergen(s) Allergy Type Date of Onset Reaction(s) Facility (20 sources) Codeine; Translations: [CODEINE] Drug Allergy 0 Rash [facility] (20 sources) Lactose; Translations: [LACTOSE] Drug Allergy 1 Intolerance [facility] (20 sources) Lanolin; Translations: [LANOLIN] Drug Allergy 3 [facility] Work Phone: (20 sources) Morphine; Translations: [MORPHINE] Drug Allergy 0 Vomiting [facility] (20 sources) Neomycin; Translations: [NEOMYCIN SULFATE] Drug Allergy 2 Unknown [facility] (20 sources) nickel; Translations: [NICKEL] Drug Allergy 3 [facility] Work Phone: (20 sources) nickel sulfate; Translations: [NICKEL SULFATE] Drug Allergy 2 Unknown [facility] (20 sources) Ada - fruit; Translations: [ORANGE] Drug Allergy 9 Unknown [facility] (20 sources) [place] balsam; Translations: [BALSAM ANNEMARIE] Drug Allergy 2 Unknown [facility] (20 sources) Seasonal allergy; Translations: [SEASONAL ALLERGIES] Propensity to adverse reactions 1 Intolerance [facility] Work Phone: (20 sources) Wheat gluten extract; Translations: [GLUTEN] Drug Allergy 1 Intolerance [facility] (20 sources) Fragrances; Translations: [FRAGRANCES] Allergy to substance 2 Unknown [facility] (1 source) Codeine Drug Allergy [facility] Repository (17 sources) metroNIDAZOLE; Translations: [METRONIDAZOLE] Drug Allergy 3 Mental Status Change, Hives, GI Upset [facility] Work Phone: (2 sources) NITROFURANTOIN, MACROCRYSTALS / Nitrofurantoin, Monohydrate; Translations: [NITROFURANTOIN MONOHYD/M-CRYST] Drug Allergy 3 Vomiting [facility] Work Phone: (1 source) Codeine/codeine derivatives (Renamed from Codeine Phosphate *ANALGESICS - OPIOID*) [facility] Medications Current Medications Medication Drug Class(es) [...] [address]Kenneth Byrne at [facility]. Anemia post surgery and c/o hair loss. [...] 97.59 [degF] Abdullahi Koehler DO Work Phone: [facility] 09-07-2023 12:08-0500 Body weight 51.71 kg Abdullahi Koehler DO Work Phone: [facility] 09-07-2023 12:08-0500 Diastolic blood pressure 70 mm[Hg] Abdullahi Koehler DO Work Phone: [facility] 09-07-2023 12:08-0500 Heart rate 80 /min Abdullahi Koehler DO Work Phone: [facility] 09-07-2023 12:08-0500 Respiratory rate 16 /min Abdullahi Koehler DO Work Phone: [facility] 09-07-2023 12:08-0500 Systolic blood pressure 124 mm[Hg] Abdullahi Koehler DO Work Phone: [facility] 12-19-2022 11:37-0500 Body weight 58.06 kg Peggy Jiménez APRN.CNM Work Phone: [facility] 12-19-2022 11:37-0500 Diastolic blood pressure 78 mm[Hg] Peggy Jiménez DIRECTOR CORPORATE SALES.CNM Work Phone: [facility] 12-19-2022 11:37-0500 Systolic blood pressure 138 mm[Hg] Peggy Jiménez DIRECTOR CORPORATE SALES.CNM Work Phone: [facility] 12-01-2022 10:21-0500 Body weight 57.97 kg Peggy Jiménez DIRECTOR CORPORATE SALES.CNM Work Phone: [facility] 12-01-2022 10:21-0500 Diastolic blood pressure 66 mm[Hg] Peggy Jiménez DIRECTOR CORPORATE SALES.CNM Work Phone: [facility] 12-01-2022 10:21-0500 Systolic blood pressure 122 mm[Hg] Peggy Jiménez APRN.CNM Work Phone: [facility] 11-16-2022 12:59-0500 Heart rate 67 /min Altagracia Hawthorne MD Work Phone: [facility] 11-16-2022 12:59-0500 Respiratory rate 16 /min Altagracia Hawthorne MD Work Phone: [facility] 11-16-2022 12:59-0500 SaO2% (BldA) [Mass fraction] 98 % Altagracia Hawthorne MD Work Phone: [facility] 11-08-2022 11:50-0500 Body temperature 96.69 [degF] Abdullahi Koehler DO Work Phone: [facility] 11-08-2022 11:50-0500 Body weight 57.61 kg Abdullahi Koehler DO Work Phone: [facility] 11-08-2022 11:50-0500 Diastolic blood pressure 80 mm[Hg] Abdullahi Koehler DO Work Phone: [facility] 11-08-2022 11:50-0500 Heart rate 68 /min Abdullahi Koehler DO Work Phone: [facility] 11-08-2022 11:50-0500 Respiratory rate 16 /min Abdullahi Koehler DO Work Phone: [facility] 11-08-2022 11:50-0500 Systolic blood pressure 116 mm[Hg] Abdullahi Koehler DO Work Phone: [facility] 10-02-2022 12:45-0500 Body height 165.1 cm Whitleytati Beck DIRECTOR CORPORATE SALES.DIRECTOR BEHAVIORAL HEALTH Work Phone: [facility] 10-02-2022 12:45-0500 Body weight 61.24 kg Whitley Beck DIRECTOR CORPORATE SALES.DIRECTOR BEHAVIORAL HEALTH Work Phone: [facility] 09-27-2022 11:23-0500 Body weight 55.97 kg Peggy Jiménez DIRECTOR CORPORATE SALES.CNM Work Phone: [facility] 09-27-2022 11:23-0500 Diastolic blood pressure 72 mm[Hg] Peggy Jiménez DIRECTOR CORPORATE SALES.CNM Work Phone: [facility] 09-27-2022 11:23-0500 Systolic blood pressure 142 mm[Hg] Peggy Jiménez DIRECTOR CORPORATE SALES.CNM Work Phone: [facility] 09-19-2022 11:00-0500 Diastolic blood pressure 88 mm[Hg] Altagracia Hawthorne MD Work Phone: [facility] 09-19-2022 11:00-0500 Heart rate 73 /min Altagracia Hawthorne MD Work Phone: [facility] 09-19-2022 11:00-0500 Respiratory rate 18 /min Altagracia Hawthorne MD Work Phone: [facility] 09-19-2022 11:00-0500 SaO2% (BldA) [Mass fraction] 98 % Altagracia Hawthorne MD Work Phone: [facility] 09-19-2022 11:00-0500 Systolic blood pressure 173 mm[Hg] Altagracia Hawthorne MD Work Phone: [facility] 09-11-2022 09:52-0500 Body temperature 97 [degF] Abdullahi Beaverrison DO Work Phone: [facility] 09-11-2022 09:52-0500 Body weight 56.25 kg Abdullahi Koehler DO Work Phone: [facility] 09-11-2022 09:52-0500 Diastolic blood pressure 80 mm[Hg] Abdullahi Koehler DO Work Phone: [facility] 09-11-2022 09:52-0500 Heart rate 76 /min Abdullahi Koehler DO Work Phone: [facility] 09-11-2022 09:52-0500 Respiratory rate 20 /min Abdullahi Koehler DO Work Phone: [facility] 09-11-2022 09:52-0500 Systolic blood pressure 140 mm[Hg] Abdullahi Koehler DO Work Phone: [facility] 09-04-2022 11:55-0500 Diastolic blood pressure 74 mm[Hg] Rinku Palmer MD Work Phone: [facility] 09-04-2022 11:55-0500 Heart rate 74 /min Rinku Palmer MD Work Phone: [facility] 09-04-2022 11:55-0500 Systolic blood pressure 165 mm[Hg] Rinku Palmer MD Work Phone: [facility] 08-21-2022 10:36-0400 Body weight 56.34 kg Peggy Jiménez APRN.CNM Work Phone: [facility] 08-21-2022 10:36-0400 Diastolic blood pressure 78 mm[Hg] Peggy Jiménez APRN.CNM Work Phone: [facility] 08-21-2022 10:36-0400 Systolic blood pressure 134 mm[Hg] Peggy Jiménez APRN.CNM Work Phone: [facility] 08-17-2022 13:38-0400 Heart rate 69 /min Altagracia Hawthorne MD Work Phone: [facility] 08-17-2022 13:38-0400 Respiratory rate 16 /min Altagracia Hawthorne MD Work Phone: [facility] 08-17-2022 13:38-0400 SaO2% (BldA) [Mass fraction] 98 % Altagracia Hawthorne MD Work Phone: [facility] 07-10-2022 10:45-0400 Body weight 55.25 kg Peggy Jiménez DIRECTOR CORPORATE SALES.CNM Work Phone: [facility] 07-10-2022 10:45-0400 Diastolic blood pressure 84 mm[Hg] Peggy Jiménez DIRECTOR CORPORATE SALES.CNM Work Phone: [facility] 07-10-2022 10:45-0400 Systolic blood pressure 150 mm[Hg] Peggy Jiménez DIRECTOR CORPORATE SALES.CNM Work Phone: [facility] 07-03-2022 11:09-0400 Diastolic blood pressure 92 mm[Hg] Altagracia Hawthorne MD Work Phone: [facility] 07-03-2022 11:09-0400 Heart rate 64 /min Altagracia Hawthorne MD Work Phone: [facility] 07-03-2022 11:09-0400 Respiratory rate 18 /min Altagracia Hawthorne MD Work Phone: [facility] 07-03-2022 11:09-0400 SaO2% (BldA) [Mass fraction] 99 % Altagracia Hawthorne MD Work Phone: [facility] 07-03-2022 11:09-0400 Systolic blood pressure 174 mm[Hg] Altagracia Hawthorne MD Work Phone: [facility] 06-14-2022 12:02-0400 Body temperature 97.59 [degF] Abdullahi Koehler DO Work Phone: [facility] 06-14-2022 12:02-0400 Body weight 55.34 kg Abdullahi Koehler DO Work Phone: [facility] 06-14-2022 12:02-0400 Diastolic blood pressure 80 mm[Hg] Abdullahi Koehler DO Work Phone: [facility] 06-14-2022 12:02-0400 Heart rate 76 /min Abdullahi Koehler DO Work Phone: [facility] 06-14-2022 12:02-0400 Respiratory rate 16 /min Abdullahi Koehler DO Work Phone: [facility] 06-14-2022 12:02-0400 Systolic blood pressure 134 mm[Hg] Abdullahi Koehler DO Work Phone: [facility] 05-23-2022 14:16-0400 Body height 165.1 cm Peggy Jiménez DIRECTOR CORPORATE SALES.CNM Work Phone: [facility] 05-23-2022 14:16-0400 Body weight 55.34 kg Peggy Jiménez DIRECTOR CORPORATE SALES.CNM Work Phone: [facility] 05-23-2022 14:16-0400 Diastolic blood pressure 70 mm[Hg] Peggy Jiménez DIRECTOR CORPORATE SALES.CNM Work Phone: [facility] 05-23-2022 14:16-0400 Systolic blood pressure 110 mm[Hg] Peggy Jiménez DIRECTOR CORPORATE SALES.CNM Work Phone: [facility] 05-04-2022 13:46-0400 Heart rate 70 /min Altagracia Hawthorne MD Work Phone: [facility] 05-04-2022 13:46-0400 Respiratory rate 16 /min Altagracia Hawthorne MD Work Phone: [facility] 05-04-2022 13:46-0400 SaO2% (BldA) [Mass fraction] 98 % Altagracia Hawthorne MD Work Phone: [facility] 11-29-2010 13:30-0500 Body height 165.1 cm Marilu CRAIG MD [facility] 11-29-2010 13:30-0500 Body mass index (BMI) [Ratio] 27.46 kg/m2 Marilu CRAIG MD Work Phone: [facility]. 11-29-2010 13:30-0500 Body surface area Derived from formula 1.82 m2 Marilu CRAIG MD Work Phone: [facility]. 11-29-2010 13:30-0500 Body weight 74.84 kg Marilu CRAIG MD Work Phone: [facility]. Encounters Encounter Date Encounter Type Care Provider Facility Start: 10-30-2023 End: 10-31-2023 ambulatory ABDULLAHI L KOEHLER Facility:[facility] Start: 10-24-2023 End: 10-24-2023 ambulatory ABDULLAHI L KOEHLER Facility:[facility] Start: 09-07-2023 End: 09-07-2023 ambulatory ABDULLAHI L KOEHLER Facility:[facility] Start: 09-07-2023 End: 09-07-2023 Patient encounter procedure Abdullahi L Koehler DO Work Phone: [facility] Procedures Date Procedure Procedure Detail Performing Clinician Start: 12-19-2022 BACTERIAL VAGINOSIS AMPLIFICATION Peggy Jiménez DIRECTOR CORPORATE SALES.CNM Work Phone: Start: 12-19-2022 Iadna trichomonas va ginalis amplified probe tech Peggy Jiménez DIRECTOR CORPORATE SALES.CNM Work Phone: Start: 12-01-2022 BACTERIAL VAGINOSIS AMPLIFICATION Peggy Jiménez DIRECTOR CORPORATE SALES.CNM Work Phone: Start: 12-01-2022 Iadna trichomonas [place] ginalis amplified probe tech Peggy Jiménez DIRECTOR CORPORATE SALES.CNM Work Phone: Start: 11-16-2022 Follow-up visit Follow Up ALTAGRACIA HAWTHORNE Start: 07-10-2022 BACTERIAL VAGINOSIS AMPLIFICATION Peggy Jiménez DIRECTOR CORPORATE SALES.CNM Work Phone: Start: 07-10-2022 Iadna trichomonas [place] ginalis amplified probe tech Peggy Jiménez DIRECTOR CORPORATE SALES.CNM Work Phone: Start: 05-04-2022 Radex spine lumbosac [...] Author Start: 05-23-2026 DIABETES SCREEN DIABETES SCREEN [facility] Start: 05-23-2026 Diabetes Screening Diabetes Screenin g [facility] Start: 02-12-2026 DIABETES SCREEN DIABETES SCREEN [facility] Start: 09-11-2025 DIABETES SCREEN DIABETES SCREEN [facility] Start: 12-27-2024 DIABETES SCREEN DIABETES SCREEN [facility] Start: 09-07-2024 Annual PCP Team [employer] Management System Operator anabell Disease Visit Annual PCP Team Chronic Disease Visit [facility] Start: 09-07-2024 BP Controlled (<130/80) BP Controlle d (<130/80) [facility] Start: 05-21-[address] TEAM [address] WORKER ANABELL DISEASE VISIT ANNUAL PCP TEAM CHRONIC DISEASE VISIT [facility] Start: 05-21-2024 BP CONTROLLED (<130/80) BP CONTROLLE D (<130/80) [facility] Start: 04-20-2024 Influenza vaccination Influenza Vacc ine (#1) [facility] Immunizations Immunization Date Immunization Notes Care Provider Beto dickinson 06-13-2019 zoster vaccine recombinant Abdullahi Koehler DO Work Phone: [facility] Work Phone: 04-10-2019 zoster vaccine recombinant Abdullahi Koehler DO Work Phone: [facility] Work Phone: 12-03-2018 influenza virus vacc ine, unspecified formulation Peggy Alexandre PT [facility] 08-02-2016 pneumococcal conjuga te vaccine, 13 valent Abdullahi Beaverrison DO Work Phone: [facility] Work Phone: 09-10-2014 pneumococcal polysaccharide vaccine, 23 valent Abdullahi Beaverrison DO Work Phone: [facility] Work Phone: 10-06-2011 influenza virus vacc ine, unspecified formulation Abdullahi Koehler DO Work Phone: [facility] 09-29-2010 influenza virus vacc ine, unspecified formulation Abdullahi Koehler DO Work Phone: [facility] 07-22-2007 pneumococcal polysaccharide vaccine, 23 valent Abdullahi Koehler DO Work Phone: [facility] 10-22-2006 pneumococcal polysaccharide vaccine, 23 valent Abdullahi Koehler DO Work Phone: [facility] Work Phone: 03-31-2006 tetanus toxoid, redu jesus diphtheria toxoid, and acellular pertussis vaccine, adsorbed Abdullahi Koehler DO Work Phone: [facility] Payers Date Payer Category Payer Medicaid [id number] 2013 Private Health Insurance [facility] AARP SUPPLEMENT [id number] 2013-Present [phone] [address] [place] [address] Indemnity [id number] 2013 Private Health Insurance [facility] AARP SUPPLEMENT [id number] 2013-Present [phone] [address] [place] [address] Indemnity [id number] 2010 Medicare MEDICARE MEDICAR E A AND B [id number] 2010-Present [phone] [place] [address] Medicare [id number] 2010 Medicare [id number] 2010 Medicare MEDICARE MEDICAR E A AND B [id number] 2010-Present [phone] [place] [address] Medicare [id number] 1945 Unknown [id number] 1945 Unknown [id number] Unknown Social History Date Type Detail Facility Start: 12-28-2010 End: 07-10-2022 Tobacco smoking status NHIS Never smoked tobacco [facility] Start: 12-28-2010 End: 07-10-2022 Tobacco use and exposure Smokeless tobacco non-user [facility] Start: 12-30-2021 End: 09-07-2023 Alcohol intake Ex-drinker (finding) [facility] Start: 1945 Sex Assigned At Not on file [facility] Start: 11-27-2021 End: 09-19-2022 Exposure to SARS-CoV-2 (event) Not sure [facility] Start: 11-08-2022 End: 05-21-2023 History of Social function [facility] Work Phone: Start: 11-08-2022 End: 05-21-2023 Tobacco use panel [facility] Work Phone: Adult Depression Screening Assessment 0 [facility] Work Phone: [facility] Work Phone: Tobacco smoking consumption unknown [facility]; [facility] Work Phone: Medical Equipment Procedure Code Equipment Code Equipment Origin al Text Equipment Identifier Dates Mrkr 8ga Sec Sit e Id Mamrk - [id number] Start: 07-21-2013 Clinical Notes 02-18-2021 to 10-24-2023 Abdullahi Koelher, DO - 09/07/2023 12:44 PM Peggy Juarez, PT - 07/03/2023 8:10 AM Peggy Wallace PT - 06/27/2023 1:28 PM EDENILSONPaoNorman Peggy, PT - 06/20/2023 1:22 PM EDTPatient Instructions Note Date & Type Note Facility 10-24-2023 Note HNO ID: [id number] Author: Abdullahi Koehler, DO Service: ? 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 Spongiotic dermatitis, intermittent nausea symptoms. Has been [...] Take 1 capsule by mouth once daily. [id number] ORAL Take by mouth once daily. omega-3/dha/epa/fish [...] Sulfate Unknown Nickel Rash Nickel Sulfate Unknown Ada Unkn (more content not included)... [facility] 09-07-2023 Note HNO ID: [id number] Author: Abdullahi Koehler, DO Service: ? Author [...] recent bacterial vaginosis. Was seen by URO L[facility] Dr. Johnson. Was treated with macrobid and [...] recent bacterial vaginosis. Was seen by URO LURER Dr. Johnson. Was treated with macrobid and [...] Take 1 capsule by mouth once daily. [id number] ORAL Take by mouth once daily. omega-3/dha/epa/fish oil (more content not included)... [facility] 09-07-2023 History of Present illness Narrative [...] recent bacterial vaginosis. Was seen by URO LURER Dr. Johnson. Was treated with macrobid and [...] recent bacterial vaginosis. Was seen by URO LURER Dr. Johnson. Was treated with macrobid and [...] Take 1 capsule by mouth once daily. [id number] ORAL Take by mouth once daily. omega-3/dha/epa/fish [...] this visit. ALLERGIES Allergen Reactions [place] [Bal* Unknown Codeine Rash Flagyl [Metronidazo* Mental Status Change, Hives, GI Upset Elbow rash, arm hives, headache, dizziness, nausea, feet sensations, coordination off. Heartburn, seeing things out of corner eyes, pelvic pressure, difficulty urinating, indigestion Fragrances Unknown Gluten Intolerance Lactose Intolerance Lanolin Rash Macrobid [Nitrofura* Vomiting Dizziness, nausea, insomnia, hair loss Morphine Vomiting Neomycin Sulfate Unknown Nickel Rash Nickel Sulfate Unknown Ada Unknown Mildly positive to skin testing Seasonal [...] - ICD9: 780.4, ICD10: R42 F/u with cuffer/specialist as well as with Neurologist Dr. Young upcoming. Try to get earlier appt if able. 3. Nausea - ICD9: 787.02, ICD10: R11.0 F/u with Mobile Marketing Manager, related to food intolerances by description with symptoms. Continue low acid low fodmap diet. 4. Underweight - ICD9: 783.22, ICD10: R63.6 F/u with Mobile Marketing Manager, related to food intolerances by description with symptoms. Continue low acid low fodmap diet. 5. Gastroesophageal reflux disease with esophagitis without hemorrhage - ICD9: 530.81, 530.10, ICD10: K21.00 F/u with Mobile Marketing Manager, related to food intolerances by description with symptoms. Continue low acid low fodmap diet. 6. Fatigue, unspecified type - ICD9: 780.79, ICD10: R53.83 F/u with Mobile Marketing Manager, related to food intolerances by description with symptoms. Continue low acid low fodmap diet. 7. Multiple joint pain - ICD9: 719.49, ICD10: M25.50 8. Vaginal itching - ICD9: 698.1, ICD10: N89.8 F/u with LURER as scheduled. Abdullahi Koehler DO Return if no improvement. Follow up with Abdullahi Koehler DO. To ER if develops chest pain, shortness of breath. Discussed risks, benefits, alternatives, and potential side effects of medications. Patient/Guardian expressed understanding and agreed with the plan. See patient instructions. Abdullahi Koehler DO [address] [place] [address] documented in this encounter [facility] 07-03-2023 Note HNO ID: [id number] Author: Peggy Alexandre PT Service: ? Author Type: Physical Therapist Type: Progress Notes Filed: 08/08/2023 8:47 AM Note Text: 08/08/[address] [facility] PHYSICAL THERAPY DISCONTINUANCE OF CARE Plan of Care Period: Start of Care Date: 06/05/23 Last Visit Date: 07/03/2023 Therapy Program: The following is a summary of the interventions provided for this episode of care; Therapeutic exercise, Neuromuscular re-education, and Self-shelter management Assessment: The following is the goal [...] Patient to be seen for Therapeutic exercise (11607), Neuromuscular re-education (38476), Self-shelter management (73416), Therapeutic activities (34244), Manual therapy (44592), Gait Training (31310) PLAN FOR NEXT VISIT: dc vertical VOR due to increased neck pain. Continue VORx1 horizontal with stock checker back ground, attempt to progress to [...] the general pop (more content not included)... [facility] 07-03-2023 History of Present illness Narrative [...] Patient to be seen for Therapeutic exercise (71616), Neuromuscular re-education (33159), Self-shelter management (36874), Therapeutic activities (91231), Manual therapy (63230), Gait Training (19061) PLAN FOR NEXT VISIT: dc vertical VOR due to increased neck pain. Continue VORx1 horizontal with stock checker back ground, attempt to progress to [...] Peggy Alexandre PT documented in this encounter [facility] 06-27-2023 Note HNO ID: [id number] Author: Peggy Alexandre PT Service: ? Author [...] Stop Time : 1405 Peggy Alexandre, PT [facility] 06-27-2023 History of Present illness Narrative [...] Peggy Alexandre PT documented in this encounter [facility] 06-20-2023 Note HNO ID: [id number] Author: Peggy Alexandre PT Service: ? Author [...] with an (*). Patient education as noted. Self-Fci Management: 1: *discussed laying supine if laying [...] Stop Time : 1400 Peggy Alexandre, PT [facility] 06-20-2023 History of Present illness Narrative [...] with an (*). Patient education as noted. Self-Fci Management: 1: *discussed laying supine if laying [...] Peggy Alexandre PT documented in this encounter [facility] 06-15-2023 Miscellaneous Notes Pt called and is notified of providers message and instructions. Pt voices understanding. Rach Weiner, RN Noted, no need to see Calcine Furnace Tender at this time Abdullahi Koehler DO' See [...] asking does she need to see a military science teacher to get this straightened out . Says [...] Abdullahi Koehler DO documented in this encounter [facility] 06-12-2023 Note HNO ID: [id number] Author: Peggy Alexandre PT Service: ? Author [...] position. PT supervision. Patient education as noted. Self-Fci Management: 1: *distance glasses for VOR 3 [...] Stop Time : 1710 Peggy Alexandre, PT [facility] 06-12-2023 Miscellaneous Notes Patient has been identified by name and date of : Yes Patient phones for refill(s): Requested Prescriptions Pending Prescriptions Disp Refills nabumetone (RELAFEN) 500 mg tablet 180 tablet 3 Sig: Take 2 tablets by mouth once daily. Date of last office visit in primary care: 05/21/2023 Please advise. Thank you. Madison Kahn LPN documented in this encounter [facility] 06-06-2023 Miscellaneous Notes Referral Faxed as below. Patient calling said she would like referral sent to Dr Catracho Young she did not have his fax number, his phone number is [phone]. They are scheduling into Oct 2023, she does not have appt as yet. She was hoping to make sure nurse had not mailed referral to her. Orders placed for neurology, she is scheduled Abdullahi Koehler DO documented in this encounter [facility] 06-05-2023 Note HNO ID: [id number] Author: Peggy Alexandre PT Service: ? Author [...] Planned: 6 Planned Treatment Interventions: Therapeutic exercise (65172), Neuromuscular re-education (34907), Self-shelter management (55660), Therapeutic activities (35747), Manual therapy (68932), Gait Training (73143) PLAN FOR NEXT VISIT: Adaptation exercises Patient [...] Less than 60 seconds, No nystagmus Left [place]: No nystagmus, Symptomatic, Less than 60 seconds Right Ear Down: No nystagmus, Symptomatic, Less than 60 seconds Left Ear Down: No nystagmus, Symptomatic, Less than 60 seconds Cervical Spine ROM Cervical ROM : Limitation AROM Cervical Protrusion AROM: Normal Cervical R (more content not included)... [facility] 05-24-2023 Miscellaneous Notes Pt called and is notified of providers results. Pt voices understanding. Rach Weiner RN Please inform patient that her CT brain was normal Abdullahi Koehler DO documented in this encounter [facility] 05-23-2023 Note HNO ID: [id number] Author: Maci Hernandez RT(R) Service: ? Author Type: Oracle Application Architect Type: Progress Notes Filed: 05/23/2023 9:26 AM [...] RT Jessica(R) May 23, 2023 9:25 AM [facility] 05-21-2023 Note HNO ID: [id number] Author: Abdullahi Koehler DO Service: ? Author Type: Physician Type: Progress Notes Filed: 05/22/2023 6:41 AM Note Text: CC: Ivette Murguia is a 78 year old female who presents to the office for follow up HPI: Seen in office last on 02/06/2023 Diagnosed with bacterial vaginosis, severe symptoms, finished 7 days of Flagyl medication per LURER and was reevaluated and still have bacterial [...] Was then seen by Dr. Johnson URO LURER since she was having such extreme symptoms [...] days for 3 (more content not included)... [facility] 02-15-2023 Miscellaneous Notes Spoke with pt [...] Abdullahi Koehler DO documented in this encounter [facility] 02-06-2023 Note HNO ID: [id number] Author: Abdullahi Koehler DO Service: ? Author Type: Physician Type: Progress Notes Filed: 02/06/2023 2:24 PM Note Text: CC: Ivette Murguia is a 77 year old female who presents to the office for follow up HPI: Diagnosed with bacterial vaginosis, severe symptoms, finished 7 days of Flagyl medication per LURER and was reevaluated and still have bacterial [...] Was then seen by Dr. Johnson URO LURER since she was having such extreme symptoms [...] Take 1 capsule by mouth once daily. [id number] ORAL Take by mouth once daily. omega-3/dha/epa/fish [...] corner eyes, pelvic (more content not included)... [facility] 01-29-2023 Note HNO ID: [id number] Author: Issac Minor Service: ? Author Type: ? Type: Progress Notes Filed: 01/29/2023 12:51 PM Note Text: unavailable [facility] 01-29-2023 History of Present illness Narrative unavailable documented in this encounter [facility] 01-03-[address] Johnson office calling asking for copy of patient last office visit notes to be faxed to [phone]. Patient has appt next week with Urology. Printed and faxed as requested. documented in this encounter [facility] 12-29-2022 Miscellaneous Notes Called and [...] Estrella García RN documented in this encounter [facility] 12-21-2022 Miscellaneous Notes Called and spoke with Gilson from [facility] retial pharmacy for clindamycin ointment vaginally for 28 days will be compounded for the patient. Please notify patient this is called in and I spoke with the pharmacist. They will call her when it is ready, likely tomorrow. Thank you, Peggy Jiménez APRN.CNM Nurse send message to Madison Jiménez to contact [facility] retail pharmacy regarding compounded prescription. Patient notified to check with pharmacy regarding when Rx would be ready Patient states that she called a couple pharmacies and stated that her best option would be to have [facility] compound the Clindamycin 2% into a vaginal gel. Patient states that when Rx is sent to [facility] the Rx must be noted that clindamycin is to be compounded to a vaginal gel. Patient states that she spoke to Gilson in the pharmacy at [facility]. Patient notified of options and wants to [...] Estrella García RN documented in this encounter [facility] 12-20-2022 Miscellaneous Notes Addended by: PEGGY JIMÉNEZ on: 12/20/2022 07:24 PM Modules accepted: Orders documented in this encounter [facility] 12-20-2022 Miscellaneous Notes Patient will start with vaginal clindamycin daily at bedtime x 4 weeks and will continue estriol compounded vaginal cream as earlier prescribed Azul Valles MD documented in this encounter [facility] 12-19-2022 Miscellaneous Notes Thank you. She got to it before me. I was going to mychart her. Thank you. Peggy Jiménez APRN.CNM Patient seen today. States she looked at her after visit summary and seen that she was to have her urine collected for a culture. Patient can stop by the lab tomorrow. Will be in [place]. Please file a new urine culture order for lab collect . Order pending. Estrella García RN documented in this encounter [facility] 12-19-2022 Note HNO ID: [id number] Author: Peggy Jiménez APRN.CNM Service: ? Author Type: It Help Desk Technician Type: Progress Notes Filed: 12/20/2022 7:14 PM [...] L2 SAB0 IAB0 Ectopic0 Multiple0 Live Births0 Tower Helper History LMP: Postmenopausal Age at Menarche: Age at First : Age at Menopause: Tower Helper History Comments: Sexual Activity: Not Currently; Male [...] (SKIN CANCER) Father Heart Brother 55 fatal [place] Stroke Maternal Grandmother other (rheumatoid arthritis) Maternal [...] mouth as neede (more content not included)... [facility] 12-19-2022 Instructions Peggy Jiménez APRN.CNM - [...] worsening of symptoms. documented in this encounter [facility] 12-19-2022 History of Present illness [...] L2 SAB0 IAB0 Ectopic0 Multiple0 Live Births0 Tower Helper History LMP: Postmenopausal Age at Menarche: Age at First : Age at Menopause: Tower Helper History Comments: Sexual Activity: Not Currently; Male [...] (SKIN CANCER) Father Heart Brother 55 fatal [place] Stroke Maternal Grandmother other (rheumatoid arthritis) Maternal [...] affected area twice daily. For 30 days [id number] ORAL Take by mouth once daily. betamethasone [...] PELVIC: external genitalia normal, normal Bartholin's glands, Pascola's glands, no vulvar lesions, no cervical lesions, [...] Peggy Jiménez APRN.CNM documented in this encounter [facility] 12-15-2022 Miscellaneous Notes Called patient [...] Viola Lance RN documented in this encounter [facility] 12-04-2022 Miscellaneous Notes Order signed. Thank you, Peggy Jiménez APRN.CNM Patient request for medication is as follows: Requested Prescriptions Pending Prescriptions Disp Refills metroNIDAZOLE (FLAGYL) 500 mg tablet 14 tablet 0 Sig: Take 1 tablet by mouth twice daily for 7 days. Estrella García RN documented in this encounter [facility] 12-01-2022 Note HNO ID: [id number] Author: Peggy Jiménez APRN.CNM Service: ? Author Type: It Help Desk Technician Type: Progress Notes Filed: 12/03/2022 6:00 PM Note Text: Digitizer Operator offered: Patient declines. Ivette Murguia is a [...] L2 SAB0 IAB0 Ectopic0 Multiple0 Live Births0 Tower Helper History LMP: Postmenopausal Age at Menarche: Age at First : Age at Menopause: Tower Helper History Comments: Sexual Activity: Not Currently; Male [...] (SKIN CANCER) Father Heart Brother 55 fatal [place] Stroke Maternal Grandmother other (rheumatoid arthritis) Maternal [...] affected area twice daily. For 30 days [id number] ORAL Take by mouth once daily. betamethasone valerate 0.1 % cream Apply to affected area twice daily as needed for exzema, don't use for more than 1 week in a row No current facility-administered medications for this visit. Allergies As of Date: 12/01/2022 Allergen Noted Reaction BALSA (more content not included)... [facility] 12-01-2022 Instructions Peggy Jiménez APRN.CNM - [...] of both ointments. documented in this encounter [facility] 12-01-2022 History of Present illness Narrative Digitizer Operator offered: Patient declines. Ivette Murguia is a [...] L2 SAB0 IAB0 Ectopic0 Multiple0 Live Births0 Tower Helper History LMP: Postmenopausal Age at Menarche: Age at First : Age at Menopause: Tower Helper History Comments: Sexual Activity: Not Currently; Male [...] (SKIN CANCER) Father Heart Brother 55 fatal [place] Stroke Maternal Grandmother other (rheumatoid arthritis) Maternal [...] affected area twice daily. For 30 days [id number] ORAL Take by mouth once daily. betamethasone [...] external genitalia normal, normal Bartholin's glands, urethra, Pascola's glands, no vulvar lesions, no cervical lesions, [...] Peggy Jiménez APRN.CNM documented in this encounter [facility] 11-17-2022 Miscellaneous Notes Pt calling and requesting referral information to be faxed to Dr. Johnson's office again. Faxed as requested. Tati Jonas RN Faxed all information to Dr. Miguel office. Notified pt. Consult placed. Please fax. May need to reach out to Dr. Hawthorne office about faxing their records. Thank you, Melisa Gaines APRN.DIRECTOR BEHAVIORAL HEALTH Patient calling asking for referral to Dr Naomie Guillen, Pain Management. She did not have fax or phone number. Patient is asking for notes from Dr Hawthorne to be faxed with the other information to Dr Guillen. She did not want to travel since Dr Hawthorne is associated with [facility]. Pended consult needs diagnosis, patient would like called when consult is faxed. Please advise documented in this encounter [facility] 11-17-2022 Note Patient Outreach (NE TNAV) IVETTE MURGUIA ([id number]) 1945 F Date Time Provider Department 11/17/22 NO PCP NETNAV During your visit today, we recorded the following information about you: Joie Leung 11/17/2022 11:52 AM Signed POPULATION HEALTH NAVIGATION OUTREACH Action/[facility] [place] Support: Called pt to schedule an appt [...] DISCUSSION Never done Navigation Signature: Joie Rocha Pals Specialist November 17, 2022 11:52 AM Allergies [...] 1 capsule by mouth once daily. - [id number] ORAL Take by mouth once daily. - [...] (shortness of breat (more content not included)... [facility] 11-17-2022 Note HNO ID: [id number] Author: Joie Leung Service: ? Author Type: ? Type: Progress Notes Filed: 11/17/2022 11:52 AM Note Text: POPULATION HEALTH NAVIGATION OUTREACH Action/ [place] Support: Called pt to schedule an appt [...] Joie Leung November 17, 2022 11:52 AM [facility] 11-17-2022 History of Present illness Narrative POPULATION HEALTH NAVIGATION OUTREACH Action/I [place] Support: Called pt to schedule an appt [...] 2022 11:52 AM documented in this encounter [facility] 11-16-2022 Note HNO ID: [id number] Author: Chelle Panchal MA Service: ? Author Type: Contract Consultant Type: Progress Notes Filed: 11/16/2022 1:31 PM [...] suicidal ideas. The patient is not nervous/anxious. [facility] 11-16-2022 History of Present illness Narrative [...] not included. [facility] Today's Date: 11/16/2022 Last Visit: 08/17/2022 Name: [...] and Relafen (Nabumetone) Opioids: Tramadol, Vicodin or [place] (Hydrocodone) and Percocet (Oxycodone) Muscle Relaxants: Flexeril (Cyclobenzaprine) and Zanaflex (Tizanidine) Topicals: OTC - no relief Other Prescription or OTC Pain Medications: none Anti-depressants: None Non-Pain Meds of Note: None Allergies: ALLERGIES Allergen Reactions [place] [facility] [Bal* Unknown Codeine Rash Fragrances Unknown Gluten Intolerance Lactose Intolerance Lanolin Rash Morphine Vomiting Neomycin Sulfate Unknown Nickel Rash Nickel Sulfate Unknown Ada Unknown Mildly positive to skin testing Seasonal [...] and assume there are 5 lumbar-type vertebrae. Firebrick Layer Helper: PSCB Transcribe Date/Time: Nov 10 2022 11:25A [...] consider. She has concerns about commuting to [employer] for injections. She is considering finding a [...] was advised that they will need a transit driver for after the procedure and that if no transit driver is available and on site at [...] Referrals: No additional considerations at present Functional Protestant: No changes-continue current regimen Depending on response [...] MBA Pain Management [facility] documented in this encounter [facility] 11-16-2022 Note HNO ID: [id number] Author: Altagracia Hawthorne MD Service: ? Author Type: Physician Type: Progress Notes Filed: 11/16/2022 1:31 PM Note Text: [facility] Today's Date: 11/16/2022 Last Visit: 08/17/2022 Name: Ivette Murguia : 1945 Purpose: Follow-up Evaluation Chief complaint: low back pain Interval History: vIette Murguia returns today for a follow-up encounter, [...] and Relafen (Nabumetone) Opioids: Tramadol, Vicodin or [place] (Hydrocodone) and Percocet (Oxycodone) Muscle Relaxants: Flexeril (Cyclobenzaprine) and Zanaflex (Tizanidine) Topicals: OTC - no relief Other Prescription or OTC Pain Medications: none Anti-depressants: None Non-Pain Meds of Note: None Allergies: ALLERGIES Allergen Reactions [place] [facility] [place] [Bal* Unknown Codeine Rash Fragrances Unknown Gluten Intolerance Lactose Intolerance Lanolin Rash Morphine Vomiting Neomycin Sulfate Unknown Nickel Rash Nickel Sulfate Unknown Ada Unknown Mildly positive to skin testing Seasonal Allergies Intolerance Diagnostic Studies: Relevant Imaging: Reviewed Personally on today's date, noted above MRI Spine R (more content not included)... [facility] 11-13-2022 Miscellaneous Notes CD READY FOR [facility]COLLAR BAST[facility] AT [facility] [place] [facility] Pt has cd Patient would like her images from 11/10/2022 MRI. Peggy Tobin Pss documented in this encounter [facility] 11-10-2022 Note HNO ID: [id number] Author: RT Leona(R) Service: ? Author Type: [...] Porter RT(R) November 10, 2022 10:55 AM [facility] 11-08-2022 Note HNO ID: [id number] Author: Abdullahi Koehler, DO Service: ? Author [...] covid 19 infection previously Was seen by LURER and had procedure for Varicose veins and [...] after 3 day course- was seen by LURER Meenakshi Jiménez- was evaluated and still had [...] (SKIN CANCER) Father Heart Brother 55 fatal [place] Stroke Maternal Grandmother other (rheumatoid arthritis) Maternal [...] 30 days GLUCOSAMINE-CONDROIT (more content not included)... [facility] 11-08-2022 History of Present illness Narrative [...] covid 19 infection previously Was seen by LURER and had procedure for Varicose veins and [...] after 3 day course- was seen by LURER Meenakshi Jiménez- was evaluated and still had [...] (SKIN CANCER) Father Heart Brother 55 fatal [place] Stroke Maternal Grandmother other (rheumatoid arthritis) Maternal [...] affected area twice daily. For 30 days [id number] ORAL Take by mouth once daily. betamethasone valerate 0.1 % cream Apply to affected area twice daily as needed for exzema, don't use for more than 1 week in a row latanoprost (XALATAN) 0.005 % ophthalmic solution 1 Drop daily at bedtime. Allergies: ALLERGIES Allergen Reactions [facility] [Bal* Unknown Codeine Rash Fragrances Unknown Gluten Intolerance Lactose Intolerance Lanolin Rash Morphine Vomiting Neomycin Sulfate Unknown Nickel Rash Nickel Sulfate Unknown Ada Unknown Mildly positive to skin testing Seasonal [...] agreed with the plan. Abdullahi Koehler DO [address] [place] [address] documented in this encounter [facility] 10-10-2022 Miscellaneous Notes Spoke to patient and she said she would like to go to [place] for her MRI. 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 She still has pain in that area. Her school photographer said that she saw varicose veins as well. Physical exam reveals thrombosed varicosities indicating successful sclerotherapy result. Percutaneous needle aspiration was performed successfully. I told the patient that she was experiencing phlebitis from the previously injected varicosities. I aspirated a significant amount of liquefied thrombus. The veins decompressed completely. This will relieve her phlebitis. She will return as needed. documented in this encounter [facility] 10-02-2022 Note HNO ID: [id number] Author: Whitley Beck APRN.DIRECTOR BEHAVIORAL HEALTH Service: ? Author Type: Nurse Practitioner Type: [...] Total Time Spent: 12 minutes Whitley Beck APRN.[facility] 10-02-2022 History of Present illness Narrative AMBULATORY [...] Total Time Spent: 12 minutes Whitley Beck APRN.DIRECTOR BEHAVIORAL HEALTH documented in this encounter [facility] 10-02-2022 Instructions Whitley Beck APRN.CNP - 10/02/2022 12:44 PM EST Ice and heat as tolerated Activity as tolerated documented in this encounter [facility] 09-27-2022 Instructions Peggy Jiménez APRN.CNM [...] to clarivee probiotic. documented in this encounter [facility] 09-27-2022 History of Present illness Narrative Digitizer Operator offered: Patient declines. Ivette Murguia is a [...] L2 SAB0 IAB0 Ectopic0 Multiple0 Live Births0 Tower Helper History LMP: Postmenopausal Age at Menarche: Age at First : Age at Menopause: Tower Helper History Comments: Sexual Activity: Not Currently; Male [...] (SKIN CANCER) Father Heart Brother 55 fatal [place] Stroke Maternal Grandmother other (rheumatoid arthritis) Maternal [...] affected area twice daily. For 30 days [id number] ORAL Take by mouth once daily. betamethasone [...] of motion PELVIC: normal Bartholin's glands, urethra, Pascola's glands, no vulvar lesions, no cervical lesions, [...] cause an infection Lab Address: Ob/gynecology [address] [place] [id number] Dept: [phone] ASSESSMENT AND PLAN: 1. Yeast vaginitis - [...] Peggy Jiménez APRN.CNM documented in this encounter [facility] 09-21-2022 Miscellaneous Notes Spoke with patient following up from procedure. Patient states they are doing well, no questions or concerns at this time. Janet Gomez LPN documented in this encounter [facility] 09-20-2022 Miscellaneous Notes Noted, thank you. Colette Whittaker APRN.CNP patient called and is deciding not to move forward with testing due to the great amount of drive she has to come to have these test conducted and statesshe demetriand a GI facility closer to her house and doesnt want to reschedule. Lynette Marcelo [facility] Breath game technician / talk show host [phone] option #5 documented in this encounter [facility] 09-20-2022 Miscellaneous Notes Order placed. Colette Whittaker APRN.CNP Please file Nickel order documented in this encounter [facility] 09-19-2022 Miscellaneous Notes Patient notified and voiced understanding. The following approved medications have been transmitted electronically. Requested Prescriptions Signed Prescriptions Disp Refills fluconazole (DIFLUCAN) 150 mg tablet 3 tablet 0 Sig: Take one tablet by mouth once. Then repeat every 3 days for 3 doses. Authorizing Provider: PEGGY JIMÉNEZ Pharmacy Information Pharmacy Address Telephone [facility] [phone] [place] [phone] Marychuy Woodard RN Diflucan 150mg PO once [...] to know if you will call in [employer] [place] for her? Please advise. Maci Julian LPN documented in this encounter [facility] 09-19-2022 Note HNO ID: [id number] Author: Ann Parr MA Service: ? Author Type: Contract Consultant Type: Progress Notes Filed: 09/19/2022 11:09 AM [...] suicidal ideas. The patient is not nervous/anxious. [facility] 09-19-2022 Instructions Janet Gomez LPN - [...] care and why. documented in this encounter [facility] 09-19-2022 Nurse Note Order has [...] tablePatient s procedure was performed in an [facility] Procedure room. Pause completed at each level [...] allergies Procedure Start: 1042 Procedure End: 1053 Hand Ii Cutter's Name: Terell Are you on a blood [...] receive one? n documented in this encounter [facility] 09-19-2022 Note HNO ID: [id number] Author: Altagracia Hawthorne MD Service: ? Author Type: Physician Type: Progress Notes Filed: 09/19/2022 11:09 AM Note Text: [facility] Patient name: Ivette Murguia Date of : [...] or double vision) Respiratory: Negative (No Cough, Qlglxlhmv-st-lyscuf, Dyspnea on exertion, wheezing) Cardiovascular: Negative (No [...] (SKIN CANCER) Father Heart Brother 55 fatal [place] Stroke Maternal Grandmother other (rheumatoid arthritis) Maternal [...] Take 1 capsule by mouth once daily. [id number] ORAL Take by mouth once daily. omega-3/dha/epa/fish [...] of Breath. Spirom (more content not included)... [facility] 09-19-2022 History of Present illness Narrative [...] is not nervous/anxious. [facility] Patient name: Ivette Murguia Date of : [...] or double vision) Respiratory: Negative (No Cough, [place]-eb-weqrvo, Dyspnea on exertion, wheezing) Cardiovascular: Negative (No [...] (SKIN CANCER) Father Heart Brother 55 fatal [place] Stroke Maternal Grandmother other (rheumatoid arthritis) Maternal [...] Take 1 capsule by mouth once daily. [id number] ORAL Take by mouth once daily. omega-3/dha/epa/fish [...] to visit. ALLERGIES Allergen Reactions [facility] [Bal* Unknown Codeine Rash Fragrances Unknown Gluten Intolerance Lactose Intolerance Lanolin Rash Morphine Vomiting Neomycin Sulfate Unknown Nickel Rash Nickel Sulfate Unknown Ada Unknown Mildly positive to skin testing Seasonal [...] [place] [facility] documented in this encounter [facility] 09-18-2022 Miscellaneous Notes Patient called [...] for now.GRIFFIN Chao documented in this encounter [facility] 09-11-2022 History of Present illness Narrative CC: Ivette Murguia is a 77 year old female who presents to the office to establish care. HPI: Last seen in office 6 months ago, at that time on 03/13/22 Shoulder pain, improved symptoms, has seen Dr. Nunn Saw Dr. Yu Product Picker, was told to try high doses of [...] vaginal itching symptoms, seeing Meenakshi Jiménez in [facility] for care and using creams and avoiding [...] (SKIN CANCER) Father Heart Brother 55 fatal [place] Stroke Maternal Grandmother other (rheumatoid arthritis) Maternal [...] affected area twice daily. For 30 days [id number] ORAL Take by mouth once daily. betamethasone valerate 0.1 % cream Apply to affected area twice daily as needed for exzema, don't use for more than 1 week in a row latanoprost (XALATAN) 0.005 % ophthalmic solution 1 Drop daily at bedtime. Allergies: ALLERGIES Allergen Reactions [facility] [place] [Bal* Unknown Codeine Rash Fragrances Unknown Gluten Intolerance Lactose Intolerance Lanolin Rash Morphine Vomiting Neomycin Sulfate Unknown Nickel Rash Nickel Sulfate Unknown Ada Unknown Mildly positive to skin testing Seasonal [...] - ICD9: 698.1, ICD10: N89.8 F/u with [facility], stable, chronic 9. Lumbar spondylosis - ICD9: 721.3, ICD10: M47.816 - f/u with Dr. Hawthorne with pain mgmt for injection Abdullahi Koehler DO To ER if develops chest pain, shortness of breath, or severe worsening of symptoms. Discussed risks, benefits, alternatives, and potential side effects of medications. Patient expressed understanding and agreed with the plan. Abdullahi Koehler DO [address] [place] [address] documented in this encounter [facility] 09-04-2022 History of Present illness [...] for follow-up examination. documented in this encounter [facility] 08-21-2022 History of Present illness [...] L2 SAB0 IAB0 Ectopic0 Multiple0 Live Births0 [place] Hel[place] History LMP: Postmenopausal Age at Menarche: Age at First : Age at Menopause: Tower Helper History Comments: Sexual Activity: Not Currently; Male [...] (SKIN CANCER) Father Heart Brother 55 fatal [place] Stroke Maternal Grandmother other (rheumatoid arthritis) Maternal [...] affected area twice daily. For 30 days [id number] ORAL Take by mouth once daily. betamethasone [...] external genitalia normal, normal Bartholin's glands, urethra, Pascola's glands, no vulvar lesions, no cervical lesions, [...] Peggy Jiménez APRN.CNM documented in this encounter [facility] 08-17-2022 Note HNO ID: [id number] Author: Ivory Tompkins MA Service: ? Author Type: Contract Consultant Type: Progress Notes Filed: 08/17/2022 2:01 PM [...] suicidal ideas. The patient is not nervous/anxious. [facility] 08-17-2022 Miscellaneous Notes 1.Are you diabetic [...] vaccine.) Jennifer Ramirez documented in this encounter [facility] 08-17-2022 History of Present illness [...] not included. [facility] General Today's Date: 08/17/2022 Last Visit: 05/04/2022 [...] N/A Non-Opioid Pain Medications: Relafen 500mg BID Joop-auo-iyrgqqx (OTC) Pain Meds: Ibuprofen Compliance: PDMP website [...] and Relafen (Nabumetone) Opioids: Tramadol, Vicodin or [place] (Hydrocodone) and Percocet (Oxycodone) Muscle Relaxants: Flexeril (Cyclobenzaprine) and Zanaflex (Tizanidine) Topicals: OTC - no relief Other Prescription or OTC Pain Medications: none Anti-depressants: None Non-Pain Meds of Note: None Allergies: ALLERGIES Allergen Reactions [facility] [place] [Bal* Unknown Codeine Rash Fragrances Unknown Gluten Intolerance Lactose Intolerance Lanolin Rash Morphine Vomiting Neomycin Sulfate Unknown Nickel Rash Nickel Sulfate Unknown Ada Unknown Mildly positive to skin testing Seasonal [...] was advised that they will need a transit driver for after the procedure and that if no transit driver is available and on site at [...] Referrals: No additional considerations at present Functional Protestant: No changes-continue current regimen Depending on response [...] [facility] documented in this encounter [facility] 08-17-2022 Note HNO ID: [id number] Author: Altagracia Hawthorne MD Service: ? Author Type: Physician Type: Progress Notes Filed: 08/17/2022 2:01 PM Note Text: [facility] Today's Date: 08/17/2022 Last Visit: 05/04/2022 Name: [...] N/A Non-Opioid Pain Medications: Relafen 500mg BID Aqao-ylv-jkkovdp (OTC) Pain Meds: Ibuprofen Compliance: PDMP website [...] (for the chief (more content not included)... [facility] 07-11-2022 Miscellaneous Notes Patient notified. Estrella García RN Prescription sent for diflucan 150mg PO once daily every 3 days for 3 doses. Peggy Jiménez APRN.CNM Patient viewed her cultures on [employer]. Asking for treatment for +yeast. Estrella García RN documented in this encounter [facility] 07-10-2022 Instructions Peggy Jiménez APRN.CNM - 07/10/2022 11:12 AM EDT Gabapentin or amitriptyline compounded ointment documented in this encounter [facility] 07-10-2022 History of Present illness Narrative Digitizer Operator offered: Patient declines. Ivette Murguia is a [...] L2 SAB0 IAB0 Ectopic0 Multiple0 Live Births0 Tower Helper History LMP: Postmenopausal Age at Menarche: Age at First : Age at Menopause: Tower Helper History Comments: Sexual Activity: Not Currently; Male [...] (SKIN CANCER) Father Heart Brother 55 fatal [place] Stroke Maternal Grandmother other (rheumatoid arthritis) Maternal [...] days (Patient not taking: Reported on 07/03/2022) [id number] ORAL Take by mouth once daily. (Patient [...] external genitalia normal, normal Bartholin's glands, urethra, Pascola's glands, no vulvar lesions, no cervical lesions, [...] Peggy Jiménez APRN.CNM documented in this encounter [facility] 07-05-2022 Miscellaneous Notes A follow up phone call attempted and patient was unavailable at this time. If a voicemail box was available, a message for a return phone call was left if there were any questions or concerns related to a recent procedure that was performed at [facility]. This message did not include any HIPAA related information. documented in this encounter [facility] 07-03-2022 Note HNO ID: [id number] Author: Ivory Tompkins MA Service: ? Author Type: Contract Consultant Type: Progress Notes Filed: 07/03/2022 11:21 AM [...] suicidal ideas. The patient is not nervous/anxious. [facility] 07-03-2022 Instructions Janet Gomez LPN - [...] care and why. documented in this encounter [facility] 07-03-2022 Nurse Note Order has [...] tablePatient s procedure was performed in an [facility] Procedure room. Pause completed at each level [...] allergies Procedure Start: 105 Procedure End: 1059 Hand Ii Cutter: yes Terell Are you on a blood [...] Ivory Tompkins MA documented in this encounter [facility] 07-03-2022 History of Present illness [...] is not nervous/anxious. [facility] Patient name: Ivette Murguia Date of : [...] or double vision) Respiratory: Negative (No Cough, Eksmfedwh-zf-rkdrxk, Dyspnea on exertion, wheezing) Cardiovascular: Negative (No [...] (SKIN CANCER) Father Heart Brother 55 fatal [place] Stroke Maternal Grandmother other (rheumatoid arthritis) Maternal [...] Take 1 capsule by mouth once daily. [id number] ORAL Take by mouth once daily. omega-3/dha/epa/fish [...] file prior to visit. ALLERGIES Allergen Reactions [facility] [Bal* Unknown Codeine Rash Fragrances Unknown Gluten Intolerance Lactose Intolerance Lanolin Rash Morphine Vomiting Neomycin Sulfate Unknown Nickel Rash Nickel Sulfate Unknown Ada Unknown Mildly positive to skin testing Seasonal [...] the patient was discharged home with a transit driver Please see the nursing note for [...] [facility] documented in this encounter [facility] 07-03-2022 Note HNO ID: [id number] Author: Altagracia Hawthorne MD Service: ? Author Type: Physician Type: Progress Notes Filed: 07/03/2022 11:50 AM Note Text: [facility] Patient name: Ivette Murguia Date of : [...] or double vision) Respiratory: Negative (No Cough, Vwndxzhpe-eh-fgwadv, Dyspnea on exertion, wheezing) Cardiovascular: Negative (No [...] (SKIN CANCER) Father Heart Brother 55 fatal [place] Stroke Maternal Grandmother other (rheumatoid arthritis) Maternal [...] Take 1 capsule by mouth once daily. [id number] ORAL Take by mouth once daily. omega-3/dha/epa/fish [...] Bronchiectasis dorzolamide HCl (more content not included)... [facility] 06-14-2022 History of Present illness Narrative CC:Ivette Murguia is a 77 year old female who presents to the office for follow up HPI Seen in office on 03/13, at that time: Shoulder pain, improved symptoms, has seen Dr. Nunn Saw Dr. Yu Product Picker, was told to try high doses of [...] itching. Is going to discuss this with [facility] PAST MEDICAL HISTORY Diagnosis Date Arthritis Asymmetric [...] affected area twice daily. For 30 days [id number] ORAL Take by mouth once daily. betamethasone valerate 0.1 % cream Apply to affected area twice daily as needed for exzema, don't use for more than 1 week in a row latanoprost (XALATAN) 0.005 % ophthalmic solution 1 Drop daily at bedtime. No current facility-administered medications for this visit. ALLERGIES Allergen Reactions [facility] [Bal* Unknown Codeine Rash Fragrances Unknown Gluten Intolerance Lactose Intolerance Lanolin Rash Morphine Vomiting Neomycin Sulfate Unknown Nickel Rash Nickel Sulfate Unknown Ada Unknown Mildly positive to skin testing Seasonal [...] ICD9: 698.1, ICD10: N89.8 - f/u with [facility], states did improve with oral zinc supplement [...] See patient instructions. Abdullahi Koehler DO [address] [place] [address] documented in this encounter [facility] 05-23-2022 Instructions Peggy Jiménez APRN.ARNULFOM [...] salmon and sardines and vegetables, such as [place] cabbage, kale, and broccoli. Foods fortified with [...] acid, calcium carbonate is found in some xdhc-ymd-mfbfqeb antacid products, such as Tums and Rolaids [...] health screening schedule is recommended by the [employer] [employer] (ACOG). Some [...] treatments and other medications. There are many xyry-dyv-kvrvyfn products that are available to treat this [...] or moisturizer use. documented in this encounter [facility] 05-23-2022 History of Present illness [...] L2 SAB0 IAB0 Ectopic0 Multiple0 Live Births0 Tower Helper History LMP: Postmenopausal Age at Menarche: Age at First : Age at Menopause: Tower Helper History Comments: Sexual Activity: Not Currently; Male [...] (SKIN CANCER) Father Heart Brother 55 fatal [place] Stroke Maternal Grandmother other (rheumatoid arthritis) Maternal [...] external genitalia normal, normal Bartholin's glands, urethra, Pascola's glands, no vulvar lesions, no cervical lesions, [...] Peggy Jiménez APRN.CNM documented in this encounter [facility] 05-12-2022 Miscellaneous Notes Agree with below, thank you. Colette Whittaker APRN.CNP Patient reports she was exposed to covid on Sun. Sunday started symptoms: cough, fatigue, temp 98.1, sinus drainage, body aches, chills, pain in teeth and sinus. Went to [facility] on , and PCR covid test [...] days. Patient agreeable. documented in this encounter [facility] 05-08-2022 Miscellaneous Notes Patient called in and left a vm on the line about getting her injection scheduled. I called her back to schedule the injection but she was very upset about the [place] situation ( the cost of the injection ) she would not let me schedule her appt. She said she has to speak with [facility] first. I sent a message to [facility] for her to call and I let her know I already asked her the injection questions. documented in this encounter [facility] 05-08-2022 Miscellaneous Notes 1.Are you [...] vaccine.) Yamilet Brasher documented in this encounter [facility] 05-04-2022 Note HNO ID: [id number] Author: Chelle Panchal MA Service: ? Author Type: Contract Consultant Type: Progress Notes Filed: 05/04/2022 2:38 PM [...] suicidal ideas. The patient is not nervous/anxious. [facility] 05-04-2022 History of Present illness Narrative [...] 2022 2:54 PM documented in this encounter [facility] 05-04-2022 Miscellaneous Notes 1.Are you [...] vaccine.) Yamilet Brasher documented in this encounter [facility] 05-04-2022 Note HNO ID: [id number] Author: Altagracia Hawthorne MD Service: ? Author Type: Physician Type: Progress Notes Filed: 05/04/2022 2:38 PM Note Text: [facility] [place] [facility] Today's Date: 05/04/2022 Last Visit: N/A [...] FLACC Score Calculated - - Pain Assessment (RN/FLOORWORKER LASTING) - - Medications: CURRENT Pain Medications: - Opioid Pain Medications: None o Date last filled: N/A o Quantity filled: N/A o How many left: N/A o Time most recent dose taken: N/A - Non-Opioid Pain Medications: Relafen 500mg BID - Ghzu-jki-hijqxmm (OTC) Pain Meds: Ibuprofen Compliance: PDMP website [...] Relafen (Nabumetone) - Opioids: Tramadol, Vicodin or [place] (Hydrocodone) and Percocet (Oxycodone) - Muscle Relaxants: [...] Rash - Mor (more content not included)... [facility] 05-04-2022 History of Present illness Narrative [...] not included. [facility] Today's Date: 05/04/2022 Last Visit: N/A Name: [...] FLACC Score Calculated - - Pain Assessment (RN/FLOORWORKER LASTING) - - Medications: CURRENT Pain Medications: Opioid Pain Medications: None o Date last filled: N/A o Quantity filled: N/A o How many left: N/A o Time most recent dose taken: N/A Non-Opioid Pain Medications: Relafen 500mg BID Wtpz-ltj-bpwwedd (OTC) Pain Meds: Ibuprofen Compliance: PDMP website [...] and Relafen (Nabumetone) Opioids: Tramadol, Vicodin or [place] (Hydrocodone) and Percocet (Oxycodone) Muscle Relaxants: Flexeril (Cyclobenzaprine) and Zanaflex (Tizanidine) Topicals: OTC - no relief Other Prescription or OTC Pain Medications: none Anti-depressants: None Non-Pain Meds of Note: None Allergies: ALLERGIES Allergen Reactions [facility] [place] [Bal* Unknown Codeine Rash Fragrances Unknown Gluten Intolerance Lactose Intolerance Lanolin Rash Morphine Vomiting Neomycin Sulfate Unknown Nickel Rash Nickel Sulfate Unknown Ada Unknown Mildly positive to skin testing Seasonal [...] was advised that they will need a transit driver for after the procedure and that if no transit driver is available and on site at [...] Referrals: No additional considerations at present Functional Protestant: No changes-continue current regimen Depending on response [...] [facility] documented in this encounter [facility] 03-07-2022 Miscellaneous Notes opened in error documented in this encounter [facility] 02-24-2022 Instructions Ian Nunn V, DO - 02/24/2022 1:31 PM EDT Thank you for choosing the [facility] for your acute care needs. [...] physician or booking an appointment, please call [phone] or speak with any Patient Financial Services Auditor. Hours: Sunday through Sunday 7:30 am to 7:00 pm. Sunday and Sunday: 8:00 am to 2:30 pm. documented in this encounter [facility] 02-24-2022 History of Present illness [...] affected area twice daily. For 30 days [id number] ORAL Take by mouth once daily. albuterol [...] Lanolin, Morphine, Neomycin Sulfate, Nickel, Nickel Sulfate, Ada, and Seasonal Allergies HISTORIES: PAST MEDICAL HISTORY [...] her back. I recommend Dr. Hawthorne from [place] [facility] who comes here 1 day a week. Ian Nunn DO AMB ROOMING INTAKE FLOWSHEET DATA Risk Screening Do you have concerns about personal safety or safety in the home?: No documented in this encounter [facility] 02-14-2022 History of Present illness [...] 2022 10:04 AM documented in this encounter [facility] 02-14-2022 Miscellaneous Notes Orders placed Abdullahi Koehler DO documented in this encounter [facility] 01-12-2022 Miscellaneous Notes Noted. Melisa [...] Abdullahi Koehler DO documented in this encounter [facility] documented as of this encounter (statuses as of 01/12/2022) [facility] History of Past illness Narrative* Problem Noted Date Resolved Date 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 11/29/2021 Abnormal mammogram, unspecified 07/16/2013 08/24/2014 S/P prosthetic total arthroplasty of the hip 08/24/2014 Osteoarthritis 03/30/2011 08/24/2014 Left hip pain 11/14/2010 08/24/2014 documented as of this encounter (statuses as of 02/15/2022) [address]-2021 History of Past illness Narrative* Problem Noted Date Resolved Date 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 11/29/2021 Abnormal mammogram, unspecified 07/16/2013 08/24/2014 S/P prosthetic total arthroplasty of the hip 08/24/2014 Osteoarthritis 03/30/2011 08/24/2014 Left hip pain 11/14/2010 08/24/2014 documented as of this encounter (statuses as of 02/24/2022) [address]-2021 History of Past illness Narrative* Problem Noted Date Resolved Date 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 11/29/2021 Abnormal mammogram, unspecified 07/16/2013 08/24/2014 S/P prosthetic total arthroplasty of the hip 08/24/2014 Osteoarthritis 03/30/2011 08/24/2014 Left hip pain 11/14/2010 08/24/2014 documented as of this encounter (statuses as of 2022) [address]-2021 History of Past illness Narrative* Problem Noted Date Resolved Date 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 11/29/2021 Abnormal mammogram, unspecified 07/16/2013 08/24/2014 S/P prosthetic total arthroplasty of the hip 08/24/2014 Osteoarthritis 03/30/2011 08/24/2014 Left hip pain 11/14/2010 08/24/2014 documented as of this encounter (statuses as of 03/07/2022) [address]-2021 History of Past illness Narrative* Problem Noted Date Resolved Date 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 11/29/2021 Abnormal mammogram, unspecified 07/16/2013 08/24/2014 S/P prosthetic total arthroplasty of the hip 08/24/2014 Osteoarthritis 03/30/2011 08/24/2014 Left hip pain 11/14/2010 08/24/2014 documented as of this encounter (statuses as of 05/04/2022) [address]-2021 History of Past illness Narrative* Problem Noted Date Resolved Date 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 11/29/2021 Abnormal mammogram, unspecified 07/16/2013 08/24/2014 S/P prosthetic total arthroplasty of the hip 08/24/2014 Osteoarthritis 03/30/2011 08/24/2014 Left hip pain 11/14/2010 08/24/2014 documented as of this encounter (statuses as of 05/04/2022) [address]21 History of Past illness Narrative* Problem Noted Date Resolved Date 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 11/29/2021 Abnormal mammogram, unspecified 07/16/2013 08/24/2014 S/P prosthetic total arthroplasty of the hip 08/24/2014 Osteoarthritis 03/30/2011 08/24/2014 Left hip pain 11/14/2010 08/24/2014 documented as of this encounter (statuses as of 05/05/2022) [address]21 History of Past illness Narrative* Problem Noted Date Resolved Date 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 11/29/2021 Abnormal mammogram, unspecified 07/16/2013 08/24/2014 S/P prosthetic total arthroplasty of the hip 08/24/2014 Osteoarthritis 03/30/2011 08/24/2014 Left hip pain 11/14/2010 08/24/2014 documented as of this encounter (statuses as of 05/05/2022) [address]21 History of Past illness Narrative* Problem Noted Date Resolved Date 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 11/29/2021 Abnormal mammogram, unspecified 07/16/2013 08/24/2014 S/P prosthetic total arthroplasty of the hip 08/24/2014 Osteoarthritis 03/30/2011 08/24/2014 Left hip pain 11/14/2010 08/24/2014 documented as of this encounter (statuses as of 05/08/2022) [address]21 History of Past illness Narrative* Problem Noted Date Resolved Date 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 11/29/2021 Abnormal mammogram, unspecified 07/16/2013 08/24/2014 S/P prosthetic total arthroplasty of the hip 08/24/2014 Osteoarthritis 03/30/2011 08/24/2014 Left hip pain 11/14/2010 08/24/2014 documented as of this encounter (statuses as of 05/12/2022) [address]-2021 History of Past illness Narrative* Problem Noted Date Resolved Date 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 11/29/2021 Abnormal mammogram, unspecified 07/16/2013 08/24/2014 S/P prosthetic total arthroplasty of the hip 08/24/2014 Osteoarthritis 03/30/2011 08/24/2014 Left hip pain 11/14/2010 08/24/2014 documented as of this encounter (statuses as of 05/23/2022) [address]-2021 History of Past illness Narrative* Problem Noted Date Resolved Date 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 11/29/2021 Abnormal mammogram, unspecified 07/16/2013 08/24/2014 S/P prosthetic total arthroplasty of the hip 08/24/2014 Osteoarthritis 03/30/2011 08/24/2014 Left hip pain 11/14/2010 08/24/2014 documented as of this encounter (statuses as of 06/15/2022) [address]-2021 History of Past illness Narrative* Problem Noted Date Resolved Date 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 11/29/2021 Abnormal mammogram, unspecified 07/16/2013 08/24/2014 S/P prosthetic total arthroplasty of the hip 08/24/2014 Osteoarthritis 03/30/2011 08/24/2014 Left hip pain 11/14/2010 08/24/2014 documented as of this encounter (statuses as of 07/03/2022) [address]-2021 History of Past illness Narrative* Problem Noted Date Resolved Date 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 11/29/2021 Abnormal mammogram, unspecified 07/16/2013 08/24/2014 S/P prosthetic total arthroplasty of the hip 08/24/2014 Osteoarthritis 03/30/2011 08/24/2014 Left hip pain 11/14/2010 08/24/2014 documented as of this encounter (statuses as of 07/05/2022) [address] History of Past illness Narrative* Problem Noted Date Resolved Date 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 11/29/2021 Abnormal mammogram, unspecified 07/16/2013 08/24/2014 S/P prosthetic total arthroplasty of the hip 08/24/2014 Osteoarthritis 03/30/2011 08/24/2014 Left hip pain 11/14/2010 08/24/2014 documented as of this encounter (statuses as of 07/11/2022) [address]-2021 History of Past illness Narrative* Problem Noted Date Resolved Date 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 11/29/2021 Abnormal mammogram, unspecified 07/16/2013 08/24/2014 S/P prosthetic total arthroplasty of the hip 08/24/2014 Osteoarthritis 03/30/2011 08/24/2014 Left hip pain 11/14/2010 08/24/2014 documented as of this encounter (statuses as of 07/11/2022) [address]21 History of Past illness Narrative* Problem Noted Date Resolved Date 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 11/29/2021 Abnormal mammogram, unspecified 07/16/2013 08/24/2014 S/P prosthetic total arthroplasty of the hip 08/24/2014 Osteoarthritis 03/30/2011 08/24/2014 Left hip pain 11/14/2010 08/24/2014 documented as of this encounter (statuses as of 08/17/2022) [address]2021 History of Past illness Narrative* Problem Noted Date Resolved Date 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 11/29/2021 Abnormal mammogram, unspecified 07/16/2013 08/24/2014 S/P prosthetic total arthroplasty of the hip 08/24/2014 Osteoarthritis 03/30/2011 08/24/2014 Left hip pain 11/14/2010 08/24/2014 documented as of this encounter (statuses as of 08/17/2022) [address]21 History of Past illness Narrative* Problem Noted Date Resolved Date 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 11/29/2021 Abnormal mammogram, unspecified 07/16/2013 08/24/2014 S/P prosthetic total arthroplasty of the hip 08/24/2014 Osteoarthritis 03/30/2011 08/24/2014 Left hip pain 11/14/2010 08/24/2014 documented as of this encounter (statuses as of 08/21/2022) [address]30-[address]21 History of Past illness Narrative* Problem Noted Date Resolved Date 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 11/29/2021 Abnormal mammogram, unspecified 07/16/2013 08/24/2014 S/P prosthetic total arthroplasty of the hip 08/24/2014 Osteoarthritis 03/30/2011 08/24/2014 Left hip pain 11/14/2010 08/24/2014 documented as of this encounter (statuses as of 09/06/2022) [address]30-[address]21 History of Past illness Narrative* Problem Noted Date Resolved Date 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 11/29/2021 Abnormal mammogram, unspecified 07/16/2013 08/24/2014 S/P prosthetic total arthroplasty of the hip 08/24/2014 Osteoarthritis 03/30/2011 08/24/2014 Left hip pain 11/14/2010 08/24/2014 documented as of this encounter (statuses as of 09/12/2022) [address]30-[address]21 History of Past illness Narrative* Problem Noted Date Resolved Date 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 11/29/2021 Abnormal mammogram, unspecified 07/16/2013 08/24/2014 S/P prosthetic total arthroplasty of the hip 08/24/2014 Osteoarthritis 03/30/2011 08/24/2014 Left hip pain 11/14/2010 08/24/2014 documented as of this encounter (statuses as of 09/18/2022) [address]30-[address]21 History of Past illness Narrative* Problem Noted Date Resolved Date 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 11/29/2021 Abnormal mammogram, unspecified 07/16/2013 08/24/2014 S/P prosthetic total arthroplasty of the hip 08/24/2014 Osteoarthritis 03/30/2011 08/24/2014 Left hip pain 11/14/2010 08/24/2014 documented as of this encounter (statuses as of 09/19/2022) [address]30-[address]21 History of Past illness Narrative* Problem Noted Date Resolved Date 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 11/29/2021 Abnormal mammogram, unspecified 07/16/2013 08/24/2014 S/P prosthetic total arthroplasty of the hip 08/24/2014 Osteoarthritis 03/30/2011 08/24/2014 Left hip pain 11/14/2010 08/24/2014 documented as of this encounter (statuses as of 09/19/2022) [address]30-[address]21 History of Past illness Narrative* Problem Noted Date Resolved Date 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 11/29/2021 Abnormal mammogram, unspecified 07/16/2013 08/24/2014 S/P prosthetic total arthroplasty of the hip 08/24/2014 Osteoarthritis 03/30/2011 08/24/2014 Left hip pain 11/14/2010 08/24/2014 documented as of this encounter (statuses as of 09/20/2022) [address]30-[address]21 History of Past illness Narrative* Problem Noted Date Resolved Date 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 11/29/2021 Abnormal mammogram, unspecified 07/16/2013 08/24/2014 S/P prosthetic total arthroplasty of the hip 08/24/2014 Osteoarthritis 03/30/2011 08/24/2014 Left hip pain 11/14/2010 08/24/2014 documented as of this encounter (statuses as of 09/20/2022) [address]30-[address]21 History of Past illness Narrative* Problem Noted Date Resolved Date 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 11/29/2021 Abnormal mammogram, unspecified 07/16/2013 08/24/2014 S/P prosthetic total arthroplasty of the hip 08/24/2014 Osteoarthritis 03/30/2011 08/24/2014 Left hip pain 11/14/2010 08/24/2014 documented as of this encounter (statuses as of 09/21/2022) [address]30-[address]21 History of Past illness Narrative* Problem Noted Date Resolved Date 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 11/29/2021 Abnormal mammogram, unspecified 07/16/2013 08/24/2014 S/P prosthetic total arthroplasty of the hip 08/24/2014 Osteoarthritis 03/30/2011 08/24/2014 Left hip pain 11/14/2010 08/24/2014 documented as of this encounter (statuses as of 09/28/2022) [address]30-[address]21 History of Past illness Narrative* Problem Noted Date Resolved Date 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 11/29/2021 Abnormal mammogram, unspecified 07/16/2013 08/24/2014 S/P prosthetic total arthroplasty of the hip 08/24/2014 Osteoarthritis 03/30/2011 08/24/2014 Left hip pain 11/14/2010 08/24/2014 documented as of this encounter (statuses as of 10/09/2022) [address]30-[address]21 History of Past illness Narrative* Problem Noted Date Resolved Date 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 11/29/2021 Abnormal mammogram, unspecified 07/16/2013 08/24/2014 S/P prosthetic total arthroplasty of the hip 08/24/2014 Osteoarthritis 03/30/2011 08/24/2014 Left hip pain 11/14/2010 08/24/2014 documented as of this encounter (statuses as of 10/10/2022) [address]30-[address]21 History of Past illness Narrative* Problem Noted Date Resolved Date 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 11/29/2021 Abnormal mammogram, unspecified 07/16/2013 08/24/2014 S/P prosthetic total arthroplasty of the hip 08/24/2014 Osteoarthritis 03/30/2011 08/24/2014 Left hip pain 11/14/2010 08/24/2014 documented as of this encounter (statuses as of 10/10/2022) [address]30-[address]21 History of Past illness Narrative* Problem Noted Date Resolved Date 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 11/29/2021 Abnormal mammogram, unspecified 07/16/2013 08/24/2014 S/P prosthetic total arthroplasty of the hip 08/24/2014 Osteoarthritis 03/30/2011 08/24/2014 Left hip pain 11/14/2010 08/24/2014 documented as of this encounter (statuses as of 11/08/2022) [address]30-[address]21 History of Past illness Narrative* Problem Noted Date Resolved Date 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 11/29/2021 Abnormal mammogram, unspecified 07/16/2013 08/24/2014 S/P prosthetic total arthroplasty of the hip 08/24/2014 Osteoarthritis 03/30/2011 08/24/2014 Left hip pain 11/14/2010 08/24/2014 documented as of this encounter (statuses as of 11/14/2022) [address]30-[address]21 History of Past illness Narrative* Problem Noted Date Resolved Date 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 11/29/2021 Abnormal mammogram, unspecified 07/16/2013 08/24/2014 S/P prosthetic total arthroplasty of the hip 08/24/2014 Osteoarthritis 03/30/2011 08/24/2014 Left hip pain 11/14/2010 08/24/2014 documented as of this encounter (statuses as of 11/16/2022) [address]30-[address]21 History of Past illness Narrative* Problem Noted Date Resolved Date 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 11/29/2021 Abnormal mammogram, unspecified 07/16/2013 08/24/2014 S/P prosthetic total arthroplasty of the hip 08/24/2014 Osteoarthritis 03/30/2011 08/24/2014 Left hip pain 11/14/2010 08/24/2014 documented as of this encounter (statuses as of 11/17/2022) [address]30-[address]21 History of Past illness Narrative* Problem Noted Date Resolved Date 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 11/29/2021 Abnormal mammogram, unspecified 07/16/2013 08/24/2014 S/P prosthetic total arthroplasty of the hip 08/24/2014 Osteoarthritis 03/30/2011 08/24/2014 Left hip pain 11/14/2010 08/24/2014 documented as of this encounter (statuses as of 11/17/2022) [address]30-[address]21 History of Past illness Narrative* Problem Noted Date Resolved Date 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 11/29/2021 Abnormal mammogram, unspecified 07/16/2013 08/24/2014 S/P prosthetic total arthroplasty of the hip 08/24/2014 Osteoarthritis 03/30/2011 08/24/2014 Left hip pain 11/14/2010 08/24/2014 documented as of this encounter (statuses as of 12/03/2022) [address]30-[address]21 History of Past illness Narrative* Problem Noted Date Resolved Date 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 11/29/2021 Abnormal mammogram, unspecified 07/16/2013 08/24/2014 S/P prosthetic total arthroplasty of the hip 08/24/2014 Osteoarthritis 03/30/2011 08/24/2014 Left hip pain 11/14/2010 08/24/2014 documented as of this encounter (statuses as of 12/05/2022) [address]30-[address]21 History of Past illness Narrative* Problem Noted Date Resolved Date 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 11/29/2021 Abnormal mammogram, unspecified 07/16/2013 08/24/2014 S/P prosthetic total arthroplasty of the hip 08/24/2014 Osteoarthritis 03/30/2011 08/24/2014 Left hip pain 11/14/2010 08/24/2014 documented as of this encounter (statuses as of 12/19/2022) [address]30-[address]21 History of Past illness Narrative* Problem Noted Date Resolved Date 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 11/29/2021 Abnormal mammogram, unspecified 07/16/2013 08/24/2014 S/P prosthetic total arthroplasty of the hip 08/24/2014 Osteoarthritis 03/30/2011 08/24/2014 Left hip pain 11/14/2010 08/24/2014 documented as of this encounter (statuses as of 12/20/2022) [address]30-[address]21 History of Past illness Narrative* Problem Noted Date Resolved Date 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 11/29/2021 Abnormal mammogram, unspecified 07/16/2013 08/24/2014 S/P prosthetic total arthroplasty of the hip 08/24/2014 Osteoarthritis 03/30/2011 08/24/2014 Left hip pain 11/14/2010 08/24/2014 documented as of this encounter (statuses as of 12/20/2022) [address]30-[address]21 History of Past illness Narrative* Problem Noted Date Resolved Date 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 11/29/2021 Abnormal mammogram, unspecified 07/16/2013 08/24/2014 S/P prosthetic total arthroplasty of the hip 08/24/2014 Osteoarthritis 03/30/2011 08/24/2014 Left hip pain 11/14/2010 08/24/2014 documented as of this encounter (statuses as of 12/21/2022) [address]30-[address]21 History of Past illness Narrative* Problem Noted Date Resolved Date 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 11/29/2021 Abnormal mammogram, unspecified 07/16/2013 08/24/2014 S/P prosthetic total arthroplasty of the hip 08/24/2014 Osteoarthritis 03/30/2011 08/24/2014 Left hip pain 11/14/2010 08/24/2014 documented as of this encounter (statuses as of 12/21/2022) [address]30-[address]21 History of Past illness Narrative* Problem Noted Date Resolved Date 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 11/29/2021 Abnormal mammogram, unspecified 07/16/2013 08/24/2014 S/P prosthetic total arthroplasty of the hip 08/24/2014 Osteoarthritis 03/30/2011 08/24/2014 Left hip pain 11/14/2010 08/24/2014 documented as of this encounter (statuses as of 12/29/2022) [address]30-[address]21 History of Past illness Narrative* Problem Noted Date Resolved Date 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 11/29/2021 Abnormal mammogram, unspecified 07/16/2013 08/24/2014 S/P prosthetic total arthroplasty of the hip 08/24/2014 Osteoarthritis 03/30/2011 08/24/2014 Left hip pain 11/14/2010 08/24/2014 documented as of this encounter (statuses as of 01/03/2023) [address]30-[address]21 History of Past illness Narrative* Problem Noted Date Resolved Date 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 11/29/2021 Abnormal mammogram, unspecified 07/16/2013 08/24/2014 S/P prosthetic total arthroplasty of the hip 08/24/2014 Osteoarthritis 03/30/2011 08/24/2014 Left hip pain 11/14/2010 08/24/2014 documented as of this encounter (statuses as of 01/29/2023) [address]30-[address]21 History of Past illness Narrative* Problem Noted Date Resolved Date 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 11/29/2021 Abnormal mammogram, unspecified 07/16/2013 08/24/2014 S/P prosthetic total arthroplasty of the hip 08/24/2014 Osteoarthritis 03/30/2011 08/24/2014 Left hip pain 11/14/2010 08/24/2014 documented as of this encounter (statuses as of 02/15/2023) [address]30-[address]21 History of Past illness Narrative* Problem Noted Date Diagnosed Date Resolved Date 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 11/29/2021 Abnormal mammogram, unspecified 07/16/2013 08/24/2014 S/P prosthetic total arthroplasty of the hip 1 08/24/2014 Osteoarthritis 03/30/2011 08/24/2014 Left hip pain 11/14/2010 08/24/2014 documented as of this encounter (statuses as of 05/24/2023) [address]30-[address]21 History of Past illness Narrative* Problem Noted Date Diagnosed Date Resolved Date 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 11/29/2021 Abnormal mammogram, unspecified 07/16/2013 08/24/2014 S/P prosthetic total arthroplasty of the hip 1 08/24/2014 Osteoarthritis 03/30/2011 08/24/2014 Left hip pain 11/14/2010 08/24/2014 documented as of this encounter (statuses as of 06/07/2023) [address]30-[address]21 History of Past illness Narrative* Problem Noted Date Diagnosed Date Resolved Date 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 11/29/2021 Abnormal mammogram, unspecified 07/16/2013 08/24/2014 S/P prosthetic total arthroplasty of the hip 1 08/24/2014 Osteoarthritis 03/30/2011 08/24/2014 Left hip pain 11/14/2010 08/24/2014 documented as of this encounter (statuses as of 06/12/2023) [address]30-[address]21 History of Past illness Narrative* Problem Noted Date Diagnosed Date Resolved Date 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 11/29/2021 Abnormal mammogram, unspecified 07/16/2013 08/24/2014 S/P prosthetic total arthroplasty of the hip 1 08/24/2014 Osteoarthritis 03/30/2011 08/24/2014 Left hip pain 11/14/2010 08/24/2014 documented as of this encounter (statuses as of 06/16/2023) [address]30-[address]21 History of Past illness Narrative* Problem Noted Date Diagnosed Date Resolved Date 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 11/29/2021 Abnormal mammogram, unspecified 07/16/2013 08/24/2014 S/P prosthetic total arthroplasty of the hip 1 08/24/2014 Osteoarthritis 03/30/2011 08/24/2014 Left hip pain 11/14/2010 08/24/2014 documented as of this encounter (statuses as of 06/20/2023) [address]30-[address]21 History of Past illness Narrative* Problem Noted Date Diagnosed Date Resolved Date 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 11/29/2021 Abnormal mammogram, unspecified 07/16/2013 08/24/2014 S/P prosthetic total arthroplasty of the hip 1 08/24/2014 Osteoarthritis 03/30/2011 08/24/2014 Left hip pain 11/14/2010 08/24/2014 documented as of this encounter (statuses as of 06/27/2023) [address]30-[address]21 History of Past illness Narrative* Problem Noted Date Diagnosed Date Resolved Date 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 11/29/2021 Abnormal mammogram, unspecified 07/16/2013 08/24/2014 S/P prosthetic total arthroplasty of the hip 1 08/24/2014 Osteoarthritis 03/30/2011 08/24/2014 Left hip pain 11/14/2010 08/24/2014 documented as of this encounter (statuses as of 07/03/2023) [address]30-[address]21 History of Past illness Narrative* Problem Noted Date Diagnosed Date Resolved Date 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 11/29/2021 Abnormal mammogram, unspecified 07/16/2013 08/24/2014 S/P prosthetic total arthroplasty of the hip 1 08/24/2014 Osteoarthritis 03/30/2011 08/24/2014 Left hip pain 11/14/2010 08/24/2014 documented as of this encounter (statuses as of 09/12/2023) [facility] Acute pain of right shoulder Pain and swelling of right [facility] Calcific bursitis of shoulder- Primary Calcium deposits in tendon and bursa Arthritis of right acromioclavicular joint Unspecified arthropathy, shoulder region [facility] Diagnosis Acute pain of right shoulder- Primary Pain and swelling of right shoulder [facility] Diagnosis Cluneal neuropathy- Primary Lumbar spondylosis Lumbosacral spondylosis without myelopathy [facility] Diagnosis Lumbar spondylosis Lumbosacral spondylosis without myelopathy [facility] Cluneal neuropathy- Primary [facility] Diagnosis Encounter for gynecological examination (general) (routine) without abnormal findings- Primary Spongiotic dermatitis Contact dermatitis and other eczema, due to unspecified cause Vaginal atrophy Postmenopausal atrophic vaginitis Postmenopausal Asymptomatic postmenopausal status (age-related) (natural) [facility] Diagnosis Lumbar spondylosis- Primary Lumbosacral spondylosis without myelopathy RLS (restless legs syndrome) Restless legs syndrome (RLS) Vaginal itching Pruritus of genital organs Fatigue, unspecified type Hypothyroidism, unspecified type History of COVID-19 Brain fog [facility] Cluneal neuropathy- Primary [facility] Diagnosis Vaginal discharge- Primary Leukorrhea, not specified as infective Vulvar burning Unspecified symptom associated with female genital organs Vaginal atrophy Postmenopausal atrophic vaginitis [facility] Diagnosis Cluneal neuropathy- Primary Lumbar spondylosis Lumbosacral spondylosis without myelopathy [facility] Diagnosis Vulvar burning- Primary Unspecified symptom associated with female genital organs Vaginal atrophy Postmenopausal atrophic vaginitis Vulvar varicose veins Vulval varices [facility] Diagnosis 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 [facility] Diagnosis Leg cramping- Primary Cramp of limb Hypothyroidism, unspecified type Multiple joint pain Pain in joint, multiple sites Pruritic disorder Unspecified pruritic disorder Fatigue, unspecified type Paresthesia Disturbance of skin sensation Nausea Nausea alone Vaginal itching Pruritus of genital organs Lumbar spondylosis Lumbosacral spondylosis without myelopathy [facility] Diagnosis Cluneal neuropathy- Primary [facility] Diagnosis Leg cramping- Primary Cramp of limb Nausea Nausea alone Paresthesia Disturbance of skin sensation [facility] Diagnosis Yeast vaginitis- Primary Candidiasis of vulva and vagina Vulvar burning Unspecified symptom associated with female genital organs [facility] Diagnosis 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 [facility] Diagnosis Cluneal neuropathy- Primary Spinal stenosis of lumbar region with neurogenic claudication Spinal stenosis, lumbar region, with neurogenic claudication [facility] Diagnosis Varicose veins of both [...] spondylosis without myelopathy [facility] Diagnosis Lumbar spondylosis- Primary Lumbosacral spondylosis without myelopathy Spinal stenosis of lumbar region with neurogenic claudication Spinal stenosis, lumbar region, with neurogenic claudication [facility] Diagnosis Lumbar spondylosis- Primary Lumbosacral spondylosis without myelopathy Multiple joint pain Pain in joint, multiple sites [facility] Diagnosis Vaginal discharge- Primary Leukorrhea, not specified as infective Vaginal itching Pruritus of genital organs [facility] Diagnosis Bacterial vaginosis- Primary Vaginitis and vulvovaginitis, unspecified [facility] Diagnosis Dysuria- Primary [facility] Diagnosis Dysuria- Primary Vaginal burning Other specified symptom associated with female genital organs Vaginal odor Unspecified symptom associated with female genital organs Bacterial vaginitis Vaginitis and vulvovaginitis, unspecified Vaginal atrophy Postmenopausal atrophic vaginitis Urethral caruncle documented in this encounter [facility]* Diagnosis Paresthesia of right foot- Primary Disturbance of skin sensation documented in this encounter [facility] note* Diagnosis Lumbar spondylosis Lumbosacral spondylosis without myelopathy documented in this encounter [facility] note* Diagnosis Vertigo- Primary Dizziness and giddiness Balance disorder Other symptoms involving nervous and musculoskeletal systems Gait disorder Abnormality of gait documented in this encounter [facility] note* Diagnosis Vertigo- Primary Dizziness and giddiness Balance disorder Other symptoms involving nervous and musculoskeletal systems Gait disorder Abnormality of gait documented in this encounter [facility] note* Diagnosis Vertigo- Primary Dizziness and giddiness Balance disorder Other symptoms involving nervous and musculoskeletal systems Gait disorder Abnormality of gait documented in this encounter [facility] note* Diagnosis Hypothyroidism, unspecified type- Primary Dizziness Dizziness and giddiness Nausea Nausea alone Underweight Gastroesophageal reflux disease with esophagitis without hemorrhage Fatigue, unspecified type Multiple joint pain Pain in joint, multiple sites Vaginal itching Pruritus of genital organs documented in this encounter [facility] for referral (narrative)* Diagnostic Procedure Only (Routine) - Closed Specialty Diagnoses / Procedures Referred By Contac t Referred To Contact XR IMAGING Diagnoses Acute pain of right shoulder Pain and swelling of right shoulder Procedures XR SHOULDER GENERAL 3V OR MORE AP/TRUE AP/OTHER RIGHT RADEX SHOULDER COMPLETE MINIMUM 2 VIEWS Abdullahi Koehler DO [address] [place] [address] Xr Imaging Referral ID Status Reason Start Date Expiration Date V isits Requested Visits Authorized [id number] Closed Auto-Generate d Referral 02/14/2022 03/16/2023 1 1 [facility] for referral (narrative)* Diagnostic Procedure Only (Routine) - Closed Specialty Diagnoses / Procedures Referred By Contac t Referred To Contact XR IMAGING Diagnoses Acute pain of right shoulder Pain and swelling of right shoulder Procedures XR SHOULDER GENERAL 3V OR MORE AP/TRUE AP/OTHER RIGHT RADEX SHOULDER COMPLETE MINIMUM 2 VIEWS Abdullahi Koehler, DO [address] [place] [address] Xr Imaging Referral ID Status Reason Start Date Expiration Date V isits Requested Visits Authorized [id number] Closed Auto-Generate d Referral 02/14/2022 03/16/2023 1 1 [facility] for referral (narrative)* Diagnostic Procedure Only (Routine) - Closed Specialty Diagnoses / Procedures Referred By Contac t Referred To Contact XR IMAGING Diagnoses Lumbar spondylosis Procedures XR LUMBAR MOTION 4V AP/LAT/ FLEX/EXT RADEX SPINE LUMBOSACRAL MINIMUM 4 VIEWS Altagracia Hawthorne MD [address] [place] [address] Xr Imaging Referral ID Status Reason Start Date Expiration Date V isits Requested Visits Authorized [id number] Closed Auto-Generate d Referral 05/04/2022 06/03/2023 1 1 [facility] for referral (narrative)* Diagnostic Procedure Only (Routine) - Closed Specialty Diagnoses / Procedures Referred By Contac t Referred To Contact XR IMAGING Diagnoses Lumbar spondylosis Procedures XR LUMBAR MOTION 4V AP/LAT/ FLEX/EXT RADEX SPINE LUMBOSACRAL MINIMUM 4 VIEWS Altagracia Hawthorne MD [address] [place] [address] Xr Imaging Referral ID Status Reason Start Date Expiration Date V isits Requested Visits Authorized [id number] Closed Auto-Generate d Referral 05/04/2022 06/03/2023 1 1 [facility] for visit Narrative* Diagnostic Procedure Only (Routine) - Closed Specialty Diagnoses / Procedures Referred By Contac t Referred To Contact XR IMAGING Diagnoses Acute pain of right shoulder Pain and swelling of right shoulder Procedures XR SHOULDER GENERAL 3V OR MORE AP/TRUE AP/OTHER RIGHT RADEX SHOULDER COMPLETE MINIMUM 2 VIEWS Abdullahi Koehler, DO [address] [place] [address] Xr Imaging Referral ID Status Reason Start Date Expiration Date V isits Requested Visits Authorized [id number] Closed Auto-Generate d Referral 02/14/2022 03/16/2023 1 1 [facility] Diagnostic Procedure Only (Routine) - Closed Specialty Diagnoses / Procedures Referred By Contac t Referred To Contact XR IMAGING Diagnoses Lumbar spondylosis Procedures XR LUMBAR MOTION 4V AP/LAT/ FLEX/EXT RADEX SPINE LUMBOSACRAL MINIMUM 4 VIEWS Altagracia Hawthorne MD [address] [place] [id number] Xr Imaging Referral ID Status Reason Start Date Expiration Date V isits Requested Visits Authorized [id number] Closed Auto-Generate d Referral 05/04/2022 06/03/2023 1 1 [facility] Summary Purpose Family History No Family History Records FoundNo Family History Records FoundNo Family History Records FoundNo Family History Records Found Advance Directives No Advanced Directives Records FoundDocuments on File Type Date 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 Advance Directive(s) 03/03/2019 11:19 AM Documents on File Type Date 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 Advance Directive(s) 03/03/2019 11:19 AM Medications Administered Section Inactive Administered Medications - up to 3 most recent administrations Medication Order MAR Action Action Date Dose Rate Site bupivacaine(PF) 0.75 % (7.5 mg/mL) 22.5 mg injection (MARCAINE PF) 22.5 mg (3 mL), OTHER, ONCE, 1 dose, On Sun07/03/22 at 1100 Given by [facility] 07/03/2022 11:45 AM EDT 22.5 mg iohexol 300 mg IV injection (OMNIPAQUE 300) 300 mg, OTHER, ONCE, 1 dose, On Sun07/03/22 at 1100 Given by [facility] 07/03/2022 11:45 AM EDT 300 mg lidocaine (PF) 10 mg/mL (1 %) 50 mg injection (XYLOCAINE) 50 mg (5 mL), OTHER, ONCE, 1 dose, On Sun07/03/22 at 1100 Given by [facility] 07/03/2022 11:46 AM EDT 50 mg methylPREDNISolone acetate 40 mg injection (DEPO-Medrol) 40 mg, OTHER, ONCE, 1 dose, On Sun07/03/22 at 1100 Given by [facility] 07/03/2022 11:46 AM EDT 40 mg Inactive Administered Medications - up to 3 most recent administrations Medication Order MAR Action Action Date Dose Rate Site 0.9% NaCl 10 mL flush 10 mL, INTRAVENOUS, ONCE, 1 dose, On Sun09/19/22 at 1100, Add To Bag After All Drug Is In The Tubing Given by [facility] 09/19/2022 11:14 AM EST 10 mL lidocaine (PF) 20 mg/mL (2 %) 200 mg injection (XYLOCAINE) 200 mg (10 mL), OTHER, ONCE, 1 dose, On Sun09/19/22 at 1100 Given by [facility] 09/19/2022 11:14 AM EST 200 mg methylPREDNISolone acetate 40 mg injection (DEPO-Medrol) 40 mg, OTHER, ONCE, 1 dose, On Sun09/19/22 at 1100 Given by [facility] 09/19/2022 11:14 AM EST 40 mg Reason for Referral Specialty Diagnoses / Procedures Referred By Contac t Referred To Contact Diagnoses Leg cramping Multiple joint pain Pruritic disorder Fatigue, unspecified type Paresthesia Nausea Procedures CONSULT TO FUNCTIONAL MEDICINE OFFICE/OUTPATIENT [facility] 60-74 MINUTES Abdullahi Koehler, DO [address] [place] [address] Referral ID Status Reason Start Date Expiration Date Visits Requested Visits Authorized [id number] Authorized PCP Requested Referral 2 09/11/2023 1 1 Specialty Diagnoses / Procedures Referred By Contac t Referred To Contact MR IMAGING Diagnoses Spinal stenosis of lumbar region with neurogenic claudication Procedures MRI LUMBAR SPINE WO IVCON MRI SPINAL CANAL LUMBAR W/O CONTRAST MATERIAL Whitley Beck, DIRECTOR [employer]POR[employer] SALES.DIRECTOR BEHAVIORAL HEALTH [address] [place] [address] Mr Imaging Referral ID Status Reason Start Date Expiration Date Visits Requested Visits Authorized [id number] Authorized Auto-Generat ed Referral 2 11/09/2023 1 1 Specialty Diagnoses / Procedures Referred By Contac t Referred To Contact Gastroenterology Diagnoses Nausea Screening for colon cancer Procedures CONSULT TO GASTROENTEROLOGY OFFICE/OUTPATIENT [facility] 60-74 MINUTES Abdullahi Koehler DO [address] [place] [address] Referral ID Status Reason Start Date Expiration Date Visits Requested Visits Authorized [id number] Authorized PCP Requested Referral 11/08/2022 11/08/2023 1 1 Specialty Diagnoses / Procedures Referred By Contac t Referred To Contact Vascular Surgery Diagnoses Varicose veins of both lower extremities with pain Procedures CONSULT TO VASCULAR SURGERY OFFICE/OUTPATIENT [facility] 60-74 MINUTES Abdullahi Koehler, DO [address] [place] [address] Referral ID Status Reason Start Date Expiration Date Visits Requested Visits Authorized [id number] Authorized PCP Requested Referral 11/08/2022 11/08/2023 1 1 Specialty Diagnoses / Procedures Referred By Contac t Referred To Contact [facility] Diagnoses Lumbar spondylosis Multiple joint pain Procedures CONSULT TO PAIN MGT OFFICE/OUTPATIENT [facility] 60-74 MINUTES Melisa Gaines APRN.DIRECTOR BEHAVIORAL HEALTH [address] [place] [address] An[facility] [address] [place] [address] Referral ID Status Reason Start Date Expiration Date V isits Requested Visits Authorized [id number] Closed PCP Requested Referral 11/17/2022 11/17/2023 1 1 Specialty Diagnoses / Procedures Referred By Contac t Referred To Contact Neurology Diagnoses Paresthesia of right foot Procedures CONSULT TO NEUROLOGY OFFICE/OUTPATIENT [facility] 60-74 MINUTES Abdullahi Koehler, DO [address] [place] [address] Referral ID Status Reason Start Date Expiration Date Visits Requested Visits Authorized [id number] Authorized PCP Requested Referral 06/05/2023 06/04/2024 1 1 Additional Source Comments INFORMATION SOURCE (unrecogn ized section and content) DATE CREATED AUTHOR AUTHOR'S ORGANIZ ATION [facility]20[facility] DATE CREATED AUTHOR AUTHOR'S ORGANIZ ATION 11/17/2022 [facility] DATE CREATED AUTHOR AUTHOR'S ORGANIZ ATION 11/02/2023 [facility] Source Comments (unrecognize d section and content) In the event this informatio n is protected by the Federal Confidentiality of Alcohol and Drug Abuse Patient Records regulations: The Federal rules restrict any use of the information to criminally investigate or prosecute any alcohol or drug abuse patient.[facility] the event this information is protected by the Federal Confidentiality of Alcohol and Drug Abuse Patient Records regulations: The Federal rules restrict any use of the information to criminally investigate or prosecute any alcohol or drug abuse patient.[facility] CenterIn the event this information is protected by the Federal Confidentiality of Alcohol and Drug Abuse Patient Records regulations: The Federal rules restrict any use of the information to criminally investigate or prosecute any alcohol or drug abuse patient.[facility] CenterIn the event this information is protected by the Federal Confidentiality of Alcohol and Drug Abuse Patient Records regulations: The Federal rules restrict any use of the information to criminally investigate or prosecute any alcohol or drug abuse patient.[facility] CenterIn the event this information is protected by the Federal Confidentiality of Alcohol and Drug Abuse Patient Records regulations: The Federal rules restrict any use of the information to criminally investigate or prosecute any alcohol or drug abuse patient.[facility] CenterIn the event this information is protected by the Federal Confidentiality of Alcohol and Drug Abuse Patient Records regulations: The Federal rules restrict any use of the information to criminally investigate or prosecute any alcohol or drug abuse patient.[facility] CenterIn the event this information is protected by the Federal Confidentiality of Alcohol and Drug Abuse Patient Records regulations: The Federal rules restrict any use of the information to criminally investigate or prosecute any alcohol or drug abuse patient.[facility] CenterIn the event this information is protected by the Federal Confidentiality of Alcohol and Drug Abuse Patient Records regulations: The Federal rules restrict any use of the information to criminally investigate or prosecute any alcohol or drug abuse patient.[facility] CenterIn the event this information is protected by the Federal Confidentiality of Alcohol and Drug Abuse Patient Records regulations: The Federal rules restrict any use of the information to criminally investigate or prosecute any alcohol or drug abuse patient.[facility] CenterIn the event this information is protected by the Federal Confidentiality of Alcohol and Drug Abuse Patient Records regulations: The Federal rules restrict any use of the information to criminally investigate or prosecute any alcohol or drug abuse patient.[facility] CenterIn the event this information is protected by the Federal Confidentiality of Alcohol and Drug Abuse Patient Records regulations: The Federal rules restrict any use of the information to criminally investigate or prosecute any alcohol or drug abuse patient.[facility] CenterIn the event this information is protected by the Federal Confidentiality of Alcohol and Drug Abuse Patient Records regulations: The Federal rules restrict any use of the information to criminally investigate or prosecute any alcohol or drug abuse patient.[facility] CenterIn the event this information is protected by the Federal Confidentiality of Alcohol and Drug Abuse Patient Records regulations: The Federal rules restrict any use of the information to criminally investigate or prosecute any alcohol or drug abuse patient.[facility] CenterIn the event this information is protected by the Federal Confidentiality of Alcohol and Drug Abuse Patient Records regulations: The Federal rules restrict any use of the information to criminally investigate or prosecute any alcohol or drug abuse patient.[facility] CenterIn the event this information is protected by the Federal Confidentiality of Alcohol and Drug Abuse Patient Records regulations: The Federal rules restrict any use of the information to criminally investigate or prosecute any alcohol or drug abuse patient.[facility] CenterIn the event this information is protected by the Federal Confidentiality of Alcohol and Drug Abuse Patient Records regulations: The Federal rules restrict any use of the information to criminally investigate or prosecute any alcohol or drug abuse patient.[facility] CenterIn the event this information is protected by the Federal Confidentiality of Alcohol and Drug Abuse Patient Records regulations: The Federal rules restrict any use of the information to criminally investigate or prosecute any alcohol or drug abuse patient.[facility] CenterIn the event this information is protected by the Federal Confidentiality of Alcohol and Drug Abuse Patient Records regulations: The Federal rules restrict any use of the information to criminally investigate or prosecute any alcohol or drug abuse patient.[facility] CenterIn the event this information is protected by the Federal Confidentiality of Alcohol and Drug Abuse Patient Records regulations: The Federal rules restrict any use of the information to criminally investigate or prosecute any alcohol or drug abuse patient.[facility] CenterIn the event this information is protected by the Federal Confidentiality of Alcohol and Drug Abuse Patient Records regulations: The Federal rules restrict any use of the information to criminally investigate or prosecute any alcohol or drug abuse patient.[facility] CenterIn the event this information is protected by the Federal Confidentiality of Alcohol and Drug Abuse Patient Records regulations: The Federal rules restrict any use of the information to criminally investigate or prosecute any alcohol or drug abuse patient.[facility] CenterIn the event this information is protected by the Federal Confidentiality of Alcohol and Drug Abuse Patient Records regulations: The Federal rules restrict any use of the information to criminally investigate or prosecute any alcohol or drug abuse patient.[facility] CenterIn the event this information is protected by the Federal Confidentiality of Alcohol and Drug Abuse Patient Records regulations: The Federal rules restrict any use of the information to criminally investigate or prosecute any alcohol or drug abuse patient.[facility] CenterIn the event this information is protected by the Federal Confidentiality of Alcohol and Drug Abuse Patient Records regulations: The Federal rules restrict any use of the information to criminally investigate or prosecute any alcohol or drug abuse patient.[facility] CenterIn the event this information is protected by the Federal Confidentiality of Alcohol and Drug Abuse Patient Records regulations: The Federal rules restrict any use of the information to criminally investigate or prosecute any alcohol or drug abuse patient.[facility] CenterIn the event this information is protected by the Federal Confidentiality of Alcohol and Drug Abuse Patient Records regulations: The Federal rules restrict any use of the information to criminally investigate or prosecute any alcohol or drug abuse patient.[facility] CenterIn the event this information is protected by the Federal Confidentiality of Alcohol and Drug Abuse Patient Records regulations: The Federal rules restrict any use of the information to criminally investigate or prosecute any alcohol or drug abuse patient.[facility] CenterIn the event this information is protected by the Federal Confidentiality of Alcohol and Drug Abuse Patient Records regulations: The Federal rules restrict any use of the information to criminally investigate or prosecute any alcohol or drug abuse patient.[facility] CenterIn the event this information is protected by the Federal Confidentiality of Alcohol and Drug Abuse Patient Records regulations: The Federal rules restrict any use of the information to criminally investigate or prosecute any alcohol or drug abuse patient.[facility] CenterIn the event this information is protected by the Federal Confidentiality of Alcohol and Drug Abuse Patient Records regulations: The Federal rules restrict any use of the information to criminally investigate or prosecute any alcohol or drug abuse patient.[facility] CenterIn the event this information is protected by the Federal Confidentiality of Alcohol and Drug Abuse Patient Records regulations: The Federal rules restrict any use of the information to criminally investigate or prosecute any alcohol or drug abuse patient.[facility] CenterIn the event this information is protected by the Federal Confidentiality of Alcohol and Drug Abuse Patient Records regulations: The Federal rules restrict any use of the information to criminally investigate or prosecute any alcohol or drug abuse patient.[facility] CenterIn the event this information is protected by the Federal Confidentiality of Alcohol and Drug Abuse Patient Records regulations: The Federal rules restrict any use of the information to criminally investigate or prosecute any alcohol or drug abuse patient.[facility] CenterIn the event this information is protected by the Federal Confidentiality of Alcohol and Drug Abuse Patient Records regulations: The Federal rules restrict any use of the information to criminally investigate or prosecute any alcohol or drug abuse patient.[facility] CenterIn the event this information is protected by the Federal Confidentiality of Alcohol and Drug Abuse Patient Records regulations: The Federal rules restrict any use of the information to criminally investigate or prosecute any alcohol or drug abuse patient.[facility] CenterIn the event this information is protected by the Federal Confidentiality of Alcohol and Drug Abuse Patient Records regulations: The Federal rules restrict any use of the information to criminally investigate or prosecute any alcohol or drug abuse patient.[facility] CenterIn the event this information is protected by the Federal Confidentiality of Alcohol and Drug Abuse Patient Records regulations: The Federal rules restrict any use of the information to criminally investigate or prosecute any alcohol or drug abuse patient.[facility] CenterIn the event this information is protected by the Federal Confidentiality of Alcohol and Drug Abuse Patient Records regulations: The Federal rules restrict any use of the information to criminally investigate or prosecute any alcohol or drug abuse patient.[facility] CenterIn the event this information is protected by the Federal Confidentiality of Alcohol and Drug Abuse Patient Records regulations: The Federal rules restrict any use of the information to criminally investigate or prosecute any alcohol or drug abuse patient.[facility] CenterIn the event this information is protected by the Federal Confidentiality of Alcohol and Drug Abuse Patient Records regulations: The Federal rules restrict any use of the information to criminally investigate or prosecute any alcohol or drug abuse patient.[facility] CenterIn the event this information is protected by the Federal Confidentiality of Alcohol and Drug Abuse Patient Records regulations: The Federal rules restrict any use of the information to criminally investigate or prosecute any alcohol or drug abuse patient.[facility] CenterIn the event this information is protected by the Federal Confidentiality of Alcohol and Drug Abuse Patient Records regulations: The Federal rules restrict any use of the information to criminally investigate or prosecute any alcohol or drug abuse patient.[facility] CenterIn the event this information is protected by the Federal Confidentiality of Alcohol and Drug Abuse Patient Records regulations: The Federal rules restrict any use of the information to criminally investigate or prosecute any alcohol or drug abuse patient.[facility] CenterIn the event this information is protected by the Federal Confidentiality of Alcohol and Drug Abuse Patient Records regulations: The Federal rules restrict any use of the information to criminally investigate or prosecute any alcohol or drug abuse patient.[facility] CenterIn the event this information is protected by the Federal Confidentiality of Alcohol and Drug Abuse Patient Records regulations: The Federal rules restrict any use of the information to criminally investigate or prosecute any alcohol or drug abuse patient.[facility] CenterIn the event this information is protected by the Federal Confidentiality of Alcohol and Drug Abuse Patient Records regulations: The Federal rules restrict any use of the information to criminally investigate or prosecute any alcohol or drug abuse patient.[facility] CenterIn the event this information is protected by the Federal Confidentiality of Alcohol and Drug Abuse Patient Records regulations: The Federal rules restrict any use of the information to criminally investigate or prosecute any alcohol or drug abuse patient.[facility] CenterIn the event this information is protected by the Federal Confidentiality of Alcohol and Drug Abuse Patient Records regulations: The Federal rules restrict any use of the information to criminally investigate or prosecute any alcohol or drug abuse patient.[facility] CenterIn the event this information is protected by the Federal Confidentiality of Alcohol and Drug Abuse Patient Records regulations: The Federal rules restrict any use of the information to criminally investigate or prosecute any alcohol or drug abuse patient.[facility] CenterIn the event this information is protected by the Federal Confidentiality of Alcohol and Drug Abuse Patient Records regulations: The Federal rules restrict any use of the information to criminally investigate or prosecute any alcohol or drug abuse patient.[facility] CenterIn the event this information is protected by the Federal Confidentiality of Alcohol and Drug Abuse Patient Records regulations: The Federal rules restrict any use of the information to criminally investigate or prosecute any alcohol or drug abuse patient.[facility] CenterIn the event this information is protected by the Federal Confidentiality of Alcohol and Drug Abuse Patient Records regulations: The Federal rules restrict any use of the information to criminally investigate or prosecute any alcohol or drug abuse patient.[facility] CenterIn the event this information is protected by the Federal Confidentiality of Alcohol and Drug Abuse Patient Records regulations: The Federal rules restrict any use of the information to criminally investigate or prosecute any alcohol or drug abuse patient.[facility] CenterIn the event this information is protected by the Federal Confidentiality of Alcohol and Drug Abuse Patient Records regulations: The Federal rules restrict any use of the information to criminally investigate or prosecute any alcohol or drug abuse patient.[facility] CenterIn the event this information is protected by the Federal Confidentiality of Alcohol and Drug Abuse Patient Records regulations: The Federal rules restrict any use of the information to criminally investigate or prosecute any alcohol or drug abuse patient.[facility] CenterIn the event this information is protected by the Federal Confidentiality of Alcohol and Drug Abuse Patient Records regulations: The Federal rules restrict any use of the information to criminally investigate or prosecute any alcohol or drug abuse patient.[facility] CenterIn the event this information is protected by the Federal Confidentiality of Alcohol and Drug Abuse Patient Records regulations: The Federal rules restrict any use of the information to criminally investigate or prosecute any alcohol or drug abuse patient.[facility] Reason for Visit (unrecogniz ed [...] COMPLEX 45 MINS Abdullahi Koehler, DO [address] [place] [address] [facility] [address] [place] [address] Referral ID Status Reason Start Date Expiration Date Visits Requested Visits Authorized [id number] Authorized PCP Requested Referral Auto-Generate d Referral 05/21/2023 05/20/2024 99 99 Reason Comments PT Progress Note Specialty Diagnoses / Procedures Referred By Contac t Referred To Contact Physical Therapy / PHYSICAL THERAPY Diagnoses DIZZINESS Procedures EST RS PT VESTIBULAR Self O'Peggy Austin, PT Referral ID Status Reason Start Date Expiration Date V isits Requested Visits Authorized [id number] Authorized 10/22/2022 10/21/2023 99 99 Care Teams (unrecognized sec tion and content) Busgirl Relationship Specialty Start Date End Date Abdullahi Koehler DO [address] [place], [place] [address] PCP - General Family Practice 08/02/16 Busgirl Relationship Specialty Start Date End Date Abdullahi Koehler DO [address] [place], [place] [id number] PCP - General Family Practice 08/02/16 Busgirl Relationship Specialty Start Date End Date Abdullahi Koehler DO [address] [place] [address] PCP - General Family Practice 08/02/16 Busgirl Relationship Specialty Start Date End Date Abdullahi Koehler, DO [address] [place] [address] PCP - General Family Practice 08/02/16 Busgirl Relationship Specialty Start Date End Date Abdullahi Koehler, DO [address] [place] [address] PCP - General Family Practice 08/02/16 Busgirl Relationship Specialty Start Date End Date Abdullahi Koehler, DO [address] [place] [address] PCP - General Family Practice 08/02/16 Busgirl Relationship Specialty Start Date End Date Abdullahi Koehler, DO [address] [place] [address] PCP - General Family Practice 08/02/16 Busgirl Relationship Specialty Start Date End Date Abdullahi Koehler, DO [address] [place] [address] PCP - General Family Practice 08/02/16 Busgirl Relationship Specialty Start Date End Date Abdullahi Koehler, DO [address] [place] [address] PCP - General Family Practice 08/02/16 Busgirl Relationship Specialty Start Date End Date Abdullahi Koehler, DO [address] [place] [address] PCP - General Family Practice 08/02/16 Busgirl Relationship Specialty Start Date End Date Abdullahi Koehler, DO [address] [place] [address] PCP - General Family Practice 08/02/16 Busgirl Relationship Specialty Start Date End Date Abdullahi Koehler, DO [address] [place] [address] PCP - General Family Medicine 08/02/16 Busgirl Relationship Specialty Start Date End Date Abdullahi Koehler, DO [address] [place] [address] PCP - General Family Medicine 08/02/16 Busgirl Relationship Specialty Start Date End Date Abdullahi Koehler, DO [address] [place] [address] PCP - General Family Medicine 08/02/16 Busgirl Relationship Specialty Start Date End Date Abdullahi Koehler, DO [address] [place] [address] PCP - General Family Medicine 08/02/16 Busgirl Relationship Specialty Start Date End Date Abdullahi Koehler, DO [address] [place] [address] PCP - General Family Medicine 08/02/16 Busgirl Relationship Specialty Start Date End Date Abdullahi Koehler, DO [address] [place] [address] PCP - General Family Medicine 08/02/16 Busgirl Relationship Specialty Start Date End Date Abdullahi Koehler, DO [address] [place] [address] PCP - General Family Medicine 08/02/16 Busgirl Relationship Specialty Start Date End Date Abdullahi Koehler, DO [address] [place] [address] PCP - General Family Medicine 08/02/16 Busgirl Relationship Specialty Start Date End Date Abdullahi Koehler, DO [address] [place] [address] PCP - General Family Medicine 08/02/16 Busgirl Relationship Specialty Start Date End Date Abdullahi Koehler, DO [address] [place] [address] PCP - General Family Medicine 08/02/16 Busgirl Relationship Specialty Start Date End Date Abdullahi Koehler, DO [address] [place] [address] PCP - General Family Medicine 08/02/16 Busgirl Relationship Specialty Start Date End Date Abdullahi Koehler, DO [address] [place] [address] PCP - General Family Medicine 08/02/16 Busgirl Relationship Specialty Start Date End Date Abdullahi Koehler, DO [address] [place] [address] PCP - General Family Medicine 08/02/16 Busgirl Relationship Specialty Start Date End Date Abdullahi Koehler, DO [address] [place] [address] PCP - General Family Medicine 08/02/16 Busgirl Relationship Specialty Start Date End Date Abdullahi Koehler, DO [address] [place] [address] PCP - General Family Medicine 08/02/16 Busgirl Relationship Specialty Start Date End Date Abdullahi Koehler, DO [address] [place] [address] PCP - General Family Medicine 08/02/16 Busgirl Relationship Specialty Start Date End Date Abdullahi Koehler, DO [address] [place] [address] PCP - General Family Medicine 08/02/16 Busgirl Relationship Specialty Start Date End Date Abdullahi Koehler DO [address] [place] [address] PCP - General Family Medicine 08/02/16 Busgirl Relationship Specialty Start Date End Date Abdullahi Koehler DO [address] [facility] [place] [address] PCP - General Family Medicine 08/02/16 Busgirl Relationship Specialty Start Date End Date Abdullahi Koehler DO [address] [facility] [place] [address] PCP - General Family Medicine 08/02/16 Busgirl Relationship Specialty Start Date End Date Abdullahi Koehler DO [address] [facility] [place] [address] PCP - General Family Medicine 08/02/16 Busgirl Relationship Specialty Start Date End Date Abdullahi Koehler DO [address] [facility] [place] [address] PCP - General Family Medicine 08/02/16 Busgirl Relationship Specialty Start Date End Date Abdullahi Koehler DO [address] [place] [address] PCP - General Family Medicine 08/02/16 FOR [...] BE BASED ON THE PRIMARY CLINICAL RECORDS. [employer] [facility]. provides no warranty or guarantee of the accuracy or completeness of information in this document.
== END | disposition home or self-care (01) ==
LOC: MRI 10:46
PROVIDERS: PCP Student in an Organized Health Care Education/Training Program; Referring Provider Psychiatry & Neurology Neurology; Visit Provider Psychiatry & Neurology Neurology
DX: G31.84 Mild cognitive impairment of uncertain or unknown etiology (principal); R26.9 Unspecified abnormalities of gait and mobility
CPT/HCPCS: 70551

== ENCOUNTER → 2024-01-09 | Outpatient (CLI) | payer MEDICARE, OTHER, SELFPAY ==
--- NOTE | 2024-01-09 14:14 | NEURO ---
NCS and/or EMG Patient Report Ordering Doctor: Catracho Ochoa DATE OF SERVICE: 01/09/24 Ivette presents for electrodiagnostic testing of the upper limbs. She reports numbness tingling and sharp pain in both hands. She also reports ongoing neck pain. Electrodiagnostic findings right median motor nerve demonstrates normal distal latency, amplitude and conduction velocity. Left median motor nerve demonstrates normal distal latency, amplitude and conduction velocity. Normal ulnar motor response bilaterally, including conduction across the elbow. Normal median and ulnar F?waves. Sensory responses are within normal limits. The patient refused needle EMG testing due to concerns of possible allergy. Electrodiagnostic impression: This is a normal, though limited study of the upper limbs. There is no electrodiagnostic evidence for peripheral neuropathy, including carpal tunnel or cubital tunnel syndrome. An assessment cannot be made regarding cervical radiculopathy as the patient refused needle EMG testing. Multi Select Codes Neurology Neurology Interp Codes: 49904-37 Nrv cndj test 13/> studies (interp)
--- NOTE | 2024-01-09 15:03 | CPS ---
pt declined emg needle testing d/t nickel allergy, unsure if needles contain this substance.
== END | disposition home or self-care (01) ==
LOC: PSN 12:03
PROVIDERS: PCP Student in an Organized Health Care Education/Training Program; Referring Provider Psychiatry & Neurology Neurology; Visit Provider Psychiatry & Neurology Neurology
DX: R20.2 Paresthesia of skin (principal); M54.2 Cervicalgia
CPT/HCPCS: 95913

== ENCOUNTER → 2024-01-23 | Outpatient (CLI) | payer MEDICARE, OTHER, SELFPAY ==
--- NOTE | 2024-01-23 14:26 | NEURO ---
NCS and/or EMG Patient Report Ordering Doctor: Catarcho Ochoa DATE OF SERVICE: 01/23/24 Ivette presents electrodiagnostic testing of the lower limbs. She reports intermittent numbness in the legs and feet. She reports ongoing lower back pain. Electrodiagnostic findings: Right peroneal motor nerve demonstrates normal distal latency, amplitude and conduction velocity. No significant drop in conduction across the fibular head. Left peroneal motor nerve demonstrates normal distal latency, amplitude and conduction velocity. There is no significant drop of conduction across the fibular head. Tibial motor responses within normal limits bilaterally. Normal tibial and peroneal F?waves. H reflex within normal limits bilaterally. There is a mildly prolonged right sural latency. Normal left sural response. Normal superficial peroneal response bilaterally. The patient refused needle EMG testing due to concern of possible allergy. Electrodiagnostic impression: This is an abnormal, though limited study of the lower limbs 1. 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 2. There is no electrodiagnostic evidence for peripheral polyneuropathy. 3. No assessment can be made regarding lumbosacral radiculopathy as needle EMG testing was not performed. Multi Select Codes Neurology Neurology Interp Codes: 97314-80 Nrv cndj test 9-10 studies (interp)
== END | disposition home or self-care (01) ==
LOC: PSN 12:24
PROVIDERS: PCP Student in an Organized Health Care Education/Training Program; Referring Provider Psychiatry & Neurology Neurology; Visit Provider Psychiatry & Neurology Neurology
DX: R20.2 Paresthesia of skin (principal); R29.898 Other symptoms and signs involving the musculoskeletal system; M54.50 Low back pain, unspecified
CPT/HCPCS: 95911

== ENCOUNTER → 2024-04-01 | Outpatient (CLI) | payer MEDICARE, OTHER, SELFPAY | END | disposition home or self-care (01) | LOC: LABSPEC 15:19 | PROVIDERS: PCP Student in an Organized Health Care Education/Training Program; Referring Provider Obstetrics & Gynecology; Visit Provider Obstetrics & Gynecology | DX: R10.2 Pelvic and perineal pain (principal); N89.8 Other specified noninflammatory disorders of vagina | CPT/HCPCS: 87070; 87086; 87205 ==

== ENCOUNTER → 2024-04-28 | Outpatient (CLI) | payer MEDICARE, OTHER, SELFPAY | END | disposition home or self-care (01) | PROVIDERS: PCP Student in an Organized Health Care Education/Training Program; Visit Provider Nurse Practitioner Family | DX: N89.8 Other specified noninflammatory disorders of vagina (principal); R30.0 Dysuria | CPT/HCPCS: 87070; 87086; 87088; 87205 ==

== ENCOUNTER → 2025-04-09 | Outpatient (CLI) | payer MEDICARE, OTHER, SELFPAY | END | disposition home or self-care (01) | LOC: LABSPEC 13:52 | PROVIDERS: PCP Student in an Organized Health Care Education/Training Program; Referring Provider Nurse Practitioner Family; Visit Provider Nurse Practitioner Family | DX: R30.0 Dysuria (principal); N89.8 Other specified noninflammatory disorders of vagina | CPT/HCPCS: 87070; 87086; 87088; 87205 ==